=== PATIENT | female | born 1950 | race Caucasian/White ===

== ENCOUNTER → 2023-05-13 | Outpatient (CLI) | payer MEDICARE ==
[2023-05-13 15:09] LABS: African American GFR (CKD) >90 (>60 ml/min/1.73 sqM); Blood Urea Nitrogen 20 mg/dL (7-17); Non-African American GFR(CKD) >90 (>60 ml/min/1.73 sqM)
--- NOTE | 2023-05-13 16:54 | CT ---
EXAMINATION TYPE: CT ChestAbdPelvis w con CT DLP: 2925.9 mGycm, Automated exposure control for dose reduction was used. DATE OF EXAM: 05/13/2023 4:33 PM COMPARISON: . Chest radiograph 03/09/2023 CLINICAL INDICATION:Female, 72 years old with history of C50.112; [facility], Follow up for left sided breas t CA. R/O mets Technique: Multiple axial images of the chest, abdomen, and pelvis were obtained following the intrav enous administration of 100 mL Isovue-300. Oral contrast was a tree and shrub technician. Two-dimensional coronal and sagittal reconstructions were obtained. Findings: CHEST: Limited examination due to patient's body habitus. LUNGS/ PLEURA: Bibasilar dependent subsequent atelectasis and/or scarring. No pleural effusion or pne umothorax. No focal consolidation. No suspicious pulmonary nodule or mass. AIRWAY: Patent and unremarkable.. HEART: Cardiomegaly is demonstrated. Trace pericardial effusion. MEDIASTINUM: No pathologically enlarged mediastinal or hilar lymph nodes. VASCULATURE: No aortic aneurysm. Right chest wall IJ Mediport with distal tip of the catheter termin ating at the superior cavoatrial junction. MUSCULOSKELETAL: No acute osseous abnormalities. Mild multilevel degenerative disc disease. No aggres sive osseous lesion. SOFT TISSUES/LYMPH NODES: Bilateral breast implants demonstrated with breast surgical clips identifie d. There are dystrophic calcification more pronounced involving the left breast prosthesis. No pathol ogically enlarged axillary lymph nodes bilaterally. LOWER NECK: No significant findings. ABDOMEN: ABDOMEN LIVER: Unremarkable GALLBLADDER AND BILE DUCTS: The gallbladder is surgically absent. No biliary ductal dilatation. PANCREAS: Unremarkable. SPLEEN: Unremarkable. ADRENAL GLANDS: Unremarkable. KIDNEYS AND URETERS: No evidence of hydronephrosis or renal calculus. The kidneys enhance symmetrical ly. Contrast is associated within both collecting systems on the delayed phase. Exophytic left renal cyst measuring up to 1.6 cm. PELVIS BLADDER: Unremarkable REPRODUCTIVE: The uterus is surgically absent. ABDOMEN & PELVIS STOMACH AND BOWEL: Stomach appears unremarkable. Diverticulum involving the third portion of the duod enum. Enteric contrast reaches the mid small bowel. Pancolonic diverticulosis without evidence for ac muscogee diverticulitis. The appendix is within normal limits. No evidence of bowel obstruction. PERITONEUM: No evidence of pneumoperitoneum or free fluid. VASCULATURE: No evidence of aortic aneurysm. MUSCULOSKELETAL: No acute osseous abnormalities . Postsurgical changes from left proximal femur fixat ion. This creates streak artifact which limits evaluation. Mild multilevel degenerative disc disease. No aggressive osseous lesion. LYMPH NODES: No evidence for lymphadenopathy. SOFT TISSUE/ABDOMINAL WALL: Unremarkable IMPRESSION: 1. No CT evidence for metastatic disease within the chest, abdomen or pelvis. 2. Colonic diverticulosis without evidence for acute diverticulitis.
== END | disposition home or self-care (01) ==
LOC: RADCTMAIN 14:20
PROVIDERS: ATTEND Internal Medicine Hematology & Oncology
DX: C50.112 Malignant neoplasm of central portion of left female breast (principal); K57.30 Diverticulosis of large intestine without perforation or abscess without bleeding
CPT/HCPCS: 82565; 84520; 71260; 74177; 36415; Q9967

== ENCOUNTER 2023-08-28 10:27 | Inpatient (IN) | payer MEDICARE ==
--- NOTE | 2023-08-28 11:05 | ED ---
General Adult HPI - General Chief complaint: Shortness of Breath Stated complaint: Water Retention Time Seen by Provider: 08/28/23 10:55 Source: patient, family, RN notes reviewed, old records reviewed Mode of arrival: wheelchair Limitations: no limitations - History of Present Illness Initial comments: 73 -year-old female history of congestive heart failure and recent coronavirus presenting with increased dyspnea and weight gain. Patient states she's gained 13 pounds in the last 1 week. She is currently on 20 mg of Lasix daily. She has noted watery retention in both legs. She's had some mild chest discomfort without central chest pain. No measured fever. - Related Data Allergies Allergy/AdvReac Type Severity Reaction Status Date / Time acetaminophen [From [place]] Allergy Hallucinati Verified 08/28/23 10:41 ons hydrocodone [From [place]] Allergy Hallucinati Verified 08/28/23 10:41 ons Sulfa (Sulfonamide Allergy Rash/Hives Verified 08/28/23 10:41 Antibiotics) Review of Systems ROS Statement: Those systems with pertinent positive or pertinent negative responses have been documented in the HPI. ROS Other: All systems not noted in ROS Statement are negative. Past Medical History Past Medical History: Atrial Fibrillation, Asthma, Cancer, Chest Pain / Angina, Heart Failure, COPD, Osteoarthritis (OA), Pneumonia, Thyroid Disorder Additional Past Medical History / Comment(s): covid History of Any Multi-Drug Resistant Organisms: None Reported Past Surgical History: Cholecystectomy Additional Past Surgical History / Comment(s): bilat mastectomy Smoking Status: Never smoker Past Alcohol Use History: None Reported Past Drug Use History: None Reported General Exam Limitations: no limitations General appearance: alert, in no apparent distress Head exam: Present: atraumatic, normocephalic Eye exam: Present: normal appearance, PERRL ENT exam: Present: normal exam Neck exam: Present: normal inspection. Absent: tenderness, meningismus Respiratory exam: Present: rales, decreased breath sounds. Absent: respiratory distress Cardiovascular Exam: Present: regular rate, normal rhythm GI/Abdominal exam: Present: soft. Absent: distended, tenderness, guarding Extremities exam: Present: pedal edema Neurological exam: Present: alert, oriented X3, CN II-XII intact. Absent: motor sensory deficit Psychiatric exam: Present: normal affect, normal mood Skin exam: Present: warm, dry, intact. Absent: cyanosis, diaphoretic Course Vital Signs 08/28/23 08/28/23 10:36 12:00 Temperature 98.1 F Pulse Rate 77 80 Respiratory 24 20 Rate Blood Pressure 110/60 116/62 O2 Sat by Pulse 93 L 93 L Oximetry Medical Decision Making - Medical Decision Making Was pt. sent in by a medical professional or institution (, [facility], HADOOP CONSULTANT, urgent care, hospital, or [facility]...) When possible be specific @ -No Did you speak to anyone other than the patient for history (EMS, parent, family, police, friend...)? What history was obtained from this source @ -No Did you review nursing and triage notes (agree or disagree)? Why? @ -I reviewed and agree with nursing and triage notes Were old charts reviewed (outside hosp., previous admission, EMS record, old EKG, old radiological studies, urgent care reports/EKG's, [facility] records)? Report findings @ -No old charts were reviewed Differential Diagnosis (chest pain, altered mental status, abdominal pain women, abdominal pain men, vaginal bleeding, weakness, fever, dyspnea, syncope, headache, dizziness, GI bleed, back pain, seizure, CVA, palpatations, mental health, musculoskeletal)? @ -[Differential Dyspnea: Coronary syndrome, arrhythmia, tamponade, asthma, COPD, pulmonary embolism, pneumonia, pneumothorax, pulmonary effusion, anaphylaxis, diabetic ketoacidosis, flailed chest, pulmonary contusion, diaphragmatic rupture, anemia, neuromuscular, this is not meant to be an all-inclusive list. EKG interpreted by me (3pts min.). @ -[Sinus rhythm with first-degree AV block, rate is 75, RI interval 248, QRS duration 105, QTC 45, no ST segment elevation. X-rays interpreted by me (1pt min.). @ -Cardiomegaly, no meghna pulmonary edema, no pneumothorax CT interpreted by me (1pt min.). @ -None done U/S interpreted by me (1pt. min.). @ -None done What testing was considered but not performed or refused? (CT, X-rays, U/S, labs)? Why? @ -None What meds were considered but not given or refused? Why? @ -None Did you discuss the management of the patient with other professionals (professionals i.e. Dr., PA, HADOOP CONSULTANT, lab, RT, psych nurse, social sciences department chair, indigo mixer, teacher, tourist information officer, family service caseworker)? Give summary @ -Case discussed with Dr. Cha Was smoking cessation discussed for >3mins.? @ -No Was critical care preformed (if so, how long)? @ -No Were there social determinants of health that impacted care today? How? (Homelessness, low income, unemployed, alcoholism, drug addiction, transportation, low edu. Level, literacy, decrease access to med. care, fci, rehab)? @ -No Was there de-escalation of care discussed even if they declined (Discuss DNR or withdrawal of care, Hospice)? DNR status @ -No What co-morbidities impacted this encounter? (DM, HTN, Smoking, COPD, CAD, Cancer, CVA, ARF, Chemo, Hep., AIDS, mental health diagnosis, sleep apnea, mo rbid obesity)? @ -[CHF, hypoventilatory syndrome Was patient admitted / discharged? Hospital course, mention meds given and route, prescriptions, significant lab abnormalities, going to OR and other pertinent info. @ 73-year-old female with dyspnea and weight gain. Patient does appear edematous, with peripheral edema. She has had negative BNP and a negative troponin. She has a mild anemia with no baseline for comparison. Normal electrolytes, elevated bicarb which is likely related to chronic CO2 retention. Patient will be admitted for IV diuresis. Undiagnosed new problem with uncertain prognosis? @ -No Drug Therapy requiring intensive monitoring for toxicity (Heparin, Nitro, Insulin, Cardizem)? @ -No Were any procedures done? @ -No Diagnosis/symptom? @ -[Fluid overload, Acute, or Chronic, or Acute on Chronic? @ -Acute on chronic Uncomplicated (without systemic symptoms) or Complicated (systemic symptoms)? @ -default Side effects of treatment? @ -No Exacerbation, Progression, or Severe Exacerbation? @ -No Poses a threat to life or bodily function? How? (Chest pain, [place], NH, pneumonia, PE, COPD, DKA, ARF, appy, cholecystitis, CVA, Diverticulitis, Homicidal, Suicidal, threat to staff... and all critical care pts) @ -Yes, fluid overload, CHF - Lab Data Result diagrams: 08/28/23 11:08 08/28/23 11:08 Lab Results 08/28/23 08/28/2308/28/23 Range/Units 11:08 11:08 11:08 WBC 8.9 (3.8-10.6) k/uL RBC 3.19 L (3.80-5.40) m/uL Hgb 10.2 L (11.4-16.0) gm/dL Hct 31.6 L (34.0-46.0) % MCV 99.2 (80.0-100.0) fL MCH 32.1 (25.0-35.0) pg MCHC 32.3 (31.0-37.0) g/dL RDW 13.8 (11.5-15.5) % Plt Count 211 (150-450) k/uL MPV 8.8 Neutrophils % 72 % Lymphocytes % 14 % Monocytes % 9 % Eosinophils % 3 % Basophils % 0 % Neutrophils # 6.4 (1.3-7.7) k/uL Lymphocytes # 1.3 (1.0-4.8) k/uL Monocytes # 0.8 (0-1.0) k/uL Eosinophils # 0.3 (0-0.7) k/uL Basophils # 0.0 (0-0.2) k/uL PT 9.6 (9.0-12.0) sec INR 0.9 (<1.2) APTT 24.3 (22.0-30.0) sec Sodium 143 (137-145) mmol/L Potassium 3.9 (3.5-5.1) mmol/L Chloride 97 L (98-107) mmol/L Carbon Dioxide 37 H (22-30) mmol/L Anion Gap 9 mmol/L BUN 19 H (7-17) mg/dL Creatinine 0.64 (0.52-1.04) mg/dL Est GFR (CKD-EPI)AfAm >90 (>60 ml/min/1.73 sqM) Est GFR (CKD-EPI)NonAf 90 (>60 ml/min/1.73 sqM) Glucose 131 H (74-99) mg/dL Calcium 9.3 (8.4-10.2) mg/dL Magnesium 1.6 (1.6-2.3) mg/dL Total Bilirubin 0.3 (0.2-1.3) mg/dL AST 26 (14-36) U/L ALT 26 (4-34) U/L Alkaline Phosphatase 119 (38-126) U/L Troponin I (0.000-0.034) ng/mL NT-Pro-B Natriuret Pep 117 pg/mL Total Protein 6.4 (6.3-8.2) g/dL Albumin 3.3 L (3.5-5.0) g/dL 08/28/23 Range/Units 11:08 WBC (3.8-10.6) k/uL RBC (3.80-5.40) m/uL Hgb (11.4-16.0) gm/dL Hct (34.0-46.0) % MCV (80.0-100.0) fL MCH (25.0-35.0) pg MCHC (31.0-37.0) g/dL RDW (11.5-15.5) % Plt Count (150-450) k/uL MPV Neutrophils % % Lymphocytes % % Monocytes % % Eosinophils % % Basophils % % Neutrophils # (1.3-7.7) k/uL Lymphocytes # (1.0-4.8) k/uL Monocytes # (0-1.0) k/uL Eosinophils # (0-0.7) k/uL Basophils # (0-0.2) k/uL PT (9.0-12.0) sec INR (<1.2) APTT (22.0-30.0) sec Sodium (137-145) mmol/L Potassium (3.5-5.1) mmol/L Chloride (98-107) mmol/L Carbon Dioxide (22-30) mmol/L Anion Gap mmol/L BUN (7-17) mg/dL Creatinine (0.52-1.04) mg/dL Est GFR (CKD-EPI)AfAm (>60 ml/min/1.73 sqM) Est GFR (CKD-EPI)NonAf (>60 ml/min/1.73 sqM) Glucose (74-99) mg/dL Calcium (8.4-10.2) mg/dL Magnesium (1.6-2.3) mg/dL Total Bilirubin (0.2-1.3) mg/dL AST (14-36) U/L ALT (4-34) U/L Alkaline Phosphatase (38-126) U/L Troponin I <0.012 (0.000-0.034) ng/mL NT-Pro-B Natriuret Pep pg/mL Total Protein (6.3-8.2) g/dL Albumin (3.5-5.0) g/dL Disposition Clinical Impression: Congestive heart failure, Fluid overload Disposition: ADMITTED IP TO THIS HOSP Condition: Stable Is patient prescribed a controlled substance at d/c from ED?: No Referrals: Lawrence Sullivan MD [Primary Care Provider] - 1-2 days Time of Disposition: 13:22
--- NOTE | 2023-08-28 12:01 | XR ---
EXAMINATION TYPE: XR chest 2V DATE OF EXAM: 08/28/2023 COMPARISON: 03/09/2023 HISTORY: Shortness of breath TECHNIQUE: Frontal and lateral views of the chest are obtained. Exam is limited by the patient's bod y habitus and poor inspiration FINDINGS: Poor inspiration and body habitus limits evaluation of the left lung base. The possibility of a pneum onic infiltrate or atelectasis. To be less likely but not entirely excluded. The right lung is grossl y clear. There is no pneumothorax. There is no pulmonary vascular congestion. IMPRESSION: Limited study as described above. Cannot exclude atelectasis or infiltrate in the left frank ng base although felt to be unlikely.. If clinically indicated, PA and lateral view the chest recomme nded for further evaluation.
[2023-08-28 12:21] LABS: Basophils % (A) 0 %; Eosinophils # (A) 0.3 k/uL (0-0.7); Eosinophils % (A) 3 %; HCT 31.6 % (34.0-46.0); HGB 10.2 gm/dL (11.4-16.0); Lymphocytes # (A) 1.3 k/uL (1.0-4.8); Lymphocytes % (A) 14 %; MCH 32.1 pg (25.0-35.0); MCHC 32.3 g/dL (31.0-37.0); MCV 99.2 fL (80.0-100.0); Mean Platelet Volume 8.8; Monocytes # (A) 0.8 k/uL (0-1.0); Monocytes % (A) 9 %; Neutrophils # (A) 6.4 k/uL (1.3-7.7); Neutrophils % (A) 72 %; Platelet Count 211 k/uL (150-450); RBC 3.19 m/uL (3.80-5.40); RDW 13.8 % (11.5-15.5); WBC 8.9 k/uL (3.8-10.6)
[2023-08-28 12:38] LABS: INR 0.9 (<1.2); Partial Thromboplastin Time 24.3 sec (22.0-30.0); Prothrombin Time 9.6 sec (9.0-12.0)
[2023-08-28 12:42] LABS: AST 26 U/L (14-36); African American GFR (CKD) >90 (>60 ml/min/1.73 sqM); Albumin 3.3 g/dL (3.5-5.0); Alkaline Phosphatase 119 U/L (38-126); Anion Gap 9 mmol/L; Blood Urea Nitrogen 19 mg/dL (7-17); Calcium 9.3 mg/dL (8.4-10.2); Carbon Dioxide 37 mmol/L (22-30); Chloride 97 mmol/L (98-107); Glucose 131 mg/dL (74-99); Non-African American GFR(CKD) 90 (>60 ml/min/1.73 sqM); Potassium 3.9 mmol/L (3.5-5.1); Sodium 143 mmol/L (137-145); Total Bilirubin 0.3 mg/dL (0.2-1.3); Total Protein 6.4 g/dL (6.3-8.2)
[2023-08-28 12:43] LABS: ALT 26 U/L (4-34); Magnesium 1.6 mg/dL (1.6-2.3)
[2023-08-28 12:50] LABS: NT-Pro-B-Type Natriuretic Pept 117 pg/mL
[2023-08-28] MEDS ORDERED: FUROSEMIDE 10 MG/ML 4 ML VIAL IV STA (12:58)
[2023-08-28] MEDS ORDERED: NALOXONE 0.4 MG/ML 1 ML VIAL IV PRN (13:17)
--- NOTE | 2023-08-28 17:16 | P.HPIM ---
History of Present Illness H&P Date: 08/28/23 Chief Complaint: Shortness of breath 73 -year-old female history of congestive heart failure and recent coronavirus presenting with increased dyspnea and weight gain. Patient states she's gained 13 pounds in the last 1 week. She is currently on 20 mg of Lasix daily. She h as noted watery retention in both legs. She's had some mild chest discomfort without central chest pain. No measured fever. Blood work completed in ED reveals a WBC of 8.9, hemoglobin of 10.2 and platelet count of 211, sodium 143 count is 2.9, BUN/creatinine of 19/0.64 and blood glucose of 131, troponin of less than 0.012 and BNP of 117 Chest x-ray questionable atelectasis or infiltrate in left lung base but less likely Sinus rhythm with first-degree AV block, rate is 75, OH interval 248, QRS duration 105, QTC 45, no ST segment elevation Patient is being admitted for IV diuresis Review of Systems REVIEW OF SYSTEMS: CONSTITUTIONAL: No fever, no malaise, no fatigue. HEENT: No recent visual problems or hearing problems. Denied any sore throat. CARDIOVASCULAR: No chest pain, orthopnea, PND, no palpitations, no syncope. PULMONARY: No shortness of breath, no cough, no hemoptysis. GASTROINTESTINAL: No diarrhea, no nausea, no vomiting, no abdominal pain. NEUROLOGICAL: No headaches, no weakness, no numbness. HEMATOLOGICAL: Denies any bleeding or petechiae. GENITOURINARY: Denies any burning micturition, frequency, or urgency. MUSCULOSKELETAL/RHEUMATOLOGICAL: Denies any joint pain, swelling, or any muscle pain. ENDOCRINE: Denies any polyuria or polydipsia. The rest of the 14-point review of systems is negative. Past Medical History Past Medical History: Atrial Fibrillation, Asthma, Cancer, Chest Pain / Angina, Heart Failure, COPD, Osteoarthritis (OA), Pneumonia, Thyroid Disorder Additional Past Medical History / Comment(s): covid History of Any Multi-Drug Resistant Organisms: None Reported Past Surgical History: Cholecystectomy Additional Past Surgical History / Comment(s): bilat mastectomy Smoking Status: Never smoker Past Alcohol Use History: None Reported Past Drug Use History: None Reported Medications and Allergies Home Medications Medication Instructions Recorded Confirmed Type ALPRAZolam [Xanax] 0.25 mg PO HS 08/28/23 08/28/23 History Albuterol Inhaler [Ventolin Hfa 2 puff INHALATION RT-Q6H PRN 08/28/23 08/28/23 History Inhaler] Albuterol Nebulized [Ventolin 2.5 mg INHALATION RT-QID PRN 08/28/23 08/28/23 History Nebulized] Alfuzosin HCl [Alfuzosin HCl ER] 10 mg PO DAILY 08/28/23 08/28/23 History Ascorbic Acid [Vitamin C] 500 mg PO DAILY 08/28/23 08/28/23 History Atorvastatin [Lipitor] 40 mg PO HS 08/28/23 08/28/23 History Bifidobacterium Infantis [Align] 4 mg PO DAILY 08/28/23 08/28/23 History Calcium 500mg 500 mg PO DAILY 08/28/23 08/28/23 History Celecoxib [CeleBREX] 200 mg PO DAILY 08/28/23 08/28/23 History Clobetasol Propionate [Temovate 1 applic TOPICAL BID 08/28/23 08/28/23 History 0.05% Oint] Cyanocobalamin (Vitamin B-12) 1,000 mcg PO DAILY 08/28/23 08/28/23 History [Vitamin B-12] DULoxetine HCL [Cymbalta] 60 mg PO DAILY 08/28/23 08/28/23 History Denosumab [Prolia] 60 mg SQ Q180D 08/28/23 08/28/23 History Diclofenac Sodium Gel [Voltaren 1% 2 - 4 gm TOPICAL QID PRN 08/28/23 08/28/23 History Gel] Docusate [Colace] 100 mg PO DAILY 08/28/23 08/28/23 History Felodipine [Plendil] 10 mg PO DAILY 08/28/23 08/28/23 History Ferrous Sulfate [Feosol] 325 mg PO DAILY 08/28/23 08/28/23 History Fluticasone Propion/Salmeterol 1 puff INHALATION RT-BID 08/28/23 08/28/23 History [Advair 250-50 Diskus] Furosemide [Lasix] 20 mg PO DAILY 08/28/23 08/28/23 History Gabapentin 600 mg PO TID 08/28/23 08/28/23 History Glucosamine(Unknown Dose) 2 tab PO DAILY 08/28/23 08/28/23 History Iodine(Unknown Dose) 1 tab PO DAILY 08/28/23 08/28/23 History Levothyroxine Sodium [Synthroid] 175 mcg PO DAILY 08/28/23 08/28/23 History Losartan Potassium 100 mg PO DAILY 08/28/23 08/28/23 History Magnesium Oxide [Mag-Ox] 250 mg PO DAILY 08/28/23 08/28/23 History Menthol-Zinc Oxide Oint 1 applic TOPICAL QID PRN 08/28/23 08/28/23 History [Calmoseptine Ointment] Metoprolol Tartrate [Lopressor] 100 mg PO BID 08/28/23 08/28/23 History Montelukast [Singulair] 10 mg PO DAILY 08/28/23 08/28/23 History Nystatin 100,000 Unit/gm Powd 1 applic TOPICAL BID 08/28/23 08/28/23 History [Mycostatin Powder] Nystatin 100,000Unit/gm Cream 1 applic TOPICAL BID 08/28/23 08/28/23 History [Mycostatin Cream] Pantoprazole Sodium [Protonix] 20 mg PO DAILY 08/28/23 08/28/23 History Potassium Chloride ER [K-Dur 10] 10 meq PO BID 08/28/23 08/28/23 History Selenium 200 mcg PO DAILY 08/28/23 08/28/23 History Systane Eye Gel 0.3% 1 applic OPHTHALMIC DAILY 08/28/23 08/28/23 History Tiotropium 2.5 Mcg/Puff [Spiriva 2 puff INHALATION RT-DAILY 08/28/23 08/28/23 History Respimat 2.5 Mcg] Triamcinolone 0.1% Ointment 1 applic TOPICAL BID 08/28/23 08/28/23 History [Kenalog 0.1% Ointment] Zinc Gluconate [Zinc] 50 mg PO DAILY 08/28/23 08/28/23 History Zolpidem Tartrate [Ambien Cr] 6.25 mg PO HS 08/28/23 08/28/23 History cycloSPORINE 0.05% OPHTH SOLN 1 drop BOTH EYES Q12H 08/28/23 08/28/23 History [Restasis] diphenhydrAMINE [Benadryl] 25 mg PO HS 08/28/23 08/28/23 History gemfibroziL [Lopid] 600 mg PO BID 08/28/23 08/28/23 History polyethylene glycoL 3350 [Miralax] 17 gm PO DAILY 08/28/23 08/28/23 History traMADol HCL 50 mg PO BID 08/28/23 08/28/23 History Allergies Allergy/AdvReac Type Severity Reaction Status Date / Time Sulfa (Sulfonamide Allergy Rash/Hives Verified 08/28/23 15:00 Antibiotics) sulfamethoxazole Allergy Rash/Hives Verified 08/28/23 15:00 [From Bactrim] trimethoprim [From Bactrim] Allergy Rash/Hives Verified 08/28/23 15:00 acetaminophen [From [place]] AdvReac Hallucinati Verified 08/28/23 15:00 ons hydrocodone [From [place]] AdvReac Hallucinati Verified 08/28/23 15:00 ons Physical Exam Vitals: Vital Signs Temp Pulse Resp BP Pulse Ox 08/28/23 13:42 97.2 F L 86 20 150/74 98 08/28/23 12:00 80 20 116/62 93 L 08/28/23 10:36 98.1 F 77 24 110/60 93 L Intake and Output 08/27/23 08/28/23 08/28/23 22:59 06:59 14:59 Other: Weight 138.346 kg General appearance: alert, in no apparent distress Head exam: Present: atraumatic, normocephalic Eye exam: Present: normal appearance, PERRL ENT exam: Present: normal exam Neck exam: Present: normal inspection. Absent: tenderness, meningismus Respiratory exam: Present: rales, decreased breath sounds. Absent: respiratory distress Cardiovascular Exam: Present: regular rate, normal rhythm GI/Abdominal exam: Present: soft. Absent: distended, tenderness, guarding Extremities exam: Present: pedal edema Neurological exam: Present: alert, oriented X3, CN II-XII intact. Absent: motor sensory deficit Psychiatric exam: Present: normal affect, normal mood Skin exam: Present: warm, dry, intact. Absent: cyanosis, diaphoretic Results CBC & Chem 7: 08/28/23 11:08 08/28/23 11:08 Labs: Abnormal Lab Results - Last 24 Hours (Table) 08/28/23 08/28/23 Range/Units 11:08 11:08 RBC 3.19 L (3.80-5.40) m/uL Hgb 10.2 L (11.4-16.0) gm/dL Hct 31.6 L (34.0-46.0) % Chloride 97 L (98-107) mmol/L Carbon Dioxide 37 H (22-30) mmol/L BUN 19 H (7-17) mg/dL Glucose 131 H (74-99) mg/dL Albumin 3.3 L (3.5-5.0) g/dL Assessment and Plan Assessment: 1. Acute exacerbation CHF; as indicated. Is seen, increasing weight and peripheral edema - We will monitor and trend troponin - Patient is placed on Lasix 20 mg IV every 12 hours; we will monitor strict JAMILA's, daily weights, renal function and electrolytes; low-salt and fluid restricted. Cardiology is consulted for further recommendations; metoprolol 100 mg daily appreciate input; recommend 2-D echo 2. Hyperlipidemia; Lipitor 40 mg daily at bedtime 3. Hypertension; losartan 100 mg daily 4. Hypothyroidism; levothyroxin 175 MCG daily 5. Asthma; continue with DuoNeb nebulizer treatments 4 times a day and when necessary; Singulair 10 mg daily; continue with home inhaler therapy 6. Anxiety/depression; Xanax 0.5 mg daily at bedtime; Cymbalta 60 mg daily
[2023-08-28] MEDS: ALBUTEROL NEBULIZED 2.5 MG/3 ML INHALATION PRN (19:46)
[2023-08-28] MEDS: ATORVASTATIN 40 MG TAB PO SCH (20:54)
[2023-08-28] MEDS: ALPRAZolam 0.25 MG TAB PO SCH (20:55)
[2023-08-28] MEDS: traMADol 50 MG TAB PO SCH (20:55)
[2023-08-28] MEDS: ZOLPIDEM 5 MG TAB PO SCH (20:55)
[2023-08-28] MEDS: POTASSIUM CHLORIDE ER 10 MEQ TAB.ER.PRT PO SCH (20:55)
[2023-08-28] MEDS: GABAPENTIN 300 MG CAP PO SCH (20:55)
[2023-08-28] MEDS: METOPROLOL TARTRATE 50 MG TAB PO SCH (20:55)
[2023-08-28] MEDS: FUROSEMIDE 10 MG/ML 4 ML VIAL IV SCH (20:55)
--- NOTE | 2023-08-28 21:08 | CT ---
EXAMINATION TYPE: CT chest angio for PE DATE OF EXAM: 08/28/2023 COMPARISON: 05/13/2023 HISTORY: Elevated D-dimer. CT DLP: 580.60 mGycm Automated exposure control for dose reduction was used. CONTRAST: CT Chest for pulmonary embolism performed with with IV Contrast, patient injected with 100 ml mL of I sovue 370. FINDINGS: LUNGS: Bilateral subsegmental changes of the lungs most typical of atelectasis. There is central and basilar bronchiectasis. No sizable pneumothorax. MEDIASTINUM: Atherosclerotic change of the aorta. Maximal dimension of the aorta measures 4.2 cm comp atible with mild aneurysmal dilation of the ascending aorta. There is suboptimal enhancement of the pulmonary arteries. Grossly there is no central pulmonary embo lism. Distal branches suboptimally opacified could not exclude pulmonary embolism this distribution. The heart is enlarged and there is a trace of pericardial fluid. Coronary artery calcifications noted . No pathologic-sized lymphadenopathy. There is shotty adenopathy in the mediastinum and hilum. OTHER: Evidence of previous breast implant surgery noted. Postcholecystectomy clips. Multilevel ten re degenerative disc disease of the thoracic spine. There is a small hiatal hernia. Bilateral shoulde r arthropathy. IMPRESSION: 1. Limited exam due to suboptimal opacification. No central pulmonary embolism. Could not exclude a p ulmonary embolism in the secondary and distal branches with particular attention to the left lower lo be branch axial image 71. 2. COPD with basilar bronchiectasis and areas of consolidation most likely in the basis of atelectasi s.
[2023-08-28] MEDS: HEPARIN SODIUM,PORCINE 5,000 UNIT/ML 1 ML VIAL SQ SCH (23:42)
[2023-08-29] MEDS: FENOFIBRATE 160 MG TAB PO SCH (08:43)
[2023-08-29] MEDS: METOPROLOL TARTRATE 50 MG TAB PO SCH ×2 (08:43→19:57)
[2023-08-29] MEDS: FERROUS SULFATE 325 MG TAB PO SCH (08:43)
[2023-08-29] MEDS: DOCUSATE 100 MG CAP PO SCH (08:43)
[2023-08-29] MEDS: GABAPENTIN 300 MG CAP PO SCH ×3 (08:44→19:57)
[2023-08-29] MEDS: traMADol 50 MG TAB PO SCH ×2 (08:44→19:55)
[2023-08-29] MEDS: TAMSULOSIN 0.4 MG CAP.ER.24H PO SCH (08:44)
[2023-08-29] MEDS: PANTOPRAZOLE 40 MG TABLET PO SCH (08:44)
[2023-08-29] MEDS: LEVOTHYROXINE 50 MCG TAB PO SCH (08:45)
[2023-08-29] MEDS: CYANOCOBALAMIN 500 MCG TAB PO SCH (08:45)
[2023-08-29] MEDS: LOSARTAN 50 MG TAB PO SCH (08:46)
[2023-08-29] MEDS: HEPARIN SODIUM,PORCINE 5,000 UNIT/ML 1 ML VIAL SQ SCH ×3 (08:46→19:55)
[2023-08-29] MEDS: ZINC SULFATE 220 MG CAP PO SCH (08:46)
[2023-08-29] MEDS: FUROSEMIDE 10 MG/ML 4 ML VIAL IV SCH ×2 (08:46→19:55)
[2023-08-29] MEDS: amLODIPine 10 MG TAB PO SCH (08:46)
[2023-08-29] MEDS: MONTELUKAST 10 MG TAB PO SCH (08:46)
[2023-08-29] MEDS: POTASSIUM CHLORIDE ER 10 MEQ TAB.ER.PRT PO SCH ×2 (08:46→19:57)
[2023-08-29] MEDS: ASCORBIC ACID 500 MG TAB PO SCH (08:46)
[2023-08-29] MEDS: MAGNESIUM OXIDE 400 MG TAB PO SCH (08:46)
[2023-08-29] MEDS: polyethylene glycoL 3350 17 GM POWD.PACK PO SCH (08:47)
[2023-08-29] MEDS: DULoxetine HCL 60 MG CAPSULE.DR PO SCH (08:47)
[2023-08-29] MEDS ORDERED: NON FORMULARY DRUG (Selenium [Selenium] 100 MCG Tablet) PO SCH (09:00)
[2023-08-29 09:51] LABS: Basophils # (A) 0.03 X 10*3/uL (0.00-0.10); Basophils % (A) 0.4 %; Eosinophils # (A) 0.25 X 10*3/uL (0.04-0.35); HCT 31.5 % (37.2-46.3); HGB 9.6 d/dL (12.0-15.0); Lymphocytes # (A) 1.47 X 10*3/uL (0.90-5.00); Lymphocytes % (A) 17.7 %; MCH 31.1 pg (27.0-32.0); MCHC 30.5 d/dL (32.0-37.0); MCV 101.9 FL (80.0-97.0); Mean Platelet Volume 11.6 FL (9.5-12.2); NRBC Per 100 WBC 0 X 10*3/uL (0.00-0.01); Neutrophils # (A) 5.48 X 10*3/uL (1.80-7.70); Neutrophils % (A) 66.1 %; Platelet Count 215 X 10*3/uL (140-440); RBC 3.09 X 10*6/uL (4.10-5.20); RDW 13.9 % (11.5-14.5)
--- NOTE | 2023-08-29 13:26 | CA ---
Transthoracic Echo Report Name: Yeni Rodriguez Age: 73 Gender: F : 1950 Exam Date: 08/28/2023 17:46 Exam Location: [facility] Ht (in): 62 Wt (lb): 305 Ordering Physician: David Blakely MD Attending/Referring Phys: [id number], Zora Keyboard Instrument Tuner Lupe Baker RDCS Procedure CPT: Indications: chf Cardiac Hx: Technical Quality: Very technically difficult study Contrast 1: Lumason Total Dose (mL): 4 Contrast 2: Total Dose (mL): MEASUREMENTS (Male / Female) Normal Values 2D ECHO LV Diastolic Diameter PLAX 5.5 cm 4.2 - 5.9 / 3.9 - 5.3 cm LV Systolic Diameter PLAX 3.3 cm IVS Diastolic Thickness 1.8 cm 0.6 - 1.0 / 0.6 - 0.9 cm LVPW Diastolic Thickness 2.2 cm 0.6 - 1.0 / 0.6 - 0.9 cm LV Relative Wall Thickness 0.7 M-MODE Aortic Root Diameter MM 2.4 cm LA Systolic Diameter MM 2.2 cm LA Ao Ratio MM 0.9 AV Cusp Separation MM 0.7 cm FINDINGS Left Ventricle Severely increased left ventricular wall thickness. Left ventricular cavity size normal. Normal left ventricular systolic function with no obvious regional wall motion abnormalities. Left ventricular ejection fraction is estimated at 50-55%. Right Ventricle Right ventricle not well visualized. Right ventricular dilatation. Right Atrium Right atrium not well visualized. Left Atrium Normal left atrial size. Mitral Valve Mitral valve not well visualized. No mitral regurgitation. Aortic Valve Aortic valve not well visualized. No aortic regurgitation. Tricuspid Valve Tricuspid valve not well visualized. Pulmonic Valve Pulmonic valve not well visualized. Pericardium No pericardial effusion. Aorta Normal size aortic root and proximal ascending aorta. CONCLUSIONS Severe LVH with ejection fraction of about 50-55% Previewed by: Dr. Anirudh Matt MD (Electronically Signed) Final Date: 29 August 2023 13:25
--- NOTE | 2023-08-29 14:22 | P.PN ---
Subjective Progress Note Date: 08/29/23 73 -year-old female history of congestive heart failure and recent coronavirus presenting with increased dyspnea and weight gain. Patient states she's gained 13 pounds in the last 1 week. She is currently on 20 mg of Lasix daily. She has noted watery retention in both legs. She's had some mild chest discomfort without central chest pain. No measured fever. Blood work completed in ED reveals a WBC of 8.9, hemoglobin of 10.2 and platelet count of 211, sodium 143 count is 2.9, BUN/creatinine of 19/0.64 and blood glucose of 131, troponin of less than 0.012 and BNP of 117 Chest x-ray questionable atelectasis or infiltrate in left lung base but less likely Sinus rhythm with first-degree AV block, rate is 75, NV interval 248, QRS duration 105, QTC 45, no ST segment elevation Patient is being admitted for IV diuresis 08/29/2023 -- Patient is seen and evaluated sitting up in bedside chair; reports chest congestion; nonproductive cough - Patient remains afebrile; O2 saturation 93% on 5 L -- White blood count remains within normal limit at 8.30; d-dimer slightly elevated at 0.8 to; CT of the chest is completed; no central pulmonary embolism but PE and secondary and distal branches cannot be ruled out especially left lower lobe branch; some basilar atelectasis and consolidations - We will start patient on IV Rocephin and azithromycin; we will consult pulmonary for further recommendations; appreciate input - Patient remains on Lasix 40 mg IV every 12 hours; echocardiogram reveals severe LVH with EF of 50-55%; cardiology consulted; appreciate input Objective - Vital Signs Vital signs: Vital Signs Temp 98.0 F 08/29/23 07:00 Pulse 105 H 08/29/23 07:00 Resp 19 08/29/23 07:00 BP 123/75 08/29/23 07:00 Pulse Ox 93 L 08/29/23 07:00 FiO2 40 08/29/23 03:44 Intake & Output 08/28/23 08/29/23 08/29/23 18:59 06:59 18:59 Intake Total 118 118 Output Total 1999 1199 Balance -188 -1199 118 Weight 138.346 kg 136.5 kg Intake: Oral 118 118 Output: Urine 1999 1199 Other: Voiding Method Indwelling Catheter Indwelling Catheter Indwelling Catheter - Exam PHYSICAL EXAMINATION: GENERAL: The patient is alert and oriented x3, not in any acute distress. Well developed, well nourished. HEENT: Pupils are round and equally reacting to light. EOMI. No scleral icterus. No conjunctival pallor. Normocephalic, atraumatic. No pharyngeal erythema. No thyromegaly. CARDIOVASCULAR: S1 and S2 present. No murmurs, rubs, or gallops. PULMONARY: Chest is clear to auscultation, no wheezing or crackles. ABDOMEN: Soft, nontender, nondistended, normoactive bowel sounds. No palpable organomegaly. MUSCULOSKELETAL: No joint swelling or deformity. EXTREMITIES: No cyanosis, clubbing, or pedal edema. NEUROLOGICAL: Gross neurological examination did not reveal any focal deficits. SKIN: No rashes. - Labs CBC & Chem 7: 08/29/23 05:27 08/28/23 11:08 Labs: Abnormal Lab Results - Last 24 Hours (Table) 08/28/23 08/28/23 08/28/23 Range/Units 11:08 11:08 17:56 RBC 3.19 L (3.80-5.40) m/uL Hgb 10.2 L (11.4-16.0) gm/dL Hct 31.6 L (34.0-46.0) % MCV (80.0-97.0) FL MCHC (32.0-37.0) d/dL D-Dimer 0.82 H (<0.60) mg/L FEU Chloride 97 L (98-107) mmol/L Carbon Dioxide 37 H (22-30) mmol/L BUN 19 H (7-17) mg/dL Glucose 131 H (74-99) mg/dL Albumin 3.3 L (3.5-5.0) g/dL 08/29/23 Range/Units 05:27 RBC 3.09 L (3.80-5.40) m/uL Hgb 9.6 L (11.4-16.0) gm/dL Hct 31.5 L (34.0-46.0) % MCV 101.9 H (80.0-97.0) FL MCHC 30.5 L (32.0-37.0) d/dL D-Dimer (<0.60) mg/L FEU Chloride (98-107) mmol/L Carbon Dioxide (22-30) mmol/L BUN (7-17) mg/dL Glucose (74-99) mg/dL Albumin (3.5-5.0) g/dL Assessment and Plan Assessment: 1. Acute exacerbation CHF; as indicated. Is seen, increasing weight and peripheral edema - We will monitor and trend troponin - Patient is placed on Lasix 20 mg IV every 12 hours; we will monitor strict JAMILA's, daily weights, renal function and electrolytes; low-salt and fluid restricted. Cardiology is consulted for further recommendations; metoprolol 100 mg daily appreciate input; recommend 2-D echo 2. Hyperlipidemia; Lipitor 40 mg daily at bedtime 3. Hypertension; losartan 100 mg daily 4. Hypothyroidism; levothyroxin 175 MCG daily 5. Asthma; continue with DuoNeb nebulizer treatments 4 times a day and when necessary; Singulair 10 mg daily; continue with home inhaler therapy 6. Anxiety/depression; Xanax 0.5 mg daily at bedtime; Cymbalta 60 mg daily
[2023-08-29 14:49] LABS: BUN/Creat Ratio 16.29 Ratio (12.00-20.00); Blood Urea Nitrogen 11.4 mg/dL (9.0-27.0); Calcium 9.3 mg/dL (8.7-10.3); Carbon Dioxide 39.9 mmol/L (21.6-31.8); Chloride 91 mmol/L (96-109); Glucose 117 mg/dL (70-110); Potassium 3.2 mmol/L (3.5-5.5); Sodium 142 mmol/L (135-145)
--- NOTE | 2023-08-29 16:06 | P.CRDCN ---
History of Present Illness Consult date: 08/29/23 Consult reason: congestive heart failure History of present illness: This is Pipo Gilliam NP, I'm dictating on behalf of Dr. Matt's H&P and A&P The patient was interviewed and examined. HPI: Patient is a pleasant 73-year-old female with past medical history consistent with atrial fibrillation, asthma, cancer, angina, heart failure, COPD, osteophytes right's, pneumonia, hypothyroidism, and previous colon infection who presents to the hospital with complaints of bilateral lower extremity swelling and increased shortness of breath. Patient reports that she was recently hospitalized for 13 days at [facility] in [place], and states that just a few days after being there, she noted that her bilateral lower extremities were swelling, and that she was having increased shortness of breath with movement. Patient reports that she's gained approximately 13 pounds after being out of the hospital. The patient presented to our emergency department for further evaluation. Imaging was completed which did not demonstrate any obvious acute process. Patient had an echocardiogram completed which showed severe LVH with an EF of about 50-55%. Cardiology was consulted for assistance with management of CHF. Upon examination, the patient reports that she feels slightly better today. Patient is on Lasix 40 g IV push every 12 hours. ROS: [No fever, chills, or rigors] [no cough, phlegm, or expectoration] [no nausea, vomiting, or diarrhea] [no hematuria, dysuria] [no musculoskelatal complaints] [no strokes or seizures] [no skin lesions] EXAMINATION: GENERAL: Well-appearing, well-nourished and in no acute distress. NECK: Supple without JVD or thyromegaly. LUNGS: Breath sounds clear but diminished to auscultation bilaterally. Respiration equal and unlabored. No wheezes, rales or rhonchi. HEART: Regular rate and rhythm without murmurs, rubs or gallops. S1 and S2 heard. EXTREMITIES: Normal range of motion, bilateral lower extremity edema. No clubbing or cyanosis. Peripheral pulses intact and strong. REVIEW OF LABS, ECG & MEDICAL DATA: LABS: White count 8.3, hematoma 9.6, platelets 2:15, sodium 142, potassium 3.2, d-dimer 0.82, B1 11.4, creatinine 0.7, calcium 9.3, troponin less than 0.012, BNP 117 EKG: Normal sinus rhythm with first-degree heart block IMAGING: Chest x-ray dated 08/28/2023 demonstrates limited study, cannot exclude atelectasis or infiltrate in the left lung base although felt to be unlikely, if clinically indicated PA and lateral view of the chest recommended for further evaluation. Echocardiogram dated 08/28/2023 demonstrates severe LVH with ejection fraction of about 50-55%. CT angiogram of the chest dated 08/28/2023 demonstrates limited exam due to suboptimal paced vacation, no central pulmonary embolism, could not exclude a pulmonary embolism in the secondary and distal branches with particular attention to the left lower lobe branch axial image 71, COPD with basilar bronchiectasis and areas of consolidation most likely in the basis of atelectasis. VITALS: Temp 98.0, pulse 105, respirations 19, blood pressure 123/75, O2 saturation 93% on 5 L via nasal cannula IMPRESSION: 1. Acute exacerbation congestive heart failure 2. Bilateral lower extremity edema 3. History COPD 4. Recent hospitalization PLAN: Check TSH. Obtain records from [facility] in [place]. Echocardiogram demonstrates severe LVH with EF around 50-55%. Continue IV Lasix as ordered. Continue home cardiac medications. Further recommendations based on patient's clinical course. Thank you for the consult and allowing us to participate in the care of this patient. Past Medical History Past Medical History: Atrial Fibrillation, Asthma, Cancer, Chest Pain / Angina, Heart Failure, COPD, Osteoarthritis (OA), Pneumonia, Thyroid Disorder Additional Past Medical History / Comment(s): covid History of Any Multi-Drug Resistant Organisms: None Reported Past Surgical History: Cholecystectomy Additional Past Surgical History / Comment(s): bilat mastectomy Smoking Status: Never smoker Past Alcohol Use History: None Reported Past Drug Use History: None Reported Medications and Allergies Home Medications Medication Instructions Recorded Confirmed Type ALPRAZolam [Xanax] 0.25 mg PO HS 08/28/23 08/28/23 History Albuterol Inhaler [Ventolin Hfa 2 puff INHALATION RT-Q6H PRN 08/28/23 08/28/23 History Inhaler] Albuterol Nebulized [Ventolin 2.5 mg INHALATION RT-QID PRN 08/28/23 08/28/23 History Nebulized] Alfuzosin HCl [Alfuzosin HCl ER] 10 mg PO DAILY 08/28/23 08/28/23 History Ascorbic Acid [Vitamin C] 500 mg PO DAILY 08/28/23 08/28/23 History Atorvastatin [Lipitor] 40 mg PO HS 08/28/23 08/28/23 History Bifidobacterium Infantis [Align] 4 mg PO DAILY 08/28/23 08/28/23 History Calcium 500mg 500 mg PO DAILY 08/28/23 08/28/23 History Celecoxib [CeleBREX] 200 mg PO DAILY 08/28/23 08/28/23 History Clobetasol Propionate [Temovate 1 applic TOPICAL BID 08/28/23 08/28/23 History 0.05% Oint] Cyanocobalamin (Vitamin B-12) 1,000 mcg PO DAILY 08/28/23 08/28/23 History [Vitamin B-12] DULoxetine HCL [Cymbalta] 60 mg PO DAILY 08/28/23 08/28/23 History Denosumab [Prolia] 60 mg SQ Q180D 08/28/23 08/28/23 History Diclofenac Sodium Gel [Voltaren 1% 2 - 4 gm TOPICAL QID PRN 08/28/23 08/28/23 History Gel] Docusate [Colace] 100 mg PO DAILY 08/28/23 08/28/23 History Felodipine [Plendil] 10 mg PO DAILY 08/28/23 08/28/23 History Ferrous Sulfate [Feosol] 325 mg PO DAILY 08/28/23 08/28/23 History Fluticasone Propion/Salmeterol 1 puff INHALATION RT-BID 08/28/23 08/28/23 History [Advair 250-50 Diskus] Furosemide [Lasix] 20 mg PO DAILY 08/28/23 08/28/23 History Gabapentin 600 mg PO TID 08/28/23 08/28/23 History Glucosamine(Unknown Dose) 2 tab PO DAILY 08/28/23 08/28/23 History Iodine(Unknown Dose) 1 tab PO DAILY 08/28/23 08/28/23 History Levothyroxine Sodium [Synthroid] 175 mcg PO DAILY 08/28/23 08/28/23 History Losartan Potassium 100 mg PO DAILY 08/28/23 08/28/23 History Magnesium Oxide [Mag-Ox] 250 mg PO DAILY 08/28/23 08/28/23 History Menthol-Zinc Oxide Oint 1 applic TOPICAL QID PRN 08/28/23 08/28/23 History [Calmoseptine Ointment] Metoprolol Tartrate [Lopressor] 100 mg PO BID 08/28/23 08/28/23 History Montelukast [Singulair] 10 mg PO DAILY 08/28/23 08/28/23 History Nystatin 100,000 Unit/gm Powd 1 applic TOPICAL BID 08/28/23 08/28/23 History [Mycostatin Powder] Nystatin 100,000Unit/gm Cream 1 applic TOPICAL BID 08/28/23 08/28/23 History [Mycostatin Cream] Pantoprazole Sodium [Protonix] 20 mg PO DAILY 08/28/23 08/28/23 History Potassium Chloride ER [K-Dur 10] 10 meq PO BID 08/28/23 08/28/23 History Selenium 200 mcg PO DAILY 08/28/23 08/28/23 History Systane Eye Gel 0.3% 1 applic OPHTHALMIC DAILY 08/28/23 08/28/23 History Tiotropium 2.5 Mcg/Puff [Spiriva 2 puff INHALATION RT-DAILY 08/28/23 08/28/23 History Respimat 2.5 Mcg] Triamcinolone 0.1% Ointment 1 applic TOPICAL BID 08/28/23 08/28/23 History [Kenalog 0.1% Ointment] Zinc Gluconate [Zinc] 50 mg PO DAILY 08/28/23 08/28/23 History Zolpidem Tartrate [Ambien Cr] 6.25 mg PO HS 08/28/23 08/28/23 History cycloSPORINE 0.05% OPHTH SOLN 1 drop BOTH EYES Q12H 08/28/23 08/28/23 History [Restasis] diphenhydrAMINE [Benadryl] 25 mg PO HS 08/28/23 08/28/23 History gemfibroziL [Lopid] 600 mg PO BID 08/28/23 08/28/23 History polyethylene glycoL 3350 [Miralax] 17 gm PO DAILY 08/28/23 08/28/23 History traMADol HCL 50 mg PO BID 08/28/23 08/28/23 History Allergies Allergy/AdvReac Type Severity Reaction Status Date / Time Sulfa (Sulfonamide Allergy Rash/Hives Verified 08/28/23 15:00 Antibiotics) sulfamethoxazole Allergy Rash/Hives Verified 08/28/23 15:00 [From Bactrim] trimethoprim [From Bactrim] Allergy Rash/Hives Verified 08/28/23 15:00 acetaminophen [From [place]] AdvReac Hallucinati Verified 08/28/23 15:00 ons hydrocodone [From [place]] AdvReac Hallucinati Verified 08/28/23 15:00 ons Physical Exam Vitals: Vital Signs Temp Pulse Pulse Pulse Resp BP Pulse Ox 08/29/23 15:00 99.1 F 102 H 18 86/48 95 08/29/23 07:00 98.0 F 105 H 19 123/75 93 L 08/29/23 03:44 08/29/23 01:16 97.7 F 92 15 111/63 95 08/28/23 23:40 08/28/23 19:57 94 08/28/23 19:47 92 08/28/23 19:01 98.2 F 105 H 18 113/67 97 08/28/23 16:10 98.1 F 97 18 127/66 94 L FiO2 08/29/23 15:00 08/29/23 07:00 08/29/23 03:44 40 08/29/23 01:16 08/28/23 23:40 40 08/28/23 19:57 40 08/28/23 19:47 08/28/23 19:01 08/28/23 16:10 Intake and Output 08/29/23 08/29/23 08/29/23 06:59 14:59 22:59 Intake Total 526 Balance 526 Intake: Oral 526 Other: Voiding Method Indwelling Catheter Weight 136.5 kg Results 08/29/23 05:27 08/29/23 05:27 CBC 08/29/23 Range/Units 05:27 WBC 8.30 (4.50-10.00) X 10*3/uL RBC 3.09 L (4.10-5.20) X 10*6/uL Hgb 9.6 L (12.0-15.0) d/dL Hct 31.5 L (37.2-46.3) % Plt Count 215 (140-440) X 10*3/uL Comprehensive Metabolic Panel 08/29/23 Range/Units 05:27 Sodium 142 (135-145) mmol/L Potassium 3.2 L (3.5-5.5) mmol/L Chloride 91 L (96-109) mmol/L Carbon Dioxide 39.9 H (21.6-31.8) mmol/L BUN 11.4 (9.0-27.0) mg/dL Creatinine 0.7 (0.6-1.5) mg/dL Glucose 117 H (70-110) mg/dL Calcium 9.3 (8.7-10.3) mg/dL Current Medications Generic Name Dose Route Start Last Admin Trade Name Freq PRN Reason Stop Dose Admin Albuterol Sulfate 2.5 mg 08/28/23 17:08 08/28/23 19:46 Albuterol Nebulized 2.5 Mg/3 Ml INHALATION 2.5 mg RT-QID PRN Administration Shortness Of Breath Alprazolam 0.25 mg 08/28/23 21:00 08/28/23 20:55 Alprazolam 0.25 Mg Tab PO 0.25 mg HS NOAH Administration Amlodipine Besylate 10 mg 08/29/23 09:00 08/29/23 08:46 Amlodipine 10 Mg Tab PO 10 mg DAILY NOAH Administration Ascorbic Acid 500 mg 08/29/23 09:00 08/29/23 08:46 Ascorbic Acid 500 Mg Tab PO 500 mg DAILY NOAH Administration Atorvastatin Calcium 40 mg 08/28/23 21:00 08/28/23 20:54 Atorvastatin 40 Mg Tab PO 40 mg HS NOAH Administration Budesonide/Formoterol Fumarate 2 puff 08/28/23 20:00 Symbicort 80-4.5 Mcg Inhaler INHALATION RT-BID NOAH Cyanocobalamin 1,000 mcg 08/29/23 09:00 08/29/23 08:45 Cyanocobalamin 500 Mcg Tab PO 1,000 mcg DAILY NOAH Administration Docusate Sodium 100 mg 08/29/23 09:00 08/29/23 08:43 Docusate 100 Mg Cap PO 100 mg DAILY NOAH Administration Duloxetine HCl 60 mg 08/29/23 09:00 08/29/23 08:47 Duloxetine Hcl 60 Mg Capsule.Dr PO 60 mg DAILY NOAH Administration Fenofibrate 160 mg 08/29/23 09:00 08/29/23 08:43 Fenofibrate 160 Mg Tab PO 160 mg DAILY NOAH Administration Ferrous Sulfate 325 mg 08/29/23 09:00 08/29/23 08:43 Ferrous Sulfate 325 Mg Tab PO 325 mg DAILY NOAH Administration Furosemide 40 mg 08/28/23 21:00 08/29/23 08:46 Furosemide 10 Mg/Ml 4 Ml Vial IV 40 mg Q12HR NOAH Administration Gabapentin 600 mg 08/28/23 22:00 08/29/23 08:44 Gabapentin 300 Mg Cap PO 600 mg TID NOAH Administration Heparin Sodium (Porcine) 5,000 unit 08/29/23 00:00 08/29/23 08:46 Heparin Sodium,Porcine 5,000 Unit/Ml 1 Ml Vial SQ 5,000 unit Q8HR NOAH Administration Azithromycin 500 mg/ Sodium 250 mls @ 250 mls/hr 08/29/23 15:00 Chloride IVPB 08/31/23 09:59 DAILY NOAH Protocol Ceftriaxone Sodium 2 gm/ 50 mls @ 100 mls/hr 08/29/23 15:00 08/29/23 15:46 Sodium Chloride IVPB 100 mls/hr Q24HR NOAH Administration Protocol Ipratropium Media 0.5 mg 08/29/23 08:00 Ipratropium 0.5 Mg/2.5 Ml Nebu INHALATION RT-QID [facility] Levothyroxine Sodium 175 mcg 08/29/23 09:00 08/29/23 08:45 Levothyroxine 50 Mcg Tab PO 175 mcg DAILY NOAH Administration Losartan Potassium 100 mg 08/29/23 09:00 08/29/23 08:46 Losartan 50 Mg Tab PO 100 mg DAILY NOAH Administration Magnesium Oxide 400 mg 08/29/23 09:00 08/29/23 08:46 Magnesium Oxide 400 Mg Tab PO 400 mg DAILY NOAH Administration Metoprolol Tartrate 100 mg 08/28/23 21:00 08/29/23 08:43 Metoprolol Tartrate 50 Mg Tab PO 100 mg BID NOAH Administration Montelukast Sodium 10 mg 08/29/23 09:00 08/29/23 08:46 Montelukast 10 Mg Tab PO 10 mg DAILY NOAH Administration Naloxone HCl 0.2 mg 08/28/23 13:17 Naloxone 0.4 Mg/Ml 1 Ml Vial IV Q2M PRN Opioid Reversal Pantoprazole Sodium 40 mg 08/29/23 09:00 08/29/23 08:44 Pantoprazole 40 Mg Tablet PO 40 mg DAILY NOAH Administration Polyethylene Glycol 17 gm 08/29/23 09:00 08/29/23 08:47 Polyethylene Glycol 3350 17 Gm Powd.Pack PO 17 gm DAILY NOAH Administration Potassium Chloride 10 meq 08/28/23 21:00 08/29/23 08:46 Potassium Chloride Er 10 Meq Tab.Er.Prt PO 10 meq BID NOAH Administration Tamsulosin HCl 0.4 mg 08/29/23 09:00 08/29/23 08:44 Tamsulosin 0.4 Mg Cap.Er.24h PO 0.4 mg DAILY NOAH Administration Tramadol HCl 50 mg 08/28/23 21:00 08/29/23 08:44 Tramadol 50 Mg Tab PO 50 mg BID NOAH Administration Zinc Sulfate 220 mg 08/29/23 09:00 08/29/23 08:46 Zinc Sulfate 220 Mg Cap PO 220 mg DAILY NOAH Administration Zolpidem Tartrate 5 mg 08/28/23 21:00 08/28/23 20:55 Zolpidem 5 Mg Tab PO 5 mg HS NOAH Administration Intake and Output 08/29/23 08/29/23 08/29/23 06:59 14:59 22:59 Intake Total 526 Balance 526 Intake: Oral 526 Other: Voiding Method Indwelling Catheter Weight 136.5 kg 08/29/23 05:27 08/29/23 05:27
[2023-08-29] MEDS: AZITHROMYCIN 500 MG in SODIUM CHLORIDE 0.9% 250 ML IVPB SCH (16:28)
[2023-08-29] MEDS: SYMBICORT 80-4.5 MCG INHALER INHALATION SCH ×2 (19:34→22:55)
[2023-08-29] MEDS: IPRATROPIUM 0.5 MG/2.5 ML NEBU INHALATION SCH ×2 (19:35→22:55)
[2023-08-29] MEDS: ALPRAZolam 0.25 MG TAB PO SCH (19:55)
[2023-08-29] MEDS: ATORVASTATIN 40 MG TAB PO SCH (19:57)
[2023-08-29] MEDS: ZOLPIDEM 5 MG TAB PO SCH (19:57)
--- NOTE | 2023-08-30 05:42 | P.CNPUL ---
History of Present Illness Consult date: 08/30/23 Requesting physician: Nicolás Peacock Reason for consult: abnormal CXR/CT Chief complaint: Shortness of breath History of present illness: I am seeing this patient in consultation today 08/30/2023 after she presented to the emergency room 2 days ago complaining of progressively worsening shortness of breath over the last week or so. Patient is a 73-year-old white female with past medical history significant for asthma, obstructive sleep apnea, morbid obesity with obesity hypoventilation's syndrome, hypertension, hyperlipidemia, GERD, previous breast cancer with bilateral mastectomies, among other things. Patient does follow with Dr. Hebert in the office. She was found to have mostly restrictive lung disease. She does use a CPAP at bedtime, and is chronically oxygen dependent on 4-5 L 24/. Patient recently had a prolonged hospitalization at [facility] in [place] for heart failure and was found to be COVID-19 positive. She was recently discharged home on August 20. Patient states that she is progressively become more short of breath especially with walking since then. She does admit a 13 pound weight gain over the past 1 week. Patient states that she has had lower extremity swelling, mostly the left lower extremity. States that the swelling in her left lower extremity is chronic. Denies any chest pain, heart palpitations, lightheadedness, syncope, orthopnea. Denies any fever, chills, myalgias. She has had a minimally productive cough. Patient is currently sitting up in bed, on BiPAP settings 12/5 and FiO2 40%. She appears comfortable. Respiratory rate is 16 and tidal volumes are in the high 300s. She is alert and able to answer all my questions. Chest x-ray on arrival showed cardiomegaly with low lung volumes and some basilar atelectasis. Follow-up chest CTA was a limited exam. There is no central pulmonary embolism. Cannot exclude secondary or distal branch emboli. There was COPD-like changes with basilar bronchiectasis and bibasilar atelectasis. Patient was empirically covered on a combination of azithromycin and Rocephin. Has been afebrile. Most recent CBC from yesterday shows a WBC count 8.3, hemoglobin 9.6, hematocrit 31.5, platelets 215. BMP from yesterday shows sodium 142, potassium 3.2, chloride 91, serum bicarbonate 39.9, BUN 11.4, creatinine 0.7, glucose 117. Troponins less than 0.012 on arrival. NT proBNP was low at 117. Patient is currently receiving Lasix 40 mg twice a day. She does have a indwelling urinary catheter, for perineal wounds that are healing. Patient does appear hemodynamically stable this time. Review of Systems REVIEW OF SYSTEMS: CONSTITUTIONAL: Admits 13 pound weight gain over the last week EYES: Denies change in vision. EARS, NOSE, MOUTH, THROAT: Denies headaches, denies sore throat. CARDIOVASCULAR: Denies chest pain, palpitations or syncopal episodes. Admits chronic left lower extremity swelling RESPIRATORY: See HPI GASTROINTESTINAL: Denies change in appetite, abdominal pain, nausea and vomiting, or diarrhea GENITOURINARY: Denies hematuria, denies infections. MUSKULOSKELETAL: Denies pain, denies swelling. INTEGUMENTARY: Denies rash, denies eczema. Admits perineal wounds NEUROLOGICAL: Denies recent memory loss, no recent seizure activity. PSYCHIATRIC: Denies anxiety, denies depression. HEMATOLOGIC/LYMPHATIC: Denies anemia, denies enlarged lymph node Past Medical History Past Medical History: Atrial Fibrillation, Asthma, Cancer, Chest Pain / Angina, Heart Failure, COPD, Osteoarthritis (OA), Pneumonia, Thyroid Disorder Additional Past Medical History / Comment(s): covid History of Any Multi-Drug Resistant Organisms: None Reported Past Surgical History: Cholecystectomy Additional Past Surgical History / Comment(s): bilat mastectomy Smoking Status: Never smoker Past Alcohol Use History: None Reported Past Drug Use History: None Reported Medications and Allergies Home Medications Medication Instructions Recorded Confirmed Type ALPRAZolam [Xanax] 0.25 mg PO 08/28/23 08/28/23 History Albuterol Inhaler [Ventolin Hfa 2 puff INHALATION RT-Q6H PRN 08/28/23 08/28/23 History Inhaler] Albuterol Nebulized [Ventolin 2.5 mg INHALATION RT-QID PRN 08/28/23 08/28/23 History Nebulized] Alfuzosin HCl [Alfuzosin HCl ER] 10 mg PO DAILY 08/28/23 08/28/23 History Ascorbic Acid [Vitamin C] 500 mg PO DAILY 08/28/23 08/28/23 History Atorvastatin [Lipitor] 40 mg PO 08/28/23 08/28/23 History Bifidobacterium Infantis [Align] 4 mg PO DAILY 08/28/23 08/28/23 History Calcium 500mg 500 mg PO DAILY 08/28/23 08/28/23 History Celecoxib [CeleBREX] 200 mg PO DAILY 08/28/23 08/28/23 History Clobetasol Propionate [Temovate 1 applic TOPICAL BID 08/28/23 08/28/23 History 0.05% Oint] Cyanocobalamin (Vitamin B-12) 1,000 mcg PO DAILY 08/28/23 08/28/23 History [Vitamin B-12] DULoxetine HCL [Cymbalta] 60 mg PO DAILY 08/28/23 08/28/23 History Denosumab [Prolia] 60 mg SQ Q180D 08/28/23 08/28/23 History Diclofenac Sodium Gel [Voltaren 1% 2 - 4 gm TOPICAL QID PRN 08/28/23 08/28/23 History Gel] Docusate [Colace] 100 mg PO DAILY 08/28/23 08/28/23 History Felodipine [Plendil] 10 mg PO DAILY 08/28/23 08/28/23 History Ferrous Sulfate [Feosol] 325 mg PO DAILY 08/28/23 08/28/23 History Fluticasone Propion/Salmeterol 1 puff INHALATION RT-BID 08/28/23 08/28/23 History [Advair 250-50 Diskus] Furosemide [Lasix] 20 mg PO DAILY 08/28/23 08/28/23 History Gabapentin 600 mg PO TID 08/28/23 08/28/23 History Glucosamine(Unknown Dose) 2 tab PO DAILY 08/28/23 08/28/23 History Iodine(Unknown Dose) 1 tab PO DAILY 08/28/23 08/28/23 History Levothyroxine Sodium [Synthroid] 175 mcg PO DAILY 08/28/23 08/28/23 History Losartan Potassium 100 mg PO DAILY 08/28/23 08/28/23 History Magnesium Oxide [Mag-Ox] 250 mg PO DAILY 08/28/23 08/28/23 History Menthol-Zinc Oxide Oint 1 applic TOPICAL QID PRN 08/28/23 08/28/23 History [Calmoseptine Ointment] Metoprolol Tartrate [Lopressor] 100 mg PO BID 08/28/23 08/28/23 History Montelukast [Singulair] 10 mg PO DAILY 08/28/23 08/28/23 History Nystatin 100,000 Unit/gm Powd 1 applic TOPICAL BID 08/28/23 08/28/23 History [Mycostatin Powder] Nystatin 100,000Unit/gm Cream 1 applic TOPICAL BID 08/28/23 08/28/23 History [Mycostatin Cream] Pantoprazole Sodium [Protonix] 20 mg PO DAILY 08/28/23 08/28/23 History Potassium Chloride ER [K-Dur 10] 10 meq PO BID 08/28/23 08/28/23 History Selenium 200 mcg PO DAILY 08/28/23 08/28/23 History Systane Eye Gel 0.3% 1 applic OPHTHALMIC DAILY 08/28/23 08/28/23 History Tiotropium 2.5 Mcg/Puff [Spiriva 2 puff INHALATION RT-DAILY 08/28/23 08/28/23 History Respimat 2.5 Mcg] Triamcinolone 0.1% Ointment 1 applic TOPICAL BID 08/28/23 08/28/23 History [Kenalog 0.1% Ointment] Zinc Gluconate [Zinc] 50 mg PO DAILY 08/28/23 08/28/23 History Zolpidem Tartrate [Ambien Cr] 6.25 mg PO HS 08/28/23 08/28/23 History cycloSPORINE 0.05% OPHTH SOLN 1 drop BOTH EYES Q12H 08/28/23 08/28/23 History [Restasis] diphenhydrAMINE [Benadryl] 25 mg PO HS 08/28/23 08/28/23 History gemfibroziL [Lopid] 600 mg PO BID 08/28/23 08/28/23 History polyethylene glycoL 3350 [Miralax] 17 gm PO DAILY 08/28/23 08/28/23 History traMADol HCL 50 mg PO BID 08/28/23 08/28/23 History Allergies Allergy/AdvReac Type Severity Reaction Status Date / Time Sulfa (Sulfonamide Allergy Rash/Hives Verified 08/28/23 15:00 Antibiotics) sulfamethoxazole Allergy Rash/Hives Verified 08/28/23 15:00 [From Bactrim] trimethoprim [From Bactrim] Allergy Rash/Hives Verified 08/28/23 15:00 acetaminophen [From [place]] AdvReac Hallucinati Verified 08/28/23 15:00 ons hydrocodone [From [place]] AdvReac Hallucinati Verified 08/28/23 15:00 ons Physical Exam Vitals: Vital Signs Temp Pulse Resp BP Pulse Ox FiO2 08/30/23 04:02 40 08/30/23 01:28 98.7 F 95 19 95/53 95 08/29/23 23:14 40 08/29/23 22:11 40 08/29/23 18:55 98.7 F 111 H 18 108/65 97 08/29/23 15:00 99.1 F 102 H 18 86/48 95 08/29/23 07:00 98.0 F 105 H 19 123/75 93 L Intake and Output 08/29/23 08/29/23 08/30/23 14:59 22:59 06:59 Intake Total 526 Output Total 1350 0 Balance -824 0 Intake: Oral 526 Output: Urine 1350 0 Other: Voiding Method Indwelling Catheter Indwelling Catheter Indwelling Catheter # Voids 0 # Bowel Movements 1 GENERAL EXAM: Alert, 73-year-old white female who is morbidly obese , comfortable in no apparent distress. HEAD: Normocephalic and atraumatic EYES: Normal reaction of pupils, equal size. NOSE: Clear with pink turbinates. THROAT: No erythema or exudates. NECK: No masses, no JVD. Short and thick neck with DEX like features CHEST: No chest wall deformity. LUNGS: Equal air entry with markedly diminished lung sounds throughout and fine bibasilar crackles. no wheeze, rhonchi or dullness. On BiPAP No conversational dyspnea or accessory muscle use.. CVS: S1 and S2 normal with no audible murmur, regular rhythm. No extra heart sounds ABDOMEN: Obese abdomen, no hepatosplenomegaly, active bowel sounds, no guarding or rigidity. SPINE: No scoliosis or deformity SKIN: No rashes. CENTRAL NERVOUS SYSTEM: No focal deficits, tone is normal in all 4 extremities. EXTREMITIES: There is left lower extremity 1-2+ pitting edema. No clubbing, or cyanosis. Peripheral pulses are intact. Results - Laboratory Findings CBC and BMP: 08/30/23 05:20 10/02/23 05:20 PT/INR, D-dimer PT 9.6 sec (9.0-12.0) 08/28/23 11:08 INR 0.9 (<1.2) 08/28/23 11:08 D-Dimer 0.82 mg/L FEU (<0.60) H 08/28/23 17:56 Abnormal lab findings: Abnormal Labs 08/28/23 08/28/23 08/28/23 11:08 11:08 17:56 RBC 3.19 L Hgb 10.2 L Hct 31.6 L MCV MCHC D-Dimer 0.82 H Potassium Chloride 97 L Carbon Dioxide 37 H BUN 19 H Glucose 131 H Albumin 3.3 L 08/29/23 08/29/23 05:27 05:27 RBC 3.09 L Hgb 9.6 L Hct 31.5 L MCV 101.9 H MCHC 30.5 L D-Dimer Potassium 3.2 L Chloride 91 L Carbon Dioxide 39.9 H BUN Glucose 117 H Albumin - Diagnostic Findings Chest x-ray: image reviewed CT scan - chest: image reviewed Assessment and Plan Assessment: Acute on chronic hypoxemic and hypercapnic respiratory failure, possibly related to an exacerbation of diastolic congestive heart failure and fluid overload, h owever, NT proBNP was low. Chest CTA shows COPD-like changes with basilar bronchiectasis and bibasilar atelectasis. No obvious infiltrates or evidence of pneumonia. Echocardiogram this admission shows a preserved left ventricular ejection fraction of 50-55% with severe left ventricular hypertrophy, otherwise, a limited exam. Elevated d-dimer, chest CTA shows no obvious central pulmonary embolism. Cannot exclude secondary or distal branch emboli. Left lower extremity is edematous, will rule out DVT. Recent COVID-19 infection, reportedly tested positive at outside facility History of chronic bronchial asthma, normally maintained on a combination of Advair, Spiriva, and when necessary albuterol, appears stable Chronic hypoxemic respiratory failure, normally maintained on 4-5 L home O2 Obstructive sleep apnea with obesity hypoventilation syndrome, utilizes CPAP at bedtime Morbid obesity, with a BMI of 55 kg/m Macrocytic anemia Hyperlipidemia Benign essential hypertension Hypothyroidism Never smoker Plan: Patient's medications, labs, imaging reviewed Continue supplemental oxygen and BiPAP at bedtime Patient is being diuresed with Lasix Continue Symbicort, Atrovent, when necessary Ventolin Patient was started on empiric antibiotics, Pneumonia is felt to be less likely. Check procalcitonin Obtain left lower extremity venous Doppler to rule out DVT No obvious central pulmonary embolism We will continue to follow I have personally seen and examined the patient, performed the documentation and the assessment and plan as written. Number of minutes spent on the visit:20 Joint evaluation that was done along with the nurse practitioner. His evaluation was done in more than 30 minutes. This patient is 71 years old and the patient is morbidly obese with a BMI of 53.8. The patient presented with an acute on top of chronic hypoxic respiratory failure/fluid overload and the patient is an diastolic heart failure. The patient is responding nicely to diuretics. The patient is currently on Lasix 40 mg IV every 12 hours. The patient has produced more than 3 L of negative fluid balance for yesterday and the patient is headed towards another 1.5 L negative for today. The electrolytes are stable. We'll continue to follow. Less shortness of breath compared to yesterday. The patient had Doppler of the lower extremities are negative. CT angiogram of the chest shows no evidence of any pulmonary embolism. Continue current treatment for now. We'll continue to follow. Doppler of the lower extremity was negative. D-dimer is O- 0.82. We'll continue same treatment. The patient is currently on 5 L with a pulse ox of 96%. Gradually weaned on the FiO2 as tolerated. Time with Patient: Greater than 30
[2023-08-30] MEDS: FUROSEMIDE 10 MG/ML 4 ML VIAL IV SCH ×2 (08:40→20:37)
[2023-08-30] MEDS: polyethylene glycoL 3350 17 GM POWD.PACK PO SCH (08:40)
[2023-08-30] MEDS: LEVOTHYROXINE 50 MCG TAB PO SCH (08:40)
[2023-08-30] MEDS: amLODIPine 10 MG TAB PO SCH (08:41)
[2023-08-30] MEDS: TAMSULOSIN 0.4 MG CAP.ER.24H PO SCH (08:41)
[2023-08-30] MEDS: MONTELUKAST 10 MG TAB PO SCH (08:41)
[2023-08-30] MEDS: GABAPENTIN 300 MG CAP PO SCH ×3 (08:41→20:36)
[2023-08-30] MEDS: traMADol 50 MG TAB PO SCH ×2 (08:41→20:36)
[2023-08-30] MEDS: MAGNESIUM OXIDE 400 MG TAB PO SCH (08:41)
[2023-08-30] MEDS: FENOFIBRATE 160 MG TAB PO SCH (08:41)
[2023-08-30] MEDS: POTASSIUM CHLORIDE ER 10 MEQ TAB.ER.PRT PO SCH ×2 (08:41→20:36)
[2023-08-30] MEDS: METOPROLOL TARTRATE 50 MG TAB PO SCH ×2 (08:41→20:36)
[2023-08-30] MEDS: ASCORBIC ACID 500 MG TAB PO SCH (08:42)
[2023-08-30] MEDS: DOCUSATE 100 MG CAP PO SCH (08:42)
[2023-08-30] MEDS: PANTOPRAZOLE 40 MG TABLET PO SCH (08:42)
[2023-08-30] MEDS: CYANOCOBALAMIN 500 MCG TAB PO SCH (08:42)
[2023-08-30] MEDS: FERROUS SULFATE 325 MG TAB PO SCH (08:42)
[2023-08-30] MEDS: ZINC SULFATE 220 MG CAP PO SCH (08:42)
[2023-08-30] MEDS: HEPARIN SODIUM,PORCINE 5,000 UNIT/ML 1 ML VIAL SQ SCH ×2 (08:42→14:50)
[2023-08-30] MEDS: LOSARTAN 50 MG TAB PO SCH (08:42)
[2023-08-30] MEDS: DULoxetine HCL 60 MG CAPSULE.DR PO SCH (08:42)
--- NOTE | 2023-08-30 08:46 | US ---
EXAMINATION TYPE: US venous doppler duplex LE LT DATE OF EXAM: 08/30/2023 8:32 AM COMPARISON: NONE CLINICAL INDICATION: Female, 73 years old with history of rule out DVT; Not on blood thinners. Patie nt states having a hx of blood clot in a leg but doesn't remember which one. Patient states her leg swells. No redness. CHF. SIDE PERFORMED: Left TECHNIQUE: The lower extremity deep venous system is examined utilizing real time linear array sonog moe with graded compression, doppler sonography and color-flow sonography. VESSELS IMAGED: Common Femoral Vein Deep Femoral Vein Greater Saphenous Vein *- Not visualized Femoral Vein Popliteal Vein Small Saphenous Vein * Proximal Calf Veins- Limited visualization (* superficial vessels) Suboptimal due to patient body habitus Left Leg: Negative for acute DVT IMPRESSION: Grayscale, color doppler, spectral doppler imaging performed of the deep veins of the lo wer extremities. There is normal flow, compressibility, vascular waveforms.
[2023-08-30 08:54] LABS: Basophils # (A) 0.05 X 10*3/uL (0.00-0.10); Basophils % (A) 0.6 %; Eosinophils # (A) 0.29 X 10*3/uL (0.04-0.35); Eosinophils % (A) 3.2 %; Lymphocytes # (A) 1.83 X 10*3/uL (0.90-5.00); Lymphocytes % (A) 20.2 %; MCH 31.9 pg (27.0-32.0); MCHC 31.3 d/dL (32.0-37.0); MCV 102.2 FL (80.0-97.0); Mean Platelet Volume 11.5 FL (9.5-12.2); Monocytes # (A) 1.09 X 10*3/uL (0.20-1.00); NRBC Per 100 WBC 0 X 10*3/uL (0.00-0.01); Neutrophils % (A) 62.9 %; Platelet Count 214 X 10*3/uL (140-440); RBC 3.13 X 10*6/uL (4.10-5.20); RDW 14.1 % (11.5-14.5); WBC 9.06 X 10*3/uL (4.50-10.00)
[2023-08-30] MEDS: AZITHROMYCIN 500 MG in SODIUM CHLORIDE 0.9% 250 ML IVPB SCH (09:29)
--- NOTE | 2023-08-30 09:35 | P.PN ---
Subjective Progress Note Date: 08/30/23 HPI: Patient is a pleasant 73-year-old female with past medical history consistent with atrial fibrillation, asthma, cancer, angina, heart failure, COPD, osteophytes right's, pneumonia, hypothyroidism, and previous colon infection who presents to the hospital with complaints of bilateral lower extremity swelling and increased shortness of breath. Patient reports that she was recently hospitalized for 13 days at [facility] in [place], and states that just a few days after being there, she noted that her bilateral lower extremities were swelling, and that she was having increased shortness of breath with movement. Patient reports that she's gained approximately 13 pounds after being out of the hospital. The patient presented to our emergency department for further evaluation. Imaging was completed which did not demonstrate any obvious acute process. Patient had an echocardiogram completed which showed severe LVH with an EF of about 50-55%. Cardiology was consulted for assistance with management of CHF. Upon examination, the patient reports that she feels slightly better today. Patient is on Lasix 40 g IV push every 12 hours. REVIEW OF LABS, ECG & MEDICAL DATA: LABS: White count 8.3, hematoma 9.6, platelets 2:15, sodium 142, potassium 3.2, d-dimer 0.82, B1 11.4, creatinine 0.7, calcium 9.3, troponin less than 0.012, BNP 117 EKG: Normal sinus rhythm with first-degree heart block IMAGING: Chest x-ray dated 08/28/2023 demonstrates limited study, cannot exclude atelectasis or infiltrate in the left lung base although felt to be unlikely, if clinically indicated PA and lateral view of the chest recommended for further evaluation. Echocardiogram dated 08/28/2023 demonstrates severe LVH with ejection fraction of about 50-55%. CT angiogram of the chest dated 08/28/2023 demonstrates limited exam due to suboptimal paced vacation, no central pulmonary embolism, could not exclude a pulmonary embolism in the secondary and distal branches with particular attention to the left lower lobe branch axial image 71, COPD with basilar bronchiectasis and areas of consolidation most likely in the basis of atelectasis. VITALS: Temp 98.0, pulse 105, respirations 19, blood pressure 123/75, O2 saturation 93% on 5 L via nasal cannula 08/30 Patient is seen today in follow-up. Echocardiogram performed at [facility] has been obtained and reveals EF of 55-60%, normal global left ventricular systolic function. Small pericardial effusion. Mild aortic valve sclerosis without stenosis. Patient feels that her breathing is getting better. She feels tired this morning. She states she needs to continue to remind herself to take a deep breath. Incentive spirometry will be ordered. She has a Mtz catheter in place and has been diuresing well with a negative balance of 3082. Weight is down 3 kg. She is on Lasix 40 mg every 12 hours. Repeat chemistry panel is not available at the time of this dictation. TSH 1.74. Influenza A, influenza B, RSV, Covid 19 not detected. Heart rate 95-102, blood pressure 116/74, pulse ox 96% on 5 L nasal cannula, afebrile. EXAMINATION: GENERAL: Well-appearing, well-nourished and in no acute distress. NECK: Supple without JVD or thyromegaly. LUNGS: Breath diminished with scattered rhonchi bilaterally. Respiration equal and unlabored. HEART: Regular rate and rhythm without murmurs, rubs or gallops. S1 and S2 heard. EXTREMITIES: 1+ bilateral lower extremity edema. No clubbing or cyanosis. Peripheral pulses intact and strong. IMPRESSION: 1. Acute on chronic diastolic heart failure, 2. Bilateral lower extremity edema improving 3. History COPD 4. Recent hospitalization PLAN: Continue IV Lasix as ordered. Monitor I&O, daily weights, electrolytes and renal function Continue home cardiac medications. Further recommendations based on patient's clinical course. Thank you for the consult and allowing us to participate in the care of this patient. Objective - Vital Signs Vital signs: Vital Signs Temp 98.0 F 08/30/23 07:00 Pulse 102 H 08/30/23 07:00 Resp 18 08/30/23 07:00 BP 116/74 08/30/23 07:00 Pulse Ox 96 08/30/23 07:00 FiO2 40 08/30/23 04:02 Intake & Output 08/29/23 08/30/23 08/30/23 18:59 06:59 18:59 Intake Total 526 Output Total 1350 700 Balance -824 -700 Weight 133.5 kg Intake: Oral 526 Output: Urine 1350 700 Other: Voiding Method Indwelling Catheter Indwelling Catheter # Voids 0 # Bowel Movements 1 - Labs CBC & Chem 7: 10/02/23 05:20 08/29/23 05:27 Labs: Abnormal Lab Results - Last 24 Hours (Table) 08/29/23 08/29/23 Range/Units 05:27 05:27 RBC 3.09 L (4.10-5.20) X 10*6/uL Hgb 9.6 L (12.0-15.0) d/dL Hct 31.5 L (37.2-46.3) % MCV 101.9 H (80.0-97.0) FL MCHC 30.5 L (32.0-37.0) d/dL Potassium 3.2 L (3.5-5.5) mmol/L Chloride 91 L (96-109) mmol/L Carbon Dioxide 39.9 H (21.6-31.8) mmol/L Glucose 117 H (70-110) mg/dL
[2023-08-30 10:26] LABS: BUN/Creat Ratio 21.14 Ratio (12.00-20.00); Blood Urea Nitrogen 14.8 mg/dL (9.0-27.0); Calcium 9.1 mg/dL (8.7-10.3); Carbon Dioxide 38.9 mmol/L (21.6-31.8); Chloride 91 mmol/L (96-109); Glucose 128 mg/dL (70-110); Potassium 3.3 mmol/L (3.5-5.5); Sodium 144 mmol/L (135-145)
[2023-08-30] MEDS ORDERED: POTASSIUM CHLORIDE ER 20 MEQ TAB.ER PO STA (13:32)
--- NOTE | 2023-08-30 16:10 | P.PN ---
Subjective Progress Note Date: 08/30/23 This is a pleasant 73-year-old female with history of CHF [facility] [place] [facility] and noticed to have increased lower extremity edema. Patient continues on IV Lasix with swelling in her legs has improved. Currently on 4 L of oxygen which she wears chronically. Patient had a venous Doppler of her left lower extremity which was negative for acute DVT. White count remains normal at 9.06, hemoglobin 10.0, sodium 144, potassium 3.3, kidney function remains stable. Glucoses in the 100s. Covid, influenza, RSV are negative. Review of Systems Constitutional: Denied any fatigue denied any fever. Cardio vascular: denied any chest pain, palpitations Gastrointestinal: denied any nausea, vomiting, diarrhea Pulmonary: Denied any shortness of breath cough Neurologic denied any new focal deficits All inpatient medications were reviewed and appropriate changes in these medications as dictated in the interval history and assessment and plan. PHYSICAL EXAMINATION: GENERAL: The patient is alert and oriented x3, not in any acute distress. Well developed, well nourished. Obese. On nasal cannula HEENT: Pupils are round and equally reacting to light. EOMI. No scleral icterus. No conjunctival pallor. Normocephalic, atraumatic. No pharyngeal erythema. No thyromegaly. CARDIOVASCULAR: S1 and S2 present. No murmurs, rubs, or gallops. PULMONARY: Chest is clear to auscultation, no wheezing or crackles. Tight. ABDOMEN: Soft, nontender, nondistended, normoactive bowel sounds. No palpable organomegaly. MUSCULOSKELETAL: No joint swelling or deformity. EXTREMITIES: No cyanosis, clubbing, or pedal edema. NEUROLOGICAL: Gross neurological examination did not reveal any focal deficits. Generalized weakness SKIN: No rashes. Assessment Acute on chronic diastolic heart failure on IV lasix Hyperlipidemia; Lipitor 40 mg daily at bedtime Hypertension; losartan 100 mg daily Hypothyroidism; levothyroxine 175 MCG daily Asthma;/COPD continue with DuoNeb nebulizer treatments 4 times a day and when necessary; Singulair 10 mg daily; continue with home inhaler therapy Anxiety/depression; Xanax 0.5 mg daily at bedtime; Cymbalta 60 mg daily Hypokalemia due to diuresis Stage 2 sacral ulcer present on admission patient has IDC in place to help promote wound healing by keep the area clean/dry GI prophylaxis DVT prophylaxis Full Code Plan Continue empiric antibiotics IV lasix with intake and output monitoring Cardiology following PT/OT have been consulted for discharge planning Repeat labs in AM. The impression and plan of care has been dictated by Dee Payne, Nurse Practitioner as directed. Dr. Beverly MD I have performed a history and physical examination and medical decision making of this patient, discussed the same with the dictator, and agree with the dictators assessment and plan as written, documented as a scribe. Based on total visit time, I have performed more than 50% of this visit. Objective - Vital Signs Vital signs: Vital Signs Temp 98.0 F 08/30/23 07:00 Pulse 102 H 08/30/23 07:00 Resp 18 08/30/23 07:00 BP 116/74 08/30/23 07:00 Pulse Ox 96 08/30/23 08:52 FiO2 40 08/30/23 04:02 Intake & Output 08/29/23 08/30/23 08/30/23 18:59 06:59 18:59 Intake Total 526 Output Total 1350 700 Balance -824 -700 Weight 133.5 kg Intake: Oral 526 Output: Urine 1350 700 Other: Voiding Method Indwelling Catheter Indwelling Catheter # Voids 0 # Bowel Movements 1 - Labs CBC & Chem 7: 08/30/23 05:20 08/30/23 05:20 Labs: Abnormal Lab Results - Last 24 Hours (Table) 08/29/23 08/30/23 Range/Units 05:27 05:20 RBC 3.13 L (4.10-5.20) X 10*6/uL Hgb 10.0 L (12.0-15.0) d/dL Hct 32.0 L (37.2-46.3) % MCV 102.2 H (80.0-97.0) FL MCHC 31.3 L (32.0-37.0) d/dL Monocytes # 1.09 H (0.20-1.00) X 10*3/uL Potassium 3.2 L (3.5-5.5) mmol/L Chloride 91 L (96-109) mmol/L Carbon Dioxide 39.9 H (21.6-31.8) mmol/L Glucose 117 H (70-110) mg/dL Assessment and Plan Time with Patient: Less than 30
[2023-08-30] MEDS: SYMBICORT 80-4.5 MCG INHALER INHALATION SCH ×2 (19:18→22:18)
[2023-08-30] MEDS: IPRATROPIUM 0.5 MG/2.5 ML NEBU INHALATION SCH ×2 (19:19→22:19)
[2023-08-30] MEDS: ALPRAZolam 0.25 MG TAB PO SCH (20:36)
[2023-08-30] MEDS: ATORVASTATIN 40 MG TAB PO SCH (20:36)
[2023-08-30] MEDS: ZOLPIDEM 5 MG TAB PO SCH (20:37)
[2023-08-31] MEDS: HEPARIN SODIUM,PORCINE 5,000 UNIT/ML 1 ML VIAL SQ SCH ×4 (01:13→23:42)
--- NOTE | 2023-08-31 08:25 | P.PN ---
Subjective Progress Note Date: 08/31/23 HPI: Patient is a pleasant 73-year-old female with past medical history consistent with atrial fibrillation, asthma, cancer, angina, heart failure, COPD, osteophytes right's, pneumonia, hypothyroidism, and previous colon infection who presents to the hospital with complaints of bilateral lower extremity swelling and increased shortness of breath. Patient reports that she was recently hospitalized for 13 days at [facility] in [place], and states that just a few days after being there, she noted that her bilateral lower extremities were swelling, and that she was having increased shortness of breath with movement. Patient reports that she's gained approximately 13 pounds after being out of the hospital. The patient presented to our emergency department for further evaluation. Imaging was completed which did not demonstrate any obvious acute process. Patient had an echocardiogram completed which showed severe LVH with an EF of about 50-55%. Cardiology was consulted for assistance with management of CHF. Upon examination, the patient reports that she feels slightly better today. Patient is on Lasix 40 g IV push every 12 hours. REVIEW OF LABS, ECG & MEDICAL DATA: LABS: White count 8.3, hematoma 9.6, platelets 2:15, sodium 142, potassium 3.2, d-dimer 0.82, B1 11.4, creatinine 0.7, calcium 9.3, troponin less than 0.012, BNP 117 EKG: Normal sinus rhythm with first-degree heart block IMAGING: Chest x-ray dated 08/28/2023 demonstrates limited study, cannot exclude atelectasis or infiltrate in the left lung base although felt to be unlikely, if clinically indicated PA and lateral view of the chest recommended for further evaluation. Echocardiogram dated 08/28/2023 demonstrates severe LVH with ejection fraction of about 50-55%. CT angiogram of the chest dated 08/28/2023 demonstrates limited exam due to suboptimal paced vacation, no central pulmonary embolism, could not exclude a pulmonary embolism in the secondary and distal branches with particular attention to the left lower lobe branch axial image 71, COPD with basilar bronchiectasis and areas of consolidation most likely in the basis of atelectasis. VITALS: Temp 98.0, pulse 105, respirations 19, blood pressure 123/75, O2 saturation 93% on 5 L via nasal cannula 08/30 Patient is seen today in follow-up. Echocardiogram performed at [facility] has been obtained and reveals EF of 55-60%, normal global left ventricular systolic function. Small pericardial effusion. Mild aortic valve sclerosis without stenosis. Patient feels that her breathing is getting better. She feels tired this morning. She states she needs to continue to remind herself to take a deep breath. Incentive spirometry will be ordered. She has a Mtz catheter in place and has been diuresing well with a negative balance of 3082. Weight is down 3 kg. She is on Lasix 40 mg every 12 hours. Repeat chemistry panel is not available at the time of this dictation. TSH 1.74. Influenza A, influenza B, RSV, Covid 19 not detected. Heart rate 95-102, blood pressure 116/74, pulse ox 96% on 5 L nasal cannula, afebrile. 08/31 Patient states that she continues to have shortness of breath but feels a little bit better when she is on the BiPAP. She has been maintained on IV Lasix 40 mg every 12 hours. Yesterday she was in a negative balance of 1524. Lab work from yesterday revealed potassium 3.3, V1 14 creatinine 0.7. Hemoglobin 10. Noted blood pressure soft this morning 92/57. She is 93% on 6 L nasal cannula, heart rate 93. EXAMINATION: GENERAL: Well-appearing, well-nourished and in no acute distress. NECK: Supple without JVD or thyromegaly. LUNGS: Breath diminished with scattered rhonchi bilaterally. Respiration equal and unlabored. HEART: Regular rate and rhythm without murmurs, rubs or gallops. S1 and S2 heard. EXTREMITIES: 1+ bilateral lower extremity edema. No clubbing or cyanosis. Peripheral pulses intact and strong. IMPRESSION: 1. Acute on chronic diastolic heart failure, 2. Bilateral lower extremity edema improving 3. History COPD 4. Recent hospitalization PLAN: Continue IV Lasix 40 mg every 12 hours Monitor I&O, daily weights, electrolytes and renal function Continue home cardiac medications. Further recommendations based on patient's clinical course. Thank you for the consult and allowing us to participate in the care of this patient. Objective - Vital Signs Vital signs: Vital Signs Temp 97.6 F 08/31/23 00:09 Pulse 93 08/31/23 00:09 Resp 19 08/31/23 00:09 BP 92/57 08/31/23 00:09 Pulse Ox 93 L 08/31/23 00:09 FiO2 40 08/31/23 01:28 Intake & Output 08/30/23 08/31/23 08/31/23 18:59 06:59 18:59 Intake Total 236 Output Total 600 800 Balance -364 -800 Weight 136 kg Intake: Oral 236 Output: Urine 600 800 Other: Voiding Method Indwelling Catheter Indwelling Catheter - Labs CBC & Chem 7: 08/30/23 05:20 08/30/23 05:20 Labs: Abnormal Lab Results - Last 24 Hours (Table) 08/30/23 08/30/23 08/30/23 Range/Units 05:20 05:20 05:20 RBC 3.13 L (4.10-5.20) X 10*6/uL Hgb 10.0 L (12.0-15.0) d/dL Hct 32.0 L (37.2-46.3) % MCV 102.2 H (80.0-97.0) FL MCHC 31.3 L (32.0-37.0) d/dL Monocytes # 1.09 H (0.20-1.00) X 10*3/uL Potassium 3.3 L (3.5-5.5) mmol/L Chloride 91 L (96-109) mmol/L Carbon Dioxide 38.9 H (21.6-31.8) mmol/L Anion Gap 14.10 H (4.00-12.00) mmol/L BUN/Creatinine Ratio 21.14 H (12.00-20.00) Ratio Glucose 128 H (70-110) mg/dL Procalcitonin 0.11 H (0.02-0.09) ng/mL
[2023-08-31] MEDS: CYANOCOBALAMIN 500 MCG TAB PO SCH (08:53)
[2023-08-31] MEDS: FUROSEMIDE 10 MG/ML 4 ML VIAL IV SCH ×2 (08:53→20:45)
[2023-08-31] MEDS: MONTELUKAST 10 MG TAB PO SCH (08:53)
[2023-08-31] MEDS: DULoxetine HCL 60 MG CAPSULE.DR PO SCH (08:53)
[2023-08-31] MEDS: PANTOPRAZOLE 40 MG TABLET PO SCH (08:53)
[2023-08-31] MEDS: GABAPENTIN 300 MG CAP PO SCH ×3 (08:53→20:45)
[2023-08-31] MEDS: DOCUSATE 100 MG CAP PO SCH (08:54)
[2023-08-31] MEDS: FERROUS SULFATE 325 MG TAB PO SCH (08:54)
[2023-08-31] MEDS: traMADol 50 MG TAB PO SCH ×2 (08:54→20:45)
[2023-08-31] MEDS: ASCORBIC ACID 500 MG TAB PO SCH (08:54)
[2023-08-31] MEDS: ZINC SULFATE 220 MG CAP PO SCH (08:54)
[2023-08-31] MEDS: LEVOTHYROXINE 50 MCG TAB PO SCH (08:54)
[2023-08-31] MEDS: MAGNESIUM OXIDE 400 MG TAB PO SCH (08:54)
[2023-08-31] MEDS: FENOFIBRATE 160 MG TAB PO SCH (08:54)
[2023-08-31] MEDS: TAMSULOSIN 0.4 MG CAP.ER.24H PO SCH (08:54)
[2023-08-31] MEDS: polyethylene glycoL 3350 17 GM POWD.PACK PO SCH (08:55)
[2023-08-31] MEDS: POTASSIUM CHLORIDE ER 10 MEQ TAB.ER.PRT PO SCH ×2 (08:55→20:45)
[2023-08-31] MEDS: METOPROLOL TARTRATE 50 MG TAB PO SCH ×2 (08:59→20:44)
[2023-08-31] MEDS ORDERED: AZITHROMYCIN 250 MG TAB PO SCH (09:00)
[2023-08-31] MEDS: LOSARTAN 50 MG TAB PO SCH (09:17)
--- NOTE | 2023-08-31 13:36 | P.PN ---
Subjective Progress Note Date: 08/31/23 I am seeing this patient in consultation today 08/30/2023 after she presented to the emergency room 2 days ago complaining of progressively worsening shortness of breath over the last week or so. Patient is a 73-year-old white female with past medical history significant for asthma, obstructive sleep apnea, morbid obesity with obesity hypoventilation's syndrome, hypertension, hyperlipidemia, GERD, previous breast cancer with bilateral mastectomies, among other things. Patient does follow with Dr. Hebert in the office. She was found to have mostly restrictive lung disease. She does use a CPAP at bedtime, and is chronically oxygen dependent on 4-5 L 24/. Patient recently had a prolonged hospitalization at [facility] in [place] for heart failure and was found to be COVID-19 positive. She was recently discharged home on August 20. Patient states that she is progressively become more short of breath especially with walking since then. She does admit a 13 pound weight gain over the past 1 week. Patient states that she has had lower extremity swelling, mostly the left lower extremity. States that the swelling in her left lower extremity is chronic. Denies any chest pain, heart palpitations, lightheadedness, syncope, orthopnea. Denies any fever, chills, myalgias. She has had a minimally productive cough. Patient is currently sitting up in bed, on BiPAP settings 12/5 and FiO2 40%. She appears comfortable. Respiratory rate is 16 and tidal volumes are in the high 300s. She is alert and able to answer all my questions. Chest x-ray on arrival showed cardiomegaly with low lung volumes and some basilar atelectasis. Follow-up chest CTA was a limited exam. There is no central pulmonary embolism. Cannot exclude secondary or distal branch emboli. There was COPD-like changes with basilar bronchiectasis and bibasilar atelectasis. Patient was empirically covered on a combination of azithromycin and Rocephin. Has been afebrile. Most recent CBC from yesterday shows a WBC count 8.3, hemoglobin 9.6, hematocrit 31.5, platelets 215. BMP from yesterday shows sodium 142, potassium 3.2, chloride 91, serum bicarbonate 39.9, BUN 11.4, creatinine 0.7, glucose 117. Troponins less than 0.012 on arrival. NT proBNP was low at 117. Patient is currently receiving Lasix 40 mg twice a day. She does have a indwelling urinary catheter, for perineal wounds that are healing. Patient does appear hemodynamically stable this time. On today's evaluation of 08/31/2023, the patient is being seen for a follow-up. The patient is producing excellent urine output and the patient is diuresing well with Lasix 40 mg IV every 12 hours. She is still having some exertional dyspnea and tachycardia. She is currently on beta blockers and the patient is on metoprolol 100 mg by mouth twice a day. She remains on albuterol nebulized treatments when necessary, Symbicort as maintenance 2 puffs twice a day, and she is also on oxygen at 5 L/m nasal cannula. BUN is at 40 with a creatinine of 0.8. The white cell count at 9 with a hemoglobin of 10.0. No reported chest pain. No angina. No palpitation pH is morbidly obese. She Is a body mass index of 54. The Doppler of the lower activity was negative. The echocardiogram showed a preserved LV function with an EF of around 50-55%. There is RV dilatation, pulmonary artery pressures could not be accurately evaluated and assessed. Objective - Vital Signs Vital signs: Vital Signs Temp 98.1 F 08/31/23 08:00 Pulse 113 H 08/31/23 08:00 Resp 18 08/31/23 08:00 BP 96/44 08/31/23 08:00 Pulse Ox 93 L 08/31/23 08:49 FiO2 40 08/31/23 01:28 Intake & Output 08/30/23 08/31/23 08/31/23 18:59 06:59 18:59 Intake Total 236 118 Output Total 600 800 900 Balance -364 -800 -782 Weight 136 kg Intake: Oral 236 118 Output: Urine 600 800 900 Other: Voiding Method Indwelling Catheter Indwelling Catheter Indwelling Catheter # Voids 1 # Bowel Movements 1 - Exam GENERAL EXAM: Alert, 73-year-old white female who is morbidly obese , comfortable in no apparent distress. The patient is currently on 5 L of oxygen by nasal cannula and she is off the BiPAP HEAD: Normocephalic and atraumatic EYES: Normal reaction of pupils, equal size. NOSE: Clear with pink turbinates. THROAT: No erythema or exudates. NECK: No masses, no JVD. Short and thick neck with DEX like features CHEST: No chest wall deformity. LUNGS: Equal air entry with markedly diminished lung sounds throughout and fine bibasilar crackles. no wheeze, rhonchi or dullness. CVS: S1 and S2 normal with no audible murmur, regular rhythm. No extra heart sounds ABDOMEN: Obese abdomen, no hepatosplenomegaly, active bowel sounds, no guarding or rigidity. SPINE: No scoliosis or deformity SKIN: No rashes. CENTRAL NERVOUS SYSTEM: No focal deficits, tone is normal in all 4 extremities. EXTREMITIES: There is left lower extremity 1-2+ pitting edema. No clubbing, or cyanosis. Peripheral pulses are intact. - Labs CBC & Chem 7: 08/30/23 05:20 08/30/23 05:20 Assessment and Plan Assessment: Acute on chronic hypoxemic and hypercapnic respiratory failure, possibly related to an exacerbation of diastolic congestive heart failure and fluid overload, however, NT proBNP was low. Chest CTA shows COPD-like changes with basilar bronchiectasis and bibasilar atelectasis. No obvious infiltrates or evidence of pneumonia. Echocardiogram this admission shows a preserved left ventricular ejection fraction of 50-55% with severe left ventricular hypertrophy, otherwise, a limited exam. Elevated d-dimer, chest CTA shows no obvious central pulmonary embolism. Cannot exclude secondary or distal branch emboli. Left lower extremity is edematous, Doppler of the lower extremity is negative and d-dimer is at 0.8. Recent COVID-19 infection, reportedly tested positive at outside facility History of chronic bronchial asthma, normally maintained on a combination of Advair, Spiriva, and when necessary albuterol, appears stable Chronic hypoxemic respiratory failure, normally maintained on 4-5 L home O2 Obstructive sleep apnea with obesity hypoventilation syndrome, utilizes CPAP at bedtime Morbid obesity, with a BMI of 55 kg/m Macrocytic anemia Hyperlipidemia Benign essential hypertension Hypothyroidism Never smoker Plan: Patient is currently on 5 L of oxygen by nasal cannula and the patient is off the BiPAP Continue Lasix at a dose of 40 mg IV every 12 hours Monitor fluid balance The pro calcitonin level is low at 0.11 Doppler of the lower extremity was negative Echocardiogram shows a preserved LV function D-dimer is low at 0.82 We'll continue to follow. Recommended weaning down FiO2 as tolerated to maintain a saturation above 90%.
--- NOTE | 2023-08-31 15:44 | P.PN ---
Subjective Progress Note Date: 08/31/23 This is a pleasant 73-year-old female with history of CHF recently hospitalized for Covut up in [place] was sent home and noticed to have increased lower extremity edema. Patient continues on IV Lasix with swelling in her legs has improved. Currently on 4 L of oxygen which she wears chronically. Patient had a venous Doppler of her left lower extremity which was negative for acute DVT. White count remains normal at 9.06, hemoglobin 10.0, sodium 144, potassium 3.3, kidney function remains stable. Glucoses in the 100s. Covid, influenza, RSV are negative. 08/31/2023 Patient is evaluated today sitting up on the edge of bed. Patient has been up ambulating to the bathroom and back. Currently on 4L of oxygen. Maintained on IV lasix. Procalcitonin 0.11. B/P on the lower side today mid 90s systolic and losartan has been discontinued. Heart rate in the 100s today. Review of Systems Constitutional: Denied any fatigue denied any fever. Cardio vascular: denied any chest pain, palpitations Gastrointestinal: denied any nausea, vomiting, diarrhea Pulmonary: Reports shortness of breath, no cough. Neurologic denied any new focal deficits All inpatient medications were reviewed and appropriate changes in these medications as dictated in the interval history and assessment and plan. PHYSICAL EXAMINATION: GENERAL: The patient is alert and oriented x3, not in any acute distress. Well developed, well nourished. Obese. On nasal cannula HEENT: Pupils are round and equally reacting to light. EOMI. No scleral icterus. No conjunctival pallor. Normocephalic, atraumatic. No pharyngeal erythema. No thyromegaly. CARDIOVASCULAR: S1 and S2 present. No murmurs, rubs, or gallops. PULMONARY: Chest is clear to auscultation, no wheezing or crackles. Tight. ABDOMEN: Soft, nontender, nondistended, normoactive bowel sounds. No palpable organomegaly. MUSCULOSKELETAL: No joint swelling or deformity. EXTREMITIES: No cyanosis, clubbing, or pedal edema. NEUROLOGICAL: Gross neurological examination did not reveal any focal deficits. Generalized weakness SKIN: No rashes. Assessment Acute on chronic diastolic heart failure on IV lasix Hyperlipidemia; Lipitor 40 mg daily at bedtime Hypertension; losartan 100 mg daily Hypothyroidism; levothyroxine 175 MCG daily Asthma;/COPD continue with DuoNeb nebulizer treatments 4 times a day and when necessary; Singulair 10 mg daily; continue with home inhaler therapy Anxiety/depression; Xanax 0.5 mg daily at bedtime; Cymbalta 60 mg daily Hypokalemia due to diuresis Stage 2 sacral ulcer present on admission patient has IDC in place to help promote wound healing by keep the area clean/dry Stage 2 ulceration on labial folds GI prophylaxis DVT prophylaxis Full Code Plan Completed course of antibiotic therapy, procalcitonin level normal. IV lasix with intake and output monitoring Cardiology following PT/OT have been consulted for discharge planning recommending home with homecare and 21/06 due to high risk for falls and pt needs assistance with ADL's. Repeat labs in AM. The impression and plan of care has been dictated by Dee Payne, Nurse Practitioner as directed. Dr. Beverly MD I have performed a history and physical examination and medical decision making of this patient, discussed the same with the dictator, and agree with the dictators assessment and plan as written, documented as a scribe. Based on total visit time, I have performed more than 50% of this visit. Objective - Vital Signs Vital signs: Vital Signs Temp 98.3 F 08/31/23 14:00 Pulse 107 H 08/31/23 14:00 Resp 18 08/31/23 14:00 BP 93/55 08/31/23 14:00 Pulse Ox 96 08/31/23 14:00 FiO2 40 08/31/23 01:28 Intake & Output 08/30/23 08/31/23 08/31/23 18:59 06:59 18:59 Intake Total 236 236 Output Total 600 800 900 Balance -364 -800 -304 Weight 136 kg Intake: Oral 236 236 Output: Urine 600 800 900 Other: Voiding Method Indwelling Catheter Indwelling Catheter Indwelling Catheter # Voids 1 # Bowel Movements 1 - Labs CBC & Chem 7: 08/30/23 05:20 08/30/23 05:20 Assessment and Plan Time with Patient: Less than 30
[2023-08-31] MEDS: ACETAMINOPHEN TAB 325 MG TAB PO PRN ×2 (16:05→23:49)
[2023-08-31] MEDS: SYMBICORT 80-4.5 MCG INHALER INHALATION SCH (16:08)
[2023-08-31] MEDS: IPRATROPIUM 0.5 MG/2.5 ML NEBU INHALATION SCH (16:08)
[2023-08-31] MEDS: ALPRAZolam 0.25 MG TAB PO SCH (20:45)
[2023-08-31] MEDS: ATORVASTATIN 40 MG TAB PO SCH (20:45)
[2023-08-31] MEDS: ZOLPIDEM 5 MG TAB PO SCH (20:45)
[2023-09-01 08:40] LABS: Basophils # (A) 0.03 X 10*3/uL (0.00-0.10); Basophils % (A) 0.4 %; Eosinophils # (A) 0.33 X 10*3/uL (0.04-0.35); Eosinophils % (A) 4.5 %; HCT 34.7 % (37.2-46.3); HGB 10.3 d/dL (12.0-15.0); Lymphocytes # (A) 1.18 X 10*3/uL (0.90-5.00); Lymphocytes % (A) 16.2 %; MCH 30.5 pg (27.0-32.0); MCHC 29.7 d/dL (32.0-37.0); MCV 102.7 FL (80.0-97.0); Mean Platelet Volume 11.4 FL (9.5-12.2); NRBC Per 100 WBC 0 X 10*3/uL (0.00-0.01); Neutrophils # (A) 4.86 X 10*3/uL (1.80-7.70); Neutrophils % (A) 66.7 %; Platelet Count 229 X 10*3/uL (140-440); RBC 3.38 X 10*6/uL (4.10-5.20); RDW 13.8 % (11.5-14.5); WBC 7.29 X 10*3/uL (4.50-10.00)
--- NOTE | 2023-09-01 08:41 | P.PN ---
Subjective Progress Note Date: 09/01/23 HPI: Patient is a pleasant 73-year-old female with past medical history consistent with atrial fibrillation, asthma, cancer, angina, heart failure, COPD, osteophytes right's, pneumonia, hypothyroidism, and previous colon infection who presents to the hospital with complaints of bilateral lower extremity swelling and increased shortness of breath. Patient reports that she was recently hospitalized for 13 days at [facility] in [place], and states that just a few days after being there, she noted that her bilateral lower extremities were swelling, and that she was having increased shortness of breath with movement. Patient reports that she's gained approximately 13 pounds after being out of the hospital. The patient presented to our emergency department for further evaluation. Imaging was completed which did not demonstrate any obvious acute process. Patient had an echocardiogram completed which showed severe LVH with an EF of about 50-55%. Cardiology was consulted for assistance with management of CHF. Upon examination, the patient reports that she feels slightly better today. Patient is on Lasix 40 g IV push every 12 hours. REVIEW OF LABS, ECG & MEDICAL DATA: LABS: White count 8.3, hematoma 9.6, platelets 2:15, sodium 142, potassium 3.2, d-dimer 0.82, B1 11.4, creatinine 0.7, calcium 9.3, troponin less than 0.012, BNP 117 EKG: Normal sinus rhythm with first-degree heart block IMAGING: Chest x-ray dated 08/28/2023 demonstrates limited study, cannot exclude atelectasis or infiltrate in the left lung base although felt to be unlikely, if clinically indicated PA and lateral view of the chest recommended for further evaluation. Echocardiogram dated 08/28/2023 demonstrates severe LVH with ejection fraction of about 50-55%. CT angiogram of the chest dated 08/28/2023 demonstrates limited exam due to suboptimal paced vacation, no central pulmonary embolism, could not exclude a pulmonary embolism in the secondary and distal branches with particular attention to the left lower lobe branch axial image 71, COPD with basilar bronchiectasis and areas of consolidation most likely in the basis of atelectasis. VITALS: Temp 98.0, pulse 105, respirations 19, blood pressure 123/75, O2 saturation 93% on 5 L via nasal cannula 08/30 Patient is seen today in follow-up. Echocardiogram performed at [facility] has been obtained and reveals EF of 55-60%, normal global left ventricular systolic function. Small pericardial effusion. Mild aortic valve sclerosis without stenosis. Patient feels that her breathing is getting better. She feels tired this morning. She states she needs to continue to remind herself to take a deep breath. Incentive spirometry will be ordered. She has a Mtz catheter in place and has been diuresing well with a negative balance of 3082. Weight is down 3 kg. She is on Lasix 40 mg every 12 hours. Repeat chemistry panel is not available at the time of this dictation. TSH 1.74. Influenza A, influenza B, RSV, Covid 19 not detected. Heart rate 95-102, blood pressure 116/74, pulse ox 96% on 5 L nasal cannula, afebrile. 08/31 Patient states that she continues to have shortness of breath but feels a little bit better when she is on the BiPAP. She has been maintained on IV Lasix 40 mg every 12 hours. Yesterday she was in a negative balance of 1524. Lab work from yesterday revealed potassium 3.3, V1 14 creatinine 0.7. Hemoglobin 10. Noted blood pressure soft this morning 92/57. She is 93% on 6 L nasal cannula, heart rate 93. 10/4 Yesterday, we discontinued amlodipine due to hypotension. Subsequently losartan was also discontinued. Her blood pressure this morning is 92/58. Patient had episode of A. fib with RVR in the 140s last evening. Heart rate is now controlled at 102. Patient has been continued on IV Lasix 40 mg every 12 hours. She continues to have dyspnea on exertion and cough. EXAMINATION: GENERAL: Well-appearing, well-nourished and in no acute distress. NECK: Supple without JVD or thyromegaly. LUNGS: Breath diminished with scattered rhonchi bilaterally. Respiration equal and unlabored. HEART: Regular rate and rhythm without murmurs, rubs or gallops. S1 and S2 heard. EXTREMITIES: 1+ bilateral lower extremity edema. No clubbing or cyanosis. Peripheral pulses intact and strong. IMPRESSION: 1. Acute on chronic diastolic heart failure, 2. Bilateral lower extremity edema improving 3. History COPD 4. Recent hospitalization 5. Paroxysmal atrial fibrillation patient not on anticoagulation due to bleeding episodes PLAN: Continue IV Lasix 40 mg every 12 hours Monitor I&O, daily weights, electrolytes and renal function Amlodipine was discontinued yesterday as well as losartan. Monitor blood pressure Continue home cardiac medications. Further recommendations based on patient's clinical course. Thank you for the consult and allowing us to participate in the care of this patient. Objective - Vital Signs Vital signs: Vital Signs Temp 97.8 F 09/01/23 07:35 Pulse 102 H 09/01/23 07:35 Resp 16 09/01/23 07:35 BP 92/58 09/01/23 07:35 Pulse Ox 93 L 09/01/23 07:35 FiO2 40 09/01/23 03:36 Intake & Output 08/31/23 09/01/23 09/01/23 18:59 06:59 18:59 Intake Total 354 Output Total 900 650 Balance -546 -650 Weight 136 kg Intake: Oral 354 Output: Urine 900 650 Other: Voiding Method Indwelling Catheter Indwelling Catheter # Voids 0 # Bowel Movements 1 - Labs CBC & Chem 7: 08/30/23 05:20 08/30/23 05:20
[2023-09-01 09:01] LABS: BUN/Creat Ratio 22.11 Ratio (12.00-20.00); Blood Urea Nitrogen 19.9 mg/dL (9.0-27.0); Calcium 9.5 mg/dL (8.7-10.3); Carbon Dioxide 43.4 mmol/L (21.6-31.8); Chloride 89 mmol/L (96-109); Glucose 145 mg/dL (70-110); Potassium 3.6 mmol/L (3.5-5.5); Sodium 145 mmol/L (135-145)
[2023-09-01] MEDS: LEVOTHYROXINE 50 MCG TAB PO SCH (09:18)
[2023-09-01] MEDS: TAMSULOSIN 0.4 MG CAP.ER.24H PO SCH (09:19)
[2023-09-01] MEDS: DULoxetine HCL 60 MG CAPSULE.DR PO SCH (09:19)
[2023-09-01] MEDS: MONTELUKAST 10 MG TAB PO SCH (09:19)
[2023-09-01] MEDS: GABAPENTIN 300 MG CAP PO SCH ×3 (09:20→20:33)
[2023-09-01] MEDS: traMADol 50 MG TAB PO SCH ×2 (09:20→20:34)
[2023-09-01] MEDS: ASCORBIC ACID 500 MG TAB PO SCH (09:20)
[2023-09-01] MEDS: MAGNESIUM OXIDE 400 MG TAB PO SCH (09:20)
[2023-09-01] MEDS: METOPROLOL TARTRATE 50 MG TAB PO SCH ×2 (09:20→20:33)
[2023-09-01] MEDS: POTASSIUM CHLORIDE ER 10 MEQ TAB.ER.PRT PO SCH ×2 (09:20→20:34)
[2023-09-01] MEDS: PANTOPRAZOLE 40 MG TABLET PO SCH (09:21)
[2023-09-01] MEDS: FERROUS SULFATE 325 MG TAB PO SCH (09:21)
[2023-09-01] MEDS: FENOFIBRATE 160 MG TAB PO SCH (09:21)
[2023-09-01] MEDS: ZINC SULFATE 220 MG CAP PO SCH (09:21)
[2023-09-01] MEDS: DOCUSATE 100 MG CAP PO SCH (09:21)
[2023-09-01] MEDS: HEPARIN SODIUM,PORCINE 5,000 UNIT/ML 1 ML VIAL SQ SCH ×3 (09:21→23:57)
[2023-09-01] MEDS: CYANOCOBALAMIN 500 MCG TAB PO SCH (09:21)
[2023-09-01] MEDS: polyethylene glycoL 3350 17 GM POWD.PACK PO SCH (09:32)
[2023-09-01] MEDS: SYMBICORT 80-4.5 MCG INHALER INHALATION SCH ×3 (09:48→20:34)
[2023-09-01] MEDS: IPRATROPIUM 0.5 MG/2.5 ML NEBU INHALATION SCH ×6 (09:49→20:34)
[2023-09-01] MEDS: FUROSEMIDE 10 MG/ML 4 ML VIAL IV SCH (09:49)
[2023-09-01] MEDS: ALBUTEROL NEBULIZED 2.5 MG/3 ML INHALATION PRN (09:49)
[2023-09-01] MEDS ORDERED: SODIUM CHLORIDE 0.9% 1,000 ML IV SCH (13:15)
--- NOTE | 2023-09-01 13:16 | P.PN ---
Subjective Progress Note Date: 09/01/23 This is a pleasant 73-year-old female with history of CHF recently hospitalized for Covid up in [place] was sent home and noticed to have increased lower extremity edema. Patient continues on IV Lasix with swelling in her legs has improved. Currently on 4 L of oxygen which she wears chronically. Patient had a venous Doppler of her left lower extremity which was negative for acute DVT. White count remains normal at 9.06, hemoglobin 10.0, sodium 144, potassium 3.3, kidney function remains stable. Glucoses in the 100s. Covid, influenza, RSV are negative. 08/31/2023 Patient is evaluated today sitting up on the edge of bed. Patient has been up ambulating to the bathroom and back. Currently on 4L of oxygen. Maintained on IV lasix. Procalcitonin 0.11. B/P on the lower side today mid 90s systolic and losartan has been discontinued. Heart rate in the 100s today. 09/01/2023 Patient is evaluated today resting in bed. Heart rate was up into the 140s last night and atrial fibrillation. She was continued on IV Lasix every 12 hours over his CO2 was Critical to 43.4 and clinically patient appears to be dry recommended to stop IV Lasix at this time. Chloride is also low at 89. Patient remains on oxygen via nasal cannula as at home. Review of Systems Constitutional: Denied any fatigue denied any fever. Cardio vascular: denied any chest pain, palpitations Gastrointestinal: denied any nausea, vomiting, diarrhea Pulmonary: Reports shortness of breath, no cough. Neurologic denied any new focal deficits All inpatient medications were reviewed and appropriate changes in these medications as dictated in the interval history and assessment and plan. PHYSICAL EXAMINATION: GENERAL: The patient is alert and oriented x3, not in any acute distress. Well developed, well nourished. Obese. On nasal cannula HEENT: Pupils are round and equally reacting to light. EOMI. No scleral icterus. No conjunctival pallor. Normocephalic, atraumatic. No pharyngeal erythema. No thyromegaly. CARDIOVASCULAR: S1 and S2 present. No murmurs, rubs, or gallops. PULMONARY: Chest is clear to auscultation, no wheezing or crackles. Tight. ABDOMEN: Soft, nontender, nondistended, normoactive bowel sounds. No palpable organomegaly. MUSCULOSKELETAL: No joint swelling or deformity. EXTREMITIES: No cyanosis, clubbing, or pedal edema. NEUROLOGICAL: Gross neurological examination did not reveal any focal deficits. Generalized weakness SKIN: No rashes. Assessment Acute on chronic hypoxic and hypercapnic respiratory failure is due to an acute diastolic heart failure as well as an acute COPD exacerbation Acute on chronic diastolic heart failure on IV lasix D-dimer elevated with chest CT angiography showing no obvious central pulmonary embolism, exclude a secondary distal branch emboli. Venous Doppler negative for DVT left lower extremity. Hyperlipidemia Hypertension Hypothyroidism Asthma;/COPD continue with DuoNeb nebulizer treatments 4 times a day and when necessary; Singulair 10 mg daily; continue with home inhaler therapy Anxiety/depression Hypokalemia due to diuresis Stage 2 sacral ulcer present on admission patient has IDC in place to help promote wound healing by keep the area clean/dry Stage 2 ulceration on labial folds Recent COVID-19 infection outside facility Obstructive sleep apnea with obesity hypoventilation syndrome patient uses CPAP at bedtime. Morbid obesity GI prophylaxis DVT prophylaxis Full Code Plan Completed course of antibiotic therapy, procalcitonin level normal. Recommending to hold IV Lasix at this time due to the metabolic alkalosis and patient will be given gentle hydration Amlodipine and losartan are also on hold PT/OT have been consulted for discharge planning recommending home with homecare and 21/06 due to high risk for falls and pt needs assistance with ADL's. Repeat labs in AM. The impression and plan of care has been dictated by Dee Payne, Nurse Practitioner as directed. Dr. Beverly MD I have performed a history and physical examination and medical decision making of this patient, discussed the same with the dictator, and agree with the dictators assessment and plan as written, documented as a scribe. Based on total visit time, I have performed more than 50% of this visit. Objective - Vital Signs Vital signs: Vital Signs Temp 97.8 F 09/01/23 07:35 Pulse 102 H 09/01/23 07:35 Resp 16 09/01/23 07:35 BP 92/58 09/01/23 07:35 Pulse Ox 93 L 09/01/23 08:59 FiO2 40 09/01/23 03:36 Intake & Output 08/31/23 09/01/23 09/01/23 18:59 06:59 18:59 Intake Total 354 118 Output Total 900 650 Balance -546 -650 118 Weight 136 kg Intake: Oral 354 118 Output: Urine 900 650 Other: Voiding Method Indwelling Catheter Indwelling Catheter # Voids 0 # Bowel Movements 1 - Labs CBC & Chem 7: 09/01/23 05:42 09/01/23 05:42 Labs: Abnormal Lab Results - Last 24 Hours (Table) 09/01/23 09/01/23 Range/Units 05:42 05:42 RBC 3.38 L (4.10-5.20) X 10*6/uL Hgb 10.3 L (12.0-15.0) d/dL Hct 34.7 L (37.2-46.3) % MCV 102.7 H (80.0-97.0) FL MCHC 29.7 L (32.0-37.0) d/dL Chloride 89 L (96-109) mmol/L Carbon Dioxide 43.4 H* (21.6-31.8) mmol/L Anion Gap 12.60 H (4.00-12.00) mmol/L BUN/Creatinine Ratio 22.11 H (12.00-20.00) Ratio Glucose 145 H (70-110) mg/dL Assessment and Plan Time with Patient: Less than 30
--- NOTE | 2023-09-01 17:14 | P.PN ---
Subjective Progress Note Date: 09/01/23 I am seeing this patient in consultation today 08/30/2023 after she presented to the emergency room 2 days ago complaining of progressively worsening shortness of breath over the last week or so. Patient is a 73-year-old white female with past medical history significant for asthma, obstructive sleep apnea, morbid obesity with obesity hypoventilation's syndrome, hypertension, hyperlipidemia, GERD, previous breast cancer with bilateral mastectomies, among other things. Patient does follow with Dr. Hebert in the office. She was found to have mostly restrictive lung disease. She does use a CPAP at bedtime, and is chronically oxygen dependent on 4-5 L 24/7. Patient recently had a prolonged hospitalization at [facility] [place] in [place] for heart failure and was found to be COVID-19 positive. She was recently discharged home on August 20. Patient states that she is progressively become more short of breath especially with walking since then. She does admit a 13 pound weight gain over the past 1 week. Patient states that she has had lower extremity swelling, mostly the left lower extremity. States that the swelling in her left lower extremity is chronic. Denies any chest pain, heart palpitations, lightheadedness, syncope, orthopnea. Denies any fever, chills, myalgias. She has had a minimally productive cough. Patient is currently sitting up in bed, on BiPAP settings 12/5 and FiO2 40%. She appears comfortable. Respiratory rate is 16 and tidal volumes are in the high 300s. She is alert and able to answer all my questions. Chest x-ray on arrival showed cardiomegaly with low lung volumes and some basilar atelectasis. Follow-up chest CTA was a limited exam. There is no central pulmonary embolism. Cannot exclude secondary or distal branch emboli. There was COPD-like changes with basilar bronchiectasis and bibasilar atelectasis. Patient was empirically covered on a combination of azithromycin and Rocephin. Has been afebrile. Most recent CBC from yesterday shows a WBC count 8.3, hemoglobin 9.6, hematocrit 31.5, platelets 215. BMP from yesterday shows sodium 142, potassium 3.2, chloride 91, serum bicarbonate 39.9, BUN 11.4, creatinine 0.7, glucose 117. Troponins less than 0.012 on arrival. NT proBNP was low at 117. Patient is currently receiving Lasix 40 mg twice a day. She does have a indwelling urinary catheter, for perineal wounds that are healing. Patient does appear hemodynamically stable this time. On today's evaluation of 08/31/2023, the patient is being seen for a follow-up. The patient is producing excellent urine output and the patient is diuresing well with Lasix 40 mg IV every 12 hours. She is still having some exertional dyspnea and tachycardia. She is currently on beta blockers and the patient is on metoprolol 100 mg by mouth twice a day. She remains on albuterol nebulized treatments when necessary, Symbicort as maintenance 2 puffs twice a day, and she is also on oxygen at 5 L/m nasal cannula. BUN is at 40 with a creatinine of 0.8. The white cell count at 9 with a hemoglobin of 10.0. No reported chest pain. No angina. No palpitation pH is morbidly obese. She Is a body mass index of 54. The Doppler of the lower activity was negative. The echocardiogram showed a preserved LV function with an EF of around 50-55%. There is RV dilatation, pulmonary artery pressures could not be accurately evaluated and assessed. On today's evaluation of 09/01/2023, I'm seeing the patient for a follow-up. The patient has no new complaints. She is being treated for an acute on top of chronic diastolic heart failure and fluid overload. The patient is also having issues with paroxysmal atrial fibrillation. She did have an episode of A. fib with RVR last night with a heart rate going to 140s. Currently, currently is under better control and tailings worker on the case. She remains on IV Lasix 40 mg IV every 12 hours. The fluid balance is -1.1 L over the past 24 hours. The patient's BUN is currently at 19 with a creatinine of 0.9. Serum bicarbonate is 43. Sodium level is at 145. The patient will be given 2 doses of Diamox. The physical is at 7.2 with a hemoglobin of 10.3. No significant complaints otherwise for now. Less short of breath. Objective - Vital Signs Vital signs: Vital Signs Temp 98.2 F 09/01/23 14:00 Pulse 112 H 09/01/23 16:59 Resp 16 09/01/23 14:00 BP 95/58 09/01/23 14:00 Pulse Ox 95 09/01/23 14:00 FiO2 40 09/01/23 03:36 Intake & Output 08/31/23 09/01/23 09/01/23 18:59 06:59 18:59 Intake Total 354 236 Output Total 900 650 900 Balance -528 -228 -510 Weight 136 kg Intake: Oral 354 236 Output: Urine 900 650 900 Other: Voiding Method Indwelling Catheter Indwelling Catheter Indwelling Catheter # Voids 0 # Bowel Movements 1 - Exam GENERAL EXAM: Alert, 73-year-old white female who is morbidly obese , comfortable in no apparent distress. The patient is currently on 5 L of oxygen by nasal cannula and she is off the BiPAP HEAD: Normocephalic and atraumatic EYES: Normal reaction of pupils, equal size. NOSE: Clear with pink turbinates. THROAT: No erythema or exudates. NECK: No masses, no JVD. Short and thick neck with DEX like features CHEST: No chest wall deformity. LUNGS: Equal air entry with markedly diminished lung sounds throughout and fine bibasilar crackles. no wheeze, rhonchi or dullness. CVS: S1 and S2 normal with no audible murmur, regular rhythm. No extra heart luis eduardo nds ABDOMEN: Obese abdomen, no hepatosplenomegaly, active bowel sounds, no guarding or rigidity. SPINE: No scoliosis or deformity SKIN: No rashes. CENTRAL NERVOUS SYSTEM: No focal deficits, tone is normal in all 4 extremities. EXTREMITIES: There is left lower extremity 1-2+ pitting edema. No clubbing, or cyanosis. Peripheral pulses are intact. - Labs CBC & Chem 7: 09/01/23 05:42 09/01/23 05:42 Labs: Abnormal Lab Results - Last 24 Hours (Table) 09/01/23 09/01/23 Range/Units 05:42 05:42 RBC 3.38 L (4.10-5.20) X 10*6/uL Hgb 10.3 L (12.0-15.0) d/dL Hct 34.7 L (37.2-46.3) % MCV 102.7 H (80.0-97.0) FL MCHC 29.7 L (32.0-37.0) d/dL Chloride 89 L (96-109) mmol/L Carbon Dioxide 43.4 H* (21.6-31.8) mmol/L Anion Gap 12.60 H (4.00-12.00) mmol/L BUN/Creatinine Ratio 22.11 H (12.00-20.00) Ratio Glucose 145 H (70-110) mg/dL Assessment and Plan Assessment: Acute on chronic hypoxemic and hypercapnic respiratory failure, possibly related to an exacerbation of diastolic congestive heart failure and fluid overload, how ever, NT proBNP was low. Chest CTA shows COPD-like changes with basilar bronchiectasis and bibasilar atelectasis. No obvious infiltrates or evidence of pneumonia. Echocardiogram this admission shows a preserved left ventricular ejection fraction of 50-55% with severe left ventricular hypertrophy, otherwise, a limited exam. Elevated d-dimer, chest CTA shows no obvious central pulmonary embolism. Cannot exclude secondary or distal branch emboli. Left lower extremity is edematous, Doppler of the lower extremity is negative and d-dimer is at 0.8. Recent COVID-19 infection, reportedly tested positive at outside facility History of chronic bronchial asthma, normally maintained on a combination of Advair, Spiriva, and when necessary albuterol, appears stable Chronic hypoxemic respiratory failure, normally maintained on 4-5 L home O2 Obstructive sleep apnea with obesity hypoventilation syndrome, utilizes CPAP at bedtime Morbid obesity, with a BMI of 55 kg/m Macrocytic anemia Hyperlipidemia Benign essential hypertension Hypothyroidism Never smoker Plan: Patient is currently on 5 L of oxygen by nasal cannula and the patient is off the BiPAP Continue Lasix at a dose of 40 mg IV every 12 hours, remains in negative fluid balance Has developed some metabolic alkalosis and the patient will be given Diamox, milligrams every 12 hours 2 Continue metoprolol 100 mg by mouth twice a day Anticoagulation as per cardiology The pro calcitonin level is low at 0.11 Doppler of the lower extremity was negative Echocardiogram shows a preserved LV function D-dimer is low at 0.82 We'll continue to follow. Recommended weaning down FiO2 as tolerated to maintain a saturation above 90%.t his please
[2023-09-01] MEDS: ATORVASTATIN 40 MG TAB PO SCH (20:33)
[2023-09-01] MEDS: ALPRAZolam 0.25 MG TAB PO SCH (20:34)
[2023-09-01] MEDS: ZOLPIDEM 5 MG TAB PO SCH (20:34)
[2023-09-02 08:56] LABS: BUN/Creat Ratio 23.89 Ratio (12.00-20.00); Blood Urea Nitrogen 21.5 mg/dL (9.0-27.0); Calcium 9.3 mg/dL (8.7-10.3); Carbon Dioxide 43.1 mmol/L (21.6-31.8); Chloride 90 mmol/L (96-109); Glucose 141 mg/dL (70-110); Potassium 3.2 mmol/L (3.5-5.5); Sodium 144 mmol/L (135-145)
[2023-09-02] MEDS: traMADol 50 MG TAB PO SCH ×2 (08:57→20:43)
[2023-09-02] MEDS ORDERED: POTASSIUM CHLORIDE ER 20 MEQ TAB.ER PO STA ×2 (08:57)
[2023-09-02] MEDS: LEVOTHYROXINE 50 MCG TAB PO SCH (08:58)
[2023-09-02] MEDS: METOPROLOL TARTRATE 50 MG TAB PO SCH ×2 (08:59→20:43)
[2023-09-02] MEDS: TAMSULOSIN 0.4 MG CAP.ER.24H PO SCH (09:00)
[2023-09-02] MEDS: GABAPENTIN 300 MG CAP PO SCH ×3 (09:00→20:43)
[2023-09-02] MEDS: FERROUS SULFATE 325 MG TAB PO SCH (09:00)
[2023-09-02] MEDS: PANTOPRAZOLE 40 MG TABLET PO SCH (09:00)
[2023-09-02] MEDS: MAGNESIUM OXIDE 400 MG TAB PO SCH (09:00)
[2023-09-02] MEDS: CYANOCOBALAMIN 500 MCG TAB PO SCH (09:00)
[2023-09-02] MEDS: DOCUSATE 100 MG CAP PO SCH (09:00)
[2023-09-02] MEDS: ASCORBIC ACID 500 MG TAB PO SCH (09:00)
[2023-09-02] MEDS: ZINC SULFATE 220 MG CAP PO SCH (09:00)
[2023-09-02] MEDS: POTASSIUM CHLORIDE ER 10 MEQ TAB.ER.PRT PO SCH ×2 (09:00→20:43)
[2023-09-02] MEDS: DULoxetine HCL 60 MG CAPSULE.DR PO SCH (09:01)
[2023-09-02] MEDS: HEPARIN SODIUM,PORCINE 5,000 UNIT/ML 1 ML VIAL SQ SCH ×2 (09:01→16:49)
[2023-09-02] MEDS: MONTELUKAST 10 MG TAB PO SCH (09:09)
[2023-09-02] MEDS: FENOFIBRATE 160 MG TAB PO SCH (09:10)
--- NOTE | 2023-09-02 09:13 | P.PN ---
Subjective Progress Note Date: 09/02/23 HPI: Patient is a pleasant 73-year-old female with past medical history consistent with atrial fibrillation, asthma, cancer, angina, heart failure, COPD, osteophytes right's, pneumonia, hypothyroidism, and previous colon infection who presents to the hospital with complaints of bilateral lower extremity swelling and increased shortness of breath. Patient reports that she was recently hospitalized for 13 days at [facility] in [place], and states that just a few days after being there, she noted that her bilateral lower extremities were swelling, and that she was having increased shortness of breath with movement. Patient reports that she's gained approximately 13 pounds after being out of the hospital. The patient presented to our emergency department for further evaluation. Imaging was completed which did not demonstrate any obvious acute process. Patient had an echocardiogram completed which showed severe LVH with an EF of about 50-55%. Cardiology was consulted for assistance with management of CHF. Upon examination, the patient reports that she feels slightly better today. Patient is on Lasix 40 g IV push every 12 hours. REVIEW OF LABS, ECG & MEDICAL DATA: LABS: White count 8.3, hematoma 9.6, platelets 2:15, sodium 142, potassium 3.2, d-dimer 0.82, B1 11.4, creatinine 0.7, calcium 9.3, troponin less than 0.012, BNP 117 EKG: Normal sinus rhythm with first-degree heart block IMAGING: Chest x-ray dated 08/28/2023 demonstrates limited study, cannot exclude atelectasis or infiltrate in the left lung base although felt to be unlikely, if clinically indicated PA and lateral view of the chest recommended for further evaluation. Echocardiogram dated 08/28/2023 demonstrates severe LVH with ejection fraction of about 50-55%. CT angiogram of the chest dated 08/28/2023 demonstrates limited exam due to suboptimal paced vacation, no central pulmonary embolism, could not exclude a pulmonary embolism in the secondary and distal branches with particular attention to the left lower lobe branch axial image 71, COPD with basilar bronchiectasis and areas of consolidation most likely in the basis of atelectasis. VITALS: Temp 98.0, pulse 105, respirations 19, blood pressure 123/75, O2 saturation 93% on 5 L via nasal cannula 08/30 Patient is seen today in follow-up. Echocardiogram performed at [facility] has been obtained and reveals EF of 55-60%, normal global left ventricular systolic function. Small pericardial effusion. Mild aortic valve sclerosis without stenosis. Patient feels that her breathing is getting better. She feels tired this morning. She states she needs to continue to remind herself to take a deep breath. Incentive spirometry will be ordered. She has a Mtz catheter in place and has been diuresing well with a negative balance of 3082. Weight is down 3 kg. She is on Lasix 40 mg every 12 hours. Repeat chemistry panel is not available at the time of this dictation. TSH 1.74. Influenza A, influenza B, RSV, Covid 19 not detected. Heart rate 95-102, blood pressure 116/74, pulse ox 96% on 5 L nasal cannula, afebrile. 08/31 Patient states that she continues to have shortness of breath but feels a little bit better when she is on the BiPAP. She has been maintained on IV Lasix 40 mg every 12 hours. Yesterday she was in a negative balance of 1524. Lab work from yesterday revealed potassium 3.3, V1 14 creatinine 0.7. Hemoglobin 10. Noted blood pressure soft this morning 92/57. She is 93% on 6 L nasal cannula, heart rate 93. 09/01 Yesterday, we discontinued amlodipine due to hypotension. Subsequently losartan was also discontinued. Her blood pressure this morning is 92/58. Patient had episode of A. fib with RVR in the 140s last evening. Heart rate is now controlled at 102. Patient has been continued on IV Lasix 40 mg every 12 hours. She continues to have dyspnea on exertion and cough. 09/02 Yesterday, IV Lasix was discontinued by attending. Patient states that she still has shortness of breath with activity. Pulmonary medicine has given her 1 dose of Diamox. Patient noted to have no lower extremity edema. Blood pressure is improved with medication changes, 103/66. Heart rate is in the 90s. She has been on BiPAP during the night and currently on nasal cannula at 5 L. Repeat blood work today reveals sodium 144, potassium 3.2, chloride 90, CO2 43. EXAMINATION: GENERAL: Well-appearing, well-nourished and in no acute distress. NECK: Supple without JVD or thyromegaly. LUNGS: Breath diminished with scattered rhonchi bilaterally. Respiration equal and unlabored. HEART: Regular rate and rhythm without murmurs, rubs or gallops. S1 and S2 heard. EXTREMITIES: no bilateral lower extremity edema. No clubbing or cyanosis. Peripheral pulses intact and strong. IMPRESSION: 1. Acute on chronic diastolic heart failure, 2. Bilateral lower extremity edema improving 3. History COPD 4. Recent hospitalization 5. Paroxysmal atrial fibrillation patient not on anticoagulation due to bleeding episodes PLAN: Continue current medications Amlodipine and losartan have been discontinued due to hypotension Monitor I&O, daily weights, electrolytes and renal function Monitor blood pressure Cardiology will sign off this case and follow on an as-needed basis. Please reconsult for any new concerns. Patient may follow-up in the office in [address] Chatterjee. Thank you for the consult and allowing us to participate in the care of this patient. Objective - Vital Signs Vital signs: Vital Signs Temp 98.4 F 09/02/23 07:36 Pulse 94 09/02/23 07:36 Resp 20 09/02/23 07:36 BP 103/66 09/02/23 07:36 Pulse Ox 94 L 09/02/23 07:36 FiO2 40 09/02/23 04:07 Intake & Output 09/01/23 09/02/23 09/02/23 18:59 06:59 18:59 Intake Total 356 Output Total 900 550 Balance -544 -550 Weight 135.2 kg Intake: Oral 356 Output: Urine 900 550 Other: Voiding Method Indwelling Catheter Indwelling Catheter - Labs CBC & Chem 7: 09/01/23 05:42 09/02/23 05:21 Labs: Abnormal Lab Results - Last 24 Hours (Table) 09/01/23 09/02/23 Range/Units 05:42 05:21 Potassium 3.2 L (3.5-5.5) mmol/L Chloride 89 L 90 L (96-109) mmol/L Carbon Dioxide 43.4 H* 43.1 H* (21.6-31.8) mmol/L Anion Gap 12.60 H (4.00-12.00) mmol/L BUN/Creatinine Ratio 22.11 H 23.89 H (12.00-20.00) Ratio Glucose 145 H 141 H (70-110) mg/dL
[2023-09-02] MEDS: IPRATROPIUM 0.5 MG/2.5 ML NEBU INHALATION SCH ×4 (09:14→20:12)
[2023-09-02] MEDS: SYMBICORT 80-4.5 MCG INHALER INHALATION SCH ×2 (09:14→20:12)
[2023-09-02] MEDS: polyethylene glycoL 3350 17 GM POWD.PACK PO SCH (10:58)
--- NOTE | 2023-09-02 13:54 | P.PN ---
Subjective Progress Note Date: 09/02/23 This is a pleasant 73-year-old female with history of CHF recently hospitalized for [facility] in [place] was sent home and noticed to have increased lower extremity edema. Patient continues on IV Lasix with swelling in her legs has improved. Currently on 4 L of oxygen which she wears chronically. Patient had a venous Doppler of her left lower extremity which was negative for acute DVT. White count remains normal at 9.06, hemoglobin 10.0, sodium 144, potassium 3.3, kidney function remains stable. Glucoses in the 100s. Covid, influenza, RSV are negative. 08/31/2023 Patient is evaluated today sitting up on the edge of bed. Patient has been up ambulating to the bathroom and back. Currently on 4L of oxygen. Maintained on IV lasix. Procalcitonin 0.11. B/P on the lower side today mid 90s systolic and losartan has been discontinued. Heart rate in the 100s today. 09/01/2023 Patient is evaluated today resting in bed. Heart rate was up into the 140s last night and atrial fibrillation. She was continued on IV Lasix every 12 hours over his CO2 was Critical to 43.4 and clinically patient appears to be dry recommended to stop IV Lasix at this time. Chloride is also low at 89. Patient remains on oxygen via nasal cannula as at home. 09/02/2023 Patient evaluated today up in the restroom. No shortness of breath noted. IV lasix was discontinued patient is being gently hydrated normal saline at 50 mls/hr. Blood pressure remains low normal 105/64 amlodipine and losartan are being held at this time. Patient given IV diamox x2. Review of Systems Constitutional: Denied any fatigue denied any fever. Cardio vascular: denied any chest pain, palpitations Gastrointestinal: denied any nausea, vomiting, diarrhea Pulmonary: Reports shortness of breath, no cough. Neurologic denied any new focal deficits All inpatient medications were reviewed and appropriate changes in these medications as dictated in the interval history and assessment and plan. PHYSICAL EXAMINATION: GENERAL: The patient is alert and oriented x3, not in any acute distress. Well developed, well nourished. Obese. On nasal cannula HEENT: Pupils are round and equally reacting to light. EOMI. No scleral icterus. No conjunctival pallor. Normocephalic, atraumatic. No pharyngeal erythema. No thyromegaly. CARDIOVASCULAR: S1 and S2 present. No murmurs, rubs, or gallops. PULMONARY: Chest is clear to auscultation, no wheezing or crackles. Tight. ABDOMEN: Soft, nontender, nondistended, normoactive bowel sounds. No palpable organomegaly. MUSCULOSKELETAL: No joint swelling or deformity. EXTREMITIES: No cyanosis, clubbing, or pedal edema. NEUROLOGICAL: Gross neurological examination did not reveal any focal deficits. Generalized weakness SKIN: No rashes. Assessment Acute on chronic hypoxic and hypercapnic respiratory failure is due to an acute diastolic heart failure as well as an acute COPD exacerbation Acute on chronic diastolic heart failure treated with IV lasix. D-dimer elevated with chest CT angiography showing no obvious central pulmonary embolism, exclude a secondary distal branch emboli. Venous Doppler negative for DVT left lower extremity. Hyperlipidemia Hypertension Hypothyroidism Asthma;/COPD continue with DuoNeb nebulizer treatments 4 times a day and when necessary; Singulair 10 mg daily; continue with home inhaler therapy Anxiety/depression Hypokalemia due to diuresis Stage 2 sacral ulcer present on admission patient has IDC in place to help promote wound healing by keep the area clean/dry Stage 2 ulceration on labial folds Recent COVID-19 infection outside facility Obstructive sleep apnea with obesity hypoventilation syndrome patient uses CPAP at bedtime. Morbid obesity GI prophylaxis DVT prophylaxis Full Code Plan Completed course of antibiotic therapy, procalcitonin level normal. Recommending to hold IV Lasix at this time due to the metabolic alkalosis and patient will be given gentle hydration. Patient was also given IV diamox x 2. Amlodipine and losartan are also on hold PT/OT have been consulted for discharge planning recommending home with homecare and 21/06 due to high risk for falls and pt needs assistance with ADL's. Repeat labs in AM. The impression and plan of care has been dictated by Nurse Cori Pr actitioner as directed. Dr. Beverly MD I have performed a history and physical examination and medical decision making of this patient, discussed the same with the dictator, and agree with the dicta tors assessment and plan as written, documented as a scribe. Based on total visit time, I have performed more than 50% of this visit. Objective - Vital Signs Vital signs: Vital Signs Temp 98.2 F 09/02/23 13:44 Pulse 91 09/02/23 13:44 Resp 18 09/02/23 13:44 BP 105/64 09/02/23 13:44 Pulse Ox 94 L 09/02/23 13:44 FiO2 40 09/02/23 04:07 Intake & Output 09/01/23 09/02/23 09/02/23 18:59 06:59 18:59 Intake Total 356 298 Output Total 900 550 Balance -544 -550 298 Weight 135.2 kg Intake: Oral 356 298 Output: Urine 900 550 Other: Voiding Method Indwelling Catheter Indwelling Catheter Indwelling Catheter - Labs CBC & Chem 7: 09/01/23 05:42 09/02/23 05:21 Labs: Abnormal Lab Results - Last 24 Hours (Table) 09/02/23 Range/Units 05:21 Potassium 3.2 L (3.5-5.5) mmol/L Chloride 90 L (96-109) mmol/L Carbon Dioxide 43.1 H* (21.6-31.8) mmol/L BUN/Creatinine Ratio 23.89 H (12.00-20.00) Ratio Glucose 141 H (70-110) mg/dL Assessment and Plan Time with Patient: Less than 30
--- NOTE | 2023-09-02 16:50 | P.PN ---
Subjective Progress Note Date: 09/02/23 I am seeing this patient in consultation today 08/30/2023 after she presented to the emergency room 2 days ago complaining of progressively worsening shortness of breath over the last week or so. Patient is a 73-year-old white female with past medical history significant for asthma, obstructive sleep apnea, morbid obesity with obesity hypoventilation's syndrome, hypertension, hyperlipidemia, GERD, previous breast cancer with bilateral mastectomies, among other things. Patient does follow with Dr. Hebert in the office. She was found to have mostly restrictive lung disease. She does use a CPAP at bedtime, and is chronically oxygen dependent on 4-5 L 24/. Patient recently had a prolonged hospitalization at [facility] in [place] for heart failure and was found to be COVID-19 positive. She was recently discharged home on August 20. Patient states that she is progressively become more short of breath especially with walking since then. She does admit a 13 pound weight gain over the past 1 week. Patient states that she has had lower extremity swelling, mostly the left lower extremity. States that the swelling in her left lower extremity is chronic. Denies any chest pain, heart palpitations, lightheadedness, syncope, orthopnea. Denies any fever, chills, myalgias. She has had a minimally productive cough. Patient is currently sitting up in bed, on BiPAP settings 12/5 and FiO2 40%. She appears comfortable. Respiratory rate is 16 and tidal volumes are in the high 300s. She is alert and able to answer all my questions. Chest x-ray on arrival showed cardiomegaly with low lung volumes and some basilar atelectasis. Follow-up chest CTA was a limited exam. There is no central pulmonary embolism. Cannot exclude secondary or distal branch emboli. There was COPD-like changes with basilar bronchiectasis and bibasilar atelectasis. Patient was empirically covered on a combination of azithromycin and Rocephin. Has been afebrile. Most recent CBC from yesterday shows a WBC count 8.3, hemoglobin 9.6, hematocrit 31.5, platelets 215. BMP from yesterday shows sodium 142, potassium 3.2, chloride 91, serum bicarbonate 39.9, BUN 11.4, creatinine 0.7, glucose 117. Troponins less than 0.012 on arrival. NT proBNP was low at 117. Patient is currently receiving Lasix 40 mg twice a day. She does have a indwelling urinary catheter, for perineal wounds that are healing. Patient does appear hemodynamically stable this time. On today's evaluation of 08/31/2023, the patient is being seen for a follow-up. The patient is producing excellent urine output and the patient is diuresing well with Lasix 40 mg IV every 12 hours. She is still having some exertional dyspnea and tachycardia. She is currently on beta blockers and the patient is on metoprolol 100 mg by mouth twice a day. She remains on albuterol nebulized treatments when necessary, Symbicort as maintenance 2 puffs twice a day, and she is also on oxygen at 5 L/m nasal cannula. BUN is at 40 with a creatinine of 0.8. The white cell count at 9 with a hemoglobin of 10.0. No reported chest pain. No angina. No palpitation pH is morbidly obese. She Is a body mass index of 54. The Doppler of the lower activity was negative. The echocardiogram showed a preserved LV function with an EF of around 50-55%. There is RV dilatation, pulmonary artery pressures could not be accurately evaluated and assessed. On today's evaluation of 09/01/2023, I'm seeing the patient for a follow-up. The patient has no new complaints. She is being treated for an acute on top of chronic diastolic heart failure and fluid overload. The patient is also having issues with paroxysmal atrial fibrillation. She did have an episode of A. fib with RVR last night with a heart rate going to 140s. Currently, currently is under better control and scholastic aptitude test grader on the case. She remains on IV Lasix 40 mg IV every 12 hours. The fluid balance is -1.1 L over the past 24 hours. The patient's BUN is currently at 19 with a creatinine of 0.9. Serum bicarbonate is 43. Sodium level is at 145. The patient will be given 2 doses of Diamox. The physical is at 7.2 with a hemoglobin of 10.3. No significant complaints otherwise for now. Less short of breath. 09/02/2023, no significant shortness of breath. The patient was noted to have adequate diuresis and based on that the diuretics and we'll stop. She remains on 5 L of oxygen nasal cannula with a pulse ox of 94%. The electrolytes show a serum bicarb of 43. Noted the patient received 2 doses of Diamox yesterday. Limited 144 with a potassium level of 3.2 that needs to be replaced. Renal function remains stable a creatinine of 0.9. Objective - Vital Signs Vital signs: Vital Signs Temp 98.2 F 09/02/23 13:44 Pulse 92 09/02/23 16:34 Resp 18 09/02/23 13:44 BP 105/64 09/02/23 13:44 Pulse Ox 94 L 09/02/23 13:44 FiO2 40 09/02/23 04:07 Intake & Output 09/01/23 09/02/23 09/02/23 18:59 06:59 18:59 Intake Total 356 298 Output Total 900 550 700 Balance -544 -550 -402 Weight 135.2 kg Intake: Oral 356 298 Output: Urine 900 550 700 Other: Voiding Method Indwelling Catheter Indwelling Catheter Indwelling Catheter # Bowel Movements 1 - Exam GENERAL EXAM: Alert, 73-year-old white female who is morbidly obese , comfortable in no apparent distress. The patient is currently on 5 L of oxygen by nasal cannula and she is off the BiPAP HEAD: Normocephalic and atraumatic EYES: Normal reaction of pupils, equal size. NOSE: Clear with pink turbinates. THROAT: No erythema or exudates. NECK: No masses, no JVD. Short and thick neck with DEX like features CHEST: No chest wall deformity. LUNGS: Equal air entry with markedly diminished lung sounds throughout and fine bibasilar crackles. no wheeze, rhonchi or dullness. CVS: S1 and S2 normal with no audible murmur, regular rhythm. No extra heart sounds ABDOMEN: Obese abdomen, no hepatosplenomegaly, active bowel sounds, no guarding or rigidity. SPINE: No scoliosis or deformity SKIN: No rashes. CENTRAL NERVOUS SYSTEM: No focal deficits, tone is normal in all 4 extremities. EXTREMITIES: There is left lower extremity 1-2+ pitting edema. No clubbing, or cyanosis. Peripheral pulses are intact. - Labs CBC & Chem 7: 09/01/23 05:42 09/02/23 05:21 Labs: Abnormal Lab Results - Last 24 Hours (Table) 09/02/23 Range/Units 05:21 Potassium 3.2 L (3.5-5.5) mmol/L Chloride 90 L (96-109) mmol/L Carbon Dioxide 43.1 H* (21.6-31.8) mmol/L BUN/Creatinine Ratio 23.89 H (12.00-20.00) Ratio Glucose 141 H (70-110) mg/dL Assessment and Plan Assessment: Acute on chronic hypoxemic and hypercapnic respiratory failure, possibly related to an exacerbation of diastolic congestive heart failure and fluid overload, however, NT proBNP was low. Chest CTA shows COPD-like changes with basilar b ronchiectasis and bibasilar atelectasis. No obvious infiltrates or evidence of pneumonia. Echocardiogram this admission shows a preserved left ventricular ejection fraction of 50-55% with severe left ventricular hypertrophy, otherwise, a limited exam. Elevated d-dimer, chest CTA shows no obvious central pulmonary embolism. Cannot exclude secondary or distal branch emboli. Left lower extremity is edematous, Doppler of the lower extremity is negative and d-dimer is at 0.8. Recent COVID-19 infection, reportedly tested positive at outside facility History of chronic bronchial asthma, normally maintained on a combination of Advair, Spiriva, and when necessary albuterol, appears stable Chronic hypoxemic respiratory failure, normally maintained on 4-5 L home O2 Obstructive sleep apnea with obesity hypoventilation syndrome, utilizes CPAP at bedtime Morbid obesity, with a BMI of 55 kg/m Macrocytic anemia Hyperlipidemia Benign essential hypertension Hypothyroidism Never smoker Plan: Patient is currently on 5 L of oxygen by nasal cannula and the patient is off the BiPAP Patient has been adequately diuresed and Lasix has been discontinued Monitor serum bicarb level Replace potassium Continue metoprolol 100 mg by mouth twice a day The pro calcitonin level is low at 0.11 Doppler of the lower extremity was negative Echocardiogram shows a preserved LV function D-dimer is low at 0.82 We'll continue to follow. Recommended weaning down FiO2 as tolerated to maintain a saturation above 90%.this please
[2023-09-02] MEDS: SODIUM CHLORIDE 0.9% 1,000 ML IV SCH (16:51)
[2023-09-02] MEDS: ALPRAZolam 0.25 MG TAB PO SCH (20:43)
[2023-09-02] MEDS: ATORVASTATIN 40 MG TAB PO SCH (20:43)
[2023-09-02] MEDS: ZOLPIDEM 5 MG TAB PO SCH (20:43)
[2023-09-03] MEDS: HEPARIN SODIUM,PORCINE 5,000 UNIT/ML 1 ML VIAL SQ SCH ×4 (00:30→23:37)
[2023-09-03] MEDS: SODIUM CHLORIDE 0.9% 1,000 ML IV SCH (06:02)
[2023-09-03] MEDS: IPRATROPIUM 0.5 MG/2.5 ML NEBU INHALATION SCH ×4 (08:21→19:11)
[2023-09-03] MEDS: SYMBICORT 80-4.5 MCG INHALER INHALATION SCH ×2 (08:21→19:11)
[2023-09-03 09:02] LABS: Magnesium 2.1 mg/dL (1.5-2.4)
[2023-09-03] MEDS: traMADol 50 MG TAB PO SCH ×2 (09:27→20:31)
[2023-09-03] MEDS: TAMSULOSIN 0.4 MG CAP.ER.24H PO SCH (09:27)
[2023-09-03] MEDS: DULoxetine HCL 60 MG CAPSULE.DR PO SCH (09:28)
[2023-09-03] MEDS: METOPROLOL TARTRATE 50 MG TAB PO SCH ×2 (09:28→20:31)
[2023-09-03] MEDS: DOCUSATE 100 MG CAP PO SCH (09:28)
[2023-09-03] MEDS: ZINC SULFATE 220 MG CAP PO SCH (09:28)
[2023-09-03] MEDS: MONTELUKAST 10 MG TAB PO SCH (09:28)
[2023-09-03] MEDS: ASCORBIC ACID 500 MG TAB PO SCH (09:28)
[2023-09-03] MEDS: FENOFIBRATE 160 MG TAB PO SCH (09:28)
[2023-09-03] MEDS: CYANOCOBALAMIN 500 MCG TAB PO SCH (09:29)
[2023-09-03] MEDS: FERROUS SULFATE 325 MG TAB PO SCH (09:29)
[2023-09-03] MEDS: POTASSIUM CHLORIDE ER 10 MEQ TAB.ER.PRT PO SCH ×2 (09:29→20:31)
[2023-09-03] MEDS: MAGNESIUM OXIDE 400 MG TAB PO SCH (09:29)
[2023-09-03] MEDS: LEVOTHYROXINE 50 MCG TAB PO SCH (09:29)
[2023-09-03] MEDS: polyethylene glycoL 3350 17 GM POWD.PACK PO SCH (09:30)
[2023-09-03] MEDS: GABAPENTIN 300 MG CAP PO SCH ×3 (09:30→20:31)
[2023-09-03] MEDS: PANTOPRAZOLE 40 MG TABLET PO SCH (09:31)
[2023-09-03 09:41] LABS: BUN/Creat Ratio 22.33 Ratio (12.00-20.00); Blood Urea Nitrogen 20.1 mg/dL (9.0-27.0); Carbon Dioxide 40.5 mmol/L (21.6-31.8); Chloride 92 mmol/L (96-109); Glucose 162 mg/dL (70-110); Potassium 3.3 mmol/L (3.5-5.5); Sodium 140 mmol/L (135-145)
[2023-09-03 09:52] LABS: HCT 31.3 % (37.2-46.3); HGB 9.4 d/dL (12.0-15.0); MCH 31.8 pg (27.0-32.0); MCV 105.7 FL (80.0-97.0); Mean Platelet Volume 12.1 FL (9.5-12.2); NRBC Per 100 WBC 0 X 10*3/uL (0.00-0.01); Platelet Count 245 X 10*3/uL (140-440); RBC 2.96 X 10*6/uL (4.10-5.20); RDW 13.5 % (11.5-14.5); WBC 6.59 X 10*3/uL (4.50-10.00)
[2023-09-03 10:18] LABS: Basophils # (A) 0.04 X 10*3/uL (0.00-0.10); Basophils % (A) 0.6 %; Eosinophils # (A) 0.47 X 10*3/uL (0.04-0.35); Eosinophils % (A) 7.1 %; Lymphocytes # (A) 1.23 X 10*3/uL (0.90-5.00); Lymphocytes % (A) 18.7 %; Monocytes % (A) 10.6 %; Neutrophils # (A) 4.07 X 10*3/uL (1.80-7.70); Neutrophils % (A) 61.8 %; Stomatocytes 2+
[2023-09-03] MEDS ORDERED: POTASSIUM CHLORIDE ER 20 MEQ TAB.ER PO STA (10:29)
--- NOTE | 2023-09-03 13:27 | P.PN ---
Subjective Progress Note Date: 09/03/23 73-year-old female with history of CHF recently hospitalized for [facility] up in [place] was sent home and noticed to have increased lower extremity edema. Patient continues on IV Lasix with swelling in her legs has improved. Currently on 4 L of oxygen which she wears chronically. Patient had a venous Doppler of her left lower extremity which was negative for acute DVT. White count remains normal at 9.06, hemoglobin 10.0, sodium 144, potassium 3.3, kidney function remains stable. Glucoses in the 100s. Covid, influenza, RSV are negative. 08/31/2023 Patient is evaluated today sitting up on the edge of bed. Patient has been up ambulating to the bathroom and back. Currently on 4L of oxygen. Maintained on IV lasix. Procalcitonin 0.11. B/P on the lower side today mid 90s systolic and losartan has been discontinued. Heart rate in the 100s today. 09/01/2023 Patient is evaluated today resting in bed. Heart rate was up into the 140s last night and atrial fibrillation. She was continued on IV Lasix every 12 hours over his CO2 was Critical to 43.4 and clinically patient appears to be dry recommended to stop IV Lasix at this time. Chloride is also low at 89. Patient remains on oxygen via nasal cannula as at home. 09/02/2023 Patient evaluated today up in the restroom. No shortness of breath noted. IV lasix was discontinued patient is being gently hydrated normal saline at 50 mls/hr. Blood pressure remains low normal 105/64 amlodipine and losartan are being held at this time. Patient given IV diamox x2. 09/03/2023: Patient seen and evaluated bedside, care plan discussed at this time and for potential discharge within the next 24 hours potassium levels replaced, noted to be hypotensive continue with fluids will get Mtz catheter replaced Objective - Vital Signs Vital signs: Vital Signs Temp 98.0 F 09/03/23 07:41 Pulse 88 09/03/23 11:54 Resp 17 09/03/23 07:41 BP 108/69 09/03/23 10:46 Pulse Ox 98 09/03/23 07:41 FiO2 40 09/03/23 03:23 Intake & Output 09/02/23 09/03/23 09/03/23 18:59 06:59 18:59 Intake Total 298 Output Total 700 900 Balance -402 -900 Weight 136.5 kg Intake: Oral 298 Output: Urine 700 900 Other: Voiding Method Indwelling Catheter Indwelling Catheter Indwelling Catheter # Bowel Movements 1 - Exam PHYSICAL EXAMINATION: GENERAL: The patient is alert and oriented x3, not in any acute distress. Well developed, well nourished. Obese. On nasal cannula HEENT: Pupils are round and equally reacting to light. EOMI. CARDIOVASCULAR: S1 and S2 present. No murmurs, rubs, or gallops. Lower extremity edema PULMONARY: Decreased breath sounds bilaterally nasal cannula in place ABDOMEN: Soft, nontender, nondistended, normoactive bowel sounds. No palpable organomegaly. Mtz cath in place MUSCULOSKELETAL: No joint swelling or deformity. EXTREMITIES: No cyanosis, clubbing, or pedal edema. NEUROLOGICAL: Gross neurological examination did not reveal any focal deficits. Generalized weakness - Labs CBC & Chem 7: 09/03/23 05:39 09/03/23 05:39 Labs: Abnormal Lab Results - Last 24 Hours (Table) 09/03/23 09/03/23 Range/Units 05:39 05:39 RBC 2.96 L (4.10-5.20) X 10*6/uL Hgb 9.4 L (12.0-15.0) d/dL Hct 31.3 L (37.2-46.3) % MCV 105.7 H (80.0-97.0) FL MCHC 30.0 L (32.0-37.0) d/dL Eosinophils # 0.47 H (0.04-0.35) X 10*3/uL Stomatocytes 2+ A Potassium 3.3 L (3.5-5.5) mmol/L Chloride 92 L (96-109) mmol/L Carbon Dioxide 40.5 H* (21.6-31.8) mmol/L BUN/Creatinine Ratio 22.33 H (12.00-20.00) Ratio Glucose 162 H (70-110) mg/dL Assessment and Plan Assessment: Assessment * Acute on chronic hypoxic and hypercapnic respiratory failure is due to an acute diastolic heart failure as well as an acute COPD exacerbation * Acute on chronic diastolic heart failure treated with IV lasix. * D-dimer elevated with chest CT angiography showing no obvious central pulmonary embolism, exclude a secondary distal branch emboli. Venous Doppler negative for DVT left lower extremity. * Hyperlipidemia * Hypertension * Hypothyroidism * Asthma;/COPD continue with DuoNeb nebulizer treatments 4 times a day and when necessary; Singulair 10 mg daily; continue with home inhaler therapy * Anxiety/depression * Hypokalemia due to diuresis * Stage 2 sacral ulcer present on admission patient has IDC in place to help promote wound healing by keep the area clean/dry * Stage 2 ulceration on labial folds * Recent COVID-19 infection outside facility * Obstructive sleep apnea with obesity hypoventilation syndrome patient uses CPAP at bedtime. * Morbid obesity * Regards to respiratory failure continue patient on 5 L of oxygen, will need ambulatory dressing walking. * In regards to CHF exacerbation received Lasix which was discontinued due to elevated bicarb. Received IV fluid as well secondary to hypotension * In regards to history of hypertension continue metoprolol * Patient has chronic indwelling Mtz catheter present on admission due to present of ulcers and wound contamination. Mtz catheter to be changed * Potential discharge within the next 24 hours
--- NOTE | 2023-09-03 14:38 | P.PN ---
Subjective Progress Note Date: 09/03/23 I am seeing this patient in consultation today 08/30/2023 after she presented to the emergency room 2 days ago complaining of progressively worsening shortness of breath over the last week or so. Patient is a 73-year-old white female with past medical history significant for asthma, obstructive sleep apnea, morbid obesity with obesity hypoventilation's syndrome, hypertension, hyperlipidemia, GERD, previous breast cancer with bilateral mastectomies, among other things. Patient does follow with Dr. Hebert in the office. She was found to have mostly restrictive lung disease. She does use a CPAP at bedtime, and is chronically oxygen dependent on 4-5 L 24/7. Patient recently had a prolonged hospitalization at [facility] in [place] for heart failure and was found to be COVID-19 positive. She was recently discharged home on August 20. Patient states that she is progressively become more short of breath especially with walking since then. She does admit a 13 pound weight gain over the past 1 week. Patient states that she has had lower extremity swelling, mostly the left lower extremity. States that the swelling in her left lower extremity is chronic. Denies any chest pain, heart palpitations, lightheadedness, syncope, orthopnea. Denies any fever, chills, myalgias. She has had a minimally productive cough. Patient is currently sitting up in bed, on BiPAP settings 12/5 and FiO2 40%. She appears comfortable. Respiratory rate is 16 and tidal volumes are in the high 300s. She is alert and able to answer all my questions. Chest x-ray on arrival showed cardiomegaly with low lung volumes and some basilar atelectasis. Follow-up chest CTA was a limited exam. There is no central pulmonary embolism. Cannot exclude secondary or distal branch emboli. There was COPD-like changes with basilar bronchiectasis and bibasilar atelectasis. Patient was empirically covered on a combination of azithromycin and Rocephin. Has been afebrile. Most recent CBC from yesterday shows a WBC count 8.3, hemoglobin 9.6, hematocrit 31.5, platelets 215. BMP from yesterday shows sodium 142, potassium 3.2, chloride 91, serum bicarbonate 39.9, BUN 11.4, creatinine 0.7, glucose 117. Troponins less than 0.012 on arrival. NT proBNP was low at 117. Patient is currently receiving Lasix 40 mg twice a day. She does have a indwelling urinary catheter, for perineal wounds that are healing. Patient does appear hemodynamically stable this time. On today's evaluation of 08/31/2023, the patient is being seen for a follow-up. The patient is producing excellent urine output and the patient is diuresing well with Lasix 40 mg IV every 12 hours. She is still having some exertional dyspnea and tachycardia. She is currently on beta blockers and the patient is on metoprolol 100 mg by mouth twice a day. She remains on albuterol nebulized treatments when necessary, Symbicort as maintenance 2 puffs twice a day, and she is also on oxygen at 5 L/m nasal cannula. BUN is at 40 with a creatinine of 0.8. The white cell count at 9 with a hemoglobin of 10.0. No reported chest pain. No angina. No palpitation pH is morbidly obese. She Is a body mass index of 54. The Doppler of the lower activity was negative. The echocardiogram showed a preserved LV function with an EF of around 50-55%. There is RV dilatation, pulmonary artery pressures could not be accurately evaluated and assessed. On today's evaluation of 09/01/2023, I'm seeing the patient for a follow-up. The patient has no new complaints. She is being treated for an acute on top of chronic diastolic heart failure and fluid overload. The patient is also having issues with paroxysmal atrial fibrillation. She did have an episode of A. fib with RVR last night with a heart rate going to 140s. Currently, currently is under better control and healthcare receptionist on the case. She remains on IV Lasix 40 mg IV every 12 hours. The fluid balance is -1.1 L over the past 24 hours. The patient's BUN is currently at 19 with a creatinine of 0.9. Serum bicarbonate is 43. Sodium level is at 145. The patient will be given 2 doses of Diamox. The physical is at 7.2 with a hemoglobin of 10.3. No significant complaints otherwise for now. Less short of breath. 09/02/2023, no significant shortness of breath. The patient was noted to have adequate diuresis and based on that the diuretics and we'll stop. She remains on 5 L of oxygen nasal cannula with a pulse ox of 94%. The electrolytes show a serum bicarb of 43. Noted the patient received 2 doses of Diamox yesterday. Limited 144 with a potassium level of 3.2 that needs to be replaced. Renal function remains stable a creatinine of 0.9. On 09/03/2023, the patient has no new complaints. The patient is resting comfortably on a recliner chair. The patient remains on 5 L of action by nasal cannula. No major edema lower extremities. Blood work shows a sodium of 140, potassium of 3.3, serum bicarb is at 40 with a BUN of 20 and a creatinine of 0.9. The patient's hemoglobin is at 9.4. Mtz cath is in place. The patient remains on Symbicort and albuterol updrafts [id number] as needed. Objective - Vital Signs Vital signs: Vital Signs Temp 98.0 F 09/03/23 07:41 Pulse 88 09/03/23 11:54 Resp 17 09/03/23 07:41 BP 108/69 09/03/23 10:46 Pulse Ox 98 09/03/23 07:41 FiO2 40 09/03/23 03:23 Intake & Output 09/02/23 09/03/23 09/03/23 18:59 06:59 18:59 Intake Total 298 Output Total 700 900 Balance -402 -900 Weight 136.5 kg Intake: Oral 298 Output: Urine 700 900 Other: Voiding Method Indwelling Catheter Indwelling Catheter Indwelling Catheter # Bowel Movements 1 - Exam GENERAL EXAM: Alert, 73-year-old white female who is morbidly obese , comfortable in no apparent distress. The patient is currently on 5 L of oxygen by nasal cannula and she is off the BiPAP HEAD: Normocephalic and atraumatic EYES: Normal reaction of pupils, equal size. NOSE: Clear with pink turbinates. THROAT: No erythema or exudates. NECK: No masses, no JVD. Short and thick neck with DEX like features CHEST: No chest wall deformity. LUNGS: Equal air entry with markedly diminished lung sounds throughout and fine bibasilar crackles. no wheeze, rhonchi or dullness. CVS: S1 and S2 normal with no audible murmur, regular rhythm. No extra heart sounds ABDOMEN: Obese abdomen, no hepatosplenomegaly, active bowel sounds, no guarding or rigidity. SPINE: No scoliosis or deformity SKIN: No rashes. CENTRAL NERVOUS SYSTEM: No focal deficits, tone is normal in all 4 extremities. EXTREMITIES: There is left lower extremity 1-2+ pitting edema. No clubbing, or cyanosis. Peripheral pulses are intact. - Labs CBC & Chem 7: 09/03/23 05:39 09/03/23 05:39 Labs: Abnormal Lab Results - Last 24 Hours (Table) 09/03/23 09/03/23 Range/Units 05:39 05:39 RBC 2.96 L (4.10-5.20) X 10*6/uL Hgb 9.4 L (12.0-15.0) d/dL Hct 31.3 L (37.2-46.3) % MCV 105.7 H (80.0-97.0) FL MCHC 30.0 L (32.0-37.0) d/dL Eosinophils # 0.47 H (0.04-0.35) X 10*3/uL Stomatocytes 2+ A Potassium 3.3 L (3.5-5.5) mmol/L Chloride 92 L (96-109) mmol/L Carbon Dioxide 40.5 H* (21.6-31.8) mmol/L BUN/Creatinine Ratio 22.33 H (12.00-20.00) Ratio Glucose 162 H (70-110) mg/dL Assessment and Plan Assessment: Acute on chronic hypoxemic and hypercapnic respiratory failure, possibly related to an exacerbation of diastolic congestive heart failure and fluid overload, however, NT proBNP was low. Chest CTA shows COPD-like changes with basilar bronchiectasis and bibasilar atelectasis. No obvious infiltrates or evidence of pneumonia. Echocardiogram this admission shows a preserved left ventricular ejection fraction of 50-55% with severe left ventricular hypertrophy, otherwise, a limited exam. Elevated d-dimer, chest CTA shows no obvious central pulmonary embolism. Cannot exclude secondary or distal branch emboli. Left lower extremity is edematous, Doppler of the lower extremity is negative and d-dimer is at 0.8. Recent COVID-19 infection, reportedly tested positive at outside facility History of chronic bronchial asthma, normally maintained on a combination of Advair, Spiriva, and when necessary albuterol, appears stable Chronic hypoxemic respiratory failure, normally maintained on 4-5 L home O2 Obstructive sleep apnea with obesity hypoventilation syndrome, utilizes CPAP at bedtime Morbid obesity, with a BMI of 55 kg/m Macrocytic anemia Hyperlipidemia Benign essential hypertension Hypothyroidism Never smoker Plan: Overall pulmonary status is stable Patient is currently on 5 L of oxygen by nasal cannula and the patient is off the BiPAP, utilizing the BiPAP overnight Patient has been adequately diuresed and Lasix has been discontinued Monitor serum bicarb level and a serum bicarb is stable at 40 Replace potassium Continue metoprolol 100 mg by mouth twice a day The pro calcitonin level is low at 0.11 Doppler of the lower extremity was negative Echocardiogram shows a preserved LV function D-dimer is low at 0.82 We'll continue to follow. Recommended weaning down FiO2 as tolerated to maintain a saturation above 90%.this please
[2023-09-03] MEDS: ZOLPIDEM 5 MG TAB PO SCH (20:31)
[2023-09-03] MEDS: ATORVASTATIN 40 MG TAB PO SCH (20:31)
[2023-09-03] MEDS: ALPRAZolam 0.25 MG TAB PO SCH (20:31)
[2023-09-04] MEDS: SODIUM CHLORIDE 0.9% 1,000 ML IV SCH (02:25)
[2023-09-04] MEDS: ACETAMINOPHEN TAB 325 MG TAB PO PRN (06:32)
[2023-09-04 08:12] VITALS: RESP 17
[2023-09-04] MEDS: IPRATROPIUM 0.5 MG/2.5 ML NEBU INHALATION SCH ×3 (09:08→16:10)
[2023-09-04] MEDS: ALBUTEROL NEBULIZED 2.5 MG/3 ML INHALATION PRN (09:08)
[2023-09-04] MEDS: SYMBICORT 80-4.5 MCG INHALER INHALATION SCH (09:08)
[2023-09-04] MEDS: polyethylene glycoL 3350 17 GM POWD.PACK PO SCH ×2 (09:18→09:26)
[2023-09-04] MEDS: HEPARIN SODIUM,PORCINE 5,000 UNIT/ML 1 ML VIAL SQ SCH (09:19)
[2023-09-04] MEDS: LEVOTHYROXINE 50 MCG TAB PO SCH (09:20)
[2023-09-04] MEDS: MONTELUKAST 10 MG TAB PO SCH (09:20)
[2023-09-04] MEDS: ZINC SULFATE 220 MG CAP PO SCH (09:20)
[2023-09-04] MEDS: POTASSIUM CHLORIDE ER 10 MEQ TAB.ER.PRT PO SCH (09:21)
[2023-09-04] MEDS: TAMSULOSIN 0.4 MG CAP.ER.24H PO SCH (09:21)
[2023-09-04] MEDS: ASCORBIC ACID 500 MG TAB PO SCH (09:21)
[2023-09-04] MEDS: DULoxetine HCL 60 MG CAPSULE.DR PO SCH (09:21)
[2023-09-04] MEDS: traMADol 50 MG TAB PO SCH (09:21)
[2023-09-04] MEDS: CYANOCOBALAMIN 500 MCG TAB PO SCH (09:21)
[2023-09-04] MEDS: PANTOPRAZOLE 40 MG TABLET PO SCH (09:21)
[2023-09-04] MEDS: FERROUS SULFATE 325 MG TAB PO SCH (09:21)
[2023-09-04] MEDS: MAGNESIUM OXIDE 400 MG TAB PO SCH (09:21)
[2023-09-04] MEDS: DOCUSATE 100 MG CAP PO SCH (09:22)
[2023-09-04] MEDS: GABAPENTIN 300 MG CAP PO SCH (09:22)
[2023-09-04] MEDS: METOPROLOL TARTRATE 50 MG TAB PO SCH (09:22)
[2023-09-04] MEDS: FENOFIBRATE 160 MG TAB PO SCH (09:31)
[2023-09-04 10:00] LABS: HCT 30.8 % (37.2-46.3); HGB 9.4 d/dL (12.0-15.0); MCH 31.5 pg (27.0-32.0); MCHC 30.5 d/dL (32.0-37.0); MCV 103.4 FL (80.0-97.0); Mean Platelet Volume 11.7 FL (9.5-12.2); NRBC Per 100 WBC 0 X 10*3/uL (0.00-0.01); Platelet Count 274 X 10*3/uL (140-440); RBC 2.98 X 10*6/uL (4.10-5.20); RDW 13.4 % (11.5-14.5); WBC 7.14 X 10*3/uL (4.50-10.00)
[2023-09-04 10:04] LABS: BUN/Creat Ratio 23.33 Ratio (12.00-20.00); Calcium 9.2 mg/dL (8.7-10.3); Chloride 96 mmol/L (96-109); Glucose 153 mg/dL (70-110); Sodium 141 mmol/L (135-145)
--- NOTE | 2023-09-04 12:41 | P.DS ---
Providers Date of admission: 08/30/23 10:19 Expected date of discharge: 09/04/23 Attending physician: Liliam Najera Consults: 08/28/23 13:37 Consult Physician Routine Consulting Provider: Anirudh Matt Consult Reason/Comments: CHF Do you want consulting provider notified?: Yes 08/29/23 12:11 Consult Physician Routine Consulting Provider: David Alcaraz Consult Reason/Comments: Hypoxia/ Elevated D-dimer/ CTA chest inconclusive Do you want consulting provider notified?: Yes Primary care physician: Lawrence Sullivan Hospital Course: 73-year-old female with history of CHF recently hospitalized for Covid up in [place] was sent home and noticed to have increased lower extremity edema. Patient continues on IV Lasix with swelling in her legs has improved. Currently on 4 L of oxygen which she wears chronically. Patient had a venous Doppler of her left lower extremity which was negative for acute DVT. White count remains normal at 9.06, hemoglobin 10.0, sodium 144, potassium 3.3, kidney function remains stable. Glucoses in the 100s. Covid, influenza, RSV are negative. 08/31/2023 Patient is evaluated today sitting up on the edge of bed. Patient has been up ambulating to the bathroom and back. Currently on 4L of oxygen. Maintained on IV lasix. Procalcitonin 0.11. B/P on the lower side today mid 90s systolic and losartan has been discontinued. Heart rate in the 100s today. 09/01/2023 Patient is evaluated today resting in bed. Heart rate was up into the 140s last night and atrial fibrillation. She was continued on IV Lasix every 12 hours over his CO2 was Critical to 43.4 and clinically patient appears to be dry recommended to stop IV Lasix at this time. Chloride is also low at 89. Patient remains on oxygen via nasal cannula as at home. 09/02/2023 Patient evaluated today up in the restroom. No shortness of breath noted. IV lasix was discontinued patient is being gently hydrated normal saline at 50 mls/hr. Blood pressure remains low normal 105/64 amlodipine and losartan are being held at this time. Patient given IV diamox x2. 09/03/2023: Patient seen and evaluated bedside, care plan discussed at this time and for potential discharge within the next 24 hours potassium levels replaced, noted to be hypotensive continue with fluids will get Mtz catheter replaced 09/04/23: Patient seen and evaluated bedside, patient alert and oriented 4, patient's her breathing has improved patient does complain of cough, patient given Mucinex and Z-Lazaro upon discharge continue home regimen on Lasix along with potassium supplementation PHYSICAL EXAMINATION: GENERAL: The patient is alert and oriented x3, not in any acute distress. Well developed, well nourished. Obese. On nasal cannula HEENT: Pupils are round and equally reacting to light. EOMI. CARDIOVASCULAR: S1 and S2 present. No murmurs, rubs, or gallops. Lower extremity edema PULMONARY: Decreased breath sounds bilaterally nasal cannula in place ABDOMEN: Soft, nontender, nondistended, normoactive bowel sounds. No palpable organomegaly. Mtz cath in place MUSCULOSKELETAL: No joint swelling or deformity. EXTREMITIES: No cyanosis, clubbing, or pedal edema. NEUROLOGICAL: Gross neurological examination did not reveal any focal deficits. Generalized weakness Assessment: Assessment * Acute on chronic hypoxic and hypercapnic respiratory failure is due to an acute diastolic heart failure as well as an acute COPD exacerbation * Acute on chronic diastolic heart failure treated with IV lasix. * D-dimer elevated with chest CT angiography showing no obvious central pulmonary embolism, exclude a secondary distal branch emboli. Venous Doppler negative for DVT left lower extremity. * Hyperlipidemia * Hypertension * Hypothyroidism * Asthma;/COPD continue with DuoNeb nebulizer treatments 4 times a day and when necessary; Singulair 10 mg daily; continue with home inhaler therapy * Anxiety/depression * Hypokalemia due to diuresis * Stage 2 sacral ulcer present on admission patient has IDC in place to help promote wound healing by keep the area clean/dry * Stage 2 ulceration on labial folds * Recent COVID-19 infection outside facility * Obstructive sleep apnea with obesity hypoventilation syndrome patient uses CPAP at bedtime. * Morbid obesity * Regards to respiratory failure continue patient on 5 L of oxygen, will need ambulatory resting walking prior to discharge. Continue home bronchodilator regimen * In regards to CHF exacerbation received Lasix which was discontinued due to elevated bicarb. Received IV fluid as well secondary to hypotension, for dis charge continue low-dose Lasix 20 mg daily along with potassium supplementation * In regards to history of hypertension continue metoprolol * Patient has chronic indwelling Mtz catheter present on admission due to present of ulcers and wound contamination. Mtz catheter to be changed * On multiple medications at home which has been reviewed and reconciled * Given dose of Mucinex and Z-Lazaro to be completed post discharge Patient Condition at Discharge: Stable Plan - Discharge Summary Discharge Rx Participant: No New Discharge Prescriptions: New Azithromycin [Zithromax Z Pack] 1 tab PO DIRECTED #6 tab guaiFENesin [Mucinex] 600 mg PO Q12H 5 Days #10 tab Continue Calcium 500mg 500 mg PO DAILY Glucosamine(Unknown Dose) 2 tab PO DAILY Systane Eye Gel 0.3% 1 applic OPHTHALMIC DAILY Albuterol Inhaler [Ventolin Hfa Inhaler] 2 puff INHALATION RT-Q6H PRN PRN Reason: Shortness Of Breath ALPRAZolam [Xanax] 0.25 mg PO HS Ascorbic Acid [Vitamin C] 500 mg PO DAILY Atorvastatin [Lipitor] 40 mg PO HS Clobetasol Propionate [Temovate 0.05% Oint] 1 applic TOPICAL BID cycloSPORINE 0.05% OPHTH SOLN [Restasis] 1 drop BOTH EYES Q12H Denosumab [Prolia] 60 mg SQ Q180D Diclofenac Sodium Gel [Voltaren 1% Gel] 2 - 4 gm TOPICAL QID PRN PRN Reason: Pain diphenhydrAMINE [Benadryl] 25 mg PO HS Ferrous Sulfate [Iron (65 MG Elemental)] 325 mg PO DAILY Gabapentin 600 mg PO TID Magnesium Oxide [Mag-Ox] 250 mg PO DAILY Menthol-Zinc Oxide Oint [Calmoseptine Ointment] 1 applic TOPICAL QID PRN PRN Reason: barrier Metoprolol Tartrate [Lopressor] 100 mg PO BID Montelukast [Singulair] 10 mg PO DAILY Pantoprazole Sodium [Protonix] 20 mg PO DAILY polyethylene glycoL 3350 [Miralax] 17 gm PO DAILY Potassium Chloride ER [K-Dur 10] 10 meq PO BID Selenium 200 mcg PO DAILY traMADol HCL 50 mg PO BID Triamcinolone 0.1% Ointment [Kenalog 0.1% Ointment] 1 applic TOPICAL BID Iodine(Unknown Dose) 1 tab PO DAILY Albuterol Nebulized [Ventolin Nebulized] 2.5 mg INHALATION RT-QID PRN PRN Reason: Shortness Of Breath Alfuzosin HCl [Alfuzosin HCl ER] 10 mg PO DAILY Bifidobacterium Infantis [Align] 4 mg PO DAILY Cyanocobalamin (Vitamin B-12) [Vitamin B-12] 1,000 mcg PO DAILY Docusate [Colace] 100 mg PO DAILY DULoxetine HCL [Cymbalta] 60 mg PO DAILY Fluticasone Propion/Salmeterol [Advair 250-50 Diskus] 1 puff INHALATION RT- BID Furosemide [Lasix] 20 mg PO DAILY gemfibroziL [Lopid] 600 mg PO BID Levothyroxine Sodium [Synthroid] 175 mcg PO DAILY Nystatin 100,000 Unit/gm Powd [Mycostatin Powder] 1 applic TOPICAL BID Nystatin 100,000Unit/gm Cream [Mycostatin Cream] 1 applic TOPICAL BID Tiotropium 2.5 Mcg/Puff [Spiriva Respimat 2.5 Mcg] 2 puff INHALATION RT-DAILY Zinc Gluconate [Zinc] 50 mg PO DAILY Zolpidem Tartrate [Ambien Cr] 6.25 mg PO HS Discontinued Celecoxib [CeleBREX] 200 mg PO DAILY Losartan Potassium 100 mg PO DAILY Felodipine [Plendil] 10 mg PO DAILY Discharge Medication List ALPRAZolam [Xanax] 0.25 mg PO HS 08/28/23 [History] Albuterol Inhaler [Ventolin Hfa Inhaler] 2 puff INHALATION RT-Q6H PRN 08/28/23 [History] Albuterol Nebulized [Ventolin Nebulized] 2.5 mg INHALATION RT-QID PRN 08/28/23 [History] Alfuzosin HCl [Alfuzosin HCl ER] 10 mg PO DAILY 08/28/23 [History] Ascorbic Acid [Vitamin C] 500 mg PO DAILY 08/28/23 [History] Atorvastatin [Lipitor] 40 mg PO HS 08/28/23 [History] Bifidobacterium Infantis [Align] 4 mg PO DAILY 08/28/23 [History] Calcium 500mg 500 mg PO DAILY 08/28/23 [History] Clobetasol Propionate [Temovate 0.05% Oint] 1 applic TOPICAL BID 08/28/23 [Hist ory] Cyanocobalamin (Vitamin B-12) [Vitamin B-12] 1,000 mcg PO DAILY 08/28/23 [History] DULoxetine HCL [Cymbalta] 60 mg PO DAILY 08/28/23 [History] Denosumab [Prolia] 60 mg SQ Q180D 08/28/23 [History] Diclofenac Sodium Gel [Voltaren 1% Gel] 2 - 4 gm TOPICAL QID PRN 08/28/23 [History] Docusate [Colace] 100 mg PO DAILY 08/28/23 [History] Ferrous Sulfate [Iron (65 MG Elemental)] 325 mg PO DAILY 08/28/23 [History] Fluticasone Propion/Salmeterol [Advair 250-50 Diskus] 1 puff INHALATION RT-BID 08/28/23 [History] Furosemide [Lasix] 20 mg PO DAILY 08/28/23 [History] Gabapentin 600 mg PO TID 08/28/23 [History] Glucosamine(Unknown Dose) 2 tab PO DAILY 08/28/23 [History] Iodine(Unknown Dose) 1 tab PO DAILY 08/28/23 [History] Levothyroxine Sodium [Synthroid] 175 mcg PO DAILY 08/28/23 [History] Magnesium Oxide [Mag-Ox] 250 mg PO DAILY 08/28/23 [History] Menthol-Zinc Oxide Oint [Calmoseptine Ointment] 1 applic TOPICAL QID PRN 08/28/23 [History] Metoprolol Tartrate [Lopressor] 100 mg PO BID 08/28/23 [History] Montelukast [Singulair] 10 mg PO DAILY 08/28/23 [History] Nystatin 100,000 Unit/gm Powd [Mycostatin Powder] 1 applic TOPICAL BID 08/28/23 [History] Nystatin 100,000Unit/gm Cream [Mycostatin Cream] 1 applic TOPICAL BID 08/28/23 [History] Pantoprazole Sodium [Protonix] 20 mg PO DAILY 08/28/23 [History] Potassium Chloride ER [K-Dur 10] 10 meq PO BID 08/28/23 [History] Selenium 200 mcg PO DAILY 08/28/23 [History] Systane Eye Gel 0.3% 1 applic OPHTHALMIC DAILY 08/28/23 [History] Tiotropium 2.5 Mcg/Puff [Spiriva Respimat 2.5 Mcg] 2 puff INHALATION RT-DAILY 08/28/23 [History] Triamcinolone 0.1% Ointment [Kenalog 0.1% Ointment] 1 applic TOPICAL BID 08/28/23 [History] Zinc Gluconate [Zinc] 50 mg PO DAILY 08/28/23 [History] Zolpidem Tartrate [Ambien Cr] 6.25 mg PO HS 08/28/23 [History] cycloSPORINE 0.05% OPHTH SOLN [Restasis] 1 drop BOTH EYES Q12H 08/28/23 [History] diphenhydrAMINE [Benadryl] 25 mg PO HS 08/28/23 [History] gemfibroziL [Lopid] 600 mg PO BID 08/28/23 [History] polyethylene glycoL 3350 [Miralax] 17 gm PO DAILY 08/28/23 [History] traMADol HCL 50 mg PO BID 08/28/23 [History] Azithromycin [Zithromax Z Pack] 1 tab PO DIRECTED #6 tab 09/04/23 [Rx] guaiFENesin [Mucinex] 600 mg PO Q12H 5 Days #10 tab 09/04/23 [Rx] Follow up Appointment(s)/Referral(s): Lawrence Sullivan MD [Primary Care Provider] - 1-2 days [facility] [NON-STAFF] - 1 Week Wilfred Chatterjee MD [STAFF PHYSICIAN] - 2 Weeks Discharge Disposition: HOME WITH HOME HEALTH SERVICES
[2023-09-04 13:33] VITALS: BP 113/60; PULSE 87; TEMP 98
== END 2023-09-04 15:46 | disposition home health service (06) | DRG 291 ==
LOC: EC 10:27 → 6NMEDSUR 13:17 → OBSVTOIN 08-30 10:19 → 6NMEDSUR 09-02 22:43
PROVIDERS: ADMIT Hospitalist; ATTEND Hospitalist
PROC: 5A09357 Assistance with Respiratory Ventilation, Less than 24 Consecutive Hours, Continuous Positive Airway Pressure (ICD-10-PCS; principal; 2023-08-30)
DX: I11.0 Hypertensive heart disease with heart failure (principal); I50.33 Acute on chronic diastolic (congestive) heart failure; J96.21 Acute and chronic respiratory failure with hypoxia; J96.22 Acute and chronic respiratory failure with hypercapnia; Z68.43 Body mass index [BMI] 50.0-59.9, adult; E66.2 Morbid (severe) obesity with alveolar hypoventilation; J44.1 Chronic obstructive pulmonary disease with (acute) exacerbation; L89.152 Pressure ulcer of sacral region, stage 2; J47.9 Bronchiectasis, uncomplicated; I48.0 Paroxysmal atrial fibrillation; L98.492 Non-pressure chronic ulcer of skin of other sites with fat layer exposed; I95.9 Hypotension, unspecified; Z99.81 Dependence on supplemental oxygen; E03.9 Hypothyroidism, unspecified; F32.A Depression, unspecified; D53.9 Nutritional anemia, unspecified; E78.5 Hyperlipidemia, unspecified; F41.9 Anxiety disorder, unspecified; T50.2X5A Adverse effect of carbonic-anhydrase inhibitors, benzothiadiazides and other diuretics, initial encounter; M79.89 Other specified soft tissue disorders; I44.0 Atrioventricular block, first degree; E87.6 Hypokalemia; K21.9 Gastro-esophageal reflux disease without esophagitis; J98.4 Other disorders of lung; Z79.899 Other long term (current) drug therapy; Z90.13 Acquired absence of bilateral breasts and nipples; Z86.16 Personal history of COVID-19; Z79.1 Long term (current) use of non-steroidal anti-inflammatories (NSAID); Z79.51 Long term (current) use of inhaled steroids; Z79.890 Hormone replacement therapy; Z85.3 Personal history of malignant neoplasm of breast; Z88.2 Allergy status to sulfonamides; Z88.1 Allergy status to other antibiotic agents; Z88.5 Allergy status to narcotic agent
CPT/HCPCS: 36415; 71046; 71275; 80048; 80053; 82607; 83735; 83880; 84145; 84443; 84484; 85025; 85027; 85379; 85610; 85730; 87636; 93005; 93306; 94640; 94660; 94760; 96374; 99285

== ENCOUNTER → 2023-10-26 | Outpatient (CLI) | payer MEDICARE ==
[2023-10-26 11:34] LABS: African American GFR (CKD) >90 (>60 ml/min/1.73 sqM); Blood Urea Nitrogen 16 mg/dL (7-17); Non-African American GFR(CKD) >90 (>60 ml/min/1.73 sqM)
--- NOTE | 2023-10-26 12:23 | CT ---
EXAMINATION TYPE: CT ChestAbdPelvis w con DATE OF EXAM: 10/26/2023 COMPARISON: 05/13/2023 HISTORY: Hx breast ca, routine follow up CT DLP: 2674.90 mGycm Automated exposure control for dose reduction was used. CONTRAST: CT scan of the chest, abdomen and pelvis is performed with Oral Contrast and with IV Contrast, patien t injected with 100 mL of Isovue 300. FINDINGS: LUNGS: Groundglass changes involving the lungs most likely in the bases respiratory motion artifact o r atelectasis. Basilar areas of scarring or atelectasis stable. There are no suspicious appearing pul monary nodules. No pneumothorax. No pleural effusion. Punctate granuloma right upper lobe posteriorly. MEDIASTINUM: There mediastinal and hilar borderline lymphadenopathy with the largest lymph node. Need to be enlarged in the right paratracheal region measuring short axis of 1.2 cm Heart is enlarged and there is a small pericardial effusion mild coronary artery calcifications. Ascending aorta is aneur ysmally dilated measuring 4.5 cm. Mild atherosclerotic changes. OTHER: A bilateral breast implant surgery noted. Small hiatal hernia. Stable appearance of the Medip ort catheter. LIVER/GB: No significant abnormality is appreciated. PANCREAS: No significant abnormality is seen. SPLEEN: No significant abnormality is seen. ADRENALS: No significant abnormality is seen. KIDNEYS: Stable hypodense lesion involving the lower pole left kidney measuring 1.6 cm compatible wit h a Bosniak classification 1 simple cyst. BOWEL: Diverticulosis of the colon with no CT evidence of diverticulitis. REPRODUCTIVE ORGANS: No gross abnormality seen. LYMPH NODES: No greater than 1 cm abdominal or pelvic lymph nodes are appreciated. OSSEOUS STRUCTURES: Diffuse osteopenia with multilevel severe degenerative disc disease. Postsurgical change left hip and arthropathy right hip. Bilateral shoulder arthropathy. Left anterior rib cage de formity suggests previous fracture. OTHER: Mtz catheter in a nondistended bladder. Small fat-containing periumbilical hernia. Correlate for prior hysterectomy. IMPRESSION: 1. There is mediastinal borderline enlarged right paratracheal lymph node increased in size from prio r exam. Recommend PET/CT.. 2. Groundglass changes involving the lungs are felt to be most likely related to respiratory motion a rtifact rather than pneumonitis correlate clinically. 3. There is a 4.5 cm ascending aortic aneurysm.
== END | disposition home or self-care (01) ==
LOC: RADPROMAIN 09:11
PROVIDERS: ATTEND Internal Medicine Hematology & Oncology
DX: C50.511 Malignant neoplasm of lower-outer quadrant of right female breast (principal); I71.21 Aneurysm of the ascending aorta, without rupture; I10 Essential (primary) hypertension; Z71.3 Dietary counseling and surveillance; R06.02 Shortness of breath; R59.0 Localized enlarged lymph nodes
CPT/HCPCS: 82565; 84520; 71260; 74177; 36415; Q9967

== ENCOUNTER → 2024-01-28 | Outpatient (CLI) | payer MEDICARE ==
[2024-01-28 11:53] LABS: African American GFR (CKD) 87 (>60 ml/min/1.73 sqM); Blood Urea Nitrogen 26 mg/dL (7-17); Non-African American GFR(CKD) 76 (>60 ml/min/1.73 sqM)
--- NOTE | 2024-01-30 20:31 | CT ---
EXAMINATION TYPE: CT chest w con DATE OF EXAM: 01/28/2024 COMPARISON: 10/26/2023 HISTORY: 73-year-old female C50.112, follow up breast ca TECHNIQUE: Contiguous axial scanning of the chest after the administration of 100 mL of Isovue 300. Coronal/sagittal reconstructions performed. CT DLP: 777.3mGycm. Automatic exposure control utilized for a dose reduction. FINDINGS: Right anterior chest wall injection port with catheter tip at the cavoatrial junction. Bilateral breast implants are redemonstrated. Heart mildly enlarged with trace pericardial effusion measuring up to 7 mm. LAD coronary calcificatio ns. 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 Conventional arch vessel branching anatomy. Large caliber to the main right and left pulmonary arteries measuring up to 3.2 cm suggesting underly ing pulmonary hypertension. No thoracic lymphadenopathy by CT size criteria. The previous low right paratracheal node is again demonstrated. It measures 1.7 cm versus 2.1 cm, pre viously it is much less defined suggesting a reactive node. The upper right paratracheal node measure s 1.5 cm versus 2.0 cm, previously. No new or progressive thoracic adenopathy is seen. Bibasilar reticulations are redemonstrated. Some bibasilar bronchiolectasis and mild groundglass is a lso redemonstrated. No new consolidation or pleural effusion. Visualized upper abdomen shows diminished attenuation of the hepatic parenchyma suggesting fatty infi ltration. Cholecystectomy clips. Bones: Accentuated midthoracic kyphosis. Moderate degenerative disc disease lower thoracic spine. IMPRESSION: 1. Right paratracheal lymph nodes previously measuring 2.1 cm and 2.0 cm are both smaller now measuri ng 1.7 cm and 1.5 cm, respectively. If there has been no interval treatment, this suggests a reactive /post inflammatory etiology. No new or progressive adenopathy is seen. 2. Mild cardiomegaly with pulmonary arterial hypertension. 3. Redemonstrated chronic interstitial lung disease with reticular change, some basilar ground glass, and basilar bronchiolectasis.
== END | disposition home or self-care (01) ==
LOC: RADCTMAIN 11:18
PROVIDERS: ATTEND Internal Medicine Hematology & Oncology
DX: J47.9 Bronchiectasis, uncomplicated (principal); I27.20 Pulmonary hypertension, unspecified; J84.9 Interstitial pulmonary disease, unspecified; C50.112 Malignant neoplasm of central portion of left female breast; I11.9 Hypertensive heart disease without heart failure; E78.5 Hyperlipidemia, unspecified; R91.8 Other nonspecific abnormal finding of lung field; Z71.3 Dietary counseling and surveillance
CPT/HCPCS: 82565; 84520; 71260; 36415; Q9967

== ENCOUNTER 2024-04-09 00:42 | Observation (INO) | payer MEDICARE ==
[2024-04-09] MEDS ORDERED: NALOXONE 0.4 MG/ML 1 ML VIAL IVP PRN (01:31)
--- NOTE | 2024-04-09 01:35 | ED ---
General Adult HPI - General Chief complaint: Shortness of Breath Stated complaint: SOB Time Seen by Provider: 04/09/24 00:48 Source: patient, EMS, RN notes reviewed, old records reviewed Mode of arrival: EMS Limitations: no limitations - History of Present Illness Initial comments: 73-year-old female transferred from [facility] for evaluation of pneumonia, COPD exacerbation. Patient with multiple medical problems, had presented initially with cough and dyspnea. She had workup including CT imaging, laboratory testing. She received steroids, albuterol, Atrovent, antibiotics. She had a white blood cell count 12.5, lactic acid 2.5, creatinine was 1.4. She was transferred for further evaluation and treatment. Patient states she is overall feeling significantly better. Fever. - Related Data Home Medications Medication Instructions Recorded Confirmed ALPRAZolam [Xanax] 0.25 mg PO HS 08/28/23 08/28/23 Albuterol Inhaler [Ventolin Hfa 2 puff INHALATION RT-Q6H PRN 08/28/23 08/28/23 Inhaler] Albuterol Nebulized [Ventolin 2.5 mg INHALATION RT-QID PRN 08/28/23 08/28/23 Nebulized] Alfuzosin HCl [Alfuzosin HCl ER] 10 mg PO DAILY 08/28/23 08/28/23 Ascorbic Acid [Vitamin C] 500 mg PO DAILY 08/28/23 08/28/23 Atorvastatin [Lipitor] 40 mg PO HS 08/28/23 08/28/23 Bifidobacterium Infantis [Align] 4 mg PO DAILY 08/28/23 08/28/23 Calcium 500mg 500 mg PO DAILY 08/28/23 08/28/23 Clobetasol Propionate [Temovate 1 applic TOPICAL BID 08/28/23 08/28/23 0.05% Oint] Cyanocobalamin (Vitamin B-12) 1,000 mcg PO DAILY 08/28/23 08/28/23 [Vitamin B-12] DULoxetine HCL [Cymbalta] 60 mg PO DAILY 08/28/23 08/28/23 Denosumab [Prolia] 60 mg SQ Q180D 08/28/23 08/28/23 Diclofenac Sodium Gel [Voltaren 1% 2 - 4 gm TOPICAL QID PRN 08/28/23 08/28/23 Gel] Docusate [Colace] 100 mg PO DAILY 08/28/23 08/28/23 Ferrous Sulfate [Iron (65 MG 325 mg PO DAILY 08/28/23 08/28/23 Elemental)] Fluticasone Propion/Salmeterol 1 puff INHALATION RT-BID 08/28/23 08/28/23 [Advair 250-50 Diskus] Furosemide [Lasix] 20 mg PO DAILY 08/28/23 08/28/23 Gabapentin 600 mg PO TID 08/28/23 08/28/23 Glucosamine(Unknown Dose) 2 tab PO DAILY 08/28/23 08/28/23 Iodine(Unknown Dose) 1 tab PO DAILY 08/28/23 08/28/23 Levothyroxine Sodium [Synthroid] 175 mcg PO DAILY 08/28/23 08/28/23 Magnesium Oxide [Mag-Ox] 250 mg PO DAILY 08/28/23 08/28/23 Menthol-Zinc Oxide Oint 1 applic TOPICAL QID PRN 08/28/23 08/28/23 [Calmoseptine Ointment] Metoprolol Tartrate [Lopressor] 100 mg PO BID 08/28/23 08/28/23 Montelukast [Singulair] 10 mg PO DAILY 08/28/23 08/28/23 Nystatin 100,000 Unit/gm Powd 1 applic TOPICAL BID 08/28/23 08/28/23 [Mycostatin Powder] Nystatin 100,000Unit/gm Cream 1 applic TOPICAL BID 08/28/23 08/28/23 [Mycostatin Cream] Pantoprazole Sodium [Protonix] 20 mg PO DAILY 08/28/23 08/28/23 Potassium Chloride ER [K-Dur 10] 10 meq PO BID 08/28/23 08/28/23 Selenium 200 mcg PO DAILY 08/28/23 08/28/23 Systane Eye Gel 0.3% 1 applic OPHTHALMIC DAILY 08/28/23 08/28/23 Tiotropium 2.5 Mcg/Puff [Spiriva 2 puff INHALATION RT-DAILY 08/28/23 08/28/23 Respimat 2.5 Mcg] Triamcinolone 0.1% Ointment 1 applic TOPICAL BID 08/28/23 08/28/23 [Kenalog 0.1% Ointment] Zinc Gluconate [Zinc] 50 mg PO DAILY 08/28/23 08/28/23 Zolpidem Tartrate [Ambien Cr] 6.25 mg PO HS 08/28/23 08/28/23 cycloSPORINE 0.05% OPHTH SOLN 1 drop BOTH EYES Q12H 08/28/23 08/28/23 [Restasis] diphenhydrAMINE [Benadryl] 25 mg PO HS 08/28/23 08/28/23 gemfibroziL [Lopid] 600 mg PO BID 08/28/23 08/28/23 polyethylene glycoL 3350 [Miralax] 17 gm PO DAILY 08/28/23 08/28/23 traMADol HCL 50 mg PO BID 08/28/23 08/28/23 Previous Rx's Medication Instructions Recorded Azithromycin [Zithromax Z Pack] 1 tab PO DIRECTED #6 tab 09/04/23 guaiFENesin [Mucinex] 600 mg PO Q12H 5 Days #10 tab 09/04/23 Allergies Allergy/AdvReac Type Severity Reaction Status Date / Time Sulfa (Sulfonamide Allergy Rash/Hives Verified 04/09/24 00:49 Antibiotics) sulfamethoxazole Allergy Rash/Hives Verified 04/09/24 00:49 [From Bactrim] trimethoprim [From Bactrim] Allergy Rash/Hives Verified 04/09/24 00:49 acetaminophen [From [place]] AdvReac Hallucinati Verified 04/09/24 00:49 ons hydrocodone [From [place]] AdvReac Hallucinati Verified 04/09/24 00:49 ons Review of Systems ROS Statement: Those systems with pertinent positive or pertinent negative responses have been documented in the HPI. ROS Other: All systems not noted in ROS Statement are negative. Past Medical History Past Medical History: Atrial Fibrillation, Asthma, Cancer, Chest Pain / Angina, Heart Failure, COPD, Diabetes Mellitus, Osteoarthritis (OA), Pneumonia, Thyroid Disorder Additional Past Medical History / Comment(s): covid, homeO2 dependent, nonhealing vaginal wounds, indwelling catheter History of Any Multi-Drug Resistant Organisms: None Reported Past Surgical History: Cholecystectomy Additional Past Surgical History / Comment(s): bilat mastectomy Past Psychological History: No Psychological Hx Reported Smoking Status: Never smoker Past Alcohol Use History: None Reported Past Drug Use History: None Reported General Exam Limitations: no limitations General appearance: alert, in no apparent distress Head exam: Present: atraumatic, normocephalic Eye exam: Present: normal appearance, PERRL Respiratory exam: Present: wheezes, rhonchi, decreased breath sounds. Absent: respiratory distress Cardiovascular Exam: Present: regular rate, normal rhythm GI/Abdominal exam: Present: soft. Absent: distended Neurological exam: Present: alert, oriented X3 Psychiatric exam: Present: normal affect, normal mood Skin exam: Present: warm, dry, intact Course Vital Signs 04/09/24 00:49 Temperature 97.7 F Pulse Rate 97 Respiratory 22 Rate Blood Pressure 130/63 O2 Sat by Pulse 96 Oximetry Medical Decision Making - Medical Decision Making Was pt. sent in by a medical professional or institution (, [facility], [employer], urgent care, hospital, or skilled nursing...) When possible be specific @ -Transfer from [facility] Did you speak to anyone other than the patient for history (EMS, parent, family, police, friend...)? What history was obtained from this source @ -No Did you review nursing and triage notes (agree or disagree)? Why? @ -I reviewed and agree with nursing and triage notes Were old charts reviewed (outside hosp., previous admission, EMS record, old EKG, old radiological studies, urgent care reports/EKG's, skilled nursing records)? Report findings @ -No old charts were reviewed Differential Dyspnea: Coronary syndrome, arrhythmia, tamponade, asthma, COPD, pulmonary embolism, pneumonia, pneumothorax, pulmonary effusion, anaphylaxis, diabetic ketoacidosis, flailed chest, pulmonary contusion, diaphragmatic rupture, anemia, neuromuscular, this is not meant to be an all-inclusive list. EKG interpreted by me (3pts min.). @ -As above X-rays interpreted by me (1pt min.). @ -None done CT interpreted by me (1pt min.). @ -None done U/S interpreted by me (1pt. min.). @ -None done What testing was considered but not performed or refused? (CT, X-rays, U/S, labs)? Why? @ -None What meds were considered but not given or refused? Why? @ -None Did you discuss the management of the patient with other professionals (professionals i.e. [facility] Finnegan, [employer], lab, RT, psych nurse, social media marketing manager, isotope technician, teacher, plant protection officer, window caser)? Give summary @ -No Was smoking cessation discussed for >3mins.? @ -No Was critical care preformed (if so, how long)? @ -No Were there social determinants of health that impacted care today? How? (Homelessness, low income, unemployed, alcoholism, drug addiction, transportation, low edu. Level, literacy, decrease access to med. care, mcc, rehab)? @ -No Was there de-escalation of care discussed even if they declined (Discuss DNR or withdrawal of care, Hospice)? DNR status @ -No What co-morbidities impacted this encounter? (DM, HTN, Smoking, COPD, CAD, Cancer, CVA, ARF, Chemo, Hep., AIDS, mental health diagnosis, sleep apnea, morbid obesity)? @Congestive heart failure, COPD, debility Was patient admitted / discharged? Hospital course, mention meds given and route, prescriptions, significant lab abnormalities, going to OR and other pertinent info. @Patient transferred for treatment of pneumonia, COPD exacerbation. Patient admitted to internal medicine with pulmonology on consult. Will continue treatment for pneumonia and COPD. Undiagnosed new problem with uncertain prognosis? @ -No Drug Therapy requiring intensive monitoring for toxicity (Heparin, Nitro, Insulin, Cardizem)? @ -No Were any procedures done? @ -No Diagnosis/symptom? @ -Pneumonia, COPD Acute, or Chronic, or Acute on Chronic? @ -[Acute on chronic Uncomplicated (without systemic symptoms) or Complicated (systemic symptoms)? @ -Default Side effects of treatment? @ -No Exacerbation, Progression, or Severe Exacerbation? @ -No Poses a threat to life or bodily function? How? (Chest pain, [place], [place], pneumonia, PE, COPD, DKA, ARF, appy, cholecystitis, CVA, Diverticulitis, Homicidal, Suicidal, threat to staff... and all critical care pts) @ -yes, sepsis, respiratory failure Disposition Clinical Impression: Acute exacerbation of chronic obstructive pulmonary disease, Pneumonia Disposition: ADMITTED IP TO THIS [facility] Condition: Stable Is patient prescribed a controlled substance at d/c from ED?: No Referrals: Joanne Seo NPC [Primary Care Provider] - 1-2 days Time of Disposition: 01:34
[2024-04-09] MEDS: SODIUM CHLORIDE 0.9% 1,000 ML IV SCH (03:00)
[2024-04-09] MEDS: AZITHROMYCIN 500 MG in SODIUM CHLORIDE 0.9% 250 ML IVPB STA (03:08)
[2024-04-09] MEDS: traMADol 50 MG TAB PO STA (04:48)
[2024-04-09] MEDS: methylPREDNISolone SOD SUCCI 125 MG/2 ML VIAL IV SCH (06:05)
[2024-04-09] MEDS ORDERED: DEXTROSE 50% SYRINGE 50 ML IVP PRN ×2 (06:25)
--- NOTE | 2024-04-09 06:27 | P.HPIM ---
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 Patient was transferred to our facility from [place] for further treatment of pneumonia/COPD exacerbation Patient was originally diagnosed with pneumonia and COPD exacerbation about 2 weeks ago for which she finished a 1 week course of antibiotics and steroids and over the past 7 days she noticed that her coughing has been getting worse and with persistent along with worsening shortness of breath she normally uses 5 L of oxygen at home with her oxygen saturation being around 92% today she noticed that her oxygen sat was 90% on rest and when she starts getting up and walking she drops to 85% along with persistent cough and difficulty breathing decided to call EMS and go to the hospital for evaluation Documentation showed that she had a CT angio of the chest on March 26 which was negative for PE however did show right hilar contour suspicious for infiltrates for which she was treated for pneumonia. CT was not repeated at this time at [facility] Workup showed negative respiratory viral panel for COVID RSV and influenza she has a white count of 12.5 afebrile lactic acid was 2.5 otherwise her labs were unremarkable The patient denies any history of DVT she denies any known sick contact no recent travel. Patient feels significantly better after breathing treatments however she is still struggling with a nagging cough. She denies any chest pain denies any abdominal pain denies any nausea vomiting GI bleeding or changes in bowel or urinary habits review of systems Pertinent positives as noted in HPI. All other systems were reviewed and are negative on exam Constitutional: No acute distress, repeated coughing Eyes: Anicteric sclerae, moist conjunctiva, Pupils equal round reactive to light ENMT: NC/AT Oropharynx clear, no erythema, or exudates Neck: Supple, no masses, or JVD No carotid bruits No thyromegaly Lungs: Diminished breath sounds at lung bases scattered wheezing Clear to percussion Normal respiratory effort, no accessory muscle use Cardiovascular: Heart regular in rate and rhythm, No murmurs, gallops, or rubs No peripheral edema Abdominal: Soft Nontender, no guarding, rebound or rigidity Abdomen moving with respiration Normoactive bowel sounds Extremities: No digital cyanosis Pedal pulses intact and symmetrical Radial pulses intact and symmetrical No calf tenderness Psychiatric: Alert and oriented to person, place and time Neuro Muscles Strength 4/5 in all 4 extremities Sensation to light touch grossly present throughout Cranial nerves II-XII grossly intact Past Medical History Past Medical History: Atrial Fibrillation, Asthma, Cancer, Chest Pain / Angina, Heart Failure, COPD, Diabetes Mellitus, Osteoarthritis (OA), Pneumonia, Thyroid Disorder Additional Past Medical History / Comment(s): covid, homeO2 dependent, nonhealing vaginal wounds, indwelling catheter History of Any Multi-Drug Resistant Organisms: None Reported Past Surgical History: Cholecystectomy Additional Past Surgical History / Comment(s): bilat mastectomy Past Psychological History: No Psychological Hx Reported Smoking Status: Never smoker Past Alcohol Use History: None Reported Past Drug Use History: None Reported Medications and Allergies Home Medications Medication Instructions Recorded Confirmed Type ALPRAZolam [Xanax] 0.25 mg PO HS 08/28/23 08/28/23 History Albuterol Inhaler [Ventolin Hfa 2 puff INHALATION RT-Q6H PRN 08/28/23 08/28/23 History Inhaler] Albuterol Nebulized [Ventolin 2.5 mg INHALATION RT-QID PRN 08/28/23 08/28/23 History Nebulized] Alfuzosin HCl [Alfuzosin HCl ER] 10 mg PO DAILY 08/28/23 08/28/23 History Ascorbic Acid [Vitamin C] 500 mg PO DAILY 08/28/23 08/28/23 History Atorvastatin [Lipitor] 40 mg PO HS 08/28/23 08/28/23 History Bifidobacterium Infantis [Align] 4 mg PO DAILY 08/28/23 08/28/23 History Calcium 500mg 500 mg PO DAILY 08/28/23 08/28/23 History Clobetasol Propionate [Temovate 1 applic TOPICAL BID 08/28/23 08/28/23 History 0.05% Oint] Cyanocobalamin (Vitamin B-12) 1,000 mcg PO DAILY 08/28/23 08/28/23 History [Vitamin B-12] DULoxetine HCL [Cymbalta] 60 mg PO DAILY 08/28/23 08/28/23 History Denosumab [Prolia] 60 mg SQ Q180D 08/28/23 08/28/23 History Diclofenac Sodium Gel [Voltaren 1% 2 - 4 gm TOPICAL QID PRN 08/28/23 08/28/23 History Gel] Docusate [Colace] 100 mg PO DAILY 08/28/23 08/28/23 History Ferrous Sulfate [Iron (65 MG 325 mg PO DAILY 08/28/23 08/28/23 History Elemental)] Fluticasone Propion/Salmeterol 1 puff INHALATION RT-BID 08/28/23 08/28/23 History [Advair 250-50 Diskus] Furosemide [Lasix] 20 mg PO DAILY 08/28/23 08/28/23 History Gabapentin 600 mg PO TID 08/28/23 08/28/23 History Glucosamine(Unknown Dose) 2 tab PO DAILY 08/28/23 08/28/23 History Iodine(Unknown Dose) 1 tab PO DAILY 08/28/23 08/28/23 History Levothyroxine Sodium [Synthroid] 175 mcg PO DAILY 08/28/23 08/28/23 History Magnesium Oxide [Mag-Ox] 250 mg PO DAILY 08/28/23 08/28/23 History Menthol-Zinc Oxide Oint 1 applic TOPICAL QID PRN 08/28/23 08/28/23 History [Calmoseptine Ointment] Metoprolol Tartrate [Lopressor] 100 mg PO BID 08/28/23 08/28/23 History Montelukast [Singulair] 10 mg PO DAILY 08/28/23 08/28/23 History Nystatin 100,000 Unit/gm Powd 1 applic TOPICAL BID 08/28/23 08/28/23 History [Mycostatin Powder] Nystatin 100,000Unit/gm Cream 1 applic TOPICAL BID 08/28/23 08/28/23 History [Mycostatin Cream] Pantoprazole Sodium [Protonix] 20 mg PO DAILY 08/28/23 08/28/23 History Potassium Chloride ER [K-Dur 10] 10 meq PO BID 08/28/23 08/28/23 History Selenium 200 mcg PO DAILY 08/28/23 08/28/23 History Systane Eye Gel 0.3% 1 applic OPHTHALMIC DAILY 08/28/23 08/28/23 History Tiotropium 2.5 Mcg/Puff [Spiriva 2 puff INHALATION RT-DAILY 08/28/23 08/28/23 History Respimat 2.5 Mcg] Triamcinolone 0.1% Ointment 1 applic TOPICAL BID 08/28/23 08/28/23 History [Kenalog 0.1% Ointment] Zinc Gluconate [Zinc] 50 mg PO DAILY 08/28/23 08/28/23 History Zolpidem Tartrate [Ambien Cr] 6.25 mg PO HS 08/28/23 08/28/23 History cycloSPORINE 0.05% OPHTH SOLN 1 drop BOTH EYES Q12H 08/28/23 08/28/23 History [Restasis] diphenhydrAMINE [Benadryl] 25 mg PO HS 08/28/23 08/28/23 History gemfibroziL [Lopid] 600 mg PO BID 08/28/23 08/28/23 History polyethylene glycoL 3350 [Miralax] 17 gm PO DAILY 08/28/23 08/28/23 History traMADol HCL 50 mg PO BID 08/28/23 08/28/23 History Azithromycin [Zithromax Z Pack] 1 tab PO DIRECTED #6 tab 09/04/23 Rx guaiFENesin [Mucinex] 600 mg PO Q12H 5 Days #10 tab 09/04/23 Rx Allergies Allergy/AdvReac Type Severity Reaction Status Date / Time Sulfa (Sulfonamide Allergy Rash/Hives Verified 04/09/24 00:49 Antibiotics) sulfamethoxazole Allergy Rash/Hives Verified 04/09/24 00:49 [From Bactrim] trimethoprim [From Bactrim] Allergy Rash/Hives Verified 04/09/24 00:49 acetaminophen [From [place]] AdvReac Hallucinati Verified 04/09/24 00:49 ons hydrocodone [From [place]] AdvReac Hallucinati Verified 04/09/24 00:49 ons Physical Exam Vitals: Vital Signs Temp Pulse Pulse Resp BP Pulse Ox 04/09/24 03:00 97.9 F 100 100 20 119/62 96 04/09/24 00:49 97.7 F 97 22 130/63 96 Intake and Output 04/08/24 04/08/24 04/09/24 14:59 22:59 06:59 Output Total 975 Balance -975 Output: Urine 975 Other: Voiding Method Indwelling Catheter Weight 132.449 kg Assessment and Plan Assessment: 73-year-old female with 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 from history of breast cancer, chronic hypoxic respiratory failure on supplemental oxygen coming in due to worsening hypoxemia, shortness of breath, and persistent cough over the past 2 weeks she was transferred to our facility from [facility] for further pulmonary evaluation I discussed case with ED doctor and accepted the admission for acute on chronic hypoxic respiratory failure secondary to COPD exacerbation with anticipated length of stay more than 2 midnights Acute on chronic hypoxic respiratory failure Chronic hypercapnic respiratory failure Restrictive lung disease with COPD exacerbation Follow-up cultures Patient started on antibiotics with Rocephin and azithromycin CT angio of the chest done March 26 showed increased right hilar contour suspicious for infiltrates and pneumonia it was negative for PE at that time Symptomatic control of coughing with Tessalon Perles DuoNechip scheduled and as needed Supplemental oxygen as needed Pulmonary consultation IV systemic steroids with Solu-Medrol 60 mg every 6 hours Newly diagnosed diabetes mellitus Insulin sliding scale Blood work showing white count 12.5 hemoglobin 11.1 Lactic acid 2.5 Sodium 145 potassium 4.2 Bicarb 31 BUN 20 creatinine 1.1 Acute respiratory viral panel negative for RSV COVID and influenza Full code DVT prophylaxis heparin subcu 3 times daily
[2024-04-09] MEDS: IPRATROPIUM-ALBUTEROL 3 ML NEB INHALATION SCH ×2 (07:24→20:57)
[2024-04-09] MEDS ORDERED: TIOTROPIUM 2.5 MCG INHALER INHALATION SCH (08:00)
[2024-04-09 08:16] LABS: Glucose,Whole Blood 249 mg/dL (70-110)
--- NOTE | 2024-04-09 08:19 | XR ---
EXAMINATION TYPE: XR chest 1V portable DATE OF EXAM: 04/09/2024 Comparison: 08/28/2023 Clinical History: 73-year-old female pneumonia Findings: Right anterior chest wall injection port. Catheter tip at the mid to lower SVC. Heart mild to moderat rajeev enlarged. Diminished lung volumes with crowded vascular markings. Some mild patchy interstitial p rominence without pleural effusion. Impression: Similar cardiomegaly. Limitations due to hypoventilatory changes. Similar mild patchy interstitial in filtrates would be difficult to exclude.
[2024-04-09] MEDS: MONTELUKAST 10 MG TAB PO SCH (08:54)
[2024-04-09] MEDS: FUROSEMIDE 20 MG TAB PO SCH (08:54)
[2024-04-09] MEDS: METOPROLOL TARTRATE 50 MG TAB PO SCH (08:54)
[2024-04-09] MEDS: INSULIN ASPART (NovoLOG) 100 UNIT/ML VIAL SQ SCH (08:54)
[2024-04-09] MEDS: PANTOPRAZOLE 40 MG TABLET PO SCH (08:54)
[2024-04-09] MEDS: DULoxetine HCL 60 MG CAPSULE.DR PO SCH (08:54)
[2024-04-09] MEDS: LEVOTHYROXINE 88 MCG TAB PO SCH (08:54)
[2024-04-09] MEDS: GABAPENTIN 300 MG CAP PO SCH ×2 (08:54→20:42)
[2024-04-09] MEDS: HEPARIN SODIUM,PORCINE 5,000 UNIT/ML 1 ML VIAL SQ SCH (08:55)
[2024-04-09] MEDS: AZITHROMYCIN 500 MG in SODIUM CHLORIDE 0.9% 250 ML IVPB SCH (09:00)
[2024-04-09 10:30] LABS: HCT 37.5 % (34.0-46.0); HGB 11.8 gm/dL (11.4-16.0); MCH 30.6 pg (25.0-35.0); MCHC 31.3 g/dL (31.0-37.0); MCV 97.6 fL (80.0-100.0); Mean Platelet Volume 8.3; Platelet Count 294 k/uL (150-450); RBC 3.84 m/uL (3.80-5.40); RDW 14.3 % (11.5-15.5); WBC 14.2 k/uL (3.8-10.6)
[2024-04-09 10:40] LABS: ALT 20 U/L (4-34); AST 19 U/L (14-36); African American GFR (CKD) >90 (>60 ml/min/1.73 sqM); Albumin 3.7 g/dL (3.5-5.0); Alkaline Phosphatase 105 U/L (38-126); Anion Gap 8 mmol/L; Blood Urea Nitrogen 17 mg/dL (7-17); Calcium 8.5 mg/dL (8.4-10.2); Carbon Dioxide 33 mmol/L (22-30); Chloride 98 mmol/L (98-107); Glucose 293 mg/dL (74-99); Magnesium 2.1 mg/dL (1.6-2.3); Non-African American GFR(CKD) >90 (>60 ml/min/1.73 sqM); Phosphorus 2.5 mg/dL (2.5-4.5); Potassium 3.9 mmol/L (3.5-5.1); Sodium 139 mmol/L (137-145); Total Bilirubin 0.2 mg/dL (0.2-1.3); Total Protein 6.6 g/dL (6.3-8.2)
[2024-04-09 10:48] LABS: NT-Pro-B-Type Natriuretic Pept 431 pg/mL
[2024-04-09] MEDS ORDERED: VANCOMYCIN IV PER PHARMACY 1 EACH MISC MISCELLANE PRN (12:13)
[2024-04-09 12:31] LABS: Glucose,Whole Blood 201 mg/dL (70-110)
[2024-04-09] MEDS: traMADol 50 MG TAB PO PRN (12:38)
[2024-04-09] MEDS: VANCOMYCIN 2,000 MG in SODIUM CHLORIDE 0.9% 500 ML 500 ML IVPB SCH (13:09)
--- NOTE | 2024-04-09 14:12 | P.PN ---
Progress Note - Text Progress Note Date: 04/09/24 Hospitalist Interval Note Patient seen and examined at bedside. She continues to have shortness of breath any nonproductive cough. She reports she has a harsh cough. She recently finished a course of cefdinir Zithromax at the end of February. She has been feeling short of breath since that time. Vital signs reviewed General: Non toxic, no distress, appears at stated age, Obese Derm: Warm, dry Cardiovascular: S1S2 reg, no murmur, positive posterior tibial pulse bilateral, Lungs: Course bilateral, no rhonchi, no rales, no accessory muscle use Neuro: CN II-XI grossly intact, no focal neuro deficits Psych: Alert, oriented, appropriate affect Additional Assessment/Plan: - stop zithromax and rocephin as patient just completed zithromax and cerdinir at the end of february - Add Vanco IVPB with pharmacy to dose, check MRSA nasal swab, add unasyn 3 g IVPB q6h - Procal us is negative - patient with elevated d-dimer, ox of d-dimer at same level prior. Will defer to pulmonary if should undergo CTA. -With newly diagnosed diabetes will add Levemir 15 units at night as patient co ntinues to be hyperglycemic with insulin sliding scale. Will wait for A1c. - This is an update note for patient , for full note on 04/09/24 see H and P. There is no charge associated with this note.
--- NOTE | 2024-04-09 14:17 | P.CNPUL ---
History of Present Illness Consult date: 04/09/24 Requesting physician: Barbie Ashraf Reason for consult: dyspnea Chief complaint: Shortness of breath History of present illness: This is a 71 old female with known history of asthma, chronic diastolic congestive heart failure, restrictive lung disease and previous history of radiation pneumonitis related to bilateral breast cancer. About 2 weeks ago, patient was diagnosed with acute COPD exacerbation and pneumonia, patient received a 1 week course of antibiotics and steroids, over the last 7 days, patient has been complaining of cough, shortness of breath, no wheezing, patient was seen in [place] in ER, and her O2 saturation was low, patient normally uses 5 L nasal cannula because of her severe restrictive lung disease patient was transferred to [facility], and I was asked to see her on consultation. Her labs showed leukocytosis with WBC count of 14.2 her D-dimer is 0.8, electrolytes are normal, her BNP level is normal. And her blood sugar is 201. Considering the presentation, this consult was initiated. Patient is very well familiar to my service. I have seen this patient in the office for history of COVID-19 pneumonia and history of chronic bronchial asthma maintained on albuterol and Advair, patient has chronic hypoxic respiratory failure, morbid obesity, obstructive sleep apnea syndrome, on CPAP, she also has benign essential hypertension hypothyroidism, patient never smoked. On her previous admissions, patient had workup for pulmonary embolism and that was negative, she was treated mostly for diastolic congestive heart failure mostly. Review of Systems CONSTITUTIONAL: generalized weakness no fever no chills she does have a bit of a dry cough EYES: Denies change in vision. EARS, NOSE, MOUTH, THROAT: Negative CARDIOVASCULAR: Negative RESPIRATORY: As noted in HPI GASTROINTESTINAL: Denies change in appetite, abdominal pain, nausea and vomiting, or diarrhea GENITOURINARY: Denies hematuria, denies infections. MUSKULOSKELETAL: Denies pain, denies swelling. INTEGUMENTARY: Negative NEUROLOGICAL: Negative PSYCHIATRIC: Denies anxiety, denies depression. HEMATOLOGIC/LYMPHATIC: Negative Past Medical History Past Medical History: Atrial Fibrillation, Asthma, Cancer, Chest Pain / Angina, Heart Failure, COPD, Diabetes Mellitus, Osteoarthritis (OA), Pneumonia, Thyroid Disorder Additional Past Medical History / Comment(s): covid, homeO2 dependent, nonhealing vaginal wounds, indwelling catheter History of Any Multi-Drug Resistant Organisms: None Reported Past Surgical History: Cholecystectomy Additional Past Surgical History / Comment(s): bilat mastectomy Past Psychological History: No Psychological Hx Reported Smoking Status: Never smoker Past Alcohol Use History: None Reported Past Drug Use History: None Reported Medications and Allergies Home Medications Medication Instructions Recorded Confirmed Type Albuterol Inhaler [Ventolin Hfa 2 puff INHALATION RT-Q6H PRN 08/28/23 04/09/24 History Inhaler] Albuterol Nebulized [Ventolin 2.5 mg INHALATION RT-QID PRN 08/28/23 04/09/24 History Nebulized] Alfuzosin HCl [Alfuzosin HCl ER] 10 mg PO DAILY 08/28/23 04/09/24 History Ascorbic Acid [Vitamin C] 500 mg PO DAILY 08/28/23 04/09/24 History Atorvastatin [Lipitor] 40 mg PO HS 08/28/23 04/09/24 History Bifidobacterium Infantis [Align] 4 mg PO DAILY 08/28/23 04/09/24 History Cyanocobalamin (Vitamin B-12) 1,000 mcg PO DAILY 08/28/23 04/09/24 History [Vitamin B-12] DULoxetine HCL [Cymbalta] 60 mg PO DAILY 08/28/23 04/09/24 History Ferrous Sulfate [Iron (65 MG 325 mg PO DAILY 08/28/23 04/09/24 History Elemental)] Gabapentin 600 mg PO BID@0900,1500 08/28/23 04/09/24 History Levothyroxine Sodium [Synthroid] 175 mcg PO DAILY 08/28/23 04/09/24 History Metoprolol Tartrate [Lopressor] 100 mg PO BID 08/28/23 04/09/24 History Montelukast [Singulair] 10 mg PO DAILY 08/28/23 04/09/24 History Nystatin 100,000 Unit/gm Powd 1 applic TOPICAL BID PRN 08/28/23 04/09/24 History [Mycostatin Powder] Potassium Chloride ER [K-Dur 10] 10 meq PO BID 08/28/23 04/09/24 History Selenium 200 mcg PO DAILY 08/28/23 04/09/24 History Zinc Gluconate [Zinc] 50 mg PO DAILY 08/28/23 04/09/24 History Zolpidem Tartrate [Ambien Cr] 6.25 mg PO HS 08/28/23 04/09/24 History cycloSPORINE 0.05% OPHTH SOLN 1 drop BOTH EYES Q12H 08/28/23 04/09/24 History [Restasis] diphenhydrAMINE [Benadryl] 25 mg PO HS 08/28/23 04/09/24 History gemfibroziL [Lopid] 600 mg PO AC-BID 08/28/23 04/09/24 History polyethylene glycoL 3350 [Miralax] 17 gm PO DAILY 08/28/23 04/09/24 History traMADol HCL 50 mg PO BID PRN 08/28/23 04/09/24 History ALPRAZolam [Xanax] 0.25 mg PO HS PRN 04/09/24 04/09/24 History Calcium Orotate 250gm Powder 0.75 tsp PO BID 04/09/24 04/09/24 History Esomeprazole Magnesium [NexIUM 20 mg PO DAILY 04/09/24 04/09/24 History 24Hr] Felodipine [Plendil] 10 mg PO DAILY 04/09/24 04/09/24 History Fluticasone/Umeclidin/Vilanter 1 puff INHALATION RT-DAILY 04/09/24 04/09/24 History [Trelegy Ellipta 200-62.5-25] Gabapentin 900 mg PO HS@2100 04/09/24 04/09/24 History Hydrocortisone Cream 1 applic TOPICAL BID 04/09/24 04/09/24 History [Hydrocortisone 2.5% Cream] Ibandronate Sodium [Boniva] 150 mg PO QMONTHLY 04/09/24 04/09/24 History Ipratropium-Albuterol Nebulize 3 ml INHALATION RT-Q6H 04/09/24 04/09/24 History [Duoneb 0.5 mg-3 mg/3 ml Soln] Kelp Supplement 25 mg PO BID 04/09/24 04/09/24 History Ketoconazole 2% Cream [Nizoral 2%] 1 applic TOPICAL BID 04/09/24 04/09/24 History Loratadine [Claritin] 10 mg PO HS 04/09/24 04/09/24 History Magnesium 250 mg PO DAILY 04/09/24 04/09/24 History Multivitamins, Thera [Multivitamin 1 tab PO DAILY 04/09/24 04/09/24 History (formulary)] Mupirocin 2% Oint [Bactroban 2% 1 applic TOPICAL BID 04/09/24 04/09/24 History Oint] [place]all 3-6-9 Complex Capsule 3 cap PO DAILY 04/09/24 04/09/24 History Strontium Citrate 680mg Tab 2 tab PO W/LUNCH 04/09/24 04/09/24 History Torsemide [Demadex] 40 mg PO DAILY 04/09/24 04/09/24 History Vitamin B Complex 1 cap PO DAILY 04/09/24 04/09/24 History Vitamin D3/Vitamin K2 (Mk4) 1 tab PO DAILY 04/09/24 04/09/24 History [Vitamin K2 Plus D3 Tablet] Vitamin E (Dl,Tocopheryl Acet) 1,000 unit PO DAILY 04/09/24 04/09/24 History [Vitamin E (1000 Iu = 450 MG)] Allergies Allergy/AdvReac Type Severity Reaction Status Date / Time Sulfa (Sulfonamide Allergy Rash/Hives Verified 04/09/24 10:22 Antibiotics) sulfamethoxazole Allergy Rash/Hives Verified 04/09/24 10:22 [From Bactrim] trimethoprim [From Bactrim] Allergy Rash/Hives Verified 04/09/24 10:22 acetaminophen [From Dennard] AdvReac Hallucinati Verified 04/09/24 10:22 ons hydrocodone [From Dennard] AdvReac Hallucinati Verified 04/09/24 10:22 ons Physical Exam Vitals: Vital Signs Temp Pulse Pulse Resp BP BP Pulse Ox 04/09/24 12:00 98.2 F 98 18 142/75 95 04/09/24 11:37 96 04/09/24 11:25 92 04/09/24 07:50 97.7 F 110 H 18 133/69 04/09/24 07:36 108 H 04/09/24 07:25 108 H 04/09/24 06:07 98.4 F 104 H 20 147/79 94 L 04/09/24 03:00 97.9 F 100 100 20 119/62 96 04/09/24 00:49 97.7 F 97 22 130/63 96 Intake and Output 04/08/24 04/09/24 04/09/24 22:59 06:59 14:59 Output Total 1425 Balance -1425 Output: Urine 1425 Other: Voiding Method Indwelling Catheter Weight 132.449 kg GENERAL EXAM: Alert, 73-year-old white female who is morbidly obese , comfortable in no apparent distress. On 5 L nasal cannula and O2 sats is 95% HEAD: Normocephalic and atraumatic EYES: Normal reaction of pupils, equal size. NOSE: Clear with pink turbinates. THROAT: No erythema or exudates. NECK: No masses, no JVD. Short and thick neck with DEX like features CHEST: No chest wall deformity. LUNGS: Diminished breath sounds at the bases no crackles rhonchi or wheezes CVS: S1 and S2 normal with no audible murmur, regular rhythm. No extra heart sounds ABDOMEN: Obese abdomen, no hepatosplenomegaly, active bowel sounds, no guarding or rigidity. SPINE: No scoliosis or deformity SKIN: No rashes. CENTRAL NERVOUS SYSTEM: No focal deficits, tone is normal in all 4 extremities. EXTREMITIES: There is left lower extremity 1-2+ pitting edema. No clubbing, or cyanosis. Peripheral pulses are intact. Results - Laboratory Findings CBC and BMP: 04/09/24 10:06 04/09/24 10:06 PT/INR, D-dimer D-Dimer 0.80 mg/L FEU (<0.60) H 04/09/24 10:06 Abnormal lab findings: Abnormal Labs 04/09/24 04/09/24 04/09/24 08:15 10:06 10:06 WBC 14.2 H D-Dimer Carbon Dioxide 33 H Glucose 293 H POC Glucose (mg/dL) 249 H 04/09/24 04/09/24 10:06 12:30 WBC D-Dimer 0.80 H Carbon Dioxide Glucose POC Glucose (mg/dL) 201 H - Diagnostic Findings Chest x-ray: image reviewed (Chest x-ray showed cardiomegaly, hypoventilatory changes, patchy interstitial densities noted, chest x-ray is basically no different from chest x-ray in 2022 ) Assessment and Plan Assessment: Impression: chronic hypoxemic and hypercapnic respiratory failure, multifactorial, mostly related to morbid obesity, restrictive lung disease, history of COVID-19 pneumonia history of radiation pneumonitis from breast cancer treatment. Obesity hypoventilation syndrome. At this point I strongly doubt congestive heart failure, and I strongly doubt underlying pneumonia. However considering the elevated D-dimer I am recommending CT angiogram of the chest. Elevated d-dimer, chest CTA was ordered History of COVID-19 pneumonia History of chronic bronchial asthma,, patient never smoked Chronic hypoxemic respiratory failure, normally maintained on 4-5 L home O2 Obstructive sleep apnea with obesity hypoventilation syndrome, utilizes CPAP at bedtime Morbid obesity, with a BMI of 55 kg/m Macrocytic anemia Hyperlipidemia Benign essential hypertension Hypothyroidism Never smoker Recommendation: Ordered CT angiogram of the chest Continue present supportive care measures Resume home meds Discontinue antibiotics, assuming CT angiogram of the chest does not show clear- cut evidence of pneumonia and considering procalcitonin level is normal Resume bronchodilators Continue oxygen and titrate accordingly Continue diuretics which she takes on a regular basis Consider discharge planning in [address] angiogram of the chest is abnormal Time with Patient: Greater than 30
--- NOTE | 2024-04-09 16:20 | CT ---
EXAMINATION TYPE: CT chest angio for PE CT DLP: 1043.8 mGycm, Automated exposure control for dose reduction was used. DATE OF EXAM: 04/09/2024 4:12 PM COMPARISON: 08/18/2023 CLINICAL INDICATION:Female, 73 years old with history of r/o pe; pe TECHNIQUE/CONTRAST: CTA scan of the thorax is performed with IV Contrast, patient injected with 80 mL of Isovue 370, MIP images are created and reviewed these are created on a separate workstation.. FINDINGS: Pulmonary Artery: There is no evidence for a filling defect within the pulmonary vasculature to sugge st acute pulmonary embolism. The pulmonary artery is dilated up to 43 mm. Lungs/Pleura: Low lung volumes, streaky atelectasis/scarring posteriorly No evidence of focal consoli dation, pleural effusion or pneumothorax. Airway: Mild bronchial wall dilation Heart: Heart is enlarged for size. Coronary artery calcifications are present. Vasculature: No evidence of aortic aneurysm. Right chest wall [place] tip terminating in the medley perior vena cava. Mediastinum: No gross evidence of adenopathy. Musculoskeletal: No acute osseous abnormalities, remote injury to the sternum suggested. Moderate mul tilevel degeneration changes spine with disc space narrowing, osteophyte formation and facet joint ar thropathy. Soft Tissues/lymph nodes: Bilateral breast implants with some calcifications along the anterior aspec t bilaterally left greater than right. left shoulder calcified joint body measuring 15 mm. Lower neck: No significant findings. Upper Abdomen: The gallbladder is surgically absent. IMPRESSION: 1. No evidence of pulmonary embolism. 2. Cardiomegaly with pulmonary hypertension correlate with serum BNP. 3. Left shoulder calcified joint body measuring 15 mm. 4. COPD with basilar bronchiectasis.
[2024-04-09 16:39] LABS: Glucose,Whole Blood 258 mg/dL (70-110)
[2024-04-09] MEDS: AMPICILLIN-SULBACTAM 3 GM in SODIUM CHLORIDE 0.9% 100 ML IVPB SCH (17:34)
[2024-04-09] MEDS: ATORVASTATIN 40 MG TAB PO SCH (20:43)
[2024-04-09] MEDS: LORATADINE 10 MG TAB PO SCH (20:43)
[2024-04-09] MEDS: ALPRAZolam 0.25 MG TAB PO SCH (20:43)
[2024-04-09] MEDS: SYMBICORT 80-4.5 MCG INHALER INHALATION SCH (21:00)
[2024-04-09 21:38] LABS: Glucose,Whole Blood 277 mg/dL (70-110)
[2024-04-09] MEDS: BENZONATATE 100 MG CAP PO PRN (21:44)
[2024-04-09] MEDS: INSULIN DETEMIR (LEVEMIR) 100 UNIT/ML SYR SQ SCH (21:45)
[2024-04-10 06:11] LABS: Glucose,Whole Blood 250 mg/dL (70-110)
[2024-04-10] MEDS: IPRATROPIUM 0.5 MG/2.5 ML NEBU INHALATION SCH (08:21)
[2024-04-10] MEDS: TAMSULOSIN 0.4 MG CAP.ER.24H PO SCH (09:40)
[2024-04-10] MEDS: amLODIPine 10 MG TAB PO SCH (09:40)
[2024-04-10] MEDS: FENOFIBRATE 160 MG TAB PO SCH (09:40)
[2024-04-10] MEDS: TORSEMIDE 20 MG TAB PO SCH (09:41)
[2024-04-10] MEDS: GABAPENTIN 300 MG CAP PO SCH (09:41)
[2024-04-10 10:13] LABS: HCT 36.3 % (34.0-46.0); HGB 11.5 gm/dL (11.4-16.0); MCH 31.2 pg (25.0-35.0); MCHC 31.7 g/dL (31.0-37.0); MCV 98.4 fL (80.0-100.0); Mean Platelet Volume 8.2; Platelet Count 293 k/uL (150-450); RBC 3.69 m/uL (3.80-5.40); RDW 14.5 % (11.5-15.5); WBC 15.9 k/uL (3.8-10.6)
[2024-04-10 10:29] LABS: African American GFR (CKD) >90 (>60 ml/min/1.73 sqM); Anion Gap 9 mmol/L; Blood Urea Nitrogen 21 mg/dL (7-17); Calcium 8.5 mg/dL (8.4-10.2); Carbon Dioxide 27 mmol/L (22-30); Chloride 101 mmol/L (98-107); Glucose 370 mg/dL (74-99); Magnesium 2.2 mg/dL (1.6-2.3); Non-African American GFR(CKD) >90 (>60 ml/min/1.73 sqM); Potassium 3.8 mmol/L (3.5-5.1); Sodium 137 mmol/L (137-145)
[2024-04-10 11:39] LABS: Glucose,Whole Blood 321 mg/dL (70-110)
--- NOTE | 2024-04-10 12:07 | P.PN ---
Subjective Progress Note Date: 04/10/24 Principal diagnosis: Pneumonia, COPD. This is a 71 old female with known history of asthma, chronic diastolic congestive heart failure, restrictive lung disease and previous history of radiation pneumonitis related to bilateral breast cancer. About 2 weeks ago, patient was diagnosed with acute COPD exacerbation and pneumonia, patient received a 1 week course of antibiotics and steroids, over the last 7 days, patient has been complaining of cough, shortness of breath, no wheezing, patient was seen in [place] in ER, and her O2 saturation was low, patient normally uses 5 L nasal cannula because of her severe restrictive lung disease patient was transferred to [facility], and I was asked to see her on consultation. Her labs showed leukocytosis with WBC count of 14.2 her D-dimer is 0.8, electrolytes are normal, her BNP level is normal. And her blood sugar is 201. Considering the presentation, this consult was initiated. Patient is very well familiar to my service. I have seen this patient in the office for history of COVID-19 pneumonia and history of chronic bronchial asthma maintained on albuterol and Advair, patient has chronic hypoxic respiratory failure, morbid obesity, obstructive sleep apnea syndrome, on CPAP, she also has benign e ssential hypertension hypothyroidism, patient never smoked. On her previous admissions, patient had workup for pulmonary embolism and that was negative, she was treated mostly for diastolic congestive heart failure mostly. Progress note dated April 10, 2024. The patient was seen in consultation by my partner yesterday. Currently, the patient is seen in room 360. She continues on oxygen at 5 L. She does use 5 L at home. The Symbicort that she was placed on, will be changed to budesonide, and formoterol, at usual doses. We will DC antibiotics. Procalcitonin level is normal. Current labs include a white count 15.9, hemoglobin 11.5, hematocrit 36.3, and a normal platelet count of 293,000. Sodium 137, potassium 3.8, chlorides 101, CO2 27, BUN 21, and creatinine 0.50. Leukosis 321. Calcium 8.5, and magnesium 2.2. Chest CTA shows no evidence of pulmonary embolism, but does show evidence of cardiomegaly, pulmonary hypertension, and changes of COPD with basilar bronchiectasis. Objective - Vital Signs Vital signs: Vital Signs Temp 97.8 F 04/10/24 08:00 Pulse 104 H 04/10/24 11:46 Resp 22 04/10/24 08:00 BP 138/59 04/10/24 08:00 Pulse Ox 95 04/10/24 08:00 FiO2 Intake & Output 04/09/24 04/10/24 04/10/24 18:59 06:59 18:59 Intake Total 350 Output Total 950 700 275 Balance -950 -700 75 Weight 132.449 kg Intake: Oral 350 Output: Urine 950 700 275 Other: Voiding Method Indwelling Catheter Indwelling Catheter Indwelling Catheter - Exam No acute distress, oriented 3. Currently on 5 L of oxygen. No respiratory distress. HEENT examination is grossly unremarkable. Mucous membranes are moist. No oral lesions. Neck supple. Full range of motion. No adenopathy thyromegaly or neck vein distention. Cardiovascular examination reveals regular rhythm rate. S1-S2 normal. No S3 or S4. No discernible murmur noted. Heart rate 100 bpm. Lungs reveal clear breath sounds. Breath sounds are equal bilaterally. No adventitious lung sounds including wheezes rhonchi or crackles. Saturations are 95%. Abdomen soft bowel sounds are heard. No masses or tenderness. Extremities are intact. No cyanosis or clubbing. Mild left lower extremity edema. Skin is without rash or lesion. Neurologic examination is brief but nonfocal. - Labs CBC & Chem 7: 04/10/24 09:19 04/10/24 09:19 Labs: Abnormal Lab Results - Last 24 Hours (Table) 04/09/24 04/09/24 04/09/24 Range/Units 12:30 16:37 21:37 WBC (3.8-10.6) k/uL RBC (3.80-5.40) m/uL BUN (7-17) mg/dL Creatinine (0.52-1.04) mg/dL Glucose (74-99) mg/dL POC Glucose (mg/dL) 201 H 258 H 277 H (70-110) mg/dL 04/10/24 04/10/24 04/10/24 Range/Units 06:09 09:19 09:19 WBC 15.9 H (3.8-10.6) k/uL RBC 3.69 L (3.80-5.40) m/uL BUN 21 H (7-17) mg/dL Creatinine 0.50 L (0.52-1.04) mg/dL Glucose 370 H (74-99) mg/dL POC Glucose (mg/dL) 250 H (70-110) mg/dL 04/10/24 Range/Units 11:37 WBC (3.8-10.6) k/uL RBC (3.80-5.40) m/uL BUN (7-17) mg/dL Creatinine (0.52-1.04) mg/dL Glucose (74-99) mg/dL POC Glucose (mg/dL) 321 H (70-110) mg/dL Assessment and Plan Assessment: Chronic hypoxemic and hypercapnic respiratory failure, secondary to morbid obesity, restrictive lung disease, radiation pneumonitis, and possible Pickwickian syndrome. History of COVID-19 pneumonia. History of chronic bronchial asthma. Chronic hypoxemic respiratory failure, on home O2 at 5 L. Obstructive sleep apnea syndrome, with home CPAP use. Morbid obesity. Macrocytic anemia. Hyperlipidemia. Benign essential hypertension. History of hypothyroidism. Plan: Plan dated April 10, 2024. The patient's procalcitonin level was normal. Antibiotics were discontinued. She continues on 5 L of oxygen with saturations in the low to mid 90s. The Symbicort, is converted to budesonide, and formoterol, at usual doses. We will continue to follow make recommendations along the way. The patient's overall prognosis remains guarded. She is feeling a bit better today. She continues on other bronchodilators. Labs, x-rays, and all medications are reviewed. Time with Patient: Less than 30
[2024-04-10] MEDS: IPRATROPIUM-ALBUTEROL 3 ML NEB INHALATION PRN (15:17)
--- NOTE | 2024-04-10 15:38 | P.PN ---
Subjective Progress Note Date: 04/10/24 Hospital Course: 73-year-old female with history of COPD/asthma, chronic hypoxic respiratory fa ilure on 5 L, breast cancer status postradiation, restrictive lung disease secondary to radiation pneumonitis, chronic diastolic heart failure presenting with persistent cough and shortness of breath. Vital signs within normal limits, remains on 5 L of oxygen nasal cannula. WBC 14.2, creatinine 0.58, proBNP 431, procalcitonin 0.05. Chest CTA did not show any acute PE but showed COPD with basilar bronchiectasis. Pulmonology was consulted. IV antibiotics discontinued. Remains on IV steroids. Chronic Mtz in place. Subjective: Seen and examined at bedside. No acute events overnight. Claims that she is cough and occasional chest pain with cough and some sputum production but denies any other new complaints. Pertinent positives and negatives as discussed above, a complete review of systems was performed and all other systems are negative. Vitals Signs Reviewed. General: Nontoxic, no distress, appears at stated age, morbidly obese, chronically ill-appearing Derm: Warm, dry Head: Atraumatic, normocephalic, symmetric Eyes: EOMI, no lid lag, anicteric sclera Mouth: No lip lesion, mucus membranes moist Cardiovascular: S1S2 reg, no murmur Lungs: Bilateral rhonchi, no accessory muscle use, supplemental oxygen Abdominal: Soft, nontender to palpation, no guarding, no appreciable organomegaly Ext: No gross muscle atrophy, trace peripheral edema, no contractures Neuro: CN II-XI grossly intact, no focal neuro deficits Psych: Alert, oriented, appropriate affect Data Reviewed Today: Pertinent Labs: WBC 15.9, hemoglobin 11.5, creatinine 0.5, blood sugars range between 2 50-3 70, A1c 6.8, magnesium 2.2 Imaging: chest CTA report reviewed, shows no evidence of PE Assessment and Plan: Active: Acute COPD exacerbation Acute on chronic hypoxic respiratory failure, back to baseline oxygen Restrictive lung disease secondary to radiation pneumonitis History of breast cancer status post radiation Possible obesity hypoventilation syndrome History of DEX on CPAP Morbid obesity Leukocytosis, likely steroid-induced -Antibiotics discontinued -Discussed management with pulmonology, continue on DuoNebs every 6 hours, and every 2 hours as needed, on Pulmicort twice daily, Perforomist twice daily, Solu-Medrol 60 IV every 6 hours, montelukast 10 daily -Back to home baseline oxygen levels, will consider discharge tomorrow Type 2 diabetes Hyperglycemia, steroid-induced -Levemir 15 units, sliding scale insulin, monitor for hypoglycemia Chronic: Hypertension Dyslipidemia Hypothyroidism Chronic diastolic heart failure, not in exacerbation GERD DVT ppx: Subcu heparin Code status: Full code Anticipated discharge place: Pending clinical course Anticipated discharge time: Pending clinical course Objective - Vital Signs Vital signs: Vital Signs Temp 97.8 F 04/10/24 08:00 Pulse 112 H 04/10/24 15:27 Resp 20 04/10/24 12:00 BP 136/69 04/10/24 12:00 Pulse Ox 95 04/10/24 12:00 FiO2 Intake & Output 04/09/24 04/10/24 04/10/24 18:59 06:59 18:59 Intake Total 830 Output Total 852 767 3509 Balance -706 -700 -1645 Weight 132.449 kg Intake: Oral 830 Output: Urine 833 850 9432 Other: Voiding Method Indwelling Catheter Indwelling Catheter Indwelling Catheter - Labs CBC & Chem 7: 04/10/24 09:19 04/10/24 09:19 Labs: Abnormal Lab Results - Last 24 Hours (Table) 04/09/24 04/09/24 04/10/24 Range/Units 16:37 21:37 06:09 WBC (3.8-10.6) k/uL RBC (3.80-5.40) m/uL BUN (7-17) mg/dL Creatinine (0.52-1.04) mg/dL Glucose (74-99) mg/dL POC Glucose (mg/dL) 258 H 277 H 250 H (70-110) mg/dL Hemoglobin A1c (<=6.0) % 04/10/24 04/10/24 04/10/24 Range/Units 09:19 09:19 09:19 WBC 15.9 H (3.8-10.6) k/uL RBC 3.69 L (3.80-5.40) m/uL BUN 21 H (7-17) mg/dL Creatinine 0.50 L (0.52-1.04) mg/dL Glucose 370 H (74-99) mg/dL POC Glucose (mg/dL) (70-110) mg/dL Hemoglobin A1c 6.8 H (<=6.0) % 04/10/24 Range/Units 11:37 WBC (3.8-10.6) k/uL RBC (3.80-5.40) m/uL BUN (7-17) mg/dL Creatinine (0.52-1.04) mg/dL Glucose (74-99) mg/dL POC Glucose (mg/dL) 321 H (70-110) mg/dL Hemoglobin A1c (<=6.0) %
[2024-04-10 16:27] LABS: Glucose,Whole Blood 285 mg/dL (70-110)
[2024-04-10 19:30] LABS: Glucose,Whole Blood 460 mg/dL (70-110)
[2024-04-10 19:30] LABS: Glucose,Whole Blood 554 mg/dL (70-110)
[2024-04-10] MEDS: BUDESONIDE 1 MG/2 ML NEBU INHALATION SCH (21:35)
[2024-04-10] MEDS: FORMOTEROL FUMARATE 20 MCG/2 ML NEBU INHALATION SCH (21:35)
[2024-04-10 23:45] LABS: Glucose,Whole Blood 198 mg/dL (70-110)
[2024-04-11 06:27] LABS: Glucose,Whole Blood 227 mg/dL (70-110)
[2024-04-11 11:17] VITALS: TEMP 97.5
[2024-04-11 11:51] LABS: Glucose,Whole Blood 267 mg/dL (70-110)
--- NOTE | 2024-04-11 12:40 | P.DS ---
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 Vital signs within normal limits, remains on 5 L of oxygen nasal cannula. WBC 14.2, creatinine 0.58, proBNP 431, procalcitonin 0.05. Chest CTA did not show any acute PE but showed COPD with basilar bronchiectasis. Pulmonology was consulted. IV antibiotics discontinued. Continued on IV steroids. Chronic Mtz in place. Respiratory function back to baseline. Patient being discharged home with oral steroids. Follow-up with pulmonology and PCP. She was also seen by speech therapy, no concern for aspiration. She does have a barium swallow scheduled outpatient. Patient seen and examined at bedside.[] Vital signs reviewed and stable. General: Nontoxic, no distress, appears at stated age, morbidly obese, chronically ill-appearing Derm: Warm, dry Head: Atraumatic, normocephalic, symmetric Eyes: EOMI, no lid lag, anicteric sclera Mouth: No lip lesion, mucus membranes moist Cardiovascular: S1S2 reg, no murmur Lungs: Bilateral rhonchi, no accessory muscle use, supplemental oxygen Abdominal: Soft, nontender to palpation, no guarding, no appreciable organomegaly Ext: No gross muscle atrophy, trace peripheral edema, no contractures Neuro: CN II-XI grossly intact, no focal neuro deficits Psych: Alert, oriented, appropriate affect A total of 33 minutes of time were spent preparing this complex discharge summary. Patient was discharged on 04/11/2024 at 1237. Patient Condition at Discharge: Stable Plan - Discharge Summary Discharge Rx Participant: No New Discharge Prescriptions: New metFORMIN HCL [Glucophage] 500 mg PO BID #90 tab Benzonatate [Tessalon Perles] 200 mg PO TID PRN #30 cap PRN Reason: Cough predniSONE [Deltasone] 40 mg PO DAILY #6 tab Continue Albuterol Inhaler [Ventolin Hfa Inhaler] 2 puff INHALATION RT-Q6H PRN PRN Reason: Shortness Of Breath Ascorbic Acid [Vitamin C] 500 mg PO DAILY Atorvastatin [Lipitor] 40 mg PO HS cycloSPORINE 0.05% OPHTH SOLN [Restasis] 1 drop BOTH EYES Q12H diphenhydrAMINE [Benadryl] 25 mg PO HS Ferrous Sulfate [Iron (65 MG Elemental)] 325 mg PO DAILY Gabapentin 600 mg PO BID@0900,1500 Metoprolol Tartrate [Lopressor] 100 mg PO BID Montelukast [Singulair] 10 mg PO DAILY polyethylene glycoL 3350 [Miralax] 17 gm PO DAILY Potassium Chloride ER [K-Dur 10] 10 meq PO BID Selenium 200 mcg PO DAILY traMADol HCL 50 mg PO BID PRN PRN Reason: Pain Vitamin E (Dl,Tocopheryl Acet) [Vitamin E (1000 Iu = 450 MG)] 1,000 unit PO DAILY Fluticasone/Umeclidin/Vilanter [Trelegy Ellipta 200-62.5-25] 1 puff INHALATION RT-DAILY [place] 3-6-9 Complex Capsule 3 cap PO DAILY Calcium Orotate 250gm Powder 0.75 tsp PO BID Ibandronate Sodium [Boniva] 150 mg PO QMONTHLY Hydrocortisone Cream [Hydrocortisone 2.5% Cream] 1 applic TOPICAL BID Felodipine [Plendil] 10 mg PO DAILY Loratadine [Claritin] 10 mg PO HS Albuterol Nebulized [Ventolin Nebulized] 2.5 mg INHALATION RT-QID PRN PRN Reason: Shortness Of Breath Alfuzosin HCl [Alfuzosin HCl ER] 10 mg PO DAILY Bifidobacterium Infantis [Align] 4 mg PO DAILY Cyanocobalamin (Vitamin B-12) [Vitamin B-12] 1,000 mcg PO DAILY DULoxetine HCL [Cymbalta] 60 mg PO DAILY gemfibroziL [Lopid] 600 mg PO AC-BID Levothyroxine Sodium [Synthroid] 175 mcg PO DAILY Nystatin 100,000 Unit/gm Powd [Mycostatin Powder] 1 applic TOPICAL BID PRN PRN Reason: Skin Irritation Zinc Gluconate [Zinc] 50 mg PO DAILY Zolpidem Tartrate [Ambien Cr] 6.25 mg PO HS Vitamin D3/Vitamin K2 (Mk4) [Vitamin K2 Plus D3 Tablet] 1 tab PO DAILY Vitamin B Complex 1 cap PO DAILY Torsemide [Demadex] 40 mg PO DAILY Mupirocin 2% Oint [Bactroban 2% Oint] 1 applic TOPICAL BID Esomeprazole Magnesium [NexIUM 24Hr] 20 mg PO DAILY Strontium Citrate 680mg Tab 2 tab PO W/LUNCH Magnesium 250 mg PO DAILY Ketoconazole 2% Cream [Nizoral 2%] 1 applic TOPICAL BID Kelp Supplement 25 mg PO BID Ipratropium-Albuterol Nebulize [Duoneb 0.5 mg-3 mg/3 ml Soln] 3 ml INHALATION RT-Q6H Gabapentin 900 mg PO HS@2100 ALPRAZolam [Xanax] 0.25 mg PO HS PRN PRN Reason: Anxiety Multivitamins, Thera [Multivitamin (formulary)] 1 tab PO DAILY Discharge Medication List Albuterol Inhaler [Ventolin Hfa Inhaler] 2 puff INHALATION RT-Q6H PRN 08/28/23 [History] Albuterol Nebulized [Ventolin Nebulized] 2.5 mg INHALATION RT-QID PRN 08/28/23 [History] Alfuzosin HCl [Alfuzosin HCl ER] 10 mg PO DAILY 08/28/23 [History] Ascorbic Acid [Vitamin C] 500 mg PO DAILY 08/28/23 [History] Atorvastatin [Lipitor] 40 mg PO HS 08/28/23 [History] Bifidobacterium Infantis [Align] 4 mg PO DAILY 08/28/23 [History] Cyanocobalamin (Vitamin B-12) [Vitamin B-12] 1,000 mcg PO DAILY 08/28/23 [History] DULoxetine HCL [Cymbalta] 60 mg PO DAILY 08/28/23 [History] Ferrous Sulfate [Iron (65 MG Elemental)] 325 mg PO DAILY 08/28/23 [History] Gabapentin 600 mg PO BID@0900,1500 08/28/23 [History] Levothyroxine Sodium [Synthroid] 175 mcg PO DAILY 08/28/23 [History] Metoprolol Tartrate [Lopressor] 100 mg PO BID 08/28/23 [History] Montelukast [Singulair] 10 mg PO DAILY 08/28/23 [History] Nystatin 100,000 Unit/gm Powd [Mycostatin Powder] 1 applic TOPICAL BID PRN 08/28/23 [History] Potassium Chloride ER [K-Dur 10] 10 meq PO BID 08/28/23 [History] Selenium 200 mcg PO DAILY 08/28/23 [History] Zinc Gluconate [Zinc] 50 mg PO DAILY 08/28/23 [History] Zolpidem Tartrate [Ambien Cr] 6.25 mg PO HS 08/28/23 [History] cycloSPORINE 0.05% OPHTH SOLN [Restasis] 1 drop BOTH EYES Q12H 08/28/23 [History] diphenhydrAMINE [Benadryl] 25 mg PO HS 08/28/23 [History] gemfibroziL [Lopid] 600 mg PO AC-BID 08/28/23 [History] polyethylene glycoL 3350 [Miralax] 17 gm PO DAILY 08/28/23 [History] traMADol HCL 50 mg PO BID PRN 08/28/23 [History] ALPRAZolam [Xanax] 0.25 mg PO HS PRN 04/09/24 [History] Calcium Orotate 250gm Powder 0.75 tsp PO BID 04/09/24 [History] Esomeprazole Magnesium [NexIUM 24Hr] 20 mg PO DAILY 04/09/24 [History] Felodipine [Plendil] 10 mg PO DAILY 04/09/24 [History] Fluticasone/Umeclidin/Vilanter [Trelegy Ellipta 200-62.5-25] 1 puff INHALATION RT-DAILY 04/09/24 [History] Gabapentin 900 mg PO HS@2100 04/09/24 [History] Hydrocortisone Cream [Hydrocortisone 2.5% Cream] 1 applic TOPICAL BID 04/09/24 [History] Ibandronate Sodium [Boniva] 150 mg PO QMONTHLY 04/09/24 [History] Ipratropium-Albuterol Nebulize [Duoneb 0.5 mg-3 mg/3 ml Soln] 3 ml INHALATION RT-Q6H 04/09/24 [History] Kelp Supplement 25 mg PO BID 04/09/24 [History] Ketoconazole 2% Cream [Nizoral 2%] 1 applic TOPICAL BID 04/09/24 [History] Loratadine [Claritin] 10 mg PO HS 04/09/24 [History] Magnesium 250 mg PO DAILY 04/09/24 [History] Multivitamins, Thera [Multivitamin (formulary)] 1 tab PO DAILY 04/09/24 [History] Mupirocin 2% Oint [Bactroban 2% Oint] 1 applic TOPICAL BID 04/09/24 [History] [place] 3-6-9 Complex Capsule 3 cap PO DAILY 04/09/24 [History] Strontium Citrate 680mg Tab 2 tab PO W/LUNCH 04/09/24 [History] Torsemide [Demadex] 40 mg PO DAILY 04/09/24 [History] Vitamin B Complex 1 cap PO DAILY 04/09/24 [History] Vitamin D3/Vitamin K2 (Mk4) [Vitamin K2 Plus D3 Tablet] 1 tab PO DAILY 04/09/24 [History] Vitamin E (Dl,Tocopheryl Acet) [Vitamin E (1000 Iu = 450 MG)] 1,000 unit PO DAILY 04/09/24 [History] Benzonatate [Tessalon Perles] 200 mg PO TID PRN #30 cap 04/11/24 [Rx] metFORMIN HCL [Glucophage] 500 mg PO BID #90 tab 04/11/24 [Rx] predniSONE [Deltasone] 40 mg PO DAILY #6 tab 04/11/24 [Rx] Follow up Appointment(s)/Referral(s): Joanne Seo NPC [REFERRING] - 1-2 days David Alcaraz DO [Doctor of Osteopathic Medicine] - 1 Week Patient Instructions/Handouts: COPD (Chronic Obstructive Pulmonary Disease) (DC), Chronic Bronchitis (DC), Type 2 Diabetes in the Older Adult (DC) Activity/Diet/Wound Care/Special Instructions: Please see PCP and pulmonology. Discharge Disposition: HOME WITH HOME HEALTH SERVICES
[2024-04-11 12:42] LABS: Basophils % (A) 0 %; Eosinophils % (A) 0 %; HCT 39.9 % (34.0-46.0); HGB 12.4 gm/dL (11.4-16.0); Hypochromasia Slight; Lymphocytes # (A) 0.6 k/uL (1.0-4.8); Lymphocytes % (A) 4 %; MCH 30.5 pg (25.0-35.0); MCV 98.3 fL (80.0-100.0); Mean Platelet Volume 8.6; Monocytes # (A) 0.7 k/uL (0-1.0); Monocytes % (A) 5 %; Neutrophils # (A) 11.8 k/uL (1.3-7.7); Neutrophils % (A) 89 %; Platelet Count 300 k/uL (150-450); RBC 4.06 m/uL (3.80-5.40); RDW 14.7 % (11.5-15.5); WBC 13.2 k/uL (3.8-10.6)
[2024-04-11 12:50] LABS: African American GFR (CKD) >90 (>60 ml/min/1.73 sqM); Anion Gap 12 mmol/L; Blood Urea Nitrogen 30 mg/dL (7-17); Calcium 8.2 mg/dL (8.4-10.2); Carbon Dioxide 31 mmol/L (22-30); Chloride 95 mmol/L (98-107); Glucose 261 mg/dL (74-99); Non-African American GFR(CKD) 87 (>60 ml/min/1.73 sqM); Potassium 3.3 mmol/L (3.5-5.1); Sodium 138 mmol/L (137-145)
--- NOTE | 2024-04-11 12:55 | P.PN ---
Subjective Progress Note Date: 04/11/24 Principal diagnosis: Pneumonia, COPD. This is a 71 old female with known history of asthma, chronic diastolic congestive heart failure, restrictive lung disease and previous history of radiation pneumonitis related to bilateral breast cancer. About 2 weeks ago, patient was diagnosed with acute COPD exacerbation and pneumonia, patient received a 1 week course of antibiotics and steroids, over the last 7 days, patient has been complaining of cough, shortness of breath, no wheezing, patient was seen in [place] in ER, and her O2 saturation was low, patient normally uses 5 L nasal cannula because of her severe restrictive lung disease patient was transferred to [facility], and I was asked to see her on consultation. Her labs showed leukocytosis with WBC count of 14.2 her D-dimer is 0.8, electrolytes are normal, her BNP level is normal. And her blood sugar is 201. Considering the presentation, this consult was initiated. Patient is very well familiar to my service. I have seen this patient in the office for history of COVID-19 pneumonia and history of chronic bronchial asthma maintained on albuterol and Advair, patient has chronic hypoxic respiratory failure, morbid obesity, obstructive sleep apnea syndrome, on CPAP, she also has benign e ssential hypertension hypothyroidism, patient never smoked. On her previous admissions, patient had workup for pulmonary embolism and that was negative, she was treated mostly for diastolic congestive heart failure mostly. Progress note dated April 10, 2024. The patient was seen in consultation by my partner yesterday. Currently, the patient is seen in room 360. She continues on oxygen at 5 L. She does use 5 L at home. The Symbicort that she was placed on, will be changed to budesonide, and formoterol, at usual doses. We will DC antibiotics. Procalcitonin level is normal. Current labs include a white count 15.9, hemoglobin 11.5, hematocrit 36.3, and a normal platelet count of 293,000. Sodium 137, potassium 3.8, chlorides 101, CO2 27, BUN 21, and creatinine 0.50. Leukosis 321. Calcium 8.5, and magnesium 2.2. Chest CTA shows no evidence of pulmonary embolism, but does show evidence of cardiomegaly, pulmonary hypertension, and changes of COPD with basilar bronchiectasis. Progress note dated April 11, 2024. 73-year-old female who was seen again today, in room 360. The patient continues on oxygen, at 5 L, which is what she uses at home. Her procalcitonin level was normal. Antibiotics were discontinued. She is not receiving any IV fluids. She was admitted with a diagnosis primarily of a COPD exacerbation. Medically, she is doing better. White count was 13.2, hemoglobin 12.4, hematocrit 39.9, and platelet count was normal. Sodium 138, potassium 3.3, chlorides 95, CO2 31, BUN 30, creatinine 0.69. Glucose was 267. Calcium was 8.2. Objective - Vital Signs Vital signs: Vital Signs Temp 97.5 F L 04/11/24 08:00 Pulse 95 04/11/24 12:00 Resp 20 04/11/24 12:00 BP 142/68 04/11/24 12:00 Pulse Ox 95 04/11/24 12:00 FiO2 Intake & Output 04/10/24 04/11/24 04/11/24 18:59 06:59 18:59 Intake Total 1428 539 Output Total 2775 875 1150 Balance -1347 -875 -611 Intake: Oral 1428 539 Output: Urine 2775 875 1150 Other: Voiding Method Indwelling Catheter Indwelling Catheter Indwelling Catheter # Bowel Movements 1 - Exam No acute distress, oriented 3. Currently on 5 L of oxygen. No respiratory distress. HEENT examination is grossly unremarkable. Mucous membranes are moist. No oral lesions. Neck supple. Full range of motion. No adenopathy thyromegaly or neck vein distention. Cardiovascular examination reveals regular rhythm rate. S1-S2 normal. No S3 or S4. No discernible murmur noted. Heart rate 95 bpm. Lungs reveal clear breath sounds. Breath sounds are equal bilaterally. No adventitious lung sounds including wheezes rhonchi or crackles. Saturations are 95%. Abdomen soft bowel sounds are heard. No masses or tenderness. Extremities are intact. No cyanosis or clubbing. Mild left lower extremity edema. Skin is without rash or lesion. Neurologic examination is brief but nonfocal. - Labs CBC & Chem 7: 04/11/24 11:23 04/11/24 11:23 Labs: Abnormal Lab Results - Last 24 Hours (Table) 04/10/24 04/10/24 04/10/24 Range/Units 09:19 16:25 19:28 WBC (3.8-10.6) k/uL Neutrophils # (1.3-7.7) k/uL Lymphocytes # (1.0-4.8) k/uL Potassium (3.5-5.1) mmol/L Chloride (98-107) mmol/L Carbon Dioxide (22-30) mmol/L BUN (7-17) mg/dL Glucose (74-99) mg/dL POC Glucose (mg/dL) 285 H 554 H (70-110) mg/dL Hemoglobin A1c 6.8 H (<=6.0) % Calcium (8.4-10.2) mg/dL 04/10/24 04/10/24 04/11/24 Range/Units 19:29 23:43 06:25 WBC (3.8-10.6) k/uL Neutrophils # (1.3-7.7) k/uL Lymphocytes # (1.0-4.8) k/uL Potassium (3.5-5.1) mmol/L Chloride (98-107) mmol/L Carbon Dioxide (22-30) mmol/L BUN (7-17) mg/dL Glucose (74-99) mg/dL POC Glucose (mg/dL) 460 H 198 H 227 H (70-110) mg/dL Hemoglobin A1c (<=6.0) % Calcium (8.4-10.2) mg/dL 04/11/24 04/11/24 04/11/24 Range/Units 11:23 11:23 11:49 WBC 13.2 H (3.8-10.6) k/uL Neutrophils # 11.8 H (1.3-7.7) k/uL Lymphocytes # 0.6 L (1.0-4.8) k/uL Potassium 3.3 L (3.5-5.1) mmol/L Chloride 95 L (98-107) mmol/L Carbon Dioxide 31 H (22-30) mmol/L BUN 30 H (7-17) mg/dL Glucose 261 H (74-99) mg/dL POC Glucose (mg/dL) 267 H (70-110) mg/dL Hemoglobin A1c (<=6.0) % Calcium 8.2 L (8.4-10.2) mg/dL Microbiology - Last 24 Hours (Table) 04/09/24 13:25 Nasal Screen MRSA/MSSA - Final Nasal Swab Assessment and Plan Assessment: Chronic hypoxemic and hypercapnic respiratory failure, secondary to morbid obesity, restrictive lung disease, radiation pneumonitis, and possible Pickwickian syndrome. History of COVID-19 pneumonia. History of chronic bronchial asthma. Chronic hypoxemic respiratory failure, on home O2 at 5 L. Obstructive sleep apnea syndrome, with home CPAP use. Morbid obesity. Macrocytic anemia. Hyperlipidemia. Benign essential hypertension. History of hypothyroidism. Plan: Plan dated April 10, 2024. The patient's procalcitonin level was normal. Antibiotics were discontinued. She continues on 5 L of oxygen with saturations in the low to mid 90s. The Symbicort, is converted to budesonide, and formoterol, at usual doses. We will continue to follow make recommendations along the way. The patient's overall prognosis remains guarded. She is feeling a bit better today. She continues on other bronchodilators. Labs, x-rays, and all medications are reviewed. Plan dated April 11, 2024. The patient's procalcitonin level was normal. Antibiotics were discontinued. T he patient could be considered for possible discharge. Labs, x-rays, and medications are all reviewed. Currently, the patient appears to be relatively stable. She is currently on oxygen at 5 L, which is what she uses at home. Her saturations are 95%. Her vital signs are otherwise stable with a respiratory rate 20, heart rate 95, blood pressure 142/68. She is feeling better. She continues on appropriate medications. We will continue to follow, should she not be discharged. Time with Patient: Less than 30
[2024-04-11] MEDS: POTASSIUM CHLORIDE ER 20 MEQ TAB.ER PO STA (13:03)
[2024-04-11 15:48] VITALS: BP 135/67; PULSE 100; RESP 18
== END 2024-04-11 16:03 | disposition home health service (06) ==
LOC: EC 00:42 → 3SCARD 01:31 → INTOOBSV 01:31 → 3SCARD 12:25
PROVIDERS: ADMIT Internal Medicine; ATTEND Internal Medicine
DX: A41.9 Sepsis, unspecified organism (principal); R65.21 Severe sepsis with septic shock; J96.21 Acute and chronic respiratory failure with hypoxia; J70.1 Chronic and other pulmonary manifestations due to radiation; J44.1 Chronic obstructive pulmonary disease with (acute) exacerbation; I50.32 Chronic diastolic (congestive) heart failure; I48.91 Unspecified atrial fibrillation; I11.0 Hypertensive heart disease with heart failure; G47.33 Obstructive sleep apnea (adult) (pediatric); E78.5 Hyperlipidemia, unspecified; D53.9 Nutritional anemia, unspecified; Z99.81 Dependence on supplemental oxygen; Z92.3 Personal history of irradiation; Z87.01 Personal history of pneumonia (recurrent); Z86.16 Personal history of COVID-19; Z85.3 Personal history of malignant neoplasm of breast; Z79.899 Other long term (current) drug therapy; Z79.890 Hormone replacement therapy; Z79.4 Long term (current) use of insulin; Z68.43 Body mass index [BMI] 50.0-59.9, adult; T38.0X5A Adverse effect of glucocorticoids and synthetic analogues, initial encounter; Y84.2 Radiological procedure and radiotherapy as the cause of abnormal reaction of the patient, or of later complication, without mention of misadventure at the time of the procedure; S27.0XXA Traumatic pneumothorax, initial encounter
CPT/HCPCS: 96376 ×3; 96361 ×2; 96366 ×2; 96372 ×4; 96365; 96367 ×2; 96375; 99285; 94640 ×6; 92610; 85379; 83880; 80053; 80048 ×2; 83735 ×2; 84100; 85025; 85027 ×2; 87070 ×2; 87205; 83036; 84145; 71045; 71275; G0378 ×3; J3370 ×2; J1644 ×3; J0456; J0696; J0295 ×2; Q9967; J2919 ×3; 87077; 87186

== ENCOUNTER → 2024-09-01 | Outpatient (CLI) | payer MEDICARE ==
[2024-09-01 15:53] LABS: African American GFR (CKD) >90 (>60 ml/min/1.73 sqM); Blood Urea Nitrogen 21 mg/dL (7-17); Non-African American GFR(CKD) 87 (>60 ml/min/1.73 sqM)
--- NOTE | 2024-09-03 21:00 | CT ---
EXAMINATION TYPE: CT chest w con DATE OF EXAM: 09/01/2024 COMPARISON: 04/09/2024 HISTORY: follow up breast ca CT DLP: 706 mGycm, Automated exposure control for dose reduction was used. CONTRAST: Performed injected with 100ml mL of Isovue 370. TECHNIQUE: Axial images were obtained at 5 mm thick sections. Reconstructed images are reviewed on [employer] computer in the coronal plane. FINDINGS: Portion of the thyroid visualized is normal. Bilateral breast prostheses are present. No suspicious lung nodules or focal infiltrates are present. There is a 1.5 cm stable lymph node in the right paratracheal region. Smaller shotty lymphadenopathy in the mediastinum. Minimal pericardial effusion is present. The ascending aorta diameter at the leve l of the main pulmonary artery is 4.5 cm. The main pulmonary artery diameter at the bifurcation is [address] sections are obtained through the upper abdomen. Abdomen is essentially unremarkable. IMPRESSION: 1. Ascending thoracic aortic aneurysm. Aorta tapers in its descending visualized course. 2. No suspicious changes for metastatic disease. [facility], , 09/03/2024 8:58 PM
== END | disposition home or self-care (01) ==
LOC: RADCTMAIN 14:48
PROVIDERS: ATTEND Internal Medicine Hematology & Oncology
DX: C50.112 Malignant neoplasm of central portion of left female breast
CPT/HCPCS: 36415; 71260; 82565; 84520

== ENCOUNTER 2025-01-17 13:50 | Inpatient (IN) | payer MEDICARE ==
--- NOTE | 2025-01-17 14:16 | ED ---
General Adult HPI - General Source: patient, RN notes reviewed <Cuca Malloy - Last Filed: 01/17/25 18:22> <David Blakely - Last Filed: 01/18/25 12:15> - General Stated complaint: weakness Time Seen by Provider: 01/17/25 14:05 - History of Present Illness Initial comments: Quick note74 old female presenting to emergency department for difficulty breathing and weight gain over the past few days. Believes that she has an aggressive heart failure exacerbation. Endorses weakness and dry cough. Patient is oxygen dependent continuously wearing 5 L via nasal cannula (Cuca Malloy) 74-year-old female presenting with increased work of breathing and weight gain. Patient has history of heart failure and is oxygen dependent wearing 5 L at baseline. She denies central chest pain. She had taken 1 extra dose of Lasix which was recommended by her primary care without significant urine output. Patient denies fever. Denies chest or abdominal pain. Denies cough (David Blakely) - Related Data Home Medications Medication Instructions Recorded Confirmed Albuterol Inhaler [Ventolin Hfa 2 puff INHALATION RT-Q6H PRN 08/28/23 01/17/25 Inhaler] Ascorbic Acid [Vitamin C] 1,000 mg PO DAILY 08/28/23 01/17/25 Atorvastatin [Lipitor] 40 mg PO HS 08/28/23 01/17/25 DULoxetine HCL [Cymbalta] 60 mg PO DAILY 08/28/23 01/17/25 Ferrous Sulfate [Iron (65 MG 325 mg PO DAILY 08/28/23 01/17/25 Elemental)] Gabapentin 600 mg PO BID@0900,1500 08/28/23 04/09/24 Levothyroxine Sodium [Synthroid] 175 mcg PO DAILY 08/28/23 01/17/25 Metoprolol Tartrate [Lopressor] 100 mg PO BID 08/28/23 01/17/25 Nystatin 100,000 Unit/gm Powd 1 applic TOPICAL BID PRN 08/28/23 01/17/25 [Mycostatin Powder] Potassium Chloride ER [K-Dur 10] 10 meq PO BID 08/28/23 01/17/25 Selenium 200 mcg PO DAILY 08/28/23 01/17/25 cycloSPORINE 0.05% OPHTH SOLN 1 drop BOTH EYES Q12H 08/28/23 01/17/25 [Restasis] polyethylene glycoL 3350 [Miralax] 17 gm PO DAILY 08/28/23 01/17/25 traMADol HCL 50 mg PO BID PRN 08/28/23 01/17/25 ALPRAZolam [Xanax] 0.25 mg PO HS 04/09/24 01/17/25 Felodipine [Plendil] 10 mg PO DAILY 04/09/24 01/17/25 Fluticasone/Umeclidin/Vilanter 1 puff INHALATION RT-DAILY 04/09/24 01/17/25 [Trelegy Ellipta 200-62.5-25] Gabapentin 300 mg PO TID 04/09/24 01/17/25 Ibandronate Sodium [Boniva] 150 mg PO QMONTHLY 04/09/24 01/17/25 Ipratropium-Albuterol Nebulize 3 ml INHALATION RT-Q6H PRN 04/09/24 01/17/25 [Duoneb 0.5 mg-3 mg/3 ml Soln] Kelp Supplement 25 mg PO BID 04/09/24 01/17/25 Magnesium 250 mg PO DAILY 04/09/24 01/17/25 Multivitamins, Thera [Multivitamin 1 tab PO DAILY 04/09/24 01/17/25 (formulary)] Mupirocin 2% Oint [Bactroban 2% 1 applic TOPICAL TID PRN 04/09/24 01/17/25 Oint] Torsemide [Demadex] 60 mg PO DAILY 04/09/24 01/17/25 Vitamin B Complex 1 cap PO DAILY 04/09/24 01/17/25 Vitamin E (Dl,Tocopheryl Acet) 450 mg PO DAILY 04/09/24 01/17/25 [Vitamin E (1000 Iu = 450 MG)] Celecoxib [CeleBREX] 100 mg PO BID PRN 01/17/25 01/17/25 Ondansetron Odt [Zofran Odt] 4 mg PO Q6H PRN 01/17/25 01/17/25 Pantoprazole [Protonix] 40 mg PO DAILY 01/17/25 01/17/25 Tirzepatide [Mounjaro] 7.5 mg SQ Q7D 01/17/25 01/17/25 Tolterodine ER [Detrol LA] 4 mg PO DAILY 01/17/25 01/17/25 Triamcinolone 0.5% Cream [Kenalog 1 applic TOPICAL BID PRN 01/17/25 01/17/25 0.5% Cream] icosapent ethyL [Icosapent Ethyl] 2 gm PO BID-W/MEALS 01/17/25 01/17/25 Allergies Allergy/AdvReac Type Severity Reaction Status Date / Time Sulfa (Sulfonamide Allergy Rash/Hives Verified 01/17/25 17:08 Antibiotics) sulfamethoxazole Allergy Rash/Hives Verified 01/17/25 14:32 [From Bactrim] trimethoprim [From Bactrim] Allergy Rash/Hives Verified 01/17/25 14:32 acetaminophen [From Fielding] AdvReac Hallucinati Verified 01/17/25 14:32 ons hydrocodone [From Fielding] AdvReac Hallucinati Verified 01/17/25 14:32 ons Review of Systems ROS Other: All systems not noted in ROS Statement are negative. <Cuca Malloy - Last Filed: 01/17/25 18:22> ROS Other: All systems not noted in ROS Statement are negative. <David Blakely - Last Filed: 01/18/25 12:15> ROS Statement: Those systems with pertinent positive or pertinent negative responses have been documented in the HPI. Past Medical History Past Medical History: Atrial Fibrillation, Asthma, Cancer, Chest Pain / Angina, Heart Failure, COPD, Diabetes Mellitus, Hyperlipidemia, Hypertension, Osteoarthritis (OA), Pneumonia, Sleep Apnea/CPAP/BIPAP, Thyroid Disorder Additional Past Medical History / Comment(s): covid, homeO2 dependent 5L, n onhealing vaginal wounds, indwelling catheter since Jul 2023 History of Any Multi-Drug Resistant Organisms: MRSA Date of last positivie culture/infection: 1994 MDRO Source:: Face wounds Past Surgical History: Breast Surgery, Cholecystectomy Additional Past Surgical History / Comment(s): bilat mastectomy, port placement 2016, L hip replacement, R knee replacement Past Anesthesia/Blood Transfusion Reactions: No Reported Reaction Smoking Status: Never smoker <Cuca Malloy - Last Filed: 01/17/25 18:22> General Exam <Cuca Malloy - Last Filed: 01/17/25 18:22> General appearance: alert, in no apparent distress, obese Head exam: Present: atraumatic, normocephalic Eye exam: Present: normal appearance, PERRL Respiratory exam: Present: decreased breath sounds. Absent: respiratory distress Cardiovascular Exam: Present: regular rate, normal rhythm GI/Abdominal exam: Present: soft, distended. Absent: tenderness, guarding, rebound Extremities exam: Present: pedal edema (Trace). Absent: calf tenderness Neurological exam: Present: alert, oriented X3 Psychiatric exam: Present: normal affect, normal mood Skin exam: Present: warm, dry, intact <David Blakely - Last Filed: 01/18/25 12:15> - General Exam Comments Initial Comments: Visual Physical Exam Vital signs reviewed General: Well-appearing, nontoxic, no acute distress. Head: Normocephalic, atraumatic Eyes: PERRLA, EOMI ENT: Airway patent Chest: Nonlabored breathing Skin: No visual rash, normal skin tone Neuro: Alert and oriented 3 Musculoskeletal: No gross abnormalities (Cuca Malloy) Course Vital Signs 01/17/25 01/17/25 01/17/25 14:28 16:46 17:36 Temperature 98.7 F Pulse Rate 82 82 81 Respiratory 18 18 18 Rate Blood Pressure 97/67 121/62 117/59 O2 Sat by Pulse 96 98 96 Oximetry 01/17/25 01/17/25 19:27 20:29 Temperature Pulse Rate 86 87 Respiratory 18 18 Rate Blood Pressure 118/98 110/61 O2 Sat by Pulse 96 97 Oximetry Medical Decision Making - Lab Data Result diagrams: 01/17/25 14:47 01/17/25 14:47 <Cuca Malloy - Last Filed: 01/17/25 18:22> - Lab Data Result diagrams: 01/18/25 03:49 01/18/25 03:49 <David Blakely - Last Filed: 01/18/25 12:15> - Medical Decision Making I completed the quick note portion of this chart signed Cuca Malloy PA-C (Cuca Malloy) Was pt. sent in by a medical professional or institution ([facility], [facility], urgent care, hospital, or intermediate...) When possible be specific @ -No Did you speak to anyone other than the patient for history (EMS, parent, family, police, friend...)? What history was obtained from this source @ -No Did you review nursing and triage notes (agree or disagree)? Why? @ -I reviewed and agree with nursing and triage notes Were old charts reviewed (outside hosp., previous admission, EMS record, old EKG, old radiological studies, urgent care reports/EKG's, intermediate records)? Report findings @ -No old charts were reviewed Differential Dyspnea: Coronary syndrome, arrhythmia, tamponade, asthma, COPD, pulmonary embolism, pneumonia, pneumothorax, pulmonary effusion, anaphylaxis, diabetic ketoacidosis, flailed chest, pulmonary contusion, diaphragmatic rupture, anemia, neuromuscular, this is not meant to be an all-inclusive list. EKG interpreted by me (3pts min.). @ -As above X-rays interpreted by me (1pt min.). @ -Chest x-ray showing cardiomegaly, bilateral effusions worse on the left consistent with CHF CT interpreted by me (1pt min.). @ -None done U/S interpreted by me (1pt. min.). @ -None done What testing was considered but not performed or refused? (CT, X-rays, U/S, labs)? Why? @ -None What meds were considered but not given or refused? Why? @ -None Did you discuss the management of the patient with other professionals (demi carter i.e. , PA, [employer], lab, RT, psych nurse, social studies teacher, relationship specialist, teacher, traffic police officer, geriatric case manager)? Give summary @Case discussed with Dee das for [facility] Was smoking cessation discussed for >3mins.? @ -No Was critical care preformed (if so, how long)? @ -No Were there social determinants of health that impacted care today? How? (Homelessness, low income, unemployed, alcoholism, drug addiction, transportation, low edu. Level, literacy, decrease access to med. care, [facility], rehab)? @ -No Was there de-escalation of care discussed even if they declined (Discuss DNR or withdrawal of care, Hospice)? DNR status @ -No What co-morbidities impacted this encounter? (DM, HTN, Smoking, COPD, CAD, Cancer, CVA, ARF, Chemo, Hep., AIDS, mental health diagnosis, sleep apnea, morbid obesity)? @CHF, obesity associated hypoventilation Was patient admitted / discharged? Hospital course, mention meds given and route, prescriptions, significant lab abnormalities, going to OR and other pertinent info. @ -4-year-old female presenting with weight gain, concern for CHF, chest x-ray does show signs of CHF however the BNP is normal. Negative troponin. She has a leukocytosis and urinalysis is positive for UTI. Patient started on IV antibiotics, given Lasix in the emergency department. Admitted to [facility]. Case discussed with Dee Undiagnosed new problem with uncertain prognosis? @ -No Drug Therapy requiring intensive monitoring for toxicity (Heparin, Nitro, Insu lilly, Cardizem)? @ -No Were any procedures done? @ -No Diagnosis/symptom? @ -CHF, UTI Acute, or Chronic, or Acute on Chronic? @ -Acute Uncomplicated (without systemic symptoms) or Complicated (systemic symptoms)? @ -Default Side effects of treatment? @ -No Exacerbation, Progression, or Severe Exacerbation? @ -No Poses a threat to life or bodily function? How? (Chest pain, [place], [place], pneumonia, PE, COPD, DKA, ARF, appy, cholecystitis, CVA, Diverticulitis, Homicidal, Suicidal, threat to staff... and all critical care pts) @Yes, CHF, sepsis (David Blakely) - Lab Data Lab Results 01/17/25 01/17/25 01/17/25 Range/Units 14:47 14:47 14:47 WBC 16.2 H (3.8-10.6) k/uL RBC 3.54 L (3.80-5.40) m/uL Hgb 10.7 L (11.4-16.0) gm/dL Hct 33.5 L (34.0-46.0) % MCV 94.6 (80.0-100.0) fL MCH 30.1 (25.0-35.0) pg MCHC 31.8 (31.0-37.0) g/dL RDW 13.0 (11.5-15.5) % Plt Count 224 (150-450) k/uL MPV 8.1 Neutrophils % 79 % Lymphocytes % 11 % Monocytes % 6 % Eosinophils % 2 % Basophils % 0 % Neutrophils # 12.8 H (1.3-7.7) k/uL Lymphocytes # 1.8 (1.0-4.8) k/uL Monocytes # 1.0 (0-1.0) k/uL Eosinophils # 0.3 (0-0.7) k/uL Basophils # 0.0 (0-0.2) k/uL PT 9.7 L (10.0-12.5) sec INR 0.8 (<1.2) APTT 21.4 L (22.0-30.0) sec VBG pH (7.31-7.41) VBG pCO2 (37-51) mmHg VBG HCO3 (24-28) mmol/L Sodium 141 (137-145) mmol/L Potassium 3.7 (3.5-5.1) mmol/L Chloride 96 L (98-107) mmol/L Carbon Dioxide 36 H (22-30) mmol/L Anion Gap 9 mmol/L BUN 30 H (7-17) mg/dL Creatinine 1.22 H (0.52-1.04) mg/dL Est GFR (CKD-EPI)AfAm 51 (>60 ml/min/1.73 sqM) Est GFR (CKD-EPI)NonAf 44 (>60 ml/min/1.73 sqM) Glucose 142 H (74-99) mg/dL Calcium 9.1 (8.4-10.2) mg/dL Magnesium 2.1 (1.6-2.3) mg/dL Total Bilirubin 0.5 (0.2-1.3) mg/dL AST 28 (14-36) U/L ALT 22 (4-34) U/L Alkaline Phosphatase 125 (38-126) U/L Troponin I (0.000-0.034) ng/mL NT-Pro-B Natriuret Pep 253 pg/mL Total Protein 6.6 (6.3-8.2) g/dL Albumin 3.8 (3.5-5.0) g/dL Urine Color Urine Appearance (Clear) Urine pH (5.0-8.0) Ur Specific [place] (1.001-1.035) Urine Protein (Negative) Urine Glucose (UA) (Negative) Urine Ketones (Negative) Urine Blood (Negative) Urine Nitrite (Negative) Urine Bilirubin (Negative) Urine Urobilinogen (<2.0) mg/dL Ur Leukocyte Esterase (Negative) Urine RBC (0-5) /hpf Urine WBC (0-5) /hpf Ur Squamous Epith Cells (0-4) /hpf Urine Bacteria (None) /hpf Hyaline Casts (0-2) /lpf Urine Mucus (None) /hpf Influenza Type A (PCR) (Not Detectd) Influenza Type B (PCR) (Not Detectd) RSV (PCR) (Not Detectd) SARS-CoV-2 (PCR) (Not Detectd) 01/17/25 01/17/25 01/17/25 Range/Units 14:47 16:40 16:40 WBC (3.8-10.6) k/uL RBC (3.80-5.40) m/uL Hgb (11.4-16.0) gm/dL Hct (34.0-46.0) % MCV (80.0-100.0) fL MCH (25.0-35.0) pg MCHC (31.0-37.0) g/dL RDW (11.5-15.5) % Plt Count (150-450) k/uL MPV Neutrophils % % Lymphocytes % % Monocytes % % Eosinophils % % Basophils % % Neutrophils # (1.3-7.7) k/uL Lymphocytes # (1.0-4.8) k/uL Monocytes # (0-1.0) k/uL Eosinophils # (0-0.7) k/uL Basophils # (0-0.2) k/uL PT (10.0-12.5) sec INR (<1.2) APTT (22.0-30.0) sec VBG pH (7.31-7.41) VBG pCO2 (37-51) mmHg VBG HCO3 (24-28) mmol/L Sodium (137-145) mmol/L Potassium (3.5-5.1) mmol/L Chloride (98-107) mmol/L Carbon Dioxide (22-30) mmol/L Anion Gap mmol/L BUN (7-17) mg/dL Creatinine (0.52-1.04) mg/dL Est GFR (CKD-EPI)AfAm (>60 ml/min/1.73 sqM) Est GFR (CKD-EPI)NonAf (>60 ml/min/1.73 sqM) Glucose (74-99) mg/dL Calcium (8.4-10.2) mg/dL Magnesium (1.6-2.3) mg/dL Total Bilirubin (0.2-1.3) mg/dL AST (14-36) U/L ALT (4-34) U/L Alkaline Phosphatase (38-126) U/L Troponin I <0.012 (0.000-0.034) ng/mL NT-Pro-B Natriuret Pep pg/mL Total Protein (6.3-8.2) g/dL Albumin (3.5-5.0) g/dL Urine Color Light Yellow Urine Appearance Turbid H (Clear) Urine pH 7.5 (5.0-8.0) Ur Specific [place] 1.012 (1.001-1.035) Urine Protein Trace H (Negative) Urine Glucose (UA) Negative (Negative) Urine Ketones Negative (Negative) Urine Blood Trace H (Negative) Urine Nitrite Negative (Negative) Urine Bilirubin Negative (Negative) Urine Urobilinogen <2.0 (<2.0) mg/dL Ur Leukocyte Esterase Large H (Negative) Urine RBC 7 H (0-5) /hpf Urine WBC 161 H (0-5) /hpf Ur Squamous Epith Cells 21 H (0-4) /hpf Urine Bacteria Occasional H (None) /hpf Hyaline Casts 52 H (0-2) /lpf Urine Mucus Occasional H (None) /hpf Influenza Type A (PCR) Not Detected (Not Detectd) Influenza Type B (PCR) Not Detected (Not Detectd) RSV (PCR) Not Detected (Not Detectd) SARS-CoV-2 (PCR) Not Detected (Not Detectd) 01/17/25 Range/Units 17:05 WBC (3.8-10.6) k/uL RBC (3.80-5.40) m/uL Hgb (11.4-16.0) gm/dL Hct (34.0-46.0) % MCV (80.0-100.0) fL MCH (25.0-35.0) pg MCHC (31.0-37.0) g/dL RDW (11.5-15.5) % Plt Count (150-450) k/uL MPV Neutrophils % % Lymphocytes % % Monocytes % % Eosinophils % % Basophils % % Neutrophils # (1.3-7.7) k/uL Lymphocytes # (1.0-4.8) k/uL Monocytes # (0-1.0) k/uL Eosinophils # (0-0.7) k/uL Basophils # (0-0.2) k/uL PT (10.0-12.5) sec INR (<1.2) APTT (22.0-30.0) sec VBG pH 7.38 (7.31-7.41) VBG pCO2 62 H (37-51) mmHg VBG HCO3 36 H (24-28) mmol/L Sodium (137-145) mmol/L Potassium (3.5-5.1) mmol/L Chloride (98-107) mmol/L Carbon Dioxide (22-30) mmol/L Anion Gap mmol/L BUN (7-17) mg/dL Creatinine (0.52-1.04) mg/dL Est GFR (CKD-EPI)AfAm (>60 ml/min/1.73 sqM) Est GFR (CKD-EPI)NonAf (>60 ml/min/1.73 sqM) Glucose (74-99) mg/dL Calcium (8.4-10.2) mg/dL Magnesium (1.6-2.3) mg/dL Total Bilirubin (0.2-1.3) mg/dL AST (14-36) U/L ALT (4-34) U/L Alkaline Phosphatase (38-126) U/L Troponin I (0.000-0.034) ng/mL NT-Pro-B Natriuret Pep pg/mL Total Protein (6.3-8.2) g/dL Albumin (3.5-5.0) g/dL Urine Color Urine Appearance (Clear) Urine pH (5.0-8.0) Ur Specific [place] (1.001-1.035) Urine Protein (Negative) Urine Glucose (UA) (Negative) Urine Ketones (Negative) Urine Blood (Negative) Urine Nitrite (Negative) Urine Bilirubin (Negative) Urine Urobilinogen (<2.0) mg/dL Ur Leukocyte Esterase (Negative) Urine RBC (0-5) /hpf Urine WBC (0-5) /hpf Ur Squamous Epith Cells (0-4) /hpf Urine Bacteria (None) /hpf Hyaline Casts (0-2) /lpf Urine Mucus (None) /hpf Influenza Type A (PCR) (Not Detectd) Influenza Type B (PCR) (Not Detectd) RSV (PCR) (Not Detectd) SARS-CoV-2 (PCR) (Not Detectd) Disposition <Cuca Malloy - Last Filed: 01/17/25 18:22> Is patient prescribed a controlled substance at d/c from ED?: No Time of Disposition: 18:37 <David Blakely - Last Filed: 01/18/25 12:15> Clinical Impression: Congestive heart failure, UTI (urinary tract infection) Disposition: ADMITTED IP TO THIS HOSP Condition: Stable
[2025-01-17 14:58] LABS: Basophils % (A) 0 %; Eosinophils # (A) 0.3 k/uL (0-0.7); Eosinophils % (A) 2 %; HCT 33.5 % (34.0-46.0); HGB 10.7 gm/dL (11.4-16.0); Lymphocytes # (A) 1.8 k/uL (1.0-4.8); Lymphocytes % (A) 11 %; MCH 30.1 pg (25.0-35.0); MCHC 31.8 g/dL (31.0-37.0); MCV 94.6 fL (80.0-100.0); Mean Platelet Volume 8.1; Monocytes % (A) 6 %; Neutrophils # (A) 12.8 k/uL (1.3-7.7); Neutrophils % (A) 79 %; Platelet Count 224 k/uL (150-450); RBC 3.54 m/uL (3.80-5.40); WBC 16.2 k/uL (3.8-10.6)
[2025-01-17 15:06] LABS: ALT 22 U/L (4-34); AST 28 U/L (14-36); African American GFR (CKD) 51 (>60 ml/min/1.73 sqM); Albumin 3.8 g/dL (3.5-5.0); Alkaline Phosphatase 125 U/L (38-126); Anion Gap 9 mmol/L; Blood Urea Nitrogen 30 mg/dL (7-17); Calcium 9.1 mg/dL (8.4-10.2); Carbon Dioxide 36 mmol/L (22-30); Chloride 96 mmol/L (98-107); Glucose 142 mg/dL (74-99); Magnesium 2.1 mg/dL (1.6-2.3); Non-African American GFR(CKD) 44 (>60 ml/min/1.73 sqM); Potassium 3.7 mmol/L (3.5-5.1); Sodium 141 mmol/L (137-145); Total Bilirubin 0.5 mg/dL (0.2-1.3); Total Protein 6.6 g/dL (6.3-8.2)
[2025-01-17 15:08] LABS: INR 0.8 (<1.2); Partial Thromboplastin Time 21.4 sec (22.0-30.0); Prothrombin Time 9.7 sec (10.0-12.5)
[2025-01-17 15:14] LABS: NT-Pro-B-Type Natriuretic Pept 253 pg/mL
--- NOTE | 2025-01-17 15:46 | XR ---
2 view chest: HISTORY: Difficulty breathing. COMPARISON: 04/09/2024. TECHNIQUE: PA and lateral views chest obtained. FINDINGS: There is a Mediport catheter tip in the SVC/RA junction . There is mild pulmonary vascular congestion, cardiomegaly and small pleural effusions. The findings are most consistent with mild CHF. There is no pneumothorax. The osseous structures are grossly intact. IMPRESSION: Acute cardiopulmonary disease most consistent with mild CHF. [facility], , 01/17/2025 3:43 PM
[2025-01-17] MEDS: FUROSEMIDE 10 MG/ML 4 ML VIAL IV STA (17:07)
[2025-01-17 17:15] LABS: Appearance,Urine Turbid (Clear); Bacteria,Urine Occasional /hpf; Bilirubin,Urine Negative (Negative); Blood,Urine Trace (Negative); Color,Urine Light Yellow; Glucose,Urine (UA) Negative (Negative); Hyaline Casts,Urine 52 /lpf (0-2); Ketones,Urine Negative (Negative); Leukocyte Esterase,Urine Large (Negative); Mucus,Urine Occasional /hpf; Nitrite,Urine Negative (Negative); PH, Urine 7.5 (5.0-8.0); Protein,Urine Trace (Negative); RBC,Urine 7 /hpf (0-5); Specific Gravity,Urine 1.012 (1.001-1.035); Squamous Epithelial Cell,Urine 21 /hpf (0-4); Urobilinogen,Urine <2.0 mg/dL (<2.0); WBC,Urine 161 /hpf (0-5)
[2025-01-17 17:36] LABS: Influenza A Not Detected (Not Detectd); Influenza B Not Detected (Not Detectd); RSV Not Detected (Not Detectd)
[2025-01-17 17:40] LABS: VBG PH 7.38 (7.31-7.41)
[2025-01-17] MEDS ORDERED: NALOXONE 0.4 MG/ML 1 ML VIAL IV PRN (18:34)
[2025-01-17] MEDS ORDERED: ONDANSETRON 4 MG/2 ML VIAL IVP PRN (18:34)
[2025-01-17] MEDS ORDERED: MELOXICAM 7.5 MG TAB PO PRN (21:40)
[2025-01-17] MEDS ORDERED: IPRATROPIUM-ALBUTEROL 3 ML NEB INHALATION PRN (21:40)
[2025-01-17] MEDS ORDERED: ACETAMINOPHEN TAB 325 MG TAB PO PRN (21:43)
[2025-01-17] MEDS ORDERED: DEXTROSE 50% SYRINGE 50 ML IVP PRN ×2 (22:45)
[2025-01-17] MEDS: cycloSPORINE 0.05% OPHTH 0.4 ML DROPERETTE BOTH EYES SCH (23:00)
[2025-01-17] MEDS: GABAPENTIN 300 MG CAP PO SCH (23:00)
[2025-01-17] MEDS: ATORVASTATIN 40 MG TAB PO SCH (23:00)
[2025-01-17] MEDS: traMADol 50 MG TAB PO PRN (23:00)
[2025-01-17] MEDS: DULoxetine HCL 60 MG CAPSULE.DR PO SCH (23:00)
[2025-01-17] MEDS: ALPRAZolam 0.25 MG TAB PO PRN (23:00)
[2025-01-18 04:40] LABS: Basophils % (A) 0 %; Eosinophils # (A) 0.3 k/uL (0-0.7); Eosinophils % (A) 2 %; HCT 35.9 % (34.0-46.0); Lymphocytes # (A) 2.5 k/uL (1.0-4.8); Lymphocytes % (A) 17 %; MCH 30.9 pg (25.0-35.0); MCHC 33.3 g/dL (31.0-37.0); MCV 92.8 fL (80.0-100.0); Mean Platelet Volume 9.9; Monocytes # (A) 1.1 k/uL (0-1.0); Monocytes % (A) 7 %; Neutrophils # (A) 10.5 k/uL (1.3-7.7); Neutrophils % (A) 72 %; Platelet Count 217 k/uL (150-450); RBC 3.87 m/uL (3.80-5.40); RDW 13.4 % (11.5-15.5); WBC 14.7 k/uL (3.8-10.6)
[2025-01-18 04:50] LABS: African American GFR (CKD) 66 (>60 ml/min/1.73 sqM); Anion Gap 12 mmol/L; Blood Urea Nitrogen 25 mg/dL (7-17); Calcium 9.2 mg/dL (8.4-10.2); Carbon Dioxide 34 mmol/L (22-30); Chloride 97 mmol/L (98-107); Glucose 153 mg/dL (74-99); Non-African American GFR(CKD) 57 (>60 ml/min/1.73 sqM); Potassium 3.7 mmol/L (3.5-5.1); Sodium 143 mmol/L (137-145)
[2025-01-18 06:24] LABS: Glucose,Whole Blood 96 mg/dL (70-110)
[2025-01-18] MEDS: FUROSEMIDE 10 MG/ML 4 ML VIAL IV SCH ×2 (06:29→17:39)
[2025-01-18] MEDS: LEVOTHYROXINE 100 MCG TAB PO SCH (06:29)
[2025-01-18] MEDS: LEVOTHYROXINE 75 MCG TAB PO SCH (06:29)
[2025-01-18] MEDS: INSULIN ASPART (NovoLOG) 100 UNIT/ML VIAL SQ SCH (06:29)
[2025-01-18] MEDS: PANTOPRAZOLE 40 MG TABLET PO SCH (06:29)
[2025-01-18] MEDS ORDERED: DULoxetine HCL 60 MG CAPSULE.DR PO SCH (09:00)
[2025-01-18] MEDS: SYMBICORT 160-4.5 MCG INHALER INHALATION SCH (09:07)
[2025-01-18] MEDS: TIOTROPIUM 2.5 MCG INHALER INHALATION SCH (09:08)
[2025-01-18] MEDS: ASCORBIC ACID 500 MG TAB PO SCH (09:35)
[2025-01-18] MEDS: amLODIPine 10 MG TAB PO SCH (09:39)
[2025-01-18] MEDS: MULTIVITAMINS, THERA 1 EACH TAB PO SCH (09:40)
[2025-01-18] MEDS: FERROUS SULFATE 325 MG TAB PO SCH (09:41)
[2025-01-18] MEDS: OXYBUTYNIN 10 MG TAB.ER.24 PO SCH (09:41)
[2025-01-18] MEDS: METOPROLOL TARTRATE 25 MG TAB PO SCH (09:41)
[2025-01-18 11:49] LABS: Glucose,Whole Blood 124 mg/dL (70-110)
--- NOTE | 2025-01-18 13:19 | P.HPIM ---
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 Patient stated that she has been not feeling her usual self for the last week. Patient stated that she is getting short of breath on rest or exertion. Patient also complaining of weight gain, patient states that she has gained close to 9 pounds in the last week. There is no complaint of chest pain. Patient denies palpitations. Patient complains of increased lethargy and weakness and is somnolent and sleeping a lot. Patient also complaining of swelling of feet. Patient denies any fever or chills there is no complaint of nausea, vomiting or abdominal pain. Because of this shortness of breath, patient came to the ER Initial lab work done in the ER showed WBC 16.2, hemoglobin 10.7, platelet count 224, sodium 141, potassium 3.7, BUN 30, creatinine 1.22, glucose 142, calcium 9.1, magnesium 2.1, AST 20, ALT 22 UA done showed large amount of leukocyte Estrace, urine WBC 161 Influenza A not detected Influenza B not detected RSV not detected COVID-19 not detected Chest x-ray done in the ER showed mild CHF Patient admitted to internal medicine service REVIEW OF SYSTEMS: CONSTITUTIONAL: No fever, no malaise, no fatigue. HEENT: No recent visual problems or hearing problems. Denied any sore throat. CARDIOVASCULAR: As mentioned above PULMONARY: As mentioned above GASTROINTESTINAL: No diarrhea, no nausea, no vomiting, no abdominal pain. NEUROLOGICAL: No headaches, no weakness, no numbness. HEMATOLOGICAL: Denies any bleeding or petechiae. GENITOURINARY: Denies any burning micturition, frequency, or urgency. MUSCULOSKELETAL/RHEUMATOLOGICAL: Denies any joint pain, swelling, or any muscle pain. ENDOCRINE: Denies any polyuria or polydipsia. The rest of the 14-point review of systems is negative. PHYSICAL EXAMINATION: GENERAL: The patient is alert and oriented x3, not in any acute distress. Well developed, well nourished. HEENT: Pupils are round and equally reacting to light. EOMI. No scleral icterus. No conjunctival pallor. Normocephalic, atraumatic. No pharyngeal erythema. No thyromegaly. CARDIOVASCULAR: S1 and S2 present. No murmurs, rubs, or gallops. PULMONARY: Chest is clear to auscultation, no wheezing or crackles. ABDOMEN: Soft, nontender, nondistended, normoactive bowel sounds. No palpable organomegaly. MUSCULOSKELETAL: No joint swelling or deformity. EXTREMITIES: No cyanosis, clubbing, or pedal edema. NEUROLOGICAL: Gross neurological examination did not reveal any focal deficits. SKIN: No rashes. Assessment and plan Acute CHF UTI Chronic hypoxic respiratory failure Restrictive lung disease with COPD exacerbation Diabetes mellitus History of hypertension History of hyperlipidemia Monitor vital signs Monitor CBC Monitor CMP Continue telemetry monitoring Strict I's and O's Daily weights Low-salt diet Fluid restriction Start IV Lasix 20 mg every 12 Ordered 2D echo Follow-up on urine cultures Ordered IV Rocephin Consult cardiology Consult ID Labs and medication were reviewed.. Continue same treatment. Continue with symptomatic treatment. Resume home medication. Monitor labs and vitals. DVT and GI prophylaxis. Further recommendations as per clinical course of the patient Dictation was produced using [employer] dictation software. please excuse any grammatical, word or spelling errors. As mentioned above Past Medical History Past Medical History: Atrial Fibrillation, Asthma, Cancer, Chest Pain / Angina, Heart Failure, COPD, Diabetes Mellitus, Hyperlipidemia, Hypertension, Osteoarthritis (OA), Pneumonia, Sleep Apnea/CPAP/BIPAP, Thyroid Disorder Additional Past Medical History / Comment(s): covid, homeO2 dependent 5L, nonhealing vaginal wounds (managed by OBGYN) History of Any Multi-Drug Resistant Organisms: MRSA Date of last positivie culture/infection: 1994 MDRO Source:: Face wounds Past Surgical History: Breast Surgery, Cholecystectomy, Orthopedic Surgery Additional Past Surgical History / Comment(s): bilat mastectomy, right port placement 2017, L hip, R knee replacement Past Anesthesia/Blood Transfusion Reactions: No Reported Reaction Additional Past Anesthesia/Blood Transfusion Reaction / Comment(s): Hx. blood transfusion. Past Psychological History: No Psychological Hx Reported Smoking Status: Never smoker Past Alcohol Use History: None Reported Past Drug Use History: None Reported Medications and Allergies Home Medications Medication Instructions Recorded Confirmed Type Albuterol Inhaler [Ventolin Hfa 2 puff INHALATION RT-Q6H PRN 08/28/23 01/17/25 History Inhaler] Ascorbic Acid [Vitamin C] 1,000 mg PO DAILY 08/28/23 01/17/25 History Atorvastatin [Lipitor] 40 mg PO HS 08/28/23 01/17/25 History DULoxetine HCL [Cymbalta] 60 mg PO DAILY 08/28/23 01/17/25 History Ferrous Sulfate [Iron (65 MG 325 mg PO DAILY 08/28/23 01/17/25 History Elemental)] Gabapentin 600 mg PO BID@0900,1500 08/28/23 04/09/24 History Levothyroxine Sodium [Synthroid] 175 mcg PO DAILY 08/28/23 01/17/25 History Metoprolol Tartrate [Lopressor] 100 mg PO BID 08/28/23 01/17/25 History Nystatin 100,000 Unit/gm Powd 1 applic TOPICAL BID PRN 08/28/23 01/17/25 History [Mycostatin Powder] Potassium Chloride ER [K-Dur 10] 10 meq PO BID 08/28/23 01/17/25 History Selenium 200 mcg PO DAILY 08/28/23 01/17/25 History cycloSPORINE 0.05% OPHTH SOLN 1 drop BOTH EYES Q12H 08/28/23 01/17/25 History [Restasis] polyethylene glycoL 3350 [Miralax] 17 gm PO DAILY 08/28/23 01/17/25 History traMADol HCL 50 mg PO BID PRN 08/28/23 01/17/25 History ALPRAZolam [Xanax] 0.25 mg PO HS 04/09/24 01/17/25 History Felodipine [Plendil] 10 mg PO DAILY 04/09/24 01/17/25 History Fluticasone/Umeclidin/Vilanter 1 puff INHALATION RT-DAILY 04/09/24 01/17/25 History [Trelegy Ellipta 200-62.5-25] Gabapentin 300 mg PO TID 04/09/24 01/17/25 History Ibandronate Sodium [Boniva] 150 mg PO QMONTHLY 04/09/24 01/17/25 History Ipratropium-Albuterol Nebulize 3 ml INHALATION RT-Q6H PRN 04/09/24 01/17/25 History [Duoneb 0.5 mg-3 mg/3 ml Soln] Kelp Supplement 25 mg PO BID 04/09/24 01/17/25 History Magnesium 250 mg PO DAILY 04/09/24 01/17/25 History Multivitamins, Thera [Multivitamin 1 tab PO DAILY 04/09/24 01/17/25 History (formulary)] Mupirocin 2% Oint [Bactroban 2% 1 applic TOPICAL TID PRN 04/09/24 01/17/25 History Oint] Torsemide [Demadex] 60 mg PO DAILY 04/09/24 01/17/25 History Vitamin B Complex 1 cap PO DAILY 04/09/24 01/17/25 History Vitamin E (Dl,Tocopheryl Acet) 450 mg PO DAILY 04/09/24 01/17/25 History [Vitamin E (1000 Iu = 450 MG)] Celecoxib [CeleBREX] 100 mg PO BID PRN 01/17/25 01/17/25 History Ondansetron Odt [Zofran Odt] 4 mg PO Q6H PRN 01/17/25 01/17/25 History Pantoprazole [Protonix] 40 mg PO DAILY 01/17/25 01/17/25 History Tirzepatide [Mounjaro] 7.5 mg SQ Q7D 01/17/25 01/17/25 History Tolterodine ER [Detrol LA] 4 mg PO DAILY 01/17/25 01/17/25 History Triamcinolone 0.5% Cream [Kenalog 1 applic TOPICAL BID PRN 01/17/25 01/17/25 History 0.5% Cream] icosapent ethyL [Icosapent Ethyl] 2 gm PO BID-W/MEALS 01/17/25 01/17/25 History Allergies Allergy/AdvReac Type Severity Reaction Status Date / Time Sulfa (Sulfonamide Allergy Rash/Hives Verified 01/17/25 17:08 Antibiotics) sulfamethoxazole Allergy Rash/Hives Verified 01/17/25 14:32 [From Bactrim] trimethoprim [From Bactrim] Allergy Rash/Hives Verified 01/17/25 14:32 acetaminophen [From [place]] AdvReac Hallucinati Verified 01/17/25 14:32 ons hydrocodone [From [place]] AdvReac Hallucinati Verified 01/17/25 14:32 ons Physical Exam Vitals: Vital Signs Temp Pulse Pulse Resp BP BP Pulse Ox 01/18/25 09:13 90 L 01/18/25 08:22 98.1 F 104 H 16 115/65 96 01/18/25 03:40 97.9 F 95 19 111/68 95 01/17/25 20:50 98.1 F 85 18 119/72 97 01/17/25 20:29 87 18 110/61 97 01/17/25 19:27 86 18 118/98 96 01/17/25 17:36 81 18 117/59 96 01/17/25 16:46 82 18 121/62 98 01/17/25 14:28 98.7 F 82 18 97/67 96 Intake and Output 01/17/25 01/18/25 01/18/25 22:59 06:59 14:59 Intake Total 240 Balance 240 Intake: Oral 240 Other: # Voids 2 # Bowel Movements 1 Weight 129.274 kg Results CBC & Chem 7: 01/18/25 03:49 01/18/25 03:49 Labs: Abnormal Lab Results - Last 24 Hours (Table) 01/17/25 01/17/25 01/17/25 Range/Units 14:47 14:47 14:47 WBC 16.2 H (3.8-10.6) k/uL RBC 3.54 L (3.80-5.40) m/uL Hgb 10.7 L (11.4-16.0) gm/dL Hct 33.5 L (34.0-46.0) % Neutrophils # 12.8 H (1.3-7.7) k/uL Monocytes # (0-1.0) k/uL PT 9.7 L (10.0-12.5) sec APTT 21.4 L (22.0-30.0) sec VBG pCO2 (37-51) mmHg VBG HCO3 (24-28) mmol/L Chloride 96 L (98-107) mmol/L Carbon Dioxide 36 H (22-30) mmol/L BUN 30 H (7-17) mg/dL Creatinine 1.22 H (0.52-1.04) mg/dL Glucose 142 H (74-99) mg/dL Hemoglobin A1c (<=6.0) % Urine Appearance (Clear) Urine Protein (Negative) Urine Blood (Negative) Ur Leukocyte Esterase (Negative) Urine RBC (0-5) /hpf Urine WBC (0-5) /hpf Ur Squamous Epith Cells (0-4) /hpf Urine Bacteria (None) /hpf Hyaline Casts (0-2) /lpf Urine Mucus (None) /hpf 01/17/25 01/17/25 01/18/25 Range/Units 16:40 17:05 03:49 WBC 14.7 H (3.8-10.6) k/uL RBC (3.80-5.40) m/uL Hgb (11.4-16.0) gm/dL Hct (34.0-46.0) % Neutrophils # 10.5 H (1.3-7.7) k/uL Monocytes # 1.1 H (0-1.0) k/uL PT (10.0-12.5) sec APTT (22.0-30.0) sec VBG pCO2 62 H (37-51) mmHg VBG HCO3 36 H (24-28) mmol/L Chloride (98-107) mmol/L Carbon Dioxide (22-30) mmol/L BUN (7-17) mg/dL Creatinine (0.52-1.04) mg/dL Glucose (74-99) mg/dL Hemoglobin A1c (<=6.0) % Urine Appearance Turbid H (Clear) Urine Protein Trace H (Negative) Urine Blood Trace H (Negative) Ur Leukocyte Esterase Large H (Negative) Urine RBC 7 H (0-5) /hpf Urine WBC 161 H (0-5) /hpf Ur Squamous Epith Cells 21 H (0-4) /hpf Urine Bacteria Occasional H (None) /hpf Hyaline Casts 52 H (0-2) /lpf Urine Mucus Occasional H (None) /hpf 01/18/25 01/18/25 Range/Units 03:49 04:39 WBC (3.8-10.6) k/uL RBC (3.80-5.40) m/uL Hgb (11.4-16.0) gm/dL Hct (34.0-46.0) % Neutrophils # (1.3-7.7) k/uL Monocytes # (0-1.0) k/uL PT (10.0-12.5) sec APTT (22.0-30.0) sec VBG pCO2 (37-51) mmHg VBG HCO3 (24-28) mmol/L Chloride 97 L (98-107) mmol/L Carbon Dioxide 34 H (22-30) mmol/L BUN 25 H (7-17) mg/dL Creatinine (0.52-1.04) mg/dL Glucose 153 H (74-99) mg/dL Hemoglobin A1c 6.2 H (<=6.0) % Urine Appearance (Clear) Urine Protein (Negative) Urine Blood (Negative) Ur Leukocyte Esterase (Negative) Urine RBC (0-5) /hpf Urine WBC (0-5) /hpf Ur Squamous Epith Cells (0-4) /hpf Urine Bacteria (None) /hpf Hyaline Casts (0-2) /lpf Urine Mucus (None) /hpf Thrombosis Risk Factor Assmnt - Choose All That Apply Any of the Below Risk Factors Present?: Yes Each Factor Represents 1 point: Abnormal pulmonary function (COPD), Obesity (BMI >25) Other Risk Factors: Yes Each Risk Factor Represents 2 Points: Age 61-74 years Other congenital or acquired thrombophilia - If yes, enter type in comment: No Thrombosis Risk Factor Assessment Total Risk Factor Score: 4 Thrombosis Risk Factor Assessment Level: Moderate Risk
--- NOTE | 2025-01-18 14:12 | P.CRDCN ---
History of Present Illness Consult date: 01/18/25 Reason for Consult (text): CHF exacerbation History of present illness: This is a 74-year-old female patient of Dr. Chatterjee with past medical history of severe COPD, chronic hypoxic respiratory failure on home O2, chronic diastolic heart failure, moderate aortic regurgitation, pulmonary hypertension, diabetes, dyslipidemia. We have been asked to evaluate the patient for CHF exacerbation. Over the past few days. Blood pressure 115/65, heart rate 104, pulse ox 96% on 5 L nasal cannula. Patient has been started on IV Lasix 20 mg every 12 hours. -EKG: Sinus rhythm with no acute ST changes. Patient states that she has had shortness of breath with dyspnea on exertion that has been worsening. She also has had an increase of 8 pounds -Chest x-ray: Acute cardiopulmonary disease most consistent with mild CHF -Laboratory studies: WBC 14.7, hemoglobin 12, D-dimer 0.76. Sodium 143, potassium 3.7, CO2 34. BUN 25, creatinine initially 1.22 and now 0.99. Troponin negative x 1. proBNP 253. Cepheid viral panel not detected. -Home cardiac medications: Atorvastatin 40 mg at bedtime, magnesium 250 mg daily, Lopressor 100 mg twice daily, torsemide 60 mg daily, also on levothyroxine. -Echocardiogram performed 08/28/2023: Severe LVH with EF of 50 to 55%. Review Of Systems: At the time of my exam: CONSTITUTIONAL: Denies fever or chills. HEENT: Denies blurred vision, vision changes, or eye pain. Denies hemoptysis CARDIOVASCULAR: Denies chest pain. Denies orthopnea. Denies PND. Denies palpitations RESPIRATORY: Denies shortness of breath. GASTROINTESTINAL: Denies abdominal pain. Denies nausea or vomiting. HEMATOLOGIC: Denies bleeding disorders. GENITOURINARY: Denies any blood in urine. SKIN: Denies puritis. Denies rash. Physical examination: Gen: This is a 74-year-old female in no acute distress. VS: reviewed HEENT: Head is atraumatic, normocephalic. Pupils equal, round. Sclerae is anicteric. NECK: Supple. No JVD. LUNGS: Expiratory wheeze o wheezes or rhonchi. No intercostal retractions. HEART: Regular rate and rhythm. No murmur. ABDOMEN: Soft No tenderness. EXTREMITIES: Bilateral lower extremity edema. No calf tenderness. NEUROLOGICAL: Patient is awake, alert and oriented x3. Assessment: Acute on chronic diastolic heart failure Severe COPD Acute on chronic hypoxic respiratory failure on home O2, currently at 5 L nasal cannula Moderate aortic regurgitation Pulmonary hypertension Diabetes mellitus type 2 Dyslipidemia Plan: Resume patient's home cardiac medications Increase IV Lasix to 40 mg every 12 hours Monitor JAMILA, daily weights, electrolytes and renal function Obtain 2-D echocardiogram and Doppler study to assess cardiac structure and function Further recommendations to follow based upon clinical course Thank you kindly for this consultation. Nurse practitioner note has been reviewed, I agree with documented findings and plan of care. Patient was seen and examined. Past Medical History Past Medical History: Atrial Fibrillation, Asthma, Cancer, Chest Pain / Angina, Heart Failure, COPD, Diabetes Mellitus, Hyperlipidemia, Hypertension, Osteoarthritis (OA), Pneumonia, Sleep Apnea/CPAP/BIPAP, Thyroid Disorder Additional Past Medical History / Comment(s): covid, homeO2 dependent 5L, nonhealing vaginal wounds (managed by OBGYN) History of Any Multi-Drug Resistant Organisms: MRSA Date of last positivie culture/infection: 1994 MDRO Source:: Face wounds Past Surgical History: Breast Surgery, Cholecystectomy, Orthopedic Surgery Additional Past Surgical History / Comment(s): bilat mastectomy, right port placement 2016, L hip, R knee replacement Past Anesthesia/Blood Transfusion Reactions: No Reported Reaction Additional Past Anesthesia/Blood Transfusion Reaction / Comment(s): Hx. blood transfusion. Past Psychological History: No Psychological Hx Reported Smoking Status: Never smoker Past Alcohol Use History: None Reported Past Drug Use History: None Reported Medications and Allergies Home Medications Medication Instructions Recorded Confirmed Type Albuterol Inhaler [Ventolin Hfa 2 puff INHALATION RT-Q6H PRN 08/28/23 01/17/25 History Inhaler] Ascorbic Acid [Vitamin C] 1,000 mg PO DAILY 08/28/23 01/17/25 History Atorvastatin [Lipitor] 40 mg PO HS 08/28/23 01/17/25 History DULoxetine HCL [Cymbalta] 60 mg PO DAILY 08/28/23 01/17/25 History Ferrous Sulfate [Iron (65 MG 325 mg PO DAILY 08/28/23 01/17/25 History Elemental)] Gabapentin 600 mg PO BID@0900,1500 08/28/23 04/09/24 History Levothyroxine Sodium [Synthroid] 175 mcg PO DAILY 08/28/23 01/17/25 History Metoprolol Tartrate [Lopressor] 100 mg PO BID 08/28/23 01/17/25 History Nystatin 100,000 Unit/gm Powd 1 applic TOPICAL BID PRN 08/28/23 01/17/25 History [Mycostatin Powder] Potassium Chloride ER [K-Dur 10] 10 meq PO BID 08/28/23 01/17/25 History Selenium 200 mcg PO DAILY 08/28/23 01/17/25 History cycloSPORINE 0.05% OPHTH SOLN 1 drop BOTH EYES Q12H 08/28/23 01/17/25 History [Restasis] polyethylene glycoL 3350 [Miralax] 17 gm PO DAILY 08/28/23 01/17/25 History traMADol HCL 50 mg PO BID PRN 08/28/23 01/17/25 History ALPRAZolam [Xanax] 0.25 mg PO HS 04/09/24 01/17/25 History Felodipine [Plendil] 10 mg PO DAILY 04/09/24 01/17/25 History Fluticasone/Umeclidin/Vilanter 1 puff INHALATION RT-DAILY 04/09/24 01/17/25 History [Trelegy Ellipta 200-62.5-25] Gabapentin 300 mg PO TID 04/09/24 01/17/25 History Ibandronate Sodium [Boniva] 150 mg PO QMONTHLY 04/09/24 01/17/25 History Ipratropium-Albuterol Nebulize 3 ml INHALATION RT-Q6H PRN 04/09/24 01/17/25 History [Duoneb 0.5 mg-3 mg/3 ml Soln] Kelp Supplement 25 mg PO BID 04/09/24 01/17/25 History Magnesium 250 mg PO DAILY 04/09/24 01/17/25 History Multivitamins, Thera [Multivitamin 1 tab PO DAILY 04/09/24 01/17/25 History (formulary)] Mupirocin 2% Oint [Bactroban 2% 1 applic TOPICAL TID PRN 04/09/24 01/17/25 History Oint] Torsemide [Demadex] 60 mg PO DAILY 04/09/24 01/17/25 History Vitamin B Complex 1 cap PO DAILY 04/09/24 01/17/25 History Vitamin E (Dl,Tocopheryl Acet) 450 mg PO DAILY 04/09/24 01/17/25 History [Vitamin E (1000 Iu = 450 MG)] Celecoxib [CeleBREX] 100 mg PO BID PRN 01/17/25 01/17/25 History Ondansetron Odt [Zofran Odt] 4 mg PO Q6H PRN 01/17/25 01/17/25 History Pantoprazole [Protonix] 40 mg PO DAILY 01/17/25 01/17/25 History Tirzepatide [Mounjaro] 7.5 mg SQ Q7D 01/17/25 01/17/25 History Tolterodine ER [Detrol LA] 4 mg PO DAILY 01/17/25 01/17/25 History Triamcinolone 0.5% Cream [Kenalog 1 applic TOPICAL BID PRN 01/17/25 01/17/25 History 0.5% Cream] icosapent ethyL [Icosapent Ethyl] 2 gm PO BID-W/MEALS 01/17/25 01/17/25 History Allergies Allergy/AdvReac Type Severity Reaction Status Date / Time Sulfa (Sulfonamide Allergy Rash/Hives Verified 01/17/25 17:08 Antibiotics) sulfamethoxazole Allergy Rash/Hives Verified 01/17/25 14:32 [From Bactrim] trimethoprim [From Bactrim] Allergy Rash/Hives Verified 01/17/25 14:32 acetaminophen [From [place]] AdvReac Hallucinati Verified 01/17/25 14:32 ons hydrocodone [From [place]] AdvReac Hallucinati Verified 01/17/25 14:32 ons Physical Exam Vitals: Vital Signs Temp Pulse Pulse Resp BP BP Pulse Ox 01/18/25 09:13 90 L 01/18/25 08:22 98.1 F 104 H 16 115/65 96 01/18/25 03:40 97.9 F 95 19 111/68 95 01/17/25 20:50 98.1 F 85 18 119/72 97 01/17/25 20:29 87 18 110/61 97 01/17/25 19:27 86 18 118/98 96 01/17/25 17:36 81 18 117/59 96 01/17/25 16:46 82 18 121/62 98 01/17/25 14:28 98.7 F 82 18 97/67 96 Intake and Output 01/17/25 01/18/25 01/18/25 22:59 06:59 14:59 Intake Total 240 Balance 240 Intake: Oral 240 Other: # Voids 2 # Bowel Movements 1 Weight 129.274 kg Results 01/18/25 03:49 01/18/25 03:49 Cardiac Enzymes 01/17/25 01/17/25 Range/Units 14:47 14:47 AST 28 (14-36) U/L Troponin I <0.012 (0.000-0.034) ng/mL Coagulation 01/17/25 Range/Units 14:47 PT 9.7 L (10.0-12.5) sec APTT 21.4 L (22.0-30.0) sec CBC 01/17/25 01/18/25 Range/Units 14:47 03:49 WBC 16.2 H 14.7 H (3.8-10.6) k/uL RBC 3.54 L 3.87 (3.80-5.40) m/uL Hgb 10.7 L 12.0 (11.4-16.0) gm/dL Hct 33.5 L 35.9 (34.0-46.0) % Plt Count 224 217 (150-450) k/uL Comprehensive Metabolic Panel 01/17/25 01/18/25 Range/Units 14:47 03:49 Sodium 141 143 (137-145) mmol/L Potassium 3.7 3.7 (3.5-5.1) mmol/L Chloride 96 L 97 L (98-107) mmol/L Carbon Dioxide 36 H 34 H (22-30) mmol/L BUN 30 H 25 H (7-17) mg/dL Creatinine 1.22 H 0.99 (0.52-1.04) mg/dL Glucose 142 H 153 H (74-99) mg/dL Calcium 9.1 9.2 (8.4-10.2) mg/dL AST 28 (14-36) U/L ALT 22 (4-34) U/L Alkaline Phosphatase 125 (38-126) U/L Total Protein 6.6 (6.3-8.2) g/dL Albumin 3.8 (3.5-5.0) g/dL Current Medications Generic Name Dose Route Start Last Admin Trade Name Freq PRN Reason Stop Dose Admin Acetaminophen 650 mg 01/17/25 21:43 Acetaminophen Tab 325 Mg Tab PO Q6HR PRN Fever and/ or Pain Albuterol Sulfate 2.5 mg 01/17/25 21:40 Albuterol Nebulized 2.5 Mg/3 Ml INHALATION RT-Q6H PRN Shortness Of Breath Albuterol/Ipratropium 3 ml 01/17/25 21:40 Ipratropium-Albuterol 3 Ml Neb INHALATION RT-Q6H PRN Shortness Of Breath Alprazolam 0.25 mg 01/17/25 21:40 01/17/25 23:00 Alprazolam 0.25 Mg Tab PO 0.25 mg HS PRN Administration Anxiety Amlodipine Besylate 10 mg 01/18/25 09:00 01/18/25 09:39 Amlodipine 10 Mg Tab PO 10 mg DAILY NOAH Administration Ascorbic Acid 1,000 mg 01/18/25 09:00 01/18/25 09:35 Ascorbic Acid 500 Mg Tab PO 1,000 mg DAILY NOAH Administration Atorvastatin Calcium 40 mg 01/17/25 21:45 01/17/25 23:00 Atorvastatin 40 Mg Tab PO 40 mg HS NOAH Administration Budesonide/Formoterol Fumarate 2 puff 01/18/25 08:00 01/18/25 09:07 Symbicort 160-4.5 Mcg Inhaler INHALATION 2 puff RT-BID NOAH Administration Cyclosporine 1 drops 01/17/25 21:45 01/18/25 09:40 Cyclosporine 0.05% Ophth 0.4 Ml Droperette BOTH EYES 1 drops Q12H NOAH Administration Dextrose/Water 25 ml 01/17/25 22:45 Dextrose 50% Syringe 50 Ml IVP PER PROTOCOL PRN Hypoglycemia Protocol Dextrose/Water 50 ml 01/17/25 22:45 Dextrose 50% Syringe 50 Ml IVP PER PROTOCOL PRN Hypoglycemia Protocol Duloxetine HCl 60 mg 01/17/25 22:45 01/17/25 23:00 Duloxetine Hcl 60 Mg Capsule.Dr PO 60 mg HS NOAH Administration Ferrous Sulfate 325 mg 01/18/25 09:00 01/18/25 09:41 Ferrous Sulfate 325 Mg Tab PO 325 mg DAILY NOAH Administration Furosemide 40 mg 01/18/25 06:00 01/18/25 06:29 Furosemide 10 Mg/Ml 4 Ml Vial IV 40 mg Q12H NOAH Administration Gabapentin 300 mg 01/17/25 22:45 01/18/25 09:39 Gabapentin 300 Mg Cap PO 300 mg TID NOAH Administration Ceftriaxone Sodium 1 gm/ 50 mls @ 100 mls/hr 01/18/25 09:00 01/18/25 09:44 Sodium Chloride IVPB 100 mls/hr Q24HR NOAH Administration Protocol Insulin Aspart 0 unit 01/18/25 07:30 01/18/25 11:54 Insulin Aspart (Novolog) 100 Unit/Ml Vial SQ Not Given ACHS [facility] Protocol Levothyroxine Sodium 100 mcg 01/18/25 06:00 01/18/25 06:29 Levothyroxine 100 Mcg Tab PO 100 mcg DAILY@0600 [facility] Administration Levothyroxine Sodium 75 mcg 01/18/25 06:00 01/18/25 06:29 Levothyroxine 75 Mcg Tab PO 75 mcg DAILY@0600 [facility] Administration Meloxicam 7.5 mg 01/17/25 21:40 Meloxicam 7.5 Mg Tab PO DAILY PRN Pain Metoprolol Tartrate 25 mg 01/18/25 09:00 01/18/25 09:41 Metoprolol Tartrate 25 Mg Tab PO 25 mg BID [facility] Administration Multivitamins 1 each 01/18/25 09:00 01/18/25 09:40 Multivitamins, Thera 1 Each Tab PO 1 each DAILY NOAH Administration Naloxone HCl 0.2 mg 01/17/25 18:34 Naloxone 0.4 Mg/Ml 1 Ml Vial IV Q2M PRN Opioid Reversal Ondansetron HCl 4 mg 01/17/25 18:34 Ondansetron 4 Mg/2 Ml Vial IVP Q8HR PRN Nausea And Vomiting Oxybutynin Chloride 10 mg 01/18/25 09:00 01/18/25 09:41 Oxybutynin 10 Mg Tab.Er.24 PO 10 mg DAILY [facility] Administration Pantoprazole Sodium 40 mg 01/18/25 07:30 01/18/25 06:29 Pantoprazole 40 Mg Tablet PO 40 mg DAILY@0730 [facility] Administration Tiotropium [place] 2 puff 01/18/25 08:00 01/18/25 09:08 Tiotropium 2.5 Mcg Inhaler INHALATION 2 puff RT-DAILY [facility] Administration Tramadol HCl 50 mg 01/17/25 21:40 01/18/25 10:18 Tramadol 50 Mg Tab PO 50 mg BID PRN Administration Pain Intake and Output 01/17/25 01/18/25 01/18/25 22:59 06:59 14:59 Intake Total 240 Balance 240 Intake: Oral 240 Other: # Voids 2 # Bowel Movements 1 Weight 129.274 kg 01/18/25 03:49 01/18/25 03:49
[2025-01-18 17:17] LABS: Glucose,Whole Blood 94 mg/dL (70-110)
[2025-01-18] MEDS ORDERED: FUROSEMIDE 10 MG/ML 2 ML VIAL IV SCH (18:00)
[2025-01-18 20:21] LABS: Glucose,Whole Blood 129 mg/dL (70-110)
--- NOTE | 2025-01-18 22:07 | P.CONS ---
History of Present Illness - Reason for Consult Consult date: 01/18/25 Complicated UTI Requesting physician: Sherman Cha - Chief Complaint Weakness and shortness of breath x days - History of Present Illness Patient is a 74-year-old female with a past medical history significant for atrial fibrillation asthma COPD type 2 diabetes mellitus hypertension hyperlipidemia presenting to the hospital for evaluation of difficulty breathing weight gain in this patient symptom has been getting worse for the last few days patient is also complaining of burning of urine but no hematuria or suprapubic pain with the symptoms the patient has been evaluated on presentation to the hospital patient was afebrile no fever have been recorded subsequently patient was mildly tachycardic but not hypotensive mildly hypoxic currently on 4 L nasal cannula oxygen patient did have white count of 16.2 with a left shift BNP was point elevated liver enzymes are normal urine has been positive influenza RSV COVID testing negative patient did have chest x-ray concerning for CHF patient has been started on Rocephin 1 g daily concerning for UTI infectious disease was consulted for further management of antibiotic therapy Review of Systems Positive point and negatives has been mentioned in the HPI, complete review of systems was performed and all other systems are negative Past Medical History Past Medical History: Atrial Fibrillation, Asthma, Cancer, Chest Pain / Angina, Heart Failure, COPD, Diabetes Mellitus, Hyperlipidemia, Hypertension, Osteoarthritis (OA), Pneumonia, Sleep Apnea/CPAP/BIPAP, Thyroid Disorder Additional Past Medical History / Comment(s): covid, homeO2 dependent 5L, nonhealing vaginal wounds (managed by OBGYN) History of Any Multi-Drug Resistant Organisms: MRSA Year Discovered:: 1994 MDRO Source:: Face wounds Past Surgical History: Breast Surgery, Cholecystectomy, Orthopedic Surgery Additional Past Surgical History / Comment(s): bilat mastectomy, right port placement 2017, L hip, R knee replacement Past Anesthesia/Blood Transfusion Reactions: No Reported Reaction Additional Past Anesthesia/Blood Transfusion Reaction / Comm: Hx. blood transfusion. Past Psychological History: No Psychological Hx Reported Smoking Status: Never smoker Past Alcohol Use History: None Reported Past Drug Use History: None Reported Medications and Allergies Home Medications Medication Instructions Recorded Confirmed Type Albuterol Inhaler [Ventolin Hfa 2 puff INHALATION RT-Q6H PRN 08/28/23 01/17/25 History Inhaler] Ascorbic Acid [Vitamin C] 1,000 mg PO DAILY 08/28/23 01/17/25 History Atorvastatin [Lipitor] 40 mg PO HS 08/28/23 01/17/25 History DULoxetine HCL [Cymbalta] 60 mg PO DAILY 08/28/23 01/17/25 History Ferrous Sulfate [Iron (65 MG 325 mg PO DAILY 08/28/23 01/17/25 History Elemental)] Gabapentin 600 mg PO BID@0900,1500 08/28/23 04/09/24 History Levothyroxine Sodium [Synthroid] 175 mcg PO DAILY 08/28/23 01/17/25 History Metoprolol Tartrate [Lopressor] 100 mg PO BID 08/28/23 01/17/25 History Nystatin 100,000 Unit/gm Powd 1 applic TOPICAL BID PRN 08/28/23 01/17/25 History [Mycostatin Powder] Potassium Chloride ER [K-Dur 10] 10 meq PO BID 08/28/23 01/17/25 History Selenium 200 mcg PO DAILY 08/28/23 01/17/25 History cycloSPORINE 0.05% OPHTH SOLN 1 drop BOTH EYES Q12H 08/28/23 01/17/25 History [Restasis] polyethylene glycoL 3350 [Miralax] 17 gm PO DAILY 08/28/23 01/17/25 History traMADol HCL 50 mg PO BID PRN 08/28/23 01/17/25 History ALPRAZolam [Xanax] 0.25 mg PO HS 04/09/24 01/17/25 History Felodipine [Plendil] 10 mg PO DAILY 04/09/24 01/17/25 History Fluticasone/Umeclidin/Vilanter 1 puff INHALATION RT-DAILY 04/09/24 01/17/25 History [Trelegy Ellipta 200-62.5-25] Gabapentin 300 mg PO TID 04/09/24 01/17/25 History Ibandronate Sodium [Boniva] 150 mg PO QMONTHLY 04/09/24 01/17/25 History Ipratropium-Albuterol Nebulize 3 ml INHALATION RT-Q6H PRN 04/09/24 01/17/25 History [Duoneb 0.5 mg-3 mg/3 ml Soln] Kelp Supplement 25 mg PO BID 04/09/24 01/17/25 History Magnesium 250 mg PO DAILY 04/09/24 01/17/25 History Multivitamins, Thera [Multivitamin 1 tab PO DAILY 04/09/24 01/17/25 History (formulary)] Mupirocin 2% Oint [Bactroban 2% 1 applic TOPICAL TID PRN 04/09/24 01/17/25 History Oint] Torsemide [Demadex] 60 mg PO DAILY 04/09/24 01/17/25 History Vitamin B Complex 1 cap PO DAILY 04/09/24 01/17/25 History Vitamin E (Dl,Tocopheryl Acet) 450 mg PO DAILY 04/09/24 01/17/25 History [Vitamin E (1000 Iu = 450 MG)] Celecoxib [CeleBREX] 100 mg PO BID PRN 01/17/25 01/17/25 History Ondansetron Odt [Zofran Odt] 4 mg PO Q6H PRN 01/17/25 01/17/25 History Pantoprazole [Protonix] 40 mg PO DAILY 01/17/25 01/17/25 History Tirzepatide [Mounjaro] 7.5 mg SQ Q7D 01/17/25 01/17/25 History Tolterodine ER [Detrol LA] 4 mg PO DAILY 01/17/25 01/17/25 History Triamcinolone 0.5% Cream [Kenalog 1 applic TOPICAL BID PRN 01/17/25 01/17/25 History 0.5% Cream] icosapent ethyL [Icosapent Ethyl] 2 gm PO BID-W/MEALS 01/17/25 01/17/25 History Allergies Allergy/AdvReac Type Severity Reaction Status Date / Time Sulfa (Sulfonamide Allergy Rash/Hives Verified 01/17/25 17:08 Antibiotics) sulfamethoxazole Allergy Rash/Hives Verified 01/17/25 14:32 [From Bactrim] trimethoprim [From Bactrim] Allergy Rash/Hives Verified 01/17/25 14:32 acetaminophen [From [place]] AdvReac Hallucinati Verified 01/17/25 14:32 ons hydrocodone [From [place]] AdvReac Hallucinati Verified 01/17/25 14:32 ons Physical Exam Vitals: Vital Signs Temp Pulse Pulse Resp BP BP Pulse Ox 01/18/25 09:13 90 L 01/18/25 08:22 98.1 F 104 H 16 115/65 96 01/18/25 03:40 97.9 F 95 19 111/68 95 01/17/25 20:50 98.1 F 85 18 119/72 97 01/17/25 20:29 87 18 110/61 97 01/17/25 19:27 86 18 118/98 96 01/17/25 17:36 81 18 117/59 96 01/17/25 16:46 82 18 121/62 98 01/17/25 14:28 98.7 F 82 18 97/67 96 Intake and Output 01/17/25 01/18/25 01/18/25 22:59 06:59 14:59 Intake Total 240 Balance 240 Intake: Oral 240 Other: # Voids 2 # Bowel Movements 1 Weight 129.274 kg GENERAL DESCRIPTION: Elderly female up in the chair, no distress. No tachypnea or accessory muscle of respiration use. HEENT: Shows Pallor , no scleral icterus. Oral mucous membrane is dry. NECK: Trachea central, no thyromegaly. LUNGS: Unlabored breathing. Decreased breath sound at the base HEART: S1, S2, regular rate and rhythm. No loud murmur ABDOMEN: Soft, no tenderness , EXTREMITIES: No edema of feet. SKIN: No rash, no masses palpable. NEUROLOGICAL: The patient is awake, alert, oriented x3, mood and affect normal. Results CBC & Chem 7: 01/18/25 03:49 01/18/25 03:49 Labs: Abnormal Lab Results - Last 24 Hours (Table) 01/17/25 01/17/25 01/17/25 Range/Units 14:47 14:47 14:47 WBC 16.2 H (3.8-10.6) k/uL RBC 3.54 L (3.80-5.40) m/uL Hgb 10.7 L (11.4-16.0) gm/dL Hct 33.5 L (34.0-46.0) % Neutrophils # 12.8 H (1.3-7.7) k/uL Monocytes # (0-1.0) k/uL PT 9.7 L (10.0-12.5) sec APTT 21.4 L (22.0-30.0) sec VBG pCO2 (37-51) mmHg VBG HCO3 (24-28) mmol/L Chloride 96 L (98-107) mmol/L Carbon Dioxide 36 H (22-30) mmol/L BUN 30 H (7-17) mg/dL Creatinine 1.22 H (0.52-1.04) mg/dL Glucose 142 H (74-99) mg/dL POC Glucose (mg/dL) (70-110) mg/dL Hemoglobin A1c (<=6.0) % Urine Appearance (Clear) Urine Protein (Negative) Urine Blood (Negative) Ur Leukocyte Esterase (Negative) Urine RBC (0-5) /hpf Urine WBC (0-5) /hpf Ur Squamous Epith Cells (0-4) /hpf Urine Bacteria (None) /hpf Hyaline Casts (0-2) /lpf Urine Mucus (None) /hpf 01/17/25 01/17/25 01/18/25 Range/Units 16:40 17:05 03:49 WBC 14.7 H (3.8-10.6) k/uL RBC (3.80-5.40) m/uL Hgb (11.4-16.0) gm/dL Hct (34.0-46.0) % Neutrophils # 10.5 H (1.3-7.7) k/uL Monocytes # 1.1 H (0-1.0) k/uL PT (10.0-12.5) sec APTT (22.0-30.0) sec VBG pCO2 62 H (37-51) mmHg VBG HCO3 36 H (24-28) mmol/L Chloride (98-107) mmol/L Carbon Dioxide (22-30) mmol/L BUN (7-17) mg/dL Creatinine (0.52-1.04) mg/dL Glucose (74-99) mg/dL POC Glucose (mg/dL) (70-110) mg/dL Hemoglobin A1c (<=6.0) % Urine Appearance Turbid H (Clear) Urine Protein Trace H (Negative) Urine Blood Trace H (Negative) Ur Leukocyte Esterase Large H (Negative) Urine RBC 7 H (0-5) /hpf Urine WBC 161 H (0-5) /hpf Ur Squamous Epith Cells 21 H (0-4) /hpf Urine Bacteria Occasional H (None) /hpf Hyaline Casts 52 H (0-2) /lpf Urine Mucus Occasional H (None) /hpf 01/18/25 01/18/25 01/18/25 Range/Units 03:49 04:39 11:47 WBC (3.8-10.6) k/uL RBC (3.80-5.40) m/uL Hgb (11.4-16.0) gm/dL Hct (34.0-46.0) % Neutrophils # (1.3-7.7) k/uL Monocytes # (0-1.0) k/uL PT (10.0-12.5) sec APTT (22.0-30.0) sec VBG pCO2 (37-51) mmHg VBG HCO3 (24-28) mmol/L Chloride 97 L (98-107) mmol/L Carbon Dioxide 34 H (22-30) mmol/L BUN 25 H (7-17) mg/dL Creatinine (0.52-1.04) mg/dL Glucose 153 H (74-99) mg/dL POC Glucose (mg/dL) 124 H (70-110) mg/dL Hemoglobin A1c 6.2 H (<=6.0) % Urine Appearance (Clear) Urine Protein (Negative) Urine Blood (Negative) Ur Leukocyte Esterase (Negative) Urine RBC (0-5) /hpf Urine WBC (0-5) /hpf Ur Squamous Epith Cells (0-4) /hpf Urine Bacteria (None) /hpf Hyaline Casts (0-2) /lpf Urine Mucus (None) /hpf Assessment and Plan (1) Allergy to multiple antibiotics Current Visit: Yes Status: Acute Code(s): Z88.1 - ALLERGY STATUS TO OTHER ANTIBIOTIC AGENTS SNOMED Code(s): 813790776 (2) UTI (urinary tract infection) Current Visit: Yes Status: Acute Code(s): N39.0 - URINARY TRACT INFECTION, SITE NOT SPECIFIED SNOMED Code(s): 44729767 Plan: 1patient presented to hospital with generalized weakness which is likely multifactorial in this patient with a possible component of UTI likely from to the gram-negative pathogen. 2patient with multiple antibiotic ALLERGIES that would limit the number of antibiotic safe to use. 3Rocephin 1 g daily while waiting for the culture to finalize. We will follow on clinical condition and cultures to further adjust medication if needed Thank you for this consultation we will follow the patient along with you Dictation was produced using [employer] dictation software. please excuse any gr ammatical, word or spelling errors. Time with Patient: Greater than 30
[2025-01-19 06:21] LABS: Glucose,Whole Blood 122 mg/dL (70-110)
[2025-01-19 10:54] LABS: Basophils # (A) 0.04 X 10*3/uL (0.00-0.10); Basophils % (A) 0.4 %; Eosinophils # (A) 0.21 X 10*3/uL (0.04-0.35); HCT 31.8 % (37.2-46.3); HGB 10.2 g/dL (12.0-15.0); Lymphocytes # (A) 2.01 X 10*3/uL (0.90-5.00); Lymphocytes % (A) 18.9 %; MCH 30.7 pg (27.0-32.0); MCHC 32.1 g/dL (32.0-37.0); MCV 95.8 FL (80.0-97.0); Mean Platelet Volume 11.6 FL (9.5-12.2); Monocytes # (A) 1.17 X 10*3/uL (0.20-1.00); NRBC Per 100 WBC 0 X 10*3/uL (0.00-0.01); Neutrophils # (A) 7.13 X 10*3/uL (1.80-7.70); Platelet Count 216 X 10*3/uL (140-440); RBC 3.32 X 10*6/uL (4.10-5.20); RDW 13.3 % (11.5-14.5); WBC 10.63 X 10*3/uL (4.50-10.00)
[2025-01-19 11:11] LABS: ALT 20 U/L (8-44); AST 22 U/L (13-35); Albumin 3.5 g/dL (3.8-4.9); Alkaline Phosphatase 122 U/L (41-126); BUN/Creat Ratio 9.29 Ratio (12.00-20.00); Calcium 8.4 mg/dL (8.7-10.3); Carbon Dioxide 38.1 mmol/L (21.6-31.8); Chloride 96 mmol/L (96-109); Globulin 2.5 g/dL (1.6-3.3); Glucose 111 mg/dL (70-110); Potassium 3.2 mmol/L (3.5-5.5); Sodium 144 mmol/L (135-145); Total Bilirubin 0.2 mg/dL (0.3-1.2)
--- NOTE | 2025-01-19 11:13 | CA ---
Transthoracic Echo Report Name: Yeni Rodriguez Age: 74 Gender: F : 1950 Exam Date: 01/18/2025 16:02 Exam Location: [facility] Ht (in): 62 Wt (lb): 285 Ordering Physician: Sherman Cha MD Attending/Referring Phys: Job Order Clerk Nette Peguero RDCS Procedure CPT: Indications: SHORTNESS OF BREATH Cardiac Hx: Technical Quality: Technically difficult study Contrast 1: Definity Total Dose (mL): 2 Contrast 2: Total Dose (mL): MEASUREMENTS (Male / Female) Normal Values 2D ECHO LV Diastolic Diameter PLAX 4.7 cm 4.2 - 5.9 / 3.9 - 5.3 cm LV Systolic Diameter PLAX 2.2 cm IVS Diastolic Thickness 1.4 cm 0.6 - 1.0 / 0.6 - 0.9 cm LVPW Diastolic Thickness 1.5 cm 0.6 - 1.0 / 0.6 - 0.9 cm LV Relative Wall Thickness 0.6 RV Internal Dim ED PLAX 4.1 cm LVOT Diameter 2.2 cm LA Systolic Diameter LX 4.0 cm 3.0 - 4.0 / 2.7 - 3.8 cm M-MODE Aortic Root Diameter MM 4.0 cm DOPPLER AV Peak Velocity 288.8 cm/s AV Peak Gradient 33.4 mmHg AV Mean Velocity 179.1 cm/s AV Mean Gradient 15.7 mmHg AV Velocity Time Integral 55.4 cm TR Peak Velocity 270.9 cm/s TR Peak Gradient 29.3 mmHg Right Ventricular Systolic Press 34.3 mmHg FINDINGS Left Ventricle Left ventricular ejection fraction is estimated at 55-60 %. Left ventricular cavity size normal. Moderately increased septal wall thickness. Moderately increased posterior wall thickness. No obvious regional wall motion abnormalities. Right Ventricle Severe right ventricular dilatation. Mild pulmonary hypertension. Right Atrium Right atrium not well visualized. Left Atrium Mildly increased left atrial diameter. No left atrial thrombus or mass present. Mitral Valve Mild mitral annular calcification. Trace mitral regurgitation. Aortic Valve Aortic valve sclerosis. Mild aortic stenosis with a peak gradient of 33 mmHg and a mean gradient of 16 mmHg. Mild aortic regurgitation. Tricuspid Valve Structurally normal tricuspid valve. Mild tricuspid regurgitation. Pulmonic Valve Pulmonic valve not well visualized. No pulmonic regurgitation. Pericardium No pericardial effusion. Aorta Moderate aortic dilatation at the level of the sinuses of valsalva 40 mm CONCLUSIONS Technically difficult study for interpretation Normal LV systolic function Poorly visualized intracardiac valves Aortic sclerosis with mild stenosis and mild insufficiency Previewed by: Dr. Christian Barnes MD (Electronically Signed) Final Date: 19 January 2025 11:13
[2025-01-19 11:17] LABS: Glucose,Whole Blood 123 mg/dL (70-110)
--- NOTE | 2025-01-19 11:19 | P.PN ---
Subjective Progress Note Date: 01/19/25 Reason for Consult (text): CHF exacerbation History of present illness: This is a 74-year-old female patient of Dr. Chatterjee with past medical history of severe COPD, chronic hypoxic respiratory failure on home O2, chronic diastolic heart failure, moderate aortic regurgitation, pulmonary hypertension, diabetes, dyslipidemia. We have been asked to evaluate the patient for CHF exacerbation. Over the past few days. Blood pressure 115/65, heart rate 104, pulse ox 96% on 5 L nasal cannula. Patient has been started on IV Lasix 20 mg every 12 hours. -EKG: Sinus rhythm with no acute ST changes. Patient states that she has had shortness of breath with dyspnea on exertion that has been worsening. She also has had an increase of 8 pounds -Chest x-ray: Acute cardiopulmonary disease most consistent with mild CHF -Laboratory studies: WBC 14.7, hemoglobin 12, D-dimer 0.76. Sodium 143, potassium 3.7, CO2 34. BUN 25, creatinine initially 1.22 and now 0.99. Troponin negative x 1. proBNP 253. Cepheid viral panel not detected. -Home cardiac medications: Atorvastatin 40 mg at bedtime, magnesium 250 mg daily, Lopressor 100 mg twice daily, torsemide 60 mg daily, also on levothyroxine. -Echocardiogram performed 08/28/2023: Severe LVH with EF of 50 to 55%. 01/19 Patient seen and examined. Patient states her cough is better. She states her breathing is better. Also noted that the wheezing is improved from yesterday. Patient is currently on Lasix 40 mg IV every 12 hours. Blood pressure 107/64, heart rate 98, pulse ox 94% on 5 L nasal cannula. Repeat blood work reveals hemoglobin 10.2, WBC 10.6. Sodium 144, potassium 3.2, BUN 13 creatinine 1.4. No accurate JAMILA. No accurate weight. Echocardiogram reveals EF of 55 to 60%. Technically difficult study. Poorly visualized intracardiac valves. Aortic sclerosis with mild stenosis and mild insufficiency. Physical examination: Gen: This is a 74-year-old female in no acute distress. VS: reviewed HEENT: Head is atraumatic, normocephalic. Pupils equal, round. Sclerae is anicteric. NECK: Supple. No JVD. LUNGS: Mild expiratory wheeze bilaterally. No intercostal retractions. HEART: Regular rate and rhythm. ABDOMEN: Soft No tenderness. EXTREMITIES: Bilateral lower extremity edema. No calf tenderness. NEUROLOGICAL: Patient is awake, alert and oriented x3. Assessment: Acute on chronic diastolic heart failure Severe COPD Acute on chronic hypoxic respiratory failure on home O2, currently at 5 L nasal cannula Moderate aortic regurgitation Pulmonary hypertension Diabetes mellitus type 2 Dyslipidemia Plan: Continue patient's home cardiac medications Continue IV Lasix to 40 mg every 12 hours Monitor JAMILA, daily weights, electrolytes and renal function Further recommendations to follow based upon clinical course Nurse practitioner note has been reviewed, I agree with documented findings and plan of care. Patient was seen and examined. Objective - Vital Signs Vital signs: Vital Signs Temp 98.4 F 01/19/25 07:55 Pulse 98 01/19/25 07:55 Resp 18 01/19/25 07:55 BP 107/64 01/19/25 07:55 Pulse Ox 97 01/19/25 08:55 FiO2 Intake & Output 01/18/25 01/19/25 01/19/25 18:59 06:59 18:59 Other: Voiding Method Toilet # Voids 4 2 # Bowel Movements 2 - Labs CBC & Chem 7: 01/19/25 03:22 01/19/25 03:22 Labs: Abnormal Lab Results - Last 24 Hours (Table) 01/18/25 01/18/25 01/18/25 Range/Units 11:47 11:57 20:19 D-Dimer 0.76 H (<0.60) mg/L FEU POC Glucose (mg/dL) 124 H 129 H (70-110) mg/dL 01/19/25 Range/Units 06:20 D-Dimer (<0.60) mg/L FEU POC Glucose (mg/dL) 122 H (70-110) mg/dL Microbiology - Last 24 Hours (Table) 01/17/25 18:10 Blood Culture - Preliminary Blood
[2025-01-19] MEDS ORDERED: Potassium Replacement Protocol 1 EACH MISC MISCELLANE PRN (13:06)
--- NOTE | 2025-01-19 13:08 | P.PN ---
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 Patient stated that she has been not feeling her usual self for the last week. Patient stated that she is getting short of breath on rest or exertion. Patient also complaining of weight gain, patient states that she has gained close to 9 pounds in the last week. There is no complaint of chest pain. Patient denies palpitations. Patient complains of increased lethargy and weakness and is somnolent and sleeping a lot. Patient also complaining of swelling of feet. Pa danica denies any fever or chills there is no complaint of nausea, vomiting or abdominal pain. Because of this shortness of breath, patient came to the ER Initial lab work done in the ER showed WBC 16.2, hemoglobin 10.7, platelet count 224, sodium 141, potassium 3.7, BUN 30, creatinine 1.22, glucose 142, calcium 9.1, magnesium 2.1, AST 20, ALT 22 UA done showed large amount of leukocyte Estrace, urine WBC 161 Influenza A not detected Influenza B not detected RSV not detected COVID-19 not detected Chest x-ray done in the ER showed mild CHF Patient admitted to internal medicine service 01/19. Patient seen and examined. States she feels better. There is no swelling of lower extremities. Patient still gets short of breath on exertion. PT OT consulted REVIEW OF SYSTEMS: CONSTITUTIONAL: No fever, no malaise,. CARDIOVASCULAR: No chest pain, no palpitations, no syncope. PULMONARY as mentioned above GASTROINTESTINAL: No diarrhea, no nausea, no vomiting, no abdominal pain. NEUROLOGICAL: No headaches, no weakness, PHYSICAL EXAMINATION: GENERAL: The patient is alert and oriented x3, not in any acute distress. Well developed, well nourished. HEENT: Pupils are round and equally reacting to light. EOMI. No scleral icterus. No conjunctival pallor. Normocephalic, atraumatic. No pharyngeal erythema. No thyromegaly. CARDIOVASCULAR: S1 and S2 present. No murmurs, rubs, or gallops. PULMONARY: Coarse breath sound bilaterally, no wheezing or crackles. ABDOMEN: Soft, nontender, nondistended, normoactive bowel sounds. No palpable organomegaly. MUSCULOSKELETAL: No joint swelling or deformity. EXTREMITIES: No cyanosis, clubbing, or pedal edema. NEUROLOGICAL: Gross neurological examination did not reveal any focal deficits. SKIN: No rashes. Assessment and plan Acute CHF UTI Chronic hypoxic respiratory failure Hypokalemia Restrictive lung disease with COPD exacerbation Diabetes mellitus History of hypertension History of hyperlipidemia Monitor vital signs Monitor CBC Monitor CMP Continue telemetry monitoring Strict I's and O's Daily weights Low-salt diet Fluid restriction continue IV Lasix 40 mg every 12 Potassium replacement ordered F/u on 2D echo Follow-up on urine cultures Continue IV Rocephin Cardiology following ID following Labs and medication were reviewed.. Continue same treatment. Continue with symptomatic treatment. Resume home medication. Monitor labs and vitals. DVT and GI prophylaxis. Further recommendations as per clinical course of the pat ient Dictation was produced using [employer] dictation software. please excuse any grammatical, word or spelling errors. Objective - Vital Signs Vital signs: Vital Signs Temp 98.4 F 01/19/25 07:55 Pulse 98 01/19/25 07:55 Resp 18 01/19/25 07:55 BP 107/64 01/19/25 07:55 Pulse Ox 97 01/19/25 08:55 FiO2 Intake & Output 01/18/25 01/19/25 01/19/25 18:59 06:59 18:59 Other: Voiding Method Toilet # Voids 4 2 # Bowel Movements 2 - Labs CBC & Chem 7: 01/19/25 03:22 01/19/25 03:22 Labs: Abnormal Lab Results - Last 24 Hours (Table) 01/18/25 01/19/25 01/19/25 Range/Units 20:19 03:22 03:22 WBC 10.63 H (4.50-10.00) X 10*3/uL RBC 3.32 L (4.10-5.20) X 10*6/uL Hgb 10.2 L (12.0-15.0) g/dL Hct 31.8 L (37.2-46.3) % Immature Gran # 0.07 H (0.00-0.04) X 10*3/uL Monocytes # 1.17 H (0.20-1.00) X 10*3/uL Potassium 3.2 L (3.5-5.5) mmol/L Carbon Dioxide 38.1 H (21.6-31.8) mmol/L Est GFR (CKD-EPI) 40 L (>=60) BUN/Creatinine Ratio 9.29 L (12.00-20.00) Ratio Glucose 111 H (70-110) mg/dL POC Glucose (mg/dL) 129 H (70-110) mg/dL Calcium 8.4 L (8.7-10.3) mg/dL Total Bilirubin 0.2 L (0.3-1.2) mg/dL Total Protein 6.0 L (6.2-8.2) g/dL Albumin 3.5 L (3.8-4.9) g/dL Albumin/Globulin Ratio 1.40 L (1.60-3.17) Ratio 01/19/25 01/19/25 Range/Units 06:20 11:15 WBC (4.50-10.00) X 10*3/uL RBC (4.10-5.20) X 10*6/uL Hgb (12.0-15.0) g/dL Hct (37.2-46.3) % Immature Gran # (0.00-0.04) X 10*3/uL Monocytes # (0.20-1.00) X 10*3/uL Potassium (3.5-5.5) mmol/L Carbon Dioxide (21.6-31.8) mmol/L Est GFR (CKD-EPI) (>=60) BUN/Creatinine Ratio (12.00-20.00) Ratio Glucose (70-110) mg/dL POC Glucose (mg/dL) 122 H 123 H (70-110) mg/dL Calcium (8.7-10.3) mg/dL Total Bilirubin (0.3-1.2) mg/dL Total Protein (6.2-8.2) g/dL Albumin (3.8-4.9) g/dL Albumin/Globulin Ratio (1.60-3.17) Ratio Microbiology - Last 24 Hours (Table) 01/17/25 18:10 Blood Culture - Preliminary Blood
[2025-01-19] MEDS: POTASSIUM CHLORIDE ER 20 MEQ TAB.ER PO SCH (13:16)
--- NOTE | 2025-01-19 14:41 | P.PN ---
Subjective Progress Note Date: 01/19/25 Principal diagnosis: Reason for follow-up is leukocytosis and UTI Patient is a 74-year-old female with a past medical history significant for atrial fibrillation asthma COPD type 2 diabetes mellitus hypertension hyperlipidemia presenting to the hospital for evaluation of difficulty breathing weight gain patient also have a urinary symptom elevated white count concerning for symptomatic UTI prompting this consultation. On today's evaluation that is 01/19/2025, the patient continues to be afebrile, the patient is on room air and breathing comfortably, the Pt denies having any chest pain or any worsening cough, the patient denies having any abdominal pain no vomiting or any diarrhea, still complaining about the weight gain. The patient white count is down to 10.63 creatinine is 1.4 urine is growing gram-negative blood cultures are pending Objective - Vital Signs Vital signs: Vital Signs Temp 98.4 F 01/19/25 07:55 Pulse 98 01/19/25 07:55 Resp 18 01/19/25 07:55 BP 107/64 01/19/25 07:55 Pulse Ox 97 01/19/25 08:55 FiO2 Intake & Output 01/18/25 01/19/25 01/19/25 18:59 06:59 18:59 Other: Voiding Method Toilet # Voids 4 2 # Bowel Movements 2 - Exam GENERAL DESCRIPTION: An elderly female up in the chair in no distress RESPIRATORY SYSTEM: Unlabored breathing , decreased breath sounds at bases HEART: S1 S2 regular rate and rhythm , ABDOMEN: Soft , no tenderness EXTREMITIES: Swelling bilateral lower extremity no redness - Labs CBC & Chem 7: 01/19/25 03:22 01/19/25 03:22 Labs: Abnormal Lab Results - Last 24 Hours (Table) 01/18/25 01/18/25 01/19/25 Range/Units 11:57 20:19 03:22 WBC 10.63 H (4.50-10.00) X 10*3/uL RBC 3.32 L (4.10-5.20) X 10*6/uL Hgb 10.2 L (12.0-15.0) g/dL Hct 31.8 L (37.2-46.3) % Immature Gran # 0.07 H (0.00-0.04) X 10*3/uL Monocytes # 1.17 H (0.20-1.00) X 10*3/uL D-Dimer 0.76 H (<0.60) mg/L FEU Potassium (3.5-5.5) mmol/L Carbon Dioxide (21.6-31.8) mmol/L Est GFR (CKD-EPI) (>=60) BUN/Creatinine Ratio (12.00-20.00) Ratio Glucose (70-110) mg/dL POC Glucose (mg/dL) 129 H (70-110) mg/dL Calcium (8.7-10.3) mg/dL Total Bilirubin (0.3-1.2) mg/dL Total Protein (6.2-8.2) g/dL Albumin (3.8-4.9) g/dL Albumin/Globulin Ratio (1.60-3.17) Ratio 01/19/25 01/19/25 01/19/25 Range/Units 03:22 06:20 11:15 WBC (4.50-10.00) X 10*3/uL RBC (4.10-5.20) X 10*6/uL Hgb (12.0-15.0) g/dL Hct (37.2-46.3) % Immature Gran # (0.00-0.04) X 10*3/uL Monocytes # (0.20-1.00) X 10*3/uL D-Dimer (<0.60) mg/L FEU Potassium 3.2 L (3.5-5.5) mmol/L Carbon Dioxide 38.1 H (21.6-31.8) mmol/L Est GFR (CKD-EPI) 40 L (>=60) BUN/Creatinine Ratio 9.29 L (12.00-20.00) Ratio Glucose 111 H (70-110) mg/dL POC Glucose (mg/dL) 122 H 123 H (70-110) mg/dL Calcium 8.4 L (8.7-10.3) mg/dL Total Bilirubin 0.2 L (0.3-1.2) mg/dL Total Protein 6.0 L (6.2-8.2) g/dL Albumin 3.5 L (3.8-4.9) g/dL Albumin/Globulin Ratio 1.40 L (1.60-3.17) Ratio Microbiology - Last 24 Hours (Table) 01/17/25 18:10 Blood Culture - Preliminary Blood Assessment and Plan (1) Allergy to multiple antibiotics Current Visit: Yes Status: Acute Code(s): Z88.1 - ALLERGY STATUS TO OTHER ANTIBIOTIC AGENTS SNOMED Code(s): 096983139 (2) UTI (urinary tract infection) Current Visit: Yes Status: Acute Code(s): N39.0 - URINARY TRACT INFECTION, SITE NOT SPECIFIED SNOMED Code(s): 98131856 Plan: 1patient presented to hospital with generalized weakness which is likely multifactorial in this patient with a possible component of UTI likely from to the gram-negative pathogen. 2patient with multiple antibiotic ALLERGIES that would limit the number of antibiotic safe to use. 3patient white count is trending down urine is growing gram-negative we will treat with Rocephin while waiting for the culture to finalize Dictation was produced using [employer] dictation software. please excuse any grammatical, word or spelling errors. Time with Patient: Less than 30
[2025-01-19 16:25] LABS: Glucose,Whole Blood 153 mg/dL (70-110)
[2025-01-19] MEDS ORDERED: NYSTATIN 100,000 UNIT/GM POWD 15 GM TOPICAL PRN (18:52)
[2025-01-19 20:35] LABS: Glucose,Whole Blood 132 mg/dL (70-110)
[2025-01-20 05:56] LABS: Glucose,Whole Blood 134 mg/dL (70-110)
[2025-01-20 10:15] LABS: ALT 20 U/L (8-44); AST 20 U/L (13-35); Albumin 3.6 g/dL (3.8-4.9); Albumin/Globulin Ratio 1.38 Ratio (1.60-3.17); Alkaline Phosphatase 120 U/L (41-126); BUN/Creat Ratio 8.85 Ratio (12.00-20.00); Basophils # (A) 0.05 X 10*3/uL (0.00-0.10); Basophils % (A) 0.4 %; Blood Urea Nitrogen 11.5 mg/dL (9.0-27.0); Calcium 8.5 mg/dL (8.7-10.3); Carbon Dioxide 36.1 mmol/L (21.6-31.8); Chloride 95 mmol/L (96-109); Eosinophils # (A) 0.23 X 10*3/uL (0.04-0.35); Eosinophils % (A) 2.1 %; Globulin 2.6 g/dL (1.6-3.3); Glucose 116 mg/dL (70-110); HCT 34.1 % (37.2-46.3); HGB 10.9 g/dL (12.0-15.0); Lymphocytes # (A) 2.26 X 10*3/uL (0.90-5.00); Lymphocytes % (A) 20.3 %; MCH 30.3 pg (27.0-32.0); MCV 94.7 FL (80.0-97.0); Mean Platelet Volume 11.4 FL (9.5-12.2); Monocytes # (A) 1.21 X 10*3/uL (0.20-1.00); Monocytes % (A) 10.9 %; NRBC Per 100 WBC 0 X 10*3/uL (0.00-0.01); Neutrophils # (A) 7.34 X 10*3/uL (1.80-7.70); Neutrophils % (A) 65.8 %; Platelet Count 260 X 10*3/uL (140-440); Potassium 3.2 mmol/L (3.5-5.5); Sodium 143 mmol/L (135-145); Total Bilirubin 0.2 mg/dL (0.3-1.2); Total Protein 6.2 g/dL (6.2-8.2); WBC 11.15 X 10*3/uL (4.50-10.00)
[2025-01-20 12:27] LABS: Glucose,Whole Blood 114 mg/dL (70-110)
[2025-01-20] MEDS: ALBUTEROL NEBULIZED 2.5 MG/3 ML INHALATION PRN (12:49)
--- NOTE | 2025-01-20 12:53 | P.PN ---
Subjective Progress Note Date: 01/20/25 Principal diagnosis: Reason for follow-up is leukocytosis and UTI Patient is a 74-year-old female with a past medical history significant for atrial fibrillation asthma COPD type 2 diabetes mellitus hypertension hyperlipidemia presenting to the hospital for evaluation of difficulty breathing weight gain patient also have a urinary symptom elevated white count concerning for symptomatic UTI prompting this consultation. On today's evaluation that is 01/20/2025, patient did not have any fever and denies any chills, patient is breathing comfortably on 3 L current oxygen, patient with no chest pain has been complaining of dry irritating cough, patient did not have any abdominal pain nausea vomiting or any loose stools. Patient white count is 11.15, creatinine is 1.3 urine is growing gram-negative blood cultures so far negative Objective - Vital Signs Vital signs: Vital Signs Temp 99.0 F 01/20/25 07:25 Pulse 111 H 01/20/25 07:25 Resp 17 01/20/25 07:25 BP 149/75 01/20/25 07:25 Pulse Ox 93 L 01/20/25 07:25 FiO2 Intake & Output 01/19/25 01/20/25 01/20/25 18:59 06:59 18:59 Other: Voiding Method Toilet Toilet # Voids 4 2 2 # Bowel Movements 1 - Exam GENERAL DESCRIPTION: An elderly female up in the chair in no distress RESPIRATORY SYSTEM: Unlabored breathing , decreased breath sounds at bases HEART: S1 S2 regular rate and rhythm , ABDOMEN: Soft , no tenderness EXTREMITIES: Swelling bilateral lower extremity no redness - Labs CBC & Chem 7: 01/20/25 04:32 01/20/25 04:32 Labs: Abnormal Lab Results - Last 24 Hours (Table) 01/19/25 01/19/25 01/20/25 Range/Units 16:24 20:34 04:32 WBC 11.15 H (4.50-10.00) X 10*3/uL RBC 3.60 L (4.10-5.20) X 10*6/uL Hgb 10.9 L (12.0-15.0) g/dL Hct 34.1 L (37.2-46.3) % Immature Gran # 0.06 H (0.00-0.04) X 10*3/uL Monocytes # 1.21 H (0.20-1.00) X 10*3/uL Potassium (3.5-5.5) mmol/L Chloride (96-109) mmol/L Carbon Dioxide (21.6-31.8) mmol/L Est GFR (CKD-EPI) (>=60) BUN/Creatinine Ratio (12.00-20.00) Ratio Glucose (70-110) mg/dL POC Glucose (mg/dL) 153 H 132 H (70-110) mg/dL Calcium (8.7-10.3) mg/dL Total Bilirubin (0.3-1.2) mg/dL Albumin (3.8-4.9) g/dL Albumin/Globulin Ratio (1.60-3.17) Ratio 01/20/25 01/20/25 01/20/25 Range/Units 04:32 05:51 12:26 WBC (4.50-10.00) X 10*3/uL RBC (4.10-5.20) X 10*6/uL Hgb (12.0-15.0) g/dL Hct (37.2-46.3) % Immature Gran # (0.00-0.04) X 10*3/uL Monocytes # (0.20-1.00) X 10*3/uL Potassium 3.2 L (3.5-5.5) mmol/L Chloride 95 L (96-109) mmol/L Carbon Dioxide 36.1 H (21.6-31.8) mmol/L Est GFR (CKD-EPI) 43 L (>=60) BUN/Creatinine Ratio 8.85 L (12.00-20.00) Ratio Glucose 116 H (70-110) mg/dL POC Glucose (mg/dL) 134 H 114 H (70-110) mg/dL Calcium 8.5 L (8.7-10.3) mg/dL Total Bilirubin 0.2 L (0.3-1.2) mg/dL Albumin 3.6 L (3.8-4.9) g/dL Albumin/Globulin Ratio 1.38 L (1.60-3.17) Ratio Microbiology - Last 24 Hours (Table) 01/17/25 18:10 Blood Culture - Preliminary Blood 01/17/25 16:40 Urine Culture - Preliminary Urine,Voided Gram Neg Bacilli Assessment and Plan (1) Allergy to multiple antibiotics Current Visit: Yes Status: Acute Code(s): Z88.1 - ALLERGY STATUS TO OTHER ANTIBIOTIC AGENTS SNOMED Code(s): 531980872 (2) UTI (urinary tract infection) Current Visit: Yes Status: Acute Code(s): N39.0 - URINARY TRACT INFECTION, SITE NOT SPECIFIED SNOMED Code(s): 65641271 Plan: 1patient presented to hospital with generalized weakness which is likely multifactorial in this patient with a possible component of UTI likely from to the gram-negative pathogen. 2patient with multiple antibiotic ALLERGIES that would limit the number of antibiotic safe to use. 3patient white count is slightly up today, urine is growing gram-negative with ID sensitivities pending, patient to continue with Rocephin while waiting for the culture to finalize Dictation was produced using [employer] dictation software. please excuse any grammatical, word or spelling errors. Time with Patient: Less than 30
--- NOTE | 2025-01-20 13:20 | P.PN ---
Subjective Progress Note Date: 01/20/25 This is a 74-year-old female patient of Dr. Chatterjee with past medical history of severe COPD, chronic hypoxic respiratory failure on home O2, chronic diastolic heart failure, moderate aortic regurgitation, pulmonary hypertension, diabetes, dyslipidemia. We have been asked to evaluate the patient for CHF exacerbation. Over the past few days. Blood pressure 115/65, heart rate 104, pulse ox 96% on 5 L nasal cannula. Patient has been started on IV Lasix 20 mg every 12 hours. -EKG: Sinus rhythm with no acute ST changes. Patient states that she has had shortness of breath with dyspnea on exertion that has been worsening. She also has had an increase of 8 pounds -Chest x-ray: Acute cardiopulmonary disease most consistent with mild CHF -Laboratory studies: WBC 14.7, hemoglobin 12, D-dimer 0.76. Sodium 143, potassium 3.7, CO2 34. BUN 25, creatinine initially 1.22 and now 0.99. Troponin negative x 1. proBNP 253. Cepheid viral panel not detected. -Home cardiac medications: Atorvastatin 40 mg at bedtime, magnesium 250 mg daily, Lopressor 100 mg twice daily, torsemide 60 mg daily, also on levot hyroxine. -Echocardiogram performed this admission: EF of 55 to 60%, TDS, mild , mild AI. 01/20/2025 She was seen and examined sitting up in a chair. Overall she does not feel her breathing is much better. Continues to complain of lower extremity edema but better. Labs today show stable renal function. Physical examination: Gen: This is a 74-year-old female in no acute distress. VS: reviewed HEENT: Head is atraumatic, normocephalic. Pupils equal, round. Sclerae is anicteric. NECK: Supple. No JVD. LUNGS: Mild expiratory wheeze bilaterally. No intercostal retractions. HEART: Regular rate and rhythm. ABDOMEN: Soft No tenderness. EXTREMITIES: Bilateral lower extremity edema. No calf tenderness. NEUROLOGICAL: Patient is awake, alert and oriented x3. Assessment: Acute on chronic diastolic heart failure Severe COPD Acute on chronic hypoxic respiratory failure on home O2, currently at 5 L nasal cannula Moderate aortic regurgitation Pulmonary hypertension Diabetes mellitus type 2 Dyslipidemia Plan: Discontinue amlodipine Add Farxiga and losartan Continue metoprolol tartrate 25 mg p.o. twice daily Continue IV Lasix to 40 mg every 12 hours Monitor I&O, daily weights, electrolytes and renal function Further recommendations to follow based upon clinical course Nurse practitioner note has been reviewed, I agree with documented findings and plan of care. Patient was seen and examined. Objective - Vital Signs Vital signs: Vital Signs Temp 99.0 F 01/20/25 07:25 Pulse 104 H 01/20/25 12:50 Resp 17 01/20/25 07:25 BP 149/75 01/20/25 07:25 Pulse Ox 93 L 01/20/25 07:25 FiO2 Intake & Output 01/19/25 01/20/25 01/20/25 18:59 06:59 18:59 Other: Voiding Method Toilet Toilet # Voids 4 2 2 # Bowel Movements 1 - Labs CBC & Chem 7: 01/20/25 04:32 01/20/25 04:32 Labs: Abnormal Lab Results - Last 24 Hours (Table) 01/19/25 01/19/25 01/20/25 Range/Units 16:24 20:34 04:32 WBC 11.15 H (4.50-10.00) X 10*3/uL RBC 3.60 L (4.10-5.20) X 10*6/uL Hgb 10.9 L (12.0-15.0) g/dL Hct 34.1 L (37.2-46.3) % Immature Gran # 0.06 H (0.00-0.04) X 10*3/uL Monocytes # 1.21 H (0.20-1.00) X 10*3/uL Potassium (3.5-5.5) mmol/L Chloride (96-109) mmol/L Carbon Dioxide (21.6-31.8) mmol/L Est GFR (CKD-EPI) (>=60) BUN/Creatinine Ratio (12.00-20.00) Ratio Glucose (70-110) mg/dL POC Glucose (mg/dL) 153 H 132 H (70-110) mg/dL Calcium (8.7-10.3) mg/dL Total Bilirubin (0.3-1.2) mg/dL Albumin (3.8-4.9) g/dL Albumin/Globulin Ratio (1.60-3.17) Ratio 01/20/25 01/20/25 01/20/25 Range/Units 04:32 05:51 12:26 WBC (4.50-10.00) X 10*3/uL RBC (4.10-5.20) X 10*6/uL Hgb (12.0-15.0) g/dL Hct (37.2-46.3) % Immature Gran # (0.00-0.04) X 10*3/uL Monocytes # (0.20-1.00) X 10*3/uL Potassium 3.2 L (3.5-5.5) mmol/L Chloride 95 L (96-109) mmol/L Carbon Dioxide 36.1 H (21.6-31.8) mmol/L Est GFR (CKD-EPI) 43 L (>=60) BUN/Creatinine Ratio 8.85 L (12.00-20.00) Ratio Glucose 116 H (70-110) mg/dL POC Glucose (mg/dL) 134 H 114 H (70-110) mg/dL Calcium 8.5 L (8.7-10.3) mg/dL Total Bilirubin 0.2 L (0.3-1.2) mg/dL Albumin 3.6 L (3.8-4.9) g/dL Albumin/Globulin Ratio 1.38 L (1.60-3.17) Ratio Microbiology - Last 24 Hours (Table) 01/17/25 18:10 Blood Culture - Preliminary Blood 01/17/25 16:40 Urine Culture - Preliminary Urine,Voided Gram Neg Bacilli
--- NOTE | 2025-01-20 13:23 | P.PN ---
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 Patient stated that she has been not feeling her usual self for the last week. Patient stated that she is getting short of breath on rest or exertion. Patient also complaining of weight gain, patient states that she has gained close to 9 pounds in the last week. There is no complaint of chest pain. Patient denies palpitations. Patient complains of increased lethargy and weakness and is somnolent and sleeping a lot. Patient also complaining of swelling of feet. Pa danica denies any fever or chills there is no complaint of nausea, vomiting or abdominal pain. Because of this shortness of breath, patient came to the ER Initial lab work done in the ER showed WBC 16.2, hemoglobin 10.7, platelet count 224, sodium 141, potassium 3.7, BUN 30, creatinine 1.22, glucose 142, calcium 9.1, magnesium 2.1, AST 20, ALT 22 UA done showed large amount of leukocyte Estrace, urine WBC 161 Influenza A not detected Influenza B not detected RSV not detected COVID-19 not detected Chest x-ray done in the ER showed mild CHF Patient admitted to internal medicine service 01/19. Patient seen and examined. States she feels better. There is no swelling of lower extremities. Patient still gets short of breath on exertion. PT OT consulted 01/20. Patient seen and examined. Blood work done this morning showed sodium 143, potassium 3.2, BUN 11.5, creatinine 1.3, calcium 8.5. 2D echo done showed normal LV systolic function, aortic sclerosis with mild stenosis and insufficien cy. Patient states she feels much better REVIEW OF SYSTEMS: CONSTITUTIONAL: No fever, no malaise,. CARDIOVASCULAR: No chest pain, no palpitations, no syncope. PULMONARY as mentioned above GASTROINTESTINAL: No diarrhea, no nausea, no vomiting, no abdominal pain. NEUROLOGICAL: No headaches, no weakness, PHYSICAL EXAMINATION: GENERAL: The patient is alert and oriented x3, not in any acute distress. Well developed, well nourished. HEENT: Pupils are round and equally reacting to light. EOMI. No scleral icterus. No conjunctival pallor. Normocephalic, atraumatic. No pharyngeal erythema. No thyromegaly. CARDIOVASCULAR: S1 and S2 present. No murmurs, rubs, or gallops. PULMONARY: Coarse breath sound bilaterally, no wheezing or crackles. ABDOMEN: Soft, nontender, nondistended, normoactive bowel sounds. No palpable organomegaly. MUSCULOSKELETAL: No joint swelling or deformity. EXTREMITIES: No cyanosis, clubbing, or pedal edema. NEUROLOGICAL: Gross neurological examination did not reveal any focal deficits. SKIN: No rashes. Assessment and plan Acute CHF UTI Chronic hypoxic respiratory failure Hypokalemia Restrictive lung disease with COPD exacerbation Diabetes mellitus History of hypertension History of hyperlipidemia Monitor vital signs Monitor CBC Monitor CMP Continue telemetry monitoring Strict I's and O's Daily weights Low-salt diet Fluid restriction continue IV Lasix 40 mg every 12 Potassium replacement ordered F/u on 2D echo Follow-up on urine cultures Continue IV Rocephin Cardiology following ID following Labs and medication were reviewed.. Continue same treatment. Continue with symptomatic treatment. Resume home medication. Monitor labs and vitals. DVT and GI prophylaxis. Further recommendations as per clinical course of the patient Dictation was produced using [employer] dictation software. please excuse any grammatical, word or spelling errors. Objective - Vital Signs Vital signs: Vital Signs Temp 99.0 F 01/20/25 07:25 Pulse 111 H 01/20/25 07:25 Resp 17 01/20/25 07:25 BP 149/75 01/20/25 07:25 Pulse Ox 93 L 01/20/25 07:25 FiO2 Intake & Output 01/19/25 01/20/25 01/20/25 18:59 06:59 18:59 Other: Voiding Method Toilet # Voids 4 2 # Bowel Movements 1 - Labs CBC & Chem 7: 01/20/25 04:32 01/20/25 04:32 Labs: Abnormal Lab Results - Last 24 Hours (Table) 01/19/25 01/19/25 01/19/25 Range/Units 03:22 03:22 11:15 WBC 10.63 H (4.50-10.00) X 10*3/uL RBC 3.32 L (4.10-5.20) X 10*6/uL Hgb 10.2 L (12.0-15.0) g/dL Hct 31.8 L (37.2-46.3) % Immature Gran # 0.07 H (0.00-0.04) X 10*3/uL Monocytes # 1.17 H (0.20-1.00) X 10*3/uL Potassium 3.2 L (3.5-5.5) mmol/L Chloride (96-109) mmol/L Carbon Dioxide 38.1 H (21.6-31.8) mmol/L Est GFR (CKD-EPI) 40 L (>=60) BUN/Creatinine Ratio 9.29 L (12.00-20.00) Ratio Glucose 111 H (70-110) mg/dL POC Glucose (mg/dL) 123 H (70-110) mg/dL Calcium 8.4 L (8.7-10.3) mg/dL Total Bilirubin 0.2 L (0.3-1.2) mg/dL Total Protein 6.0 L (6.2-8.2) g/dL Albumin 3.5 L (3.8-4.9) g/dL Albumin/Globulin Ratio 1.40 L (1.60-3.17) Ratio 01/19/25 01/19/25 01/20/25 Range/Units 16:24 20:34 04:32 WBC 11.15 H (4.50-10.00) X 10*3/uL RBC 3.60 L (4.10-5.20) X 10*6/uL Hgb 10.9 L (12.0-15.0) g/dL Hct 34.1 L (37.2-46.3) % Immature Gran # 0.06 H (0.00-0.04) X 10*3/uL Monocytes # 1.21 H (0.20-1.00) X 10*3/uL Potassium (3.5-5.5) mmol/L Chloride (96-109) mmol/L Carbon Dioxide (21.6-31.8) mmol/L Est GFR (CKD-EPI) (>=60) BUN/Creatinine Ratio (12.00-20.00) Ratio Glucose (70-110) mg/dL POC Glucose (mg/dL) 153 H 132 H (70-110) mg/dL Calcium (8.7-10.3) mg/dL Total Bilirubin (0.3-1.2) mg/dL Total Protein (6.2-8.2) g/dL Albumin (3.8-4.9) g/dL Albumin/Globulin Ratio (1.60-3.17) Ratio 01/20/25 01/20/25 Range/Units 04:32 05:51 WBC (4.50-10.00) X 10*3/uL RBC (4.10-5.20) X 10*6/uL Hgb (12.0-15.0) g/dL Hct (37.2-46.3) % Immature Gran # (0.00-0.04) X 10*3/uL Monocytes # (0.20-1.00) X 10*3/uL Potassium 3.2 L (3.5-5.5) mmol/L Chloride 95 L (96-109) mmol/L Carbon Dioxide 36.1 H (21.6-31.8) mmol/L Est GFR (CKD-EPI) 43 L (>=60) BUN/Creatinine Ratio 8.85 L (12.00-20.00) Ratio Glucose 116 H (70-110) mg/dL POC Glucose (mg/dL) 134 H (70-110) mg/dL Calcium 8.5 L (8.7-10.3) mg/dL Total Bilirubin 0.2 L (0.3-1.2) mg/dL Total Protein (6.2-8.2) g/dL Albumin 3.6 L (3.8-4.9) g/dL Albumin/Globulin Ratio 1.38 L (1.60-3.17) Ratio Microbiology - Last 24 Hours (Table) 01/17/25 18:10 Blood Culture - Preliminary Blood 01/17/25 16:40 Urine Culture - Preliminary Urine,Voided Gram Neg Bacilli
[2025-01-20] MEDS: POTASSIUM CHLORIDE ER 20 MEQ TAB.ER PO SCH ×2 (13:30→18:24)
[2025-01-20] MEDS: LOSARTAN 50 MG TAB PO SCH (14:42)
[2025-01-20] MEDS: DAPAGLIFLOZIN PROPANEDIOL 10 MG TABLET PO SCH (14:42)
[2025-01-20] MEDS: POTASSIUM CHLORIDE ER 20 MEQ TAB.ER PO STA (14:45)
[2025-01-20 16:17] LABS: Glucose,Whole Blood 143 mg/dL (70-110)
[2025-01-20 21:07] LABS: Glucose,Whole Blood 168 mg/dL (70-110)
[2025-01-21 06:14] LABS: Glucose,Whole Blood 119 mg/dL (70-110)
[2025-01-21] MEDS: POTASSIUM CHLORIDE ER 20 MEQ TAB.ER PO SCH (09:22)
[2025-01-21 11:56] LABS: Glucose,Whole Blood 131 mg/dL (70-110)
[2025-01-21 12:05] LABS: BUN/Creat Ratio 9.47 Ratio (12.00-20.00); Blood Urea Nitrogen 14.2 mg/dL (9.0-27.0); Calcium 8.5 mg/dL (8.7-10.3); Chloride 97 mmol/L (96-109); Glucose 110 mg/dL (70-110); Potassium 3.6 mmol/L (3.5-5.5); Sodium 143 mmol/L (135-145)
--- NOTE | 2025-01-21 12:13 | P.PN ---
Subjective Progress Note Date: 01/21/25 This is a 74-year-old female patient of Dr. Chatterjee with past medical history of severe COPD, chronic hypoxic respiratory failure on home O2, chronic diastolic heart failure, moderate aortic regurgitation, pulmonary hypertension, diabetes, dyslipidemia. We have been asked to evaluate the patient for CHF exacerbation. Over the past few days. Blood pressure 115/65, heart rate 104, pulse ox 96% on 5 L nasal cannula. Patient has been started on IV Lasix 20 mg every 12 hours. -EKG: Sinus rhythm with no acute ST changes. Patient states that she has had shortness of breath with dyspnea on exertion that has been worsening. She also has had an increase of 8 pounds -Chest x-ray: Acute cardiopulmonary disease most consistent with mild CHF -Laboratory studies: WBC 14.7, hemoglobin 12, D-dimer 0.76. Sodium 143, potassium 3.7, CO2 34. BUN 25, creatinine initially 1.22 and now 0.99. Troponin negative x 1. proBNP 253. Cepheid viral panel not detected. -Home cardiac medications: Atorvastatin 40 mg at bedtime, magnesium 250 mg daily, Lopressor 100 mg twice daily, torsemide 60 mg daily, also on levot hyroxine. -Echocardiogram performed this admission: EF of 55 to 60%, TDS, mild , mild AI. 01/20/2025 She was seen and examined sitting up in a chair. Overall she does not feel her breathing is much better. Continues to complain of lower extremity edema but better. Labs today show stable renal function. 01/21/25 Patient was seen and examined sitting in a recliner. Overall she feels relatively stable. Her breathing is not significantly different from yesterday. Continues to complain of shortness of breath. Feels her edema is better. Labs are pending from today Physical examination: Gen: This is a 74-year-old female in no acute distress. VS: reviewed HEENT: Head is atraumatic, normocephalic. Pupils equal, round. Sclerae is anicteric. NECK: Supple. No JVD. LUNGS: Lungs diminished bilaterally. No intercostal retractions. HEART: Regular rate and rhythm. ABDOMEN: Soft No tenderness. EXTREMITIES: Trace bilateral lower extremity edema. No calf tenderness. NEUROLOGICAL: Patient is awake, alert and oriented x3. Assessment: Acute on chronic diastolic heart failure Severe COPD Acute on chronic hypoxic respiratory failure on home O2, currently at 5 L nasal cannula Moderate aortic regurgitation Pulmonary hypertension Diabetes mellitus type 2 Dyslipidemia Plan: Will await lab values from this morning. If renal function is stable continue IV Lasix to 40 mg every 12 hours, likely transition to oral Lasix tomorrow Monitor I&O, daily weights, electrolytes and renal function Further recommendations to follow based upon clinical course Nurse practitioner note has been reviewed, I agree with documented findings and plan of care. Patient was seen and examined. Objective - Vital Signs Vital signs: Vital Signs Temp 98.7 F 01/21/25 07:41 Pulse 100 01/21/25 09:53 Resp 18 01/21/25 07:41 BP 110/56 01/21/25 07:41 Pulse Ox 95 01/21/25 07:41 FiO2 Intake & Output 01/20/25 01/21/25 01/21/25 18:59 06:59 18:59 Other: Voiding Method Toilet Toilet # Voids 1 1 1 # Bowel Movements 1 1 1 - Labs CBC & Chem 7: 01/20/25 04:32 01/21/25 03:31 Labs: Abnormal Lab Results - Last 24 Hours (Table) 01/20/25 01/20/25 01/20/25 Range/Units 04:32 04:32 12:26 WBC 11.15 H (4.50-10.00) X 10*3/uL RBC 3.60 L (4.10-5.20) X 10*6/uL Hgb 10.9 L (12.0-15.0) g/dL Hct 34.1 L (37.2-46.3) % Immature Gran # 0.06 H (0.00-0.04) X 10*3/uL Monocytes # 1.21 H (0.20-1.00) X 10*3/uL Potassium 3.2 L (3.5-5.5) mmol/L Chloride 95 L (96-109) mmol/L Carbon Dioxide 36.1 H (21.6-31.8) mmol/L Est GFR (CKD-EPI) 43 L (>=60) BUN/Creatinine Ratio 8.85 L (12.00-20.00) Ratio Glucose 116 H (70-110) mg/dL POC Glucose (mg/dL) 114 H (70-110) mg/dL Calcium 8.5 L (8.7-10.3) mg/dL Total Bilirubin 0.2 L (0.3-1.2) mg/dL Albumin 3.6 L (3.8-4.9) g/dL Albumin/Globulin Ratio 1.38 L (1.60-3.17) Ratio 01/20/25 01/20/25 01/20/25 Range/Units 16:16 17:24 21:06 WBC (4.50-10.00) X 10*3/uL RBC (4.10-5.20) X 10*6/uL Hgb (12.0-15.0) g/dL Hct (37.2-46.3) % Immature Gran # (0.00-0.04) X 10*3/uL Monocytes # (0.20-1.00) X 10*3/uL Potassium 3.1 L (3.5-5.5) mmol/L Chloride (96-109) mmol/L Carbon Dioxide (21.6-31.8) mmol/L Est GFR (CKD-EPI) (>=60) BUN/Creatinine Ratio (12.00-20.00) Ratio Glucose (70-110) mg/dL POC Glucose (mg/dL) 143 H 168 H (70-110) mg/dL Calcium (8.7-10.3) mg/dL Total Bilirubin (0.3-1.2) mg/dL Albumin (3.8-4.9) g/dL Albumin/Globulin Ratio (1.60-3.17) Ratio 01/21/25 Range/Units 06:13 WBC (4.50-10.00) X 10*3/uL RBC (4.10-5.20) X 10*6/uL Hgb (12.0-15.0) g/dL Hct (37.2-46.3) % Immature Gran # (0.00-0.04) X 10*3/uL Monocytes # (0.20-1.00) X 10*3/uL Potassium (3.5-5.5) mmol/L Chloride (96-109) mmol/L Carbon Dioxide (21.6-31.8) mmol/L Est GFR (CKD-EPI) (>=60) BUN/Creatinine Ratio (12.00-20.00) Ratio Glucose (70-110) mg/dL POC Glucose (mg/dL) 119 H (70-110) mg/dL Calcium (8.7-10.3) mg/dL Total Bilirubin (0.3-1.2) mg/dL Albumin (3.8-4.9) g/dL Albumin/Globulin Ratio (1.60-3.17) Ratio Microbiology - Last 24 Hours (Table) 01/17/25 18:10 Blood Culture - Preliminary Blood 01/17/25 16:40 Urine Culture - Final Urine,Voided Proteus mirabilis
[2025-01-21] MEDS: polyethylene glycoL 3350 17 GM POWD.PACK PO SCH (12:51)
--- NOTE | 2025-01-21 13:52 | P.PN ---
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 Patient stated that she has been not feeling her usual self for the last week. Patient stated that she is getting short of breath on rest or exertion. Patient also complaining of weight gain, patient states that she has gained close to 9 pounds in the last week. There is no complaint of chest pain. Patient denies palpitations. Patient complains of increased lethargy and weakness and is somnolent and sleeping a lot. Patient also complaining of swelling of feet. Ari mishra denies any fever or chills there is no complaint of nausea, vomiting or abdominal pain. Because of this shortness of breath, patient came to the ER Initial lab work done in the ER showed WBC 16.2, hemoglobin 10.7, platelet count 224, sodium 141, potassium 3.7, BUN 30, creatinine 1.22, glucose 142, calcium 9.1, magnesium 2.1, AST 20, ALT 22 UA done showed large amount of leukocyte Estrace, urine WBC 161 Influenza A not detected Influenza B not detected RSV not detected COVID-19 not detected Chest x-ray done in the ER showed mild CHF Patient admitted to internal medicine service 01/19. Patient seen and examined. States she feels better. There is no swelling of lower extremities. Patient still gets short of breath on exertion. PT OT consulted 01/20. Patient seen and examined. Blood work done this morning showed sodium 143, potassium 3.2, BUN 11.5, creatinine 1.3, calcium 8.5. 2D echo done showed normal LV systolic function, aortic sclerosis with mild stenosis and insufficien cy. Patient states she feels much better 01/21. Patient seen and examined. Complaining of constipation. Denies any shortness of breath at rest. Denies any lightness or dizziness. Denies any lethargy or weakness. REVIEW OF SYSTEMS: CONSTITUTIONAL: No fever, no malaise,. CARDIOVASCULAR: No chest pain, no palpitations, no syncope. PULMONARY as mentioned above GASTROINTESTINAL: No diarrhea, no nausea, no vomiting, no abdominal pain. NEUROLOGICAL: No headaches, no weakness, PHYSICAL EXAMINATION: GENERAL: The patient is alert and oriented x3, not in any acute distress. Well developed, well nourished. HEENT: Pupils are round and equally reacting to light. EOMI. No scleral icterus. No conjunctival pallor. Normocephalic, atraumatic. No pharyngeal erythema. No thyromegaly. CARDIOVASCULAR: S1 and S2 present. No murmurs, rubs, or gallops. PULMONARY: Coarse breath sound bilaterally, no wheezing or crackles. ABDOMEN: Soft, nontender, nondistended, normoactive bowel sounds. No palpable organomegaly. MUSCULOSKELETAL: No joint swelling or deformity. EXTREMITIES: No cyanosis, clubbing, or pedal edema. NEUROLOGICAL: Gross neurological examination did not reveal any focal deficits. SKIN: No rashes. Assessment and plan Acute on chronic diastolic CHF UTI Chronic hypoxic respiratory failure Hypokalemia Restrictive lung disease with COPD exacerbation Diabetes mellitus History of hypertension History of hyperlipidemia Monitor vital signs Monitor CBC Monitor CMP Continue telemetry monitoring Strict I's and O's Daily weights Low-salt diet Fluid restriction continue IV Lasix 40 mg every 12 Potassium replacement ordered Echo done showed EF of 55 to 60%, TDS, mild , mild AI. Follow-up on urine cultures Continue IV Rocephin Cardiology following ID following Labs and medication were reviewed.. Continue same treatment. Continue with symptomatic treatment. Resume home medication. Monitor labs and vitals. DVT and GI prophylaxis. Further recommendations as per clinical course of the patient Dictation was produced using [email or web address] dictation software. please excuse any grammatical, word or spelling errors. Objective - Vital Signs Vital signs: Vital Signs Temp 98.7 F 01/21/25 07:41 Pulse 98 01/21/25 10:09 Resp 18 01/21/25 07:41 BP 110/56 01/21/25 07:41 Pulse Ox 95 01/21/25 07:41 FiO2 Intake & Output 01/20/25 01/21/25 01/21/25 18:59 06:59 18:59 Other: Voiding Method Toilet Toilet # Voids 1 1 1 # Bowel Movements 1 1 1 - Labs CBC & Chem 7: 01/20/25 04:32 01/21/25 03:31 Labs: Abnormal Lab Results - Last 24 Hours (Table) 01/20/25 01/20/25 01/20/25 Range/Units 12:26 16:16 17:24 Potassium 3.1 L (3.5-5.1) mmol/L POC Glucose (mg/dL) 114 H 143 H (70-110) mg/dL 01/20/25 01/21/25 Range/Units 21:06 06:13 Potassium (3.5-5.1) mmol/L POC Glucose (mg/dL) 168 H 119 H (70-110) mg/dL Microbiology - Last 24 Hours (Table) 01/17/25 18:10 Blood Culture - Preliminary Blood 01/17/25 16:40 Urine Culture - Final Urine,Voided Proteus mirabilis
--- NOTE | 2025-01-21 15:01 | P.PN ---
Subjective Progress Note Date: 01/21/25 Principal diagnosis: Reason for follow-up is leukocytosis and UTI Patient is a 74-year-old female with a past medical history significant for atrial fibrillation asthma COPD type 2 diabetes mellitus hypertension hyperlipidemia presenting to the hospital for evaluation of difficulty breathing weight gain patient also have a urinary symptom elevated white count concerning for symptomatic UTI prompting this consultation. On today's evaluation that is 01/21/2025, Patient is afebrile patient is currently on 5 L nasal oxygen and complaining of shortness of breath, the patient denies any chest pain did have cough but not bringing up any sputum, the patient denies any nausea vomiting did not have any abdominal pain and no diarrhea. Patient creatinine is 1.5 no CBC was done today urine grew Proteus sensitive to ceftriaxone Objective - Vital Signs Vital signs: Vital Signs Temp 98.7 F 01/21/25 07:41 Pulse 98 01/21/25 10:09 Resp 18 01/21/25 07:41 BP 110/56 01/21/25 07:41 Pulse Ox 95 01/21/25 07:41 FiO2 Intake & Output 01/20/25 01/21/25 01/21/25 18:59 06:59 18:59 Other: Voiding Method Toilet Toilet Toilet # Voids 1 1 1 # Bowel Movements 1 1 1 - Exam GENERAL DESCRIPTION: An elderly female up in the chair in no distress RESPIRATORY SYSTEM: Unlabored breathing , decreased breath sounds at bases HEART: S1 S2 regular rate and rhythm , ABDOMEN: Soft , no tenderness EXTREMITIES: Swelling bilateral lower extremity no redness - Labs CBC & Chem 7: 01/20/25 04:32 01/21/25 03:31 Labs: Abnormal Lab Results - Last 24 Hours (Table) 01/20/25 01/20/25 01/20/25 Range/Units 16:16 17:24 21:06 Potassium 3.1 L (3.5-5.1) mmol/L Carbon Dioxide (21.6-31.8) mmol/L Est GFR (CKD-EPI) (>=60) BUN/Creatinine Ratio (12.00-20.00) Ratio POC Glucose (mg/dL) 143 H 168 H (70-110) mg/dL Calcium (8.7-10.3) mg/dL 01/21/25 01/21/25 01/21/25 Range/Units 03:31 06:13 11:52 Potassium (3.5-5.1) mmol/L Carbon Dioxide 34.0 H (21.6-31.8) mmol/L Est GFR (CKD-EPI) 37 L (>=60) BUN/Creatinine Ratio 9.47 L (12.00-20.00) Ratio POC Glucose (mg/dL) 119 H 131 H (70-110) mg/dL Calcium 8.5 L (8.7-10.3) mg/dL Microbiology - Last 24 Hours (Table) 01/17/25 18:10 Blood Culture - Preliminary Blood 01/17/25 16:40 Urine Culture - Final Urine,Voided Proteus mirabilis Assessment and Plan (1) Allergy to multiple antibiotics Current Visit: Yes Status: Acute Code(s): Z88.1 - ALLERGY STATUS TO OTHER ANTIBIOTIC AGENTS SNOMED Code(s): 571893812 (2) UTI (urinary tract infection) Current Visit: Yes Status: Acute Code(s): N39.0 - URINARY TRACT INFECTION, SITE NOT SPECIFIED SNOMED Code(s): 42097123 Plan: 1patient presented to hospital with generalized weakness which is likely multifactorial in this patient with a possible component of UTI likely from to the gram-negative pathogen. 2patient with multiple antibiotic ALLERGIES that would limit the number of antibiotic safe to use. 3patient urine culture growing Proteus that is sensitive to ceftriaxone, patient to continue with Rocephin while inpatient and monitor clinical course closely Dictation was produced using [employer] dictation software. please excuse any grammatical, word or spelling errors. Time with Patient: Less than 30
[2025-01-21 17:18] LABS: Glucose,Whole Blood 124 mg/dL (70-110)
[2025-01-21 20:17] LABS: Glucose,Whole Blood 160 mg/dL (70-110)
[2025-01-22 06:25] LABS: Glucose,Whole Blood 133 mg/dL (70-110)
[2025-01-22 07:59] VITALS: BP 111/63; PULSE 100; RESP 18; TEMP 97.9
[2025-01-22 08:38] LABS: Basophils # (A) 0.05 X 10*3/uL (0.00-0.10); Basophils % (A) 0.5 %; Eosinophils # (A) 0.34 X 10*3/uL (0.04-0.35); Eosinophils % (A) 3.6 %; HCT 32.9 % (37.2-46.3); HGB 10.5 g/dL (12.0-15.0); Lymphocytes # (A) 2.31 X 10*3/uL (0.90-5.00); Lymphocytes % (A) 24.6 %; MCH 30.6 pg (27.0-32.0); MCHC 31.9 g/dL (32.0-37.0); MCV 95.9 FL (80.0-97.0); Mean Platelet Volume 11.8 FL (9.5-12.2); Monocytes # (A) 0.88 X 10*3/uL (0.20-1.00); Monocytes % (A) 9.4 %; NRBC Per 100 WBC 0 X 10*3/uL (0.00-0.01); Neutrophils # (A) 5.77 X 10*3/uL (1.80-7.70); Neutrophils % (A) 61.5 %; Platelet Count 227 X 10*3/uL (140-440); RBC 3.43 X 10*6/uL (4.10-5.20); RDW 13.3 % (11.5-14.5); WBC 9.39 X 10*3/uL (4.50-10.00)
[2025-01-22] MEDS: TORSEMIDE 20 MG TAB PO SCH (08:38)
--- NOTE | 2025-01-22 08:40 | P.PN ---
Subjective HISTORY OF PRESENT ILLNESS: This is a 74-year-old female patient of Dr. Chatterjee with past medical history of severe COPD, chronic hypoxic respiratory failure on home O2, chronic diastolic heart failure, moderate aortic regurgitation, pulmonary hypertension, diabetes, dyslipidemia. We have been asked to evaluate the patient for CHF exacerbation. Over the past few days. Blood pressure 115/65, heart rate 104, pulse ox 96% on 5 L nasal cannula. Patient has been started on IV Lasix 20 mg every 12 hours. -EKG: Sinus rhythm with no acute ST changes. Patient states that she has had shortness of breath with dyspnea on exertion that has been worsening. She also has had an increase of 8 pounds -Chest x-ray: Acute cardiopulmonary disease most consistent with mild CHF -Laboratory studies: WBC 14.7, hemoglobin 12, D-dimer 0.76. Sodium 143, pot assium 3.7, CO2 34. BUN 25, creatinine initially 1.22 and now 0.99. Troponin negative x 1. proBNP 253. Cepheid viral panel not detected. -Home cardiac medications: Atorvastatin 40 mg at bedtime, magnesium 250 mg daily, Lopressor 100 mg twice daily, torsemide 60 mg daily, also on levothyroxine. -Echocardiogram performed this admission: EF of 55 to 60%, TDS, mild , mild AI. 01/20/2025 She was seen and examined sitting up in a chair. Overall she does not feel her breathing is much better. Continues to complain of lower extremity edema but better. Labs today show stable renal function. 01/21/25 Patient was seen and examined sitting in a recliner. Overall she feels relatively stable. Her breathing is not significantly different from yesterday. Continues to complain of shortness of breath. Feels her edema is better. Labs are pending from today 01/22/2025 Patient examined this morning at the bedside. Patient currently denies chest pain or pressure. She reports improvement in her shortness of breath. She remains on IV Lasix. Vital signs are stable. Creatinine 1.5 yesterday. Awaiting repeat from this a.m. PHYSICAL EXAM: VITAL SIGNS: Reviewed. GENERAL: Well-developed in no acute distress. NECK: Supple. No JVD or thyromegaly LUNGS: Respirations even and unlabored. Lungs essentially clear to auscultation bilaterally. HEART: Regular rate and rhythm. S1 and S2 heard. EXTREMITIES: Normal range of motion. No clubbing or cyanosis. Peripheral pulses intact. No lower extremity edema ASSESSMENT: Acute on chronic diastolic heart failure Severe COPD Acute on chronic hypoxic respiratory failure on home O2, currently at 5 L nasal cannula Moderate aortic regurgitation Pulmonary hypertension Diabetes mellitus type 2 Dyslipidemia PLAN: Discontinue IV Lasix. Resume home dose of Demadex 60 mg daily Continue additional cardiac medications Patient is stable for discharge from a cardiac standpoint Patient to follow-up postdischarge with Dr. Chatterjee Nurse practitioner note has been reviewed by physician. Signing provider agrees with the documented findings, assessment, and plan of care documented by IRON LAUNDER OPERATOR as a scribe. Objective - Vital Signs Vital signs: Vital Signs Temp 97.9 F 01/22/25 07:56 Pulse 100 01/22/25 07:56 Resp 18 01/22/25 07:56 BP 111/63 01/22/25 07:56 Pulse Ox 95 01/22/25 07:56 FiO2 Intake & Output 01/21/25 01/22/25 01/22/25 18:59 06:59 18:59 Intake Total 500 360 Balance 500 360 Intake: Oral 500 360 Other: Voiding Method Toilet Toilet # Voids 1 3 # Bowel Movements 1 2 - Labs CBC & Chem 7: 01/20/25 04:32 01/21/25 03:31 Labs: Abnormal Lab Results - Last 24 Hours (Table) 01/21/25 01/21/25 01/21/25 Range/Units 03:31 11:52 17:15 Carbon Dioxide 34.0 H (21.6-31.8) mmol/L Est GFR (CKD-EPI) 37 L (>=60) BUN/Creatinine Ratio 9.47 L (12.00-20.00) Ratio POC Glucose (mg/dL) 131 H 124 H (70-110) mg/dL Calcium 8.5 L (8.7-10.3) mg/dL 01/21/25 01/22/25 Range/Units 20:15 06:24 Carbon Dioxide (21.6-31.8) mmol/L Est GFR (CKD-EPI) (>=60) BUN/Creatinine Ratio (12.00-20.00) Ratio POC Glucose (mg/dL) 160 H 133 H (70-110) mg/dL Calcium (8.7-10.3) mg/dL Microbiology - Last 24 Hours (Table) 01/17/25 18:10 Blood Culture - Preliminary Blood
[2025-01-22 08:46] LABS: BUN/Creat Ratio 9.67 Ratio (12.00-20.00); Blood Urea Nitrogen 14.5 mg/dL (9.0-27.0); Chloride 97 mmol/L (96-109); Glucose 122 mg/dL (70-110); Potassium 3.7 mmol/L (3.5-5.5); Sodium 143 mmol/L (135-145)
[2025-01-22 08:47] LABS: ALT 18 U/L (8-44); AST 18 U/L (13-35); Albumin 3.5 g/dL (3.8-4.9); Albumin/Globulin Ratio 1.35 Ratio (1.60-3.17); Alkaline Phosphatase 108 U/L (41-126); Calcium 8.6 mg/dL (8.7-10.3); Carbon Dioxide 35.2 mmol/L (21.6-31.8); Globulin 2.6 g/dL (1.6-3.3); Total Bilirubin 0.2 mg/dL (0.3-1.2); Total Protein 6.1 g/dL (6.2-8.2)
[2025-01-22 11:19] LABS: Glucose,Whole Blood 185 mg/dL (70-110)
--- NOTE | 2025-01-22 12:45 | P.PN ---
Subjective Progress Note Date: 01/22/25 Principal diagnosis: Reason for follow-up is leukocytosis and UTI Patient is a 74-year-old female with a past medical history significant for atrial fibrillation asthma COPD type 2 diabetes mellitus hypertension hyperlipidemia presenting to the hospital for evaluation of difficulty breathing weight gain patient also have a urinary symptom elevated white count concerning for symptomatic UTI prompting this consultation. On today's evaluation that is 01/22/2025, patient has been afebrile, patient is breathing slightly comfortably still having shortness of breath on exertion and is currently on 5 L nasal cannula oxygen, patient denies having any significant cough no chest pain, patient denies nausea vomiting or diarrhea and no abdominal pain. Patient white count is normalized to 9.39, creatinine is 1.5 urine with a Proteus blood culture negative Objective - Vital Signs Vital signs: Vital Signs Temp 97.9 F 01/22/25 07:56 Pulse 100 01/22/25 07:56 Resp 18 01/22/25 09:40 BP 111/63 01/22/25 07:56 Pulse Ox 95 01/22/25 07:56 FiO2 Intake & Output 01/21/25 01/22/25 01/22/25 18:59 06:59 18:59 Intake Total 500 360 Balance 500 360 Intake: Oral 500 360 Other: Voiding Method Toilet Toilet # Voids 1 3 # Bowel Movements 1 2 - Exam GENERAL DESCRIPTION: An elderly female up in the chair in no distress RESPIRATORY SYSTEM: Unlabored breathing , decreased breath sounds at bases HEART: S1 S2 regular rate and rhythm , ABDOMEN: Soft , no tenderness EXTREMITIES: Swelling bilateral lower extremity no redness - Labs CBC & Chem 7: 01/22/25 03:28 01/22/25 03:28 Labs: Abnormal Lab Results - Last 24 Hours (Table) 01/21/25 01/21/25 01/22/25 Range/Units 17:15 20:15 03:28 RBC 3.43 L (4.10-5.20) X 10*6/uL Hgb 10.5 L (12.0-15.0) g/dL Hct 32.9 L (37.2-46.3) % MCHC 31.9 L (32.0-37.0) g/dL Carbon Dioxide (21.6-31.8) mmol/L Est GFR (CKD-EPI) (>=60) BUN/Creatinine Ratio (12.00-20.00) Ratio Glucose (70-110) mg/dL POC Glucose (mg/dL) 124 H 160 H (70-110) mg/dL Calcium (8.7-10.3) mg/dL Total Bilirubin (0.3-1.2) mg/dL Total Protein (6.2-8.2) g/dL Albumin (3.8-4.9) g/dL Albumin/Globulin Ratio (1.60-3.17) Ratio 01/22/25 01/22/25 01/22/25 Range/Units 03:28 06:24 11:15 RBC (4.10-5.20) X 10*6/uL Hgb (12.0-15.0) g/dL Hct (37.2-46.3) % MCHC (32.0-37.0) g/dL Carbon Dioxide 35.2 H (21.6-31.8) mmol/L Est GFR (CKD-EPI) 37 L (>=60) BUN/Creatinine Ratio 9.67 L (12.00-20.00) Ratio Glucose 122 H (70-110) mg/dL POC Glucose (mg/dL) 133 H 185 H (70-110) mg/dL Calcium 8.6 L (8.7-10.3) mg/dL Total Bilirubin 0.2 L (0.3-1.2) mg/dL Total Protein 6.1 L (6.2-8.2) g/dL Albumin 3.5 L (3.8-4.9) g/dL Albumin/Globulin Ratio 1.35 L (1.60-3.17) Ratio Assessment and Plan (1) Allergy to multiple antibiotics Current Visit: Yes Status: Acute Code(s): Z88.1 - ALLERGY STATUS TO OTHER ANTIBIOTIC AGENTS SNOMED Code(s): 855291432 (2) UTI (urinary tract infection) Current Visit: Yes Status: Acute Code(s): N39.0 - URINARY TRACT INFECTION, SITE NOT SPECIFIED SNOMED Code(s): 52392179 Plan: 1patient presented to hospital with generalized weakness which is likely multifactorial in this patient with a possible component of UTI likely from to the gram-negative pathogen. 2patient with multiple antibiotic ALLERGIES that would limit the number of antibiotic safe to use. 3patient urine culture growing Proteus that is sensitive to ceftriaxone, 4- the patient white count has normalized we will continue the patient on Rocephin while inpatient will transition to oral Ceftin on discharge Dictation was produced using [employer] dictation software. please excuse any grammatical, word or spelling errors. Time with Patient: Less than 30
--- NOTE | 2025-01-22 22:23 | P.DS ---
Providers Date of admission: 01/17/25 18:34 Attending physician: Liliam Najera Consults: 01/18/25 11:32 Consult Physician Routine Consulting Provider: Carlyle Horvath Consult Reason/Comments: Complicated UTI Do you want consulting provider notified?: Yes 01/18/25 11:33 Consult Physician Routine Consulting Provider: Lauri Caban Consult Reason/Comments: CHF exacerbation Do you want consulting provider notified?: Yes Primary care physician: Hi Paige MD Hospital Course: Diagnoses: Acute on chronic diastolic CHF UTI secondary to sensitive Proteus Chronic hypoxic respiratory failure Hypokalemia Restrictive lung disease with COPD exacerbation Diabetes mellitus History of hypertension History of hyperlipidemia Assessment and plan: patient is 74-year-old lady with past medical history significant for COPD, CHF, 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 Chest x-ray done in the ER showed mild CHF. Patient evaluated by cardiology team and she was treated with IV Lasix, patient showed interval improvement and today cardiology cleared her for discharge and to go back on her home dose of Demadex 60 mg daily. Dosages also stopped her felodipine and started her on losartan 50 mg however upon discharge I lowered the dose to 25 mg because her creatinine went up little bit 1.5 and her blood pressure was borderline secondary to diuretics. Also I told the patient to check her blood test for kidney function and electrolytes with her PCP in 2 days, she has appointment with her PCP on 01/24 and she agrees with that, prescription for repeat blood work is provided for her as well. Outpatient metoprolol dose lowered to 50 mg by content curator as well as patient informed and she agrees Also patient with evidence of UTI treated with ceftriaxone, urine culture: Sensitive Proteus. Patient finished 4 days of IV antibiotics and she will continue with 3 more days upon discharge with Ceftin. Patient was eager to go home today. Patient denies any other new complaints. Patient was cleared for discharge by cardiology team Problems and management plan were discussed with the patient and he verbalized understanding and acceptance Patient was found stable and can be discharged home in guarded prognosis however he needs follow-up as an outpatient. Patient was instructed to follow up with PCP within one week and patient agrees Patient was instructed to follow-up with content curator Dr. Pisano in 1 week and she agrees Physical exam Gen: patient is a AAOx3, no distress CVS: S1-S2, RRR, no murmur Lungs: B/L CTA, no wheezing Abdomen: soft, no distention, no tenderness, positive bowel sounds Extremity: no leg edema or induration Time spent more than 35 minutes Patient Condition at Discharge: Stable Plan - Discharge Summary Discharge Rx Participant: Yes New Discharge Prescriptions: New cefuroxime axetiL [Ceftin] 500 mg PO BID 3 Days #6 tab Metoprolol Tartrate [Lopressor] 25 mg PO BID #60 tab Losartan [Cozaar] 25 mg PO DAILY #30 tab Continue Albuterol Inhaler [Ventolin Hfa Inhaler] 2 puff INHALATION RT-Q6H PRN PRN Reason: Shortness Of Breath Ascorbic Acid [Vitamin C] 1,000 mg PO DAILY Atorvastatin [Lipitor] 40 mg PO HS cycloSPORINE 0.05% OPHTH SOLN [Restasis] 1 drop BOTH EYES Q12H Ferrous Sulfate [Iron (65 MG Elemental)] 325 mg PO DAILY Gabapentin 600 mg PO BID@0900,1500 polyethylene glycoL 3350 [Miralax] 17 gm PO DAILY Potassium Chloride ER [K-Dur 10] 10 meq PO BID Selenium 200 mcg PO DAILY traMADol HCL 50 mg PO BID PRN PRN Reason: Pain Vitamin E (Dl,Tocopheryl Acet) [Vitamin E (1000 Iu = 450 MG)] 450 mg PO DAILY Fluticasone/Umeclidin/Vilanter [Trelegy Ellipta 200-62.5-25] 1 puff INHALATION RT-DAILY Ibandronate Sodium [Boniva] 150 mg PO QMONTHLY DULoxetine HCL [Cymbalta] 60 mg PO DAILY Levothyroxine Sodium [Synthroid] 175 mcg PO DAILY Nystatin 100,000 Unit/gm Powd [Mycostatin Powder] 1 applic TOPICAL BID PRN PRN Reason: Skin Irritation Vitamin B Complex 1 cap PO DAILY Torsemide [Demadex] 60 mg PO DAILY Mupirocin 2% Oint [Bactroban 2% Oint] 1 applic TOPICAL TID PRN PRN Reason: Skin Irritation Magnesium 250 mg PO DAILY Kelp Supplement 25 mg PO BID Ipratropium-Albuterol Nebulize [Duoneb 0.5 mg-3 mg/3 ml Soln] 3 ml INHALATION RT-Q6H PRN PRN Reason: Shortness Of Breath Gabapentin 300 mg PO TID ALPRAZolam [Xanax] 0.25 mg PO HS Multivitamins, Thera [Multivitamin (formulary)] 1 tab PO DAILY Triamcinolone 0.5% Cream [Kenalog 0.5% Cream] 1 applic TOPICAL BID PRN PRN Reason: Skin Irritation Tolterodine ER [Detrol LA] 4 mg PO DAILY Tirzepatide [Mounjaro] 7.5 mg SQ Q7D Pantoprazole [Protonix] 40 mg PO DAILY Ondansetron Odt [Zofran ODT] 4 mg PO Q6H PRN PRN Reason: Nausea And Vomiting icosapent ethyL [Icosapent Ethyl] 2 gm PO BID-W/MEALS Discontinued Metoprolol Tartrate [Lopressor] 100 mg PO BID Felodipine [Plendil] 10 mg PO DAILY Celecoxib [CeleBREX] 100 mg PO BID PRN PRN Reason: Pain Discharge Medication List Albuterol Inhaler [Ventolin Hfa Inhaler] 2 puff INHALATION RT-Q6H PRN 08/28/23 [History] Ascorbic Acid [Vitamin C] 1,000 mg PO DAILY 08/28/23 [History] Atorvastatin [Lipitor] 40 mg PO HS 08/28/23 [History] DULoxetine HCL [Cymbalta] 60 mg PO DAILY 08/28/23 [History] Ferrous Sulfate [Iron (65 MG Elemental)] 325 mg PO DAILY 08/28/23 [History] Gabapentin 600 mg PO BID@0900,1500 08/28/23 [History] Levothyroxine Sodium [Synthroid] 175 mcg PO DAILY 08/28/23 [History] Nystatin 100,000 Unit/gm Powd [Mycostatin Powder] 1 applic TOPICAL BID PRN 08/28/23 [History] Potassium Chloride ER [K-Dur 10] 10 meq PO BID 08/28/23 [History] Selenium 200 mcg PO DAILY 08/28/23 [History] cycloSPORINE 0.05% OPHTH SOLN [Restasis] 1 drop BOTH EYES Q12H 08/28/23 [History] polyethylene glycoL 3350 [Miralax] 17 gm PO DAILY 08/28/23 [History] traMADol HCL 50 mg PO BID PRN 08/28/23 [History] ALPRAZolam [Xanax] 0.25 mg PO HS 04/09/24 [History] Fluticasone/Umeclidin/Vilanter [Trelegy Ellipta 200-62.5-25] 1 puff INHALATION RT-DAILY 04/09/24 [History] Gabapentin 300 mg PO TID 04/09/24 [History] Ibandronate Sodium [Boniva] 150 mg PO QMONTHLY 04/09/24 [History] Ipratropium-Albuterol Nebulize [Duoneb 0.5 mg-3 mg/3 ml Soln] 3 ml INHALATION RT-Q6H PRN 04/09/24 [History] Kelp Supplement 25 mg PO BID 04/09/24 [History] Magnesium 250 mg PO DAILY 04/09/24 [History] Multivitamins, Thera [Multivitamin (formulary)] 1 tab PO DAILY 04/09/24 [History] Mupirocin 2% Oint [Bactroban 2% Oint] 1 applic TOPICAL TID PRN 04/09/24 [History] Torsemide [Demadex] 60 mg PO DAILY 04/09/24 [History] Vitamin B Complex 1 cap PO DAILY 04/09/24 [History] Vitamin E (Dl,Tocopheryl Acet) [Vitamin E (1000 Iu = 450 MG)] 450 mg PO DAILY 04/09/24 [History] Ondansetron Odt [Zofran ODT] 4 mg PO Q6H PRN 01/17/25 [History] Pantoprazole [Protonix] 40 mg PO DAILY 01/17/25 [History] Tirzepatide [Mounjaro] 7.5 mg SQ Q7D 01/17/25 [History] Tolterodine ER [Detrol LA] 4 mg PO DAILY 01/17/25 [History] Triamcinolone 0.5% Cream [Kenalog 0.5% Cream] 1 applic TOPICAL BID PRN 01/17/25 [History] icosapent ethyL [Icosapent Ethyl] 2 gm PO BID-W/MEALS 01/17/25 [History] Losartan [Cozaar] 25 mg PO DAILY #30 tab 01/22/25 [Rx] Metoprolol Tartrate [Lopressor] 25 mg PO BID #60 tab 01/22/25 [Rx] cefuroxime axetiL [Ceftin] 500 mg PO BID 3 Days #6 tab 01/22/25 [Rx] Follow up Appointment(s)/Referral(s): Hi Paige MD [Primary Care Provider] - 01/24/25 2:40 pm Wilfred Chatterjee MD [STAFF PHYSICIAN] - 1 Week (Office is not answering at time of discharge. Please call for follow-up appointment.) Ambulatory/Diagnostic Orders: Basic Metabolic Panel [LAB.AMB] Time Frame: 3 Days, Location: None Selected Patient Instructions/Handouts: Heart Failure (DC) Activity/Diet/Wound Care/Special Instructions: heart healthy diet activity is restricted till you see your doctor we recommend to check your kidney function test and electrolytes in 2-3 days with your doctor Discharge Disposition: HOME SELF-CARE
== END 2025-01-22 15:57 | disposition home or self-care (01) | DRG 291 ==
LOC: SUPCPDRO 13:50 → EC 13:50 → 4SSUR 18:34
PROVIDERS: ADMIT Hospitalist; ATTEND Hospitalist
PROC: 5A09357 Assistance with Respiratory Ventilation, Less than 24 Consecutive Hours, Continuous Positive Airway Pressure (ICD-10-PCS; principal; 2025-01-18)
DX: I11.0 Hypertensive heart disease with heart failure (principal); I50.33 Acute on chronic diastolic (congestive) heart failure; J96.21 Acute and chronic respiratory failure with hypoxia; J44.1 Chronic obstructive pulmonary disease with (acute) exacerbation; I27.20 Pulmonary hypertension, unspecified; E66.2 Morbid (severe) obesity with alveolar hypoventilation; B96.4 Proteus (mirabilis) (morganii) as the cause of diseases classified elsewhere; E11.9 Type 2 diabetes mellitus without complications; I35.1 Nonrheumatic aortic (valve) insufficiency; Z68.43 Body mass index [BMI] 50.0-59.9, adult; J70.1 Chronic and other pulmonary manifestations due to radiation; N39.0 Urinary tract infection, site not specified; I48.91 Unspecified atrial fibrillation; E87.6 Hypokalemia; J98.4 Other disorders of lung; E07.9 Disorder of thyroid, unspecified; E78.5 Hyperlipidemia, unspecified; K59.00 Constipation, unspecified; T50.2X5A Adverse effect of carbonic-anhydrase inhibitors, benzothiadiazides and other diuretics, initial encounter; Z99.81 Dependence on supplemental oxygen; Z79.1 Long term (current) use of non-steroidal anti-inflammatories (NSAID); Z79.51 Long term (current) use of inhaled steroids; Z79.83 Long term (current) use of bisphosphonates; Z79.890 Hormone replacement therapy; Z79.899 Other long term (current) drug therapy; Z86.16 Personal history of COVID-19; Z86.14 Personal history of Methicillin resistant Staphylococcus aureus infection; Z96.642 Presence of left artificial hip joint; Z96.651 Presence of right artificial knee joint; Z85.9 Personal history of malignant neoplasm, unspecified; Z88.2 Allergy status to sulfonamides; Z88.5 Allergy status to narcotic agent; Z88.6 Allergy status to analgesic agent; Y84.2 Radiological procedure and radiotherapy as the cause of abnormal reaction of the patient, or of later complication, without mention of misadventure at the time of the procedure
CPT/HCPCS: 36415; 51798; 71046; 80048; 80053; 81001; 82803; 83036; 83735; 83880; 84132; 84484; 85025; 85379; 85610; 85730; 87040; 87077; 87086; 87186; 87636; 93005; 93306; 94640; 94660; 94760; 96365; 96366; 96375; 99285